=== PATIENT | male | born 1970 | race Caucasian/White ===

== ENCOUNTER 2018-04-08 01:34 | Emergency (ER) | payer MEDICAID, OTHER, SELFPAY ==
[~2018-04-08] VITALS: Ht 175.3 cm; Wt 97.7 kg
[2018-04-08 01:34] VITALS: BP 132/78
[~2018-04-08 01:34] MED LIST: IBUP80TA PO; LIDO1DIS2 TD; LYRI150C PO; META800T82 PO; VERA120T2 PO; VICO5TAB16 PO
[2018-04-08] MEDS ORDERED: ACETAMINOPHEN TAB 650MG DOSE (2X325MG) PO ONE (02:45)
--- NOTE | 2018-04-08 08:25 | REP ---
Clinical: Trauma . Comparison: None Note: Originally reported to the ER by preliminary teleradiology ([facility]) report . Findings: The ventricles, sulci, and cisterns are normal in position and appearance. Herrera-white differentiation is maintained. No acute intracranial hemorrhage, mass/mass effect, pathology or trauma/injury. No evidence for acute infarction. No extra-axial fluid collection. Calvarium is intact. Paranasal sinuses and mastoid air cells are clear. Impression: Normal noncontrast head CT. No evidence for acute intracranial pathology or trauma/injury. Electronically Signed by Byron Trivedi MD 04/08/2018 08:16 A
--- NOTE | 2018-04-08 08:26 | REP ---
Clinical: Trauma. Note: Originally reported to the ER by preliminary teleradiology ([facility]) report . Technique: Axial noncontrast images from the skull base to the thoracic inlet with coronal and sagittal re-formations Findings: Normal alignment and lordosis is maintained. Cervical vertebral bodies including transverse processes and spinous processes are intact and there is no evidence for acute fracture / compression injury or subluxation. Spinal canal is patent. Posterior elements are intact. Paravertebral soft tissues are normal. Impression: Normal noncontrast cervical spine CT. No evidence for acute pathology or trauma/injury. Electronically Signed by Byron Trivedi MD 04/08/2018 08:17 A
--- NOTE | 2018-04-08 08:28 | REP ---
Clinical: Trauma. Fall. Technique: Axial noncontrast images from T12 through mid sacrum with coronal and sagittal re-formations. Note: Originally reported to the ER by preliminary teleradiology ([facility]) report . Findings: Advanced degenerative disc osteophyte complex at the L5-S1 level including anterior and posterior osteophytes, endplate sclerosis, disc space narrowing, and hypertrophic facet changes. Associated right-sided neural foraminal narrowing at L5-S1 is suggested. Moderate multilevel degenerative changes noted throughout the remainder of the examination. Alignment and lordosis maintained. No acute fracture / compression injury or subluxation. Spinal canal is patent. Posterior elements and spinous processes are intact. Paravertebral soft tissues are normal. Impression: Multilevel spondylosis. No acute fracture / compression injury or subluxation. Electronically Signed by Byron Trivedi MD 04/08/2018 08:19 A
--- NOTE | 2018-04-08 08:30 | REP ---
Clinical: Trauma. Technique: Axial images from C6 through L1 with coronal and sagittal re-formations. Findings: Alignment and kyphosis maintained. No acute fracture / compression injury or subluxation. Moderate degenerative disc osteophyte complexes at the T5-T10 levels include osteophytosis with minimal disc space narrowing with mild neural foraminal narrowing at T8-9 and T9-10. Spinal canal is patent. Impression: Moderate degenerative changes. No acute fracture / compression injury or subluxation. Electronically Signed by Byron Trivedi MD 04/08/2018 08:22 A
== END 2018-04-08 05:21 | disposition home or self-care (01) ==
LOC: M ED 01:34
DX: S00.93XA Contusion of unspecified part of head, initial encounter (principal); S39.012A Strain of muscle, fascia and tendon of lower back, initial encounter; Y00.XXXA Assault by blunt object, initial encounter; Y92.511 Restaurant or cafe as the place of occurrence of the external cause; I10 Essential (primary) hypertension

== ENCOUNTER → 2018-07-23 | Outpatient (REF) | payer OTHER, MEDICAID ==
[2018-07-23 14:02] LABS: ALBUMIN 4.2 GM/DL (3.2-5.2); ALT/SGPT 68 U/L (12-78); BILIRUBIN,TOTAL 0.7 MG/DL (0.2-1.0); BLOOD UREA NITROGEN 12 MG/DL (7-18); CALCIUM LEVEL 9.3 MG/DL (8.5-10.1); CARBON DIOXIDE LEVEL 25 MEQ/L (21-32); CHLORIDE LEVEL 106 MEQ/L (98-107); CHOLESTEROL LEVEL 232 MG/DL (<200); CHOLESTEROL RISK RATIO 3.741 (<5); CREATININE FOR GFR 0.89 MG/DL (0.70-1.30); FREE T4 1.09 NG/DL (0.76-1.46); GLOMERULAR FILTRATION RATE > 60.0 (>60); GLUCOSE, FASTING 95 MG/DL (70-100); HDL CHOLESTEROL 62 MG/DL (>40); LDL CHOLESTEROL 124 MG/DL (<100); NON-HDL-C 170 MG/DL; POTASSIUM SERUM 4.1 MEQ/L (3.5-5.1); SODIUM LEVEL 140 MEQ/L (136-145); TOTAL 25(OH) VITAMIN D 9.6 NG/ML (30.0-100.0); TOTAL PROTEIN 8.6 GM/DL (6.4-8.2); TRIGLYCERIDES LEVEL 232 MG/DL (<150)
[2018-07-25 00:07] LABS: Lyme Disease IgG/IgM Antibodie <0.91 ISR (0.00-0.90); Lyme Disease IgM Ab Quantitati <0.80 index (0.00-0.79)
== END ==
LOC: M LAB REF 12:38
PROVIDERS: ATTEND Family Medicine
DX: Z13.228 Encounter for screening for other metabolic disorders (principal); M25.561 Pain in right knee; R53.81 Other malaise

== ENCOUNTER → 2018-09-14 | Outpatient (REF) | payer OTHER ==
[2018-09-14 14:26] LABS: BASO # 0.1 10^3/uL (0.0-0.2); EOS # 0.1 10^3/uL (0.0-0.50); EOS % 1.4 % (0.0-3.0); HEMATOCRIT 43.3 % (42.0-52.0); HEMOGLOBIN 14.8 g/dl (13.5-17.5); LYMPH # 2.4 10^3/uL (1.5-4.5); LYMPH % 34.3 % (24.0-44.0); MEAN CORPUSCULAR HEMOGLOBIN 33.1 pg (27.0-33.0); MEAN CORPUSCULAR HGB CONC 34.2 g/dl (32.0-36.5); MEAN CORPUSCULAR VOLUME 96.9 fl (80.0-96.0); MONO # 0.6 10^3/uL (0.0-0.8); NEUTROPHILS # 3.8 10^3/uL (1.8-7.7); NEUTROPHILS % 53.6 % (36.0-66.0); PLATELET COUNT, AUTOMATED 233 10^3/uL (150-450); RED BLOOD COUNT 4.47 10^6/uL (4.30-6.10); WHITE BLOOD COUNT 7.1 10^3/uL (4.0-10.0)
[2018-09-14 14:51] LABS: HEMOGLOBIN A1c 5.8 %
[2018-09-14 15:05] LABS: ALBUMIN 3.9 GM/DL (3.2-5.2); ALT/SGPT 240 U/L (12-78); BILIRUBIN,TOTAL 0.5 MG/DL (0.2-1.0); BLOOD UREA NITROGEN 16 MG/DL (7-18); CALCIUM LEVEL 8.5 MG/DL (8.5-10.1); CARBON DIOXIDE LEVEL 24 MEQ/L (21-32); CHLORIDE LEVEL 106 MEQ/L (98-107); CHOLESTEROL LEVEL 212 MG/DL (<200); CHOLESTEROL RISK RATIO 3.212 (<5); CREATININE FOR GFR 0.82 MG/DL (0.70-1.30); FREE T4 1.08 NG/DL (0.76-1.46); GLOMERULAR FILTRATION RATE > 60.0 (>60); GLUCOSE, FASTING 95 MG/DL (70-100); HDL CHOLESTEROL 66 MG/DL (>40); LDL CHOLESTEROL 115 MG/DL (<100); NON-HDL-C 146 MG/DL; POTASSIUM SERUM 4.1 MEQ/L (3.5-5.1); SODIUM LEVEL 137 MEQ/L (136-145); TOTAL 25(OH) VITAMIN D 14.1 NG/ML (30.0-100.0); TOTAL PROTEIN 7.9 GM/DL (6.4-8.2); TRIGLYCERIDES LEVEL 153 MG/DL (<150)
[2018-09-16 00:06] LABS: Lyme Disease IgG/IgM Antibodie <0.91 ISR (0.00-0.90); Lyme Disease IgM Ab Quantitati <0.80 index (0.00-0.79)
== END ==
LOC: M LAB REF 13:13
PROVIDERS: ATTEND Family Medicine
DX: Z13.228 Encounter for screening for other metabolic disorders (principal); E78.5 Hyperlipidemia, unspecified; I10 Essential (primary) hypertension

== ENCOUNTER → 2018-10-04 | Outpatient (CLI) | payer OTHER ==
--- NOTE | 2018-10-04 17:22 | REP ---
MR CERVICAL SPINE WITHOUT CONTRAST: HISTORY: Back pain. COMPARISON: CT 04/08/2018 A disc bulge is present at the C4-5 level. There is mild effacement of the thecal sac without spinal cord compression. The C4 neural foramina are patent. A disc bulge is present at the C6-7 level. There is minimal effacement of the thecal sac without spinal cord compression. The C6 neural foramina are patent. There is no other disc bulge or herniation. The remaining neural foramina are patent. The spinal cord is normal in signal intensity. Normal signal intensity is present in the cervical vertebral bodies. IMPRESSION: There is cervical spondylosis at the C4-5 and C6-7 levels without spinal cord compression. Electronically Signed by Uriah Bell MD 10/05/2018 07:43 A
--- NOTE | 2018-10-04 17:28 | REP ---
MR THORACIC SPINE WITHOUT CONTRAST: HISTORY: Back pain. A small central disc protrusion is present at the T7-8 level. There is minimal effacement of the thecal sac without spinal cord compression. The T7 neural foramina are patent. A small right paracentral disc protrusion is present at the T9-10 level. There is minimal effacement of the thecal sac without spinal cord compression. The T9 neural foramina are patent. There is no other disc bulge or herniation. The remaining neural foramina are patent. A small focus of increased signal intensity is present in the spinal cord at the T10 level. This likely represents a focus of myelomalacia. A hemangioma is present in the T11 vertebral body. Normal signal intensity in the remaining thoracic vertebral bodies. IMPRESSION: 1. Small disc protrusions at the T7-8 and T9-10 levels without spinal cord compression. 2. There is a small focus is increased signal intensity in the spinal cord at the T10 level consistent with myelomalacia. Electronically Signed by Uriah Bell MD 10/05/2018 07:43 A
== END ==
LOC: M RAD 15:02
PROVIDERS: ATTEND Family Medicine
DX: M47.892 Other spondylosis, cervical region (principal); M51.24 Other intervertebral disc displacement, thoracic region; M50.221 Other cervical disc displacement at C4-C5 level; M50.222 Other cervical disc displacement at C5-C6 level

== ENCOUNTER 2018-10-22 13:22 | Emergency (ER) | payer OTHER ==
[~2018-10-22] VITALS: Ht 172.7 cm; Wt 100.0 kg
[2018-10-22] MEDS ORDERED: KETOROLAC 30 MG/ML VIAL (J1885) IM ONE (17:00)
[2018-10-22] MEDS ORDERED: CYCLOBENZAPRINE 10 MG TAB PO ONE (17:00)
[2018-10-22] MEDS ORDERED: KETOROLAC 30 MG/ML VIAL (J1885) IV ONE (18:45)
[2018-10-22 18:53] LABS: BASO % 0.4 % (0.0-1.0); EOS # 0.1 10^3/uL (0.0-0.50); EOS % 0.9 % (0.0-3.0); HEMATOCRIT 43.8 % (42.0-52.0); HEMOGLOBIN 15.5 g/dl (13.5-17.5); LYMPH # 3.8 10^3/uL (1.5-4.5); LYMPH % 41.1 % (24.0-44.0); MEAN CORPUSCULAR HEMOGLOBIN 32.4 pg (27.0-33.0); MEAN CORPUSCULAR HGB CONC 35.4 g/dl (32.0-36.5); MEAN CORPUSCULAR VOLUME 91.4 fl (80.0-96.0); MONO # 0.6 10^3/uL (0.0-0.8); NEUTROPHILS # 4.8 10^3/uL (1.8-7.7); NEUTROPHILS % 51.4 % (36.0-66.0); PLATELET COUNT, AUTOMATED 232 10^3/uL (150-450); RED BLOOD COUNT 4.79 10^6/uL (4.30-6.10); WHITE BLOOD COUNT 9.3 10^3/uL (4.0-10.0)
[2018-10-22 19:15] LABS: BLOOD UREA NITROGEN 20 MG/DL (7-18); CALCIUM LEVEL 8.8 MG/DL (8.5-10.1); CARBON DIOXIDE LEVEL 24 MEQ/L (21-32); CHLORIDE LEVEL 106 MEQ/L (98-107); CK-MB VALUE MASS 3.8 NG/ML (<3.6); CPK CREATINE PHOSPHOKINASE 315 U/L (39-308); GLOMERULAR FILTRATION RATE > 60.0 (>60); GLUCOSE, FASTING 95 MG/DL (70-100); MB/CK RELATIVE INDEX 1.21 (< OR =4); POTASSIUM SERUM 3.7 MEQ/L (3.5-5.1); SODIUM LEVEL 139 MEQ/L (136-145); TROPONIN I < 0.02 NG/ML (< 0.10)
--- NOTE | 2018-10-22 19:29 | REP ---
Chest x-ray: Two views: History: Abdomen pain. Findings: The lungs are well inflated and clear. The pleural angles are sharp. Heart size is normal. There are degenerative changes in the thoracic spine. Pulmonary vasculature is not increased. Impression: No active disease. Electronically Signed by Rohit Whittaker MD 10/22/2018 07:45 P
[2018-10-22] MEDS ORDERED: NS 1,000 ML IV ONE (19:30)
[2018-10-22] MEDS ORDERED: ACETAMINOPHEN TAB 650MG DOSE (2X325MG) PO ONE (22:15)
[2018-10-22 22:21] LABS: CPK CREATINE PHOSPHOKINASE 263 U/L (39-308); MB/CK RELATIVE INDEX 1.14 (< OR =4); TROPONIN I < 0.02 NG/ML (< 0.10)
[2018-10-22] MEDS ORDERED: LISINOPRIL 20 MG TAB PO ONE (23:30)
[2018-10-22 23:36] VITALS: BP 162/98
[2018-10-23] MEDS ORDERED: AMLO10TA PO (00:58)
[2018-10-23 01:13] VITALS: BP 137/77
[2018-10-23] MEDS ORDERED: amLODIPine 10 MG TAB PO ONE (01:15)
--- NOTE | 2018-10-23 08:10 | ECGEPIP ---
[facility] - ED Test Date: 2018-10-22 Pat Name: GIULIA THOMPSON Department: Room: - Gender: Male Mri Specialist: : 1970 Requested By: SADIA Velazco PA-C Order Number: [id number] Reading MD: Rob Pearl Measurements Intervals [place] Rate: 102 P: 46 MD: 143 QRS: QRSD: 102 T: 30 QT: 361 QTc: 472 Interpretive Statements SINUS TACHYCARDIA INFERIOR MYOCARDIAL INFARCTION, PROBABLY OLD NO PRIORS FOR COMPARISON Electronically Signed on 10-23-2018 8:09:59 EDT by Rob Pearl
== END 2018-10-23 01:20 | disposition home or self-care (01) ==
LOC: M ED 13:22
DX: M50.20 Other cervical disc displacement, unspecified cervical region (principal); M51.24 Other intervertebral disc displacement, thoracic region; E86.0 Dehydration; E11.9 Type 2 diabetes mellitus without complications; I10 Essential (primary) hypertension; Z79.899 Other long term (current) drug therapy
CPT/HCPCS: 36415; 71046; 80047; 80048; 81001; 82550; 82553; 85025; 93005; 96361; 96374; 99284; J1885

== ENCOUNTER → 2018-12-08 | Outpatient (CLI) | payer OTHER ==
[~2018-12-08] MED LIST changes: +AMLO10TA PO
[2018-12-08 12:32] LABS: HEMATOCRIT 43.6 % (42.0-52.0); HEMOGLOBIN 15.4 g/dl (13.5-17.5); MEAN CORPUSCULAR HEMOGLOBIN 31.8 pg (27.0-33.0); MEAN CORPUSCULAR HGB CONC 35.3 g/dl (32.0-36.5); MEAN CORPUSCULAR VOLUME 89.9 fl (80.0-96.0); PLATELET COUNT, AUTOMATED 380 10^3/uL (150-450); RED BLOOD COUNT 4.85 10^6/uL (4.30-6.10); WHITE BLOOD COUNT 12.1 10^3/uL (4.0-10.0)
[2018-12-08 13:14] LABS: ALBUMIN 3.9 GM/DL (3.2-5.2); ALT/SGPT 191 U/L (12-78); BILIRUBIN,TOTAL 0.5 MG/DL (0.2-1.0); BLOOD UREA NITROGEN 23 MG/DL (7-18); CALCIUM LEVEL 9.9 MG/DL (8.5-10.1); CARBON DIOXIDE LEVEL 27 MEQ/L (21-32); CHLORIDE LEVEL 99 MEQ/L (98-107); CHOLESTEROL LEVEL 230 MG/DL (<200); CHOLESTEROL RISK RATIO 6.388 (<5); GLOMERULAR FILTRATION RATE 38.3 (>60); GLUCOSE, FASTING 127 MG/DL (70-100); HDL CHOLESTEROL 36 MG/DL (>40); NON-HDL-C 194 MG/DL; PROSTATIC SPECIFIC AG MONITOR 1.45 NG/ML (< 4.00); SODIUM LEVEL 135 MEQ/L (136-145); TOTAL PROTEIN 8.4 GM/DL (6.4-8.2); TRIGLYCERIDES LEVEL 507 MG/DL (<150)
[2018-12-08 13:30] LABS: HEMOGLOBIN A1c 6.9 %
[2018-12-10 09:48] LABS: TESTOSTERONE 122 NG/DL (241-827)
== END ==
LOC: M LAB 11:44
PROVIDERS: ATTEND Family Medicine
DX: E03.9 Hypothyroidism, unspecified (principal); I10 Essential (primary) hypertension; E11.9 Type 2 diabetes mellitus without complications

== ENCOUNTER → 2019-06-19 | Outpatient (CLI) | payer OTHER ==
[~2019-06-19] MED LIST changes: +AMLO10TA5 PO; +CYCL10TA PO; +FLUTISP NARES; +LEVO50TA5 PO; -LIDO1DIS2 TD; +LIDO1DIS2 TOP; +LIDO5TD TOP; +LISI40TA PO; +METF500T13 PO; +MOBI4TAB PO; +OMEP-221 PO; +OXYC-517 PO; +PATIENT COMMENTS; +TRUL0.5I SC; +ZETI10TA16 PO
[2019-06-19 11:11] LABS: ALBUMIN 3.6 GM/DL (3.2-5.2); ALT/SGPT 119 U/L (12-78); BILIRUBIN,TOTAL 0.4 MG/DL (0.2-1.0); BLOOD UREA NITROGEN 13 MG/DL (7-18); CALCIUM LEVEL 9.2 MG/DL (8.5-10.1); CARBON DIOXIDE LEVEL 26 MEQ/L (21-32); CHLORIDE LEVEL 101 MEQ/L (98-107); CHOLESTEROL LEVEL 174 MG/DL (<200); CREATININE FOR GFR 0.88 MG/DL (0.70-1.30); GLOMERULAR FILTRATION RATE > 60.0 (>60); GLUCOSE, FASTING 187 MG/DL (70-100); HDL CHOLESTEROL 29 MG/DL (>40); LDL CHOLESTEROL 97 MG/DL (<100); NON-HDL-C 145 MG/DL; POTASSIUM SERUM 4.4 MEQ/L (3.5-5.1); SODIUM LEVEL 134 MEQ/L (136-145); TOTAL PROTEIN 8.4 GM/DL (6.4-8.2); TRIGLYCERIDES LEVEL 238 MG/DL (<150)
== END ==
LOC: M LAB 08:54
PROVIDERS: ATTEND Nurse Practitioner Family
DX: E11.65 Type 2 diabetes mellitus with hyperglycemia (principal)

== ENCOUNTER → 2019-06-20 | Outpatient (REF) | payer OTHER ==
[2019-06-20 11:24] LABS: MALB URINE SIEMENS 26.9 MG/L; MAU/CREAT RATIO 20.3 MCG/MG (0.0-30.0)
== END ==
LOC: M LAB REF 10:12
PROVIDERS: ATTEND Nurse Practitioner Family
DX: E11.65 Type 2 diabetes mellitus with hyperglycemia (principal)

== ENCOUNTER 2019-06-21 20:00 | Inpatient (IN) | payer OTHER ==
[~2019-06-21] VITALS: Ht 172.7 cm; Wt 104.4 kg
[~2019-06-21 20:00] MED LIST changes: -AMLO10TA5 PO; -CYCL10TA PO; -FLUTISP NARES; -LEVO50TA5 PO; -LIDO5TD TOP; -LISI40TA PO; -METF500T13 PO; -MOBI4TAB PO; -OMEP-221 PO; -OXYC-517 PO; -PATIENT COMMENTS; -TRUL0.5I SC; -ZETI10TA16 PO
[2019-06-21] MEDS ORDERED: PROPOFOL 1,000 MG/100 ML VIAL As Ordered ONE (20:05)
[2019-06-21] MEDS ORDERED: MIDAZOLAM INJ 5 MG/ML VIAL (J2250) As Ordered ONE ×2 (20:06→20:55)
[2019-06-21 20:16] LABS: HEMATOCRIT 46.5 % (42.0-52.0); HEMOGLOBIN 14.2 g/dl (13.5-17.5); MEAN CORPUSCULAR HEMOGLOBIN 29.9 pg (27.0-33.0); MEAN CORPUSCULAR HGB CONC 30.5 g/dl (32.0-36.5); MEAN CORPUSCULAR VOLUME 97.9 fl (80.0-96.0); PLATELET COUNT, AUTOMATED 362 10^3/uL (150-450); RED BLOOD COUNT 4.75 10^6/uL (4.30-6.10)
[2019-06-21 20:18] LABS: WHITE BLOOD COUNT 24.4 10^3/uL (4.0-10.0)
[2019-06-21] MEDS ORDERED: ISOVUE-370 76% 100ML VIAL (Q9967) As Ordered ONE (20:19)
[2019-06-21 20:34] LABS: ATYPICAL LYMPH 11 % (0-5); BASOPHILS 1 % (0-1); EOSINOPHILS 3 % (0-3); LYMPHOCYTES 46 % (16-44); MONOCYTES 9 % (0-5); NEUTROPHILS 30 % (28-66)
[2019-06-21 20:35] LABS: PLATELET ESTIMATE NORMAL (NORMAL); POLYCHROMASIA 1+
[2019-06-21 20:36] LABS: ANISOCYTOSIS 1+
[2019-06-21 20:45] LABS: ALBUMIN 3.7 GM/DL (3.2-5.2); ALT/SGPT 206 U/L (12-78); BILIRUBIN,DIRECT 0.1 MG/DL (0.0-0.2); BILIRUBIN,TOTAL 0.3 MG/DL (0.2-1.0); BLOOD UREA NITROGEN 19 MG/DL (7-18); CALCIUM LEVEL 8.5 MG/DL (8.5-10.1); CARBON DIOXIDE LEVEL 29 MEQ/L (21-32); CHLORIDE LEVEL 98 MEQ/L (98-107); CK-MB VALUE MASS 6.5 NG/ML (<3.6); CPK CREATINE PHOSPHOKINASE 467 U/L (39-308); CREATININE FOR GFR 1.38 MG/DL (0.70-1.30); GLOMERULAR FILTRATION RATE 58.5 (>60); GLUCOSE, FASTING 367 MG/DL (70-100); MAGNESIUM LEVEL 2.2 MG/DL (1.8-2.4); MB/CK RELATIVE INDEX 1.39 (< OR =4); PHOSPHORUS LEVEL 8.2 MG/DL (2.5-4.9); POTASSIUM SERUM 4.1 MEQ/L (3.5-5.1); SODIUM LEVEL 136 MEQ/L (136-145); TOTAL PROTEIN 8.6 GM/DL (6.4-8.2); TROPONIN I < 0.02 NG/ML (< 0.10)
[2019-06-21] MEDS ORDERED: ETOMIDATE INJ 20MG/10ML VIAL IV STA (20:56)
[2019-06-21] MEDS ORDERED: SUCCINYLCHOLINE INJ 200 MG/10 ML VIAL (J0330) IV STA (20:56)
--- NOTE | 2019-06-21 20:58 | REPVR ---
PROCEDURE INFORMATION: Exam: CT Cervical Spine Without Contrast Exam date and time: 06/21/2019 8:24 PM Age: 48 years old Clinical indication: Condition or disease; Other: Resp arrest TECHNIQUE: Imaging protocol: Computed tomography images of the cervical spine without contrast. Radiation optimization: All CT scans at this facility use at least one of these dose optimization techniques: automated exposure control; mA and/or kV adjustment per patient size (includes targeted exams where dose is matched to clinical indication); or iterative reconstruction. COMPARISON: CT Spine,cervical w/o contrast 04/08/2018 2:40 AM FINDINGS: Tubes, catheters and devices: ET tube in position. Vertebrae: No acute fracture or subluxation. Discs/Spinal canal/Neural foramina: Mild interspace narrowing from C5-C7 with minimal anterior spurring at C4-C5. Minimal multilevel degenerative changes of the apophyseal joints and minimal hypertrophic change of uncovertebral joints at C5-C6, particularly on the right with mild right neural foraminal stenosis. No significant spinal or foraminal stenosis. Soft tissues: Unremarkable. Lungs: Biapical interstitial prominence and scar and question of minimal infiltrates. IMPRESSION: 1. ET tube in position. 2. Multilevel degenerative changes, greatest at C5-C6 with mild right neural foraminal stenosis at this level. Otherwise, no spinal or foraminal stenosis. 3. No acute fracture or subluxation. 4. Biapical interstitial coarsening and scar with question of minimal ground-glass infiltrates. Electronically signed by: Trevon Felix On 06/21/2019 20:57:55 PM
[2019-06-21] MEDS ORDERED: MIDAZOLAM INJ 2 MG/2 ML VIAL (J2250) IV ONE (21:00)
[2019-06-21] MEDS ORDERED: MIDAZOLAM HCL 50 MG in D5W 40 ML IV SCH (21:00)
[2019-06-21] MEDS ORDERED: propofoL 1,000 MG in IV 1 EA IV SCH (21:00)
--- NOTE | 2019-06-21 21:03 | REPVR ---
PROCEDURE INFORMATION: Exam: CT Angiography Chest With Contrast Exam date and time: 06/21/2019 8:24 PM Age: 48 years old Clinical indication: Other: Resp arrest TECHNIQUE: Imaging protocol: Computed tomographic angiography of the chest with intravenous contrast. 3D rendering: MIP and/or 3D reconstructed images were created by the technologist. Radiation optimization: All CT scans at this facility use at least one of these dose optimization techniques: automated exposure control; mA and/or kV adjustment per patient size (includes targeted exams where dose is matched to clinical indication); or iterative reconstruction. Contrast material: ISOVUE 370; Contrast volume: 100 ml; Contrast route: IV; COMPARISON: CR Chest, 2 view PA, Lat 10/22/2018 5:11 PM FINDINGS: Tubes, catheters and devices: ET tube in position approximately 6 mm above the andrae. Pulmonary arteries: The main pulmonary artery measures 29 mm. No central pulmonary embolism is identified. Aorta: The ascending thoracic aorta measures 28 mm. Lungs: Coarse interstitium with minimal bilateral lower lobe fibro-atelectatic change and question of minimal patchy infiltrates. Pleural space: Unremarkable. No pneumothorax. No pleural effusion. Heart: Unremarkable. No cardiomegaly. No pericardial effusion. Liver: The liver at mid clavicular line measures 16.2 cm. The liver attenuation is 49 Hounsfield units and the spleen is 91 Hounsfield units. Lymph nodes: Unremarkable. No enlarged lymph nodes. Bones/joints: Unremarkable. No acute fracture. Soft tissues: Unremarkable. IMPRESSION: 1. ET tube in position with the tip approximately 6 mm above the andrae. 2. Coarse interstitium with minimal bilateral fibro-atelectatic change, greatest in the lower lobes and question of minimal patchy infiltrates. 3. Borderline hepatomegaly with fatty infiltration. 4. Otherwise negative CTA chest. No central pulmonary embolism is identified. Electronically signed by: Trevon Felix On 06/21/2019 21:03:21 PM
--- NOTE | 2019-06-21 21:08 | REPVR ---
PROCEDURE INFORMATION: Exam: CT Head Without Contrast Exam date and time: 06/21/2019 8:24 PM Age: 48 years old Clinical indication: Other: Resp arrest TECHNIQUE: Imaging protocol: Computed tomography of the head without contrast. Radiation optimization: All CT scans at this facility use at least one of these dose optimization techniques: automated exposure control; mA and/or kV adjustment per patient size (includes targeted exams where dose is matched to clinical indication); or iterative reconstruction. COMPARISON: CT Head without contrast 04/08/2018 2:40 AM FINDINGS: Brain: Normal. No hemorrhage. Unremarkable white matter. No mass effect. Ventricles: Normal. No ventriculomegaly. Bones/joints: Unremarkable. No acute fracture. Sinuses: Minimal ethmoid sinus mucosal thickening. Mastoid air cells: Visualized mastoid air cells are well aerated. Soft tissues: Unremarkable. IMPRESSION: 1. Minimal ethmoid sinus disease. 2. Otherwise negative noncontrast head CT with no change intracranially since 04/08/2018. Electronically signed by: Trevon Felix On 06/21/2019 21:08:34 PM
[2019-06-21] MEDS ORDERED: AMLO10TA5 PO (21:11)
[2019-06-21] MEDS ORDERED: IBUP80TA PO (21:12)
[2019-06-21] MEDS ORDERED: LIDO5TD TOP (21:12)
--- NOTE | 2019-06-21 21:14 | REPVR ---
PROCEDURE INFORMATION: Exam: CT Angiography Abdomen and Pelvis With Contrast Exam date and time: 06/21/2019 8:24 PM Age: 48 years old Clinical indication: Other: Resp arrest TECHNIQUE: Imaging protocol: Computed tomographic angiography of the abdomen and pelvis with intravenous contrast material. 3D rendering: MIP and/or 3D reconstructed images were created by the technologist. Radiation optimization: All CT scans at this facility use at least one of these dose optimization techniques: automated exposure control; mA and/or kV adjustment per patient size (includes targeted exams where dose is matched to clinical indication); or iterative reconstruction. Contrast material: ISOVUE 370; Contrast volume: 100 ml; Contrast route: IV; COMPARISON: No relevant prior studies available. FINDINGS: Lungs: Minimal bilateral lower lobe fibro-atelectatic change and question of minimal basilar infiltrates. Aorta: There is minimal atherosclerotic calcification of the abdominal aorta. Celiac trunk and mesenteric arteries: No occlusion or significant stenosis. Renal arteries: No occlusion or significant stenosis. Right iliac arteries: No occlusion or significant stenosis. Left iliac arteries: No occlusion or significant stenosis. Liver: The liver at mid clavicular line measures 17.0 cm. The liver attenuation is 51 Hounsfield units and the spleen is 90 Hounsfield units. Gallbladder and bile ducts: Unremarkable. No calcified stones. No ductal dilation. Pancreas: Unremarkable. No mass. No ductal dilation. Spleen: Unremarkable. No splenomegaly. Adrenals: Unremarkable. No mass. Kidneys and ureters: Unremarkable. No solid mass. No hydronephrosis. Stomach and bowel: There is colonic diverticulosis without evidence of diverticulitis. Appendix: A normal appendix is seen. Intraperitoneal space: Unremarkable. No free air. No significant fluid collection. Lymph nodes: Unremarkable. No enlarged lymph nodes. Bladder: Unremarkable. No mass. Reproductive: Small peripherally calcified focus of fat necrosis between the proximal vas deferens. Bones/joints: Degenerative change of the lumbar spine, greatest at L5-S1. Soft tissues: Unremarkable. IMPRESSION: 1. Mild hepatomegaly with fatty infiltration. 2. Minimal bilateral lower lobe fibro-atelectatic change and question of minimal infiltrates. 3. Colonic diverticulosis without diverticulitis. 4. Otherwise negative CT abdomen/pelvis. Electronically signed by: Trevon Felix On 06/21/2019 21:13:46 PM
[2019-06-21] MEDS ORDERED: CYCL10TA PO (21:17)
[2019-06-21] MEDS ORDERED: MOBI4TAB PO (21:17)
[2019-06-21] MEDS ORDERED: TRUL0.5I SC (21:17)
[2019-06-21] MEDS ORDERED: FLUTISP NARES (21:17)
[2019-06-21] MEDS ORDERED: LEVO50TA5 PO (21:17)
[2019-06-21] MEDS ORDERED: OXYC-517 PO (21:17)
[2019-06-21] MEDS ORDERED: LISI40TA PO (21:17)
[2019-06-21] MEDS ORDERED: PATIENT COMMENTS (21:20)
[2019-06-21] MEDS ORDERED: NS IV ONE (21:30)
[2019-06-21 21:45] LABS: ACETAMINOPHEN LEVEL < 2.0 UG/ML (10.0-30.0); ETHYL ALCOHOL (ETHANOL) < 0.003 % (0.000-0.010); SALICYLATE LEVEL < 1.7 MG/DL (5.0-30.0)
--- NOTE | 2019-06-21 21:45 | REP ---
Clinical: Endotracheal tube. Comparison: 10/22/2018. Findings: Endotracheal tube extends to the level of the andrae. Mediastinum and cardiac silhouette are within normal limits. Further evaluation is limited due to positioning, underpenetration, and poor inspiratory effort. No obvious focal consolidation, effusion, or pneumothorax. Skeletal structures intact. Impression: Endotracheal tube at the level of the andrae. Electronically Signed by Byron Trivedi MD 06/21/2019 09:36 P
[2019-06-21] MEDS ORDERED: OMEP-221 PO (21:49)
[2019-06-21] MEDS ORDERED: ZETI10TA16 PO (21:49)
[2019-06-21] MEDS ORDERED: METF500T13 PO (21:49)
--- NOTE | 2019-06-21 21:53 | REP ---
Clinical: Line and tube positioning. Findings: Endotracheal tube approximately 1 cm above the andrae. The nasogastric tube courses below left hemidiaphragm. Cardiac silhouette is within normal limits / stable. The respiratory effort limits evaluation, but atelectasis at the left base and right mid lung zone cannot be excluded. No effusion. No pneumothorax. Skeletal structures intact. Impression: 1. Endotracheal tube 1 cm above the andrae. 2. Nasogastric tube in satisfactory position. 3. Cannot exclude atelectasis at the left base and right mid lung zone. Electronically Signed by Byron Trivedi MD 06/21/2019 09:45 P
--- NOTE | 2019-06-21 22:13 | ECGEPIP ---
[facility] - ED Test Date: 2019-06-21 Pat Name: GIULIA THOMPSON Department: Room: - Gender: Male Senior Care Assistant: : 1970 Requested By: AMPARO Jones Order Number: [id number] Reading MD: Rob Pearl Measurements Intervals [place] Rate: 114 P: [place]: 0 QRS: -8 QRSD: 92 T: 30 QT: 339 QTc: 467 Interpretive Statements SINUS TACHYCARDIA INFERIOR MYOCARDIAL INFARCTION, PROBABLY OLD SIMILAR TO 10/22/18 Electronically Signed on 06-21-2019 22:13:48 EST by Rob Pearl
[2019-06-21 22:17] LABS: AMPHETAMINES LEVEL URINE NEGATIVE (NEGATIVE); BARBITURATES URINE NEGATIVE (NEGATIVE); BENZODIAZEPINES URINE NEGATIVE (NEGATIVE); CANNABINOIDS URINE NEGATIVE (NEGATIVE); COCAINE METABOLITE URINE NEGATIVE (NEGATIVE); METHADONE URINE NEGATIVE (NEGATIVE); OPIATES URINE POSITIVE (NEGATIVE); PHENCYCLIDINE URINE NEGATIVE (NEGATIVE)
[2019-06-21] MEDS ORDERED: NOREPINEPHRINE BITARTRATE 8 MG in D5W 492 ML IV SCH (22:21)
[2019-06-21] MEDS: NOREPINEPHRINE BITARTRATE 8 MG in D5W 492 ML IV SCH (22:30)
[2019-06-21] MEDS ORDERED: GLUCAGON FOR INJ 1 MG VIAL (J1610) SC PRN (22:45)
[2019-06-21] MEDS ORDERED: GLUCOSE 4 GM CHEW TABLET PO PRN (22:45)
[2019-06-21] MEDS ORDERED: DEXTROSE 50% 50 ML SYRINGE IV PRN (22:45)
[2019-06-21] MEDS ORDERED: methylPREDNISolone INJ 125 MG/2 ML VIAL (J2930) IV SCH (23:00)
[2019-06-21] MEDS: IPRATROPIUM 0.5MG/ALBUTEROL 2.5MG INH SOL UD 3ML (DUONEB)(J7620) NEB SCH (23:26)
[2019-06-22] VITALS (73 sets, daily range): BP systolic 79–127; BP diastolic 43–85; O2SAT 95–99
[2019-06-22] MEDS: PIPERACILLIN/TAZOBACTAM SOD 3.375 GM in D5W MINI-BAG PLUS 50 ML IV SCH ×5 (00:05→22:19)
[2019-06-22] MEDS: HumaLOG INSULIN (NovoLOG) PER UNIT SC SCH ×4 (00:22→17:44)
[2019-06-22] MEDS ORDERED: KCL 10MEQ IN D5/0.45NS 1000ML 1,000 ML IV SCH (00:45)
[2019-06-22 01:56] LABS: ABG BASE EXCESS -8.3 (-2.0-2.0); ABG HCO3 20.6 MEQ/L (22.0-26.0); ABG O2 SATURATION 97.3 % (95.0-99.0); ABG PARTIAL PRESSURE CO2 57.5 mmHg (35.0-45.0); ABG PARTIAL PRESSURE O2 104.2 mmHg (75.0-100.0); ABG STANDARD HCO3 17.8 MEQ/L (22.0-26.0); ABG TOTAL CO2 22.4 MEQ/L (22.0-29.0)
[2019-06-22 02:00] LABS: ABG pH (ARTERIAL) 7.173 UNITS (7.350-7.450)
[2019-06-22] MEDS ORDERED: REFRIGERATOR IV KEYS XX PRN (02:00)
[2019-06-22] MEDS ORDERED: MIDAZOLAM HCL 100 MG in D5W 80 ML IV SCH (02:00)
[2019-06-22] MEDS ORDERED: IPRATROPIUM 0.5MG/ALBUTEROL 2.5MG INH SOL UD 3ML (DUONEB)(J7620) NEB ONE ×2 (02:15)
[2019-06-22] MEDS ORDERED: SODIUM BICARBONATE 8.4% INJ 50 ML SYRINGE IV STA (02:16)
[2019-06-22] MEDS ORDERED: NS 500 ML IV ONE (02:30)
[2019-06-22] MEDS: MIDAZOLAM INJ 2 MG/2 ML VIAL (J2250) IV PRN ×5 (03:16→13:28)
[2019-06-22] MEDS: IPRATROPIUM 0.5MG/ALBUTEROL 2.5MG INH SOL UD 3ML (DUONEB)(J7620) NEB SCH ×5 (03:37→20:34)
[2019-06-22 04:00] LABS: CALCIUM LEVEL 6.5 MG/DL (8.5-10.1); CREATININE FOR GFR 1.57 MG/DL (0.70-1.30); GLOMERULAR FILTRATION RATE 50.4 (>60); POTASSIUM SERUM 5.7 MEQ/L (3.5-5.1)
[2019-06-22] MEDS ORDERED: ALBUTEROL SULFATE 2.5 MG/0.5 ML INH NEB SOLN NEB PRN (04:00)
[2019-06-22] MEDS: MIDAZOLAM HCL 100 MG in D5W 80 ML IV SCH ×3 (04:30→18:00)
[2019-06-22] MEDS ORDERED: PROPOFOL 1,000 MG/100 ML VIAL As Ordered ONE (04:36)
[2019-06-22] MEDS: propofoL 1,000 MG in IV 1 EA IV SCH ×4 (04:48→20:06)
[2019-06-22] MEDS: methylPREDNISolone INJ 125 MG/2 ML VIAL (J2930) IV SCH ×4 (05:02→20:05)
[2019-06-22 05:25] LABS: ABG HCO3 21.7 MEQ/L (22.0-26.0); ABG O2 SATURATION 98.8 % (95.0-99.0); ABG PARTIAL PRESSURE CO2 51.6 mmHg (35.0-45.0); ABG PARTIAL PRESSURE O2 146.4 mmHg (75.0-100.0); ABG STANDARD HCO3 19.6 MEQ/L (22.0-26.0); ABG TOTAL CO2 23.3 MEQ/L (22.0-29.0)
[2019-06-22 05:27] LABS: ABG pH (ARTERIAL) 7.241 UNITS (7.350-7.450)
[2019-06-22] MEDS ORDERED: ACETAMINOPHEN 325 MG/10.15 ML UDC GT PRN (05:30)
[2019-06-22] MEDS: HEPARIN SOD (PORCINE) 5000 UNITS/ML VIAL (J1644 PER 1000UNITS) SC SCH ×3 (05:40→21:07)
[2019-06-22 05:53] LABS: HEMATOCRIT 38.7 % (42.0-52.0); MEAN CORPUSCULAR HEMOGLOBIN 30.2 pg (27.0-33.0); MEAN CORPUSCULAR VOLUME 97.2 fl (80.0-96.0); RED BLOOD COUNT 3.98 10^6/uL (4.30-6.10); WHITE BLOOD COUNT 15.4 10^3/uL (4.0-10.0)
[2019-06-22 05:54] LABS: PLATELET COUNT, AUTOMATED 220 10^3/uL (150-450)
[2019-06-22 06:11] LABS: CK-MB VALUE MASS 3.7 NG/ML (<3.6); MB/CK RELATIVE INDEX 0.86 (< OR =4); TROPONIN I 0.02 NG/ML (< 0.10)
[2019-06-22 06:14] LABS: ALBUMIN 2.8 GM/DL (3.2-5.2); BILIRUBIN,TOTAL 0.6 MG/DL (0.2-1.0); CREATININE FOR GFR 1.79 MG/DL (0.70-1.30); GLOMERULAR FILTRATION RATE 43.4 (>60); POTASSIUM SERUM 5.7 MEQ/L (3.5-5.1); TOTAL PROTEIN 6.6 GM/DL (6.4-8.2)
[2019-06-22 06:54] LABS: LYMPHOCYTES 8 % (16-44); MONOCYTES 4 % (0-5); NEUTROPHILS 78 % (28-66)
[2019-06-22 06:56] LABS: PLATELET CLUMPS SMALL AMT; PLATELET ESTIMATE NORMAL (NORMAL)
[2019-06-22 06:57] LABS: ANISOCYTOSIS 1+
[2019-06-22] MEDS ORDERED: SODIUM CHLORIDE 0.9% 1000ML IV ONE ×2 (08:15→11:45)
--- NOTE | 2019-06-22 08:18 | HPE ---
DATE OF ADMISSION: 06/21/2019 CRITICAL CARE ADMIT NOTE/HISTORY AND PHYSICAL START TIME: 2210 hours STOP TIME: 2249 hours I attended Ernesto Gallagher here in the emergency room. The patient has been examined, his chart was reviewed. I spoke at length with the family as well as Dr. Soriano. In essence, this is a 48-year-old gentleman, lifetime nonsmoker. History of asthma, according to his . He was recently suspected to have severe sleep apnea, but has not been studied yet. He recently had an issue where he was seen in [place] and during that admission was told that he had significant airway dysfunction. His tells me he had pO2s in the 50s, and they were considering oxygen at that point. He has been yet to be evaluated locally or have a sleep study for that. Apparently he was complaining of some type of chest or back pain over the last several days, felt to be after shoveling. He is followed by Dr. Fulton, not known to have cardiac disease. Today, after his got home from work, she said she was conversing with him, and he appeared normal but then started to act somewhat strange, leaned over the back of a chair, leaned to one side, began shaking and then became unresponsive. She said he had vomit in his mouth. She did [id number] resuscitation and cardiopulmonary resuscitation (CPR), called emergency medical services (EMS). On their arrival, he was agonal respirations. He was brought to the emergency room (ER). Still agonal. Intubated by the ER. He was felt to have aspirated. No evidence of fever. No other recent illness at home. He does have one child sick with the flu the tells me. ALLERGIES: Listed as none. MEDICATIONS: According to his were albuterol inhaler, he takes medications for diabetes mellitus and hypercholesterolemia. PAST MEDICAL HISTORY: Significant for diabetes mellitus, asthma by history, hypercholesterolemia, underlying hypertension. SOCIAL HISTORY: Nonsmoker. Lives at home with a supportive family. No alcohol. FAMILY HISTORY: Noncontributory to his current status. REVIEW OF SYSTEMS: As per the history of the present illness; otherwise constitutional, according to the , is negative for any recent fevers, chills, or sweats. HEENT: Unremarkable for double vision or blurry vision. PULMONARY: As per the history of the present illness. CARDIAC: Unremarkable for any known cardiac disease. GASTROINTESTINAL (GI): Unremarkable for any recent nausea or vomiting. GENITOURINARY (): Unremarkable for dysuria or urgency. NEUROLOGIC: Unremarkable for seizures or strokes prior to today. ENDOCRINE: Significant for his diabetes. HEMATOLOGIC: Unremarkable for bruising or bleeding. DERMATOLOGIC: Unremarkable for rashes or psoriasis. MUSCULOSKELETAL: Unremarkable for any chronic issues, but reportedly positive for recent back pain. PSYCHIATRIC: Unremarkable. PHYSICAL EXAMINATION: Currently reveals an ill-appearing gentleman, intubated in the ER. Blood pressure currently 95 after several fluid boluses. Heart rate approximately 100, respiratory rate 22 via the ventilator. He is sedated. HEENT: Shows an oral endotracheal and orogastric tube. Pupils do react. Trachea is in the midline. CHEST: Shows diminished but symmetric expansion. There is some expiratory wheezing bilaterally. Good air exchange. No convincing rhonchus or rub. CARDIAC EXAM: Distant but regular. Peripheral pulses diminished but palpable. No obvious edema. ABDOMEN: Obese, soft, nontender with active bowel sounds. No obvious organomegaly or masses. EXTREMITIES: No cyanosis or clubbing. NEUROLOGIC: Sedate but does move appropriately to noxious stimuli. PSYCHIATRIC EXAM: Shows him to be sedate. Most recent laboratories show a sodium of 136, potassium (K) of 4.1, chloride 98, CO2 of 29, BUN 19, creatinine 1.38, glucose 367. First lactic acid 6.4. AST 254, ALT 206, alkaline phosphatase 117. First CK 467, troponin less than 0.02. TSH somewhat high at 7. White blood cell count 24.4, hemoglobin 14.2, only 30% segs, 46% lymphs with 9% monocytes and 11% atypical lymphs. Urine toxicology screen positive for opiates. First arterial blood gas done at 2119 hours shows a pH of 7.186, pCO2 of 71.1 and a pO2 of 106.6. Urine is cloudy, 3+ protein, 3+ glucose, 1+ blood, negative for leukocyte esterase. Chest x-ray shows poor inspiratory effort. The first one shows the tube to be at the andrae. CAT scan confirms this. Does appear to be early evidence of aspiration. Right diaphragm is high. No pulmonary embolism (PE). CT of the head unremarkable. Repeat chest x-ray after central line placement by the ER shows the line to be in good position. No pneumothorax. IMPRESSION: 1. Unresponsive episode, likely seizure related. 2. Suspect aspiration. 3. Diabetes mellitus with elevated glucose. 4. Positive sepsis protocol due to hypotension and elevated lactate but no fever. 5. History of asthma. 6. Suspected obstructive sleep apnea, according to the family. RECOMMENDATIONS: At this point, we will assure adequate volume resuscitation. We will check CVP. We will repeat a lactate. He is making urine. There are no ischemic changes on his EKG and a repeat is pending. Troponins are negative, and these will be repeated. I have spoken at length with the family regarding his status. He is on a Versed drip. We will monitor him for seizures. There is no evidence of fever, so at this point despite his elevated white count, I do not believe he warrants lumbar puncture, especially since much of his white cells are lymphocytes many of which are actually atypical, fitting more with a viral etiology. He will be on standard sliding scale insulin coverage. We will repeat his lactate as well as his troponins as outlined above. Ulcer and deep vein thrombosis (DVT) prophylaxis are in place. At this point, he remains critically ill. He has a combined respiratory and metabolic acidosis and blood gas will be repeated. He is requiring high levels of PEEP as well as FiO2 fitting not only with his body habitus but with his suspected aspiration. Empiric antimicrobials as well as bronchodilators have been added as well. Given his presentation and his body habitus and his comorbidities, there is a high likelihood of further compromise. We are facilitating transfer to the intensive care unit. I left the bedside at 2249 hours. A minimum of 39 minutes of critical care time was delivered at the bedside, not including procedures.
--- NOTE | 2019-06-22 08:19 | REP ---
Clinical: Hypoxia. Comparison: 06/21/2019 Findings: Endotracheal tube 2.5 cm above the andrae. Nasogastric tube courses below left hemidiaphragm. Mediastinum and cardiac silhouette are unchanged. Scattered atelectasis and small opacity along the subpleural right mid lung zone essentially unchanged. No obvious effusion. No pneumothorax. Skeletal structures stable. Impression: Lines and tubes in satisfactory position. Scattered atelectasis and right lateral opacity unchanged. Electronically Signed by Byron Trivedi MD 06/22/2019 08:11 A
--- NOTE | 2019-06-22 08:20 | REP ---
Clinical: Status post central line placement. Comparison: 06/21/2019. Findings: Left IJ line with tip in the SVC/right atrium. Nasogastric tube courses below left hemidiaphragm. Endotracheal tube 2.5 cm above the andrae. Mediastinum and cardiac silhouette are stable and within normal limits. Scattered atelectasis cannot be excluded. No new acute consolidation, effusion, or pneumothorax. Impression: 1. Lines and tubes in satisfactory position. 2. Stable pleuroparenchymal changes. No new acute process identified. Electronically Signed by Byron Trivedi MD 06/22/2019 08:12 A
--- NOTE | 2019-06-22 08:27 | REP ---
Clinical: Respiratory failure. Comparison: 06/21/2019. Findings: Endotracheal tube approximately 2 cm above the andrae. Nasogastric tube courses below left hemidiaphragm. Left IJ line with tip in the SVC/right atrium. Cardiac silhouette is stable. Increased opacities involving the left mid lung zone consistent with atelectasis. Trace right basilar atelectasis and small right pleural effusion suspected. Impression: 1. Increased opacity in the left mid lung zone and right base suggesting atelectasis and small right pleural effusion. Electronically Signed by Byron Trivdei MD 06/22/2019 08:19 A
--- NOTE | 2019-06-22 09:12 | CCN ---
DATE: 06/22/2019 Start time: 0320 hours Stop time: 0340 hours I again attended Ernesto Gallagher now here in the intensive care unit. Essentially his paralytics have worn off. He has had some intermittent ventilator asynchrony. Repeat laboratories initially showed his blood gas to have a pH of 7.173, pCO2 now down to 57.5 and a pO2 of 104.2. He was treated with intravenous bicarbonate, additional IV fluids. Ventilator adjustments have been made by myself. Currently on exam, he is more comfortable. The expiratory phase is more pronounced as on exam he has very significant wheezing, essentially panexpiratory and in all jarquin. He was able to be weaned from his Levophed. Current mean arterial pressure between 65 and 67. Heart rate approximately 110. He remains afebrile. The most pressing problems requiring my immediate presence at the bedside: 1. Metabolic and respiratory acidosis combined. 2. Hyperglycemia. 3. Bronchospasm. At this point, my suspicion is that his asthma is much more problematic at home than they realize. His only medication for it has been as needed albuterol. His exam currently suggests very significant bronchospasm. In view of this, we will increase his IV steroids. We have increased the frequency of his nebulized bronchodilators. My hope is that we can avoid re-paralyzing him. We are covering his glucoses in view of the increased steroids. Will continue to volume resuscitate him. His lactic acid is improving; it went from 6.4 now down to 2.9. He is making reasonable urine. At this point, will continue as above. I do believe his underlying bronchospasm is driving much of this. Will proceed as outlined above. He remains critically ill. I left the bedside at 0348 hours. An additional 20 minutes of critical care time was delivered not including procedures.
[2019-06-22 09:49] LABS: ABG BASE EXCESS -10.1 (-2.0-2.0); ABG HCO3 16.3 MEQ/L (22.0-26.0); ABG O2 SATURATION 99.4 % (95.0-99.0); ABG PARTIAL PRESSURE CO2 37.4 mmHg (35.0-45.0); ABG PARTIAL PRESSURE O2 151.2 mmHg (75.0-100.0); ABG STANDARD HCO3 16.5 MEQ/L (22.0-26.0); ABG TOTAL CO2 17.4 MEQ/L (22.0-29.0); ABG pH (ARTERIAL) 7.256 UNITS (7.350-7.450)
--- NOTE | 2019-06-22 09:56 | CCN ---
DATE: 06/22/2019 START TIME: 0845 hours STOP TIME: 0921 hours I again attended Ernesto Gallagher. The patient has been examined, the chart reviewed. I spoke at length with the nurse at the bedside, as well as his who is at the bedside. Maximum temperature (T max) 102.7. He did require increased sedation. He is on both Versed and propofol. He did require the re-addition of Levophed. Blood pressure as low as 79, currently in the 90s, as high as 126 systolic. Heart rate between 100 and 120 with a sinus mechanism. Respiratory rate in the mid 20s. Intake and output since arrival 5265 mL in with about 600 mL out. The most recent laboratories show a white blood cell count of 15.4, hemoglobin 12.0, platelet count 220,000, 70% segmented neutrophils, 10% bands. Sodium 139, potassium (K) of 5.7, chloride 107, CO2 of 25, BUN 24, creatinine up to 1.79, glucose 293, lactic acid up to 4.6. AST 194, ALT 165, both of these diminished from yesterday. Blood gas done at 0519 hours: There is a pH of 7.24, pCO2 of 51.6, pO2 of 146.4 on a PRVC rate of 20, tidal volume 480, PEEP of 8, and FiO2 of 80%. Chest x-ray done this morning shows lines and tubes in good position. Basically expiratory film. There is a mid left lung infiltrate, but the right lung looks improved from yesterday. On exam, he is sedate, does move extremities when stimulated. He is mildly diaphoretic. Pupils are reactive. Sclerae clear. Trachea is in the midline. Chest shows diminished but symmetric expansion. There is diffuse almost panexpiratory wheezing. Air exchange mildly improved compared to yesterday. No convincing egophony or rubs. Cardiac exam: Mildly tachycardic, distant but regular. Peripheral pulses are diminished but palpable. No obvious edema. Abdomen is obese, active bowel sounds, generally soft. Difficult as he still has an active expiratory phase for which he uses abdominal musculature. Extremities without cyanosis or clubbing. Neurologically as outlined above. The most pressing problems requiring my immediate presence at the bedside: 1. Combined respiratory and metabolic acidosis. 2. Worsening renal function. 3. Aspiration pneumonia. 4. Asthma with exacerbation. 5. Suspect obstructive sleep apnea syndrome. 6. History of hypertension. I reviewed this at length with the patient's at the bedside. He remains quite critically ill. Improvement in his gas exchange. We have been able to help him somewhat as far as his ventilatory status and his pCO2, but he remains with a metabolic acidosis. Blood glucose control has been reasonable. In view of his diabetes and his worsening renal function, I will likely involve nephrology in his care today. My suspicion is that his respiratory infection is the source of his fever, and it is quite likely that his presentation was on the basis of uncontrolled asthma but certainly must be open to other sources. Blood cultures are negative to date. Sputum culture is pending. He did have elevation of his transaminases on arrival, and for this reason, I will at least get a right upper quadrant ultrasound. He continues on Zosyn. He does have a significant left shift to his white count, although the absolute count is diminished today. He remains on ulcer and deep vein thrombosis (DVT) prophylaxis. Overall, he remains quite critically ill. His prognosis remains guarded. He is a FULL CODE. We will proceed as outlined above. I left the bedside at 0921 hours. An additional 36 minutes of critical care time delivered at the bedside not including procedures.
[2019-06-22] MEDS: CHLORHEXIDINE GLUCONATE 0.12 % 15ML UDC (PERIDEX ORAL RINSE) MT SCH ×2 (10:15→20:05)
[2019-06-22] MEDS: PANTOPRAZOLE 40MG INJ (PROTONIX) (C9113) IV SCH (10:15)
[2019-06-22] MEDS: D5W/0.45% SODIUM CHLORIDE 1,000 ML IV SCH ×3 (10:15→22:07)
[2019-06-22 10:56] LABS: CK-MB VALUE MASS 3.6 NG/ML (<3.6); MB/CK RELATIVE INDEX 0.77 (< OR =4); TROPONIN I 0.02 NG/ML (< 0.10)
--- NOTE | 2019-06-22 11:50 | ECHO ---
DATE OF PROCEDURE: 06/22/2019 REFERRING PHYSICIAN: Dr. Ahmet Moctezuma INDICATION: Chest pain, unspecified. HEIGHT: 68 inches WEIGHT: 120 kg 2D MEASUREMENTS: Aortic annulus: 2.2 cm Aortic root: 2.8 cm Left atrium: 4.1 cm Ventricular septum: 1.08 cm Posterior wall: 1.09 cm Left ventricle diastole: 4.6 cm DOPPLER MEASUREMENTS: No aortic regurgitation. No mitral regurgitation. No tricuspid regurgitation. No pulmonic regurgitation. Mitral E velocity: 89.1 cm/s Mitral A velocity: 54.0 cm/s Mitral deceleration time: 194 ms Aortic valve velocity: 150 cm/s LVOT velocity: 109 cm/s LVOT VTI: 20.2 cm Pulmonary acceleration time: 109 ms MITRAL ANNULAR TISSUE DOPPLER: E prime septal: 6.64 cm/s E prime lateral: 9.09 cm/s DESCRIPTION: Rhythm was sinus rhythm to sinus tachycardia. Image quality was fair. No pericardial effusion. CONCLUSIONS: 1. Normal left ventricle internal dimensions and wall thickness. Normal regional left ventricle (LV) wall motion and wall thickening. Normal LV systolic function. Left ventricular ejection fraction (LVEF) 65-70% by visual estimate. Normal LV diastolic function. 2. No pericardial effusion. 3. Suggestive of very mild elevation of pulmonary artery systolic pressure. 4. Otherwise, normal appearing echocardiogram Doppler findings.
--- NOTE | 2019-06-22 12:16 | REP ---
Clinical: Abnormal liver function tests. Technique: Real time hoffmann scale ultrasound examination using curved array transducer. Findings: Liver is increased echogenicity suggesting fatty infiltration without focal hepatic lesion identified. Visualized portions of the pancreas are unremarkable but limited due to interposed bowel gas. Gallbladder demonstrates wall thickening to 7.5 mm without gallstones. No obvious biliary ductal dilatation is appreciated and the common bile duct measures 7 mm diameter (upper limits of normal). The right kidney is normal in reniform shape without hydronephrosis and measures 11.9 x 4.8 x 5.7 cm. Impression: 1. Hepatic steatosis. 2. Mild/moderate gallbladder wall thickening without gallstones is nonspecific and requires clinical correlation. Electronically Signed by Byron Trivedi MD 06/22/2019 12:08 P
[2019-06-22 16:29] LABS: CALCIUM LEVEL 7.5 MG/DL (8.5-10.1); GLOMERULAR FILTRATION RATE 38.2 (>60); POTASSIUM SERUM 4.7 MEQ/L (3.5-5.1)
--- NOTE | 2019-06-22 16:46 | ECGEPIP ---
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
[2019-06-22] MEDS ORDERED: ETOMIDATE INJ 20MG/10ML VIAL ONE (17:54)
[2019-06-22] MEDS ORDERED: SUCCINYLCHOLINE 100 MG/5 ML SYRINGE (J0330) ONE (17:54)
[2019-06-22 18:12] LABS: ABG BASE EXCESS -6.9 (-2.0-2.0); ABG HCO3 19.1 MEQ/L (22.0-26.0); ABG O2 SATURATION 96.9 % (95.0-99.0); ABG PARTIAL PRESSURE O2 88.3 mmHg (75.0-100.0); ABG STANDARD HCO3 18.8 MEQ/L (22.0-26.0); ABG TOTAL CO2 20.3 MEQ/L (22.0-29.0); ABG pH (ARTERIAL) 7.296 UNITS (7.350-7.450)
[2019-06-22] MEDS: INSULIN HUMAN REGULAR 100 UNITS in NS 99 ML IV SCH (18:45)
[2019-06-22] MEDS: INSULIN IV RATE CHANGE DOCUMENTATION ML/HR XX SCH ×2 (19:52→22:06)
[2019-06-22] MEDS: MORPHINE 2 MG/ML 1ML VIAL (J2270) IV PRN (21:08)
[2019-06-22] MEDS: NOREPINEPHRINE BITARTRATE 8 MG in D5W 492 ML IV SCH (22:12)
[2019-06-23] VITALS (45 sets, daily range): BP systolic 101–152; BP diastolic 52–92; O2SAT 95–97
[2019-06-23] MEDS: IPRATROPIUM 0.5MG/ALBUTEROL 2.5MG INH SOL UD 3ML (DUONEB)(J7620) NEB SCH ×7 (00:16→23:54)
[2019-06-23] MEDS: INSULIN IV RATE CHANGE DOCUMENTATION ML/HR XX SCH ×11 (00:28→23:00)
[2019-06-23] MEDS: propofoL 1,000 MG in IV 1 EA IV SCH ×11 (00:50→23:57)
[2019-06-23] MEDS: MIDAZOLAM HCL 100 MG in D5W 80 ML IV SCH (00:51)
[2019-06-23] MEDS: D5W/0.45% SODIUM CHLORIDE 1,000 ML IV SCH ×3 (02:20→19:34)
[2019-06-23] MEDS: methylPREDNISolone INJ 125 MG/2 ML VIAL (J2930) IV SCH ×4 (02:20→19:33)
[2019-06-23] MEDS: PIPERACILLIN/TAZOBACTAM SOD 3.375 GM in D5W MINI-BAG PLUS 50 ML IV SCH ×4 (04:14→22:23)
[2019-06-23] MEDS: MIDAZOLAM INJ 2 MG/2 ML VIAL (J2250) IV PRN ×5 (04:26→19:33)
[2019-06-23 04:37] LABS: HEMATOCRIT 36.5 % (42.0-52.0); HEMOGLOBIN 11.3 g/dl (13.5-17.5); MEAN CORPUSCULAR HEMOGLOBIN 29.8 pg (27.0-33.0); MEAN CORPUSCULAR VOLUME 96.3 fl (80.0-96.0); PLATELET COUNT, AUTOMATED 193 10^3/uL (150-450); RED BLOOD COUNT 3.79 10^6/uL (4.30-6.10); WHITE BLOOD COUNT 14.9 10^3/uL (4.0-10.0)
[2019-06-23] MEDS: INSULIN HUMAN REGULAR 100 UNITS in NS 99 ML IV SCH ×5 (04:41→22:55)
[2019-06-23 05:00] LABS: ATYPICAL LYMPH 1 % (0-5); LYMPHOCYTES 14 % (16-44); MONOCYTES 2 % (0-5); NEUTROPHILS 79 % (28-66); PLATELET ESTIMATE NORMAL (NORMAL)
[2019-06-23 05:01] LABS: PLATELET CLUMPS SMALL AMT
[2019-06-23 05:02] LABS: HYPOCHROMASIA 1+
[2019-06-23 05:05] LABS: ALBUMIN 2.8 GM/DL (3.2-5.2); ALT/SGPT 127 U/L (12-78); BILIRUBIN,TOTAL 0.6 MG/DL (0.2-1.0); BLOOD UREA NITROGEN 22 MG/DL (7-18); CALCIUM LEVEL 7.6 MG/DL (8.5-10.1); CARBON DIOXIDE LEVEL 26 MEQ/L (21-32); CHLORIDE LEVEL 108 MEQ/L (98-107); CHOLESTEROL LEVEL 137 MG/DL (< 200); CPK CREATINE PHOSPHOKINASE 309 U/L (39-308); CREATININE FOR GFR 1.21 MG/DL (0.70-1.30); GLOMERULAR FILTRATION RATE > 60.0 (>60); GLUCOSE, FASTING 203 MG/DL (70-100); LDH LACTATE DEHYDROGENASE 210 U/L (87-241); POTASSIUM SERUM 4.2 MEQ/L (3.5-5.1); SODIUM LEVEL 139 MEQ/L (136-145); TOTAL PROTEIN 6.9 GM/DL (6.4-8.2); TRIGLYCERIDES LEVEL 189 MG/DL (<150)
[2019-06-23 05:12] LABS: ABG BASE EXCESS -3.3 (-2.0-2.0); ABG HCO3 22.4 MEQ/L (22.0-26.0); ABG O2 SATURATION 97.7 % (95.0-99.0); ABG PARTIAL PRESSURE CO2 42.3 mmHg (35.0-45.0); ABG PARTIAL PRESSURE O2 94.6 mmHg (75.0-100.0); ABG STANDARD HCO3 21.8 MEQ/L (22.0-26.0); ABG TOTAL CO2 23.7 MEQ/L (22.0-29.0); ABG pH (ARTERIAL) 7.341 UNITS (7.350-7.450)
[2019-06-23] MEDS: HEPARIN SOD (PORCINE) 5000 UNITS/ML VIAL (J1644 PER 1000UNITS) SC SCH ×3 (06:12→19:33)
[2019-06-23] MEDS: PANTOPRAZOLE 40MG INJ (PROTONIX) (C9113) IV SCH (08:08)
[2019-06-23] MEDS: CHLORHEXIDINE GLUCONATE 0.12 % 15ML UDC (PERIDEX ORAL RINSE) MT SCH ×2 (08:09→19:32)
--- NOTE | 2019-06-23 08:21 | REP ---
The clinical: Respiratory failure. Comparison: 06/22/2019. Findings: Endotracheal tube 2 cm above the andrae. Nasogastric tube courses below left hemidiaphragm. Left sided central line with tip in the SVC/right atrium. Mediastinum and cardiac silhouette are stable. Lung jarquin demonstrate improved aeration and the previously noted opacity in the left mid lung zone has near completely resolved. No focal consolidation, obvious effusion or pneumothorax identified. Impression: 1. Lines and tubes in satisfactory position. 2. Improved aeration with near complete resolution to the left mid lung zone opacity on prior examination. Electronically Signed by Byron Trivedi MD 06/23/2019 08:12 A
[2019-06-23 09:31] LABS: FREE THYROXINE INDEX 3.9 % (1.4-3.8); T UPTAKE 34 % (33-40); THYROID STIMULATING HORMONE 0.385 uIU/ML (0.358-3.740); THYROXINE (T4) 11.4 UG/DL (4.5-12.0)
--- NOTE | 2019-06-23 09:41 | CCN ---
DATE: 06/23/2019 START TIME: 0815 hours STOP TIME: 0854 hours I again attended Ernesto Gallagher here in the intensive care unit. The patient has been examined, the chart was reviewed. I have spoken at length with the nurse as well as his at the bedside. Maximum temperature (T max) overnight 98, blood pressure 100 to 150s. He has been off Levophed now since around 0300 hours. Heart rate 100 to 130, respiratory rate anywhere from 18 to 24 without obvious accessory muscle use. Generally he is synchronous with the vent. Intake and output from midnight to midnight: 9236 mL in with 2165 mL out. Most recent laboratories show a white blood cell count of 14.9, hemoglobin 11.3, platelet count of 193,000, 79% segmented neutrophils, 4% bands. Sodium 139, potassium (K) of 4.2, chloride of 108, CO2 of 26, BUN 22, creatinine down to 1.21, glucose 203, and he is on an insulin drip and closely monitored. AST, ALT continue to improve, 83 and 127 today. CK down to 309. Blood gas done this morning on a PRVC rate of 18, tidal volume 480, PEEP of 8, FiO2 of 50% has a pH of 7.341, pCO2 of 42.3, pO2 of 94.6, saturation 97.7%. Chest x-ray shows lines and tubes in good position. Reasonable aeration today. No other new focal findings identified. No new culture results. Gram stain on the sputum, moderate WBCs with many gram-positive cocci in pairs, chains and clusters and final ID is pending. On exam, he is sedate. Pupils do react. Sclerae are clear. Trachea is in the midline. No obvious jugular venous distention (JVD). Chest shows diminished but symmetric expansion. There is still diffuse inspiratory and expiratory noise, but improved air exchange compared to yesterday and less in the way of wheezing. No convincing egophony. Cardiac exam: Mildly tachycardic, distant but regular. Peripheral pulses palpable. No obvious edema. Abdomen: Obese, soft with active bowel sounds. No obvious organomegaly or masses. Extremities show no cyanosis or clubbing. Neurologically, he is sedate but does move extremities when stimulated. The most pressing problems requiring my presence at the bedside: 1. Respiratory failure requiring mechanical ventilatory support. 2. Asthma with significant exacerbation. 3. Suspected aspiration. 4. Metabolic acidosis. 5. Renal failure, improving. 6. Diabetes mellitus, insulin dependent at the moment. 7. Obstructive sleep apnea syndrome by history. At this point, his blood gas is moving in the right direction, but he is nowhere near beginning the weaning process. For now, we will continue high dose steroids and aggressive use of nebulized bronchodilators as well as broad-spectrum antimicrobials. His was involved in this discussion. From a nutritional standpoint, we will begin tube feeds today in the form of Glucerna in view of his diabetes and will continue to monitor his sugars. He was purposeful immediately after intubation, and my hope is that he did not suffer significant anoxic injury, but for now we will continue supportive care until he is stable enough to re-image his brain. Electrolytes are acceptable. He is making reasonable urine, and his creatinine has improved over the last 24 hours. He remains on ulcer and deep vein thrombosis (DVT) prophylaxis. He does have persistent elevation of his white count, likely some element of Solu-Medrol effect, but given the immature forms in the form of still some bands, we will continue with his broad-spectrum antimicrobials. His lactic acid continues to improve, and he is off of vasopressors. His prognosis still remains guarded, and he remains critically ill. There is still potential for further compromise. Will proceed as outlined above. I left the bedside at 0854 hours. 39 minutes of critical care time delivered at the bedside not including procedures.
[2019-06-23] MEDS ORDERED: NS 250 ML IV ONE (11:00)
[2019-06-23] MEDS: MORPHINE 2 MG/ML 1ML VIAL (J2270) IV PRN ×4 (11:56→23:54)
[2019-06-23] MEDS: VANCOMYCIN HCL 1,000 MG, VIAL MATE ADAPTER 1 EACH in D5W 250 ML IV SCH (18:17)
[2019-06-24] VITALS (36 sets, daily range): BP systolic 107–146; BP diastolic 54–79
[2019-06-24] MEDS: D5W/0.45% SODIUM CHLORIDE 1,000 ML IV SCH ×2 (00:03→06:03)
[2019-06-24] MEDS: INSULIN IV RATE CHANGE DOCUMENTATION ML/HR XX SCH ×6 (00:49→11:21)
[2019-06-24] MEDS: VANCOMYCIN HCL 1,000 MG, VIAL MATE ADAPTER 1 EACH in D5W 250 ML IV SCH ×3 (01:42→17:36)
[2019-06-24] MEDS: methylPREDNISolone INJ 125 MG/2 ML VIAL (J2930) IV SCH ×4 (01:42→20:09)
[2019-06-24] MEDS: propofoL 1,000 MG in IV 1 EA IV SCH ×12 (01:42→23:57)
[2019-06-24] MEDS: MORPHINE 2 MG/ML 1ML VIAL (J2270) IV PRN ×6 (03:19→23:58)
[2019-06-24] MEDS: INSULIN HUMAN REGULAR 100 UNITS in NS 99 ML IV SCH ×4 (03:19→13:12)
[2019-06-24] MEDS: IPRATROPIUM 0.5MG/ALBUTEROL 2.5MG INH SOL UD 3ML (DUONEB)(J7620) NEB SCH ×6 (03:51→23:54)
[2019-06-24] MEDS: HEPARIN SOD (PORCINE) 5000 UNITS/ML VIAL (J1644 PER 1000UNITS) SC SCH ×3 (05:08→20:10)
[2019-06-24] MEDS: PIPERACILLIN/TAZOBACTAM SOD 3.375 GM in D5W MINI-BAG PLUS 50 ML IV SCH ×4 (05:09→22:26)
[2019-06-24 05:47] LABS: BASO % 0.1 % (0.0-1.0); HEMATOCRIT 33.8 % (42.0-52.0); HEMOGLOBIN 11.1 g/dl (13.5-17.5); LYMPH # 1.2 10^3/uL (1.5-5.0); LYMPH % 9.4 % (24.0-44.0); MEAN CORPUSCULAR HEMOGLOBIN 31.2 pg (27.0-33.0); MEAN CORPUSCULAR HGB CONC 32.8 g/dl (32.0-36.5); MEAN CORPUSCULAR VOLUME 94.9 fl (80.0-96.0); MONO # 0.5 10^3/uL (0.0-0.8); MONO % 3.6 % (0.0-5.0); NEUTROPHILS # 11.1 10^3/uL (1.5-8.5); NEUTROPHILS % 85.7 % (36.0-66.0); PLATELET COUNT, AUTOMATED 235 10^3/uL (150-450); RED BLOOD COUNT 3.56 10^6/uL (4.30-6.10); WHITE BLOOD COUNT 12.9 10^3/uL (4.0-10.0)
[2019-06-24 05:48] LABS: ABG BASE EXCESS -3.5 (-2.0-2.0); ABG HCO3 22.9 MEQ/L (22.0-26.0); ABG O2 SATURATION 96.7 % (95.0-99.0); ABG PARTIAL PRESSURE CO2 46.8 mmHg (35.0-45.0); ABG PARTIAL PRESSURE O2 90.4 mmHg (75.0-100.0); ABG STANDARD HCO3 21.6 MEQ/L (22.0-26.0); ABG TOTAL CO2 24.4 MEQ/L (22.0-29.0); ABG pH (ARTERIAL) 7.308 UNITS (7.350-7.450)
[2019-06-24 06:05] LABS: ALBUMIN 2.5 GM/DL (3.2-5.2); ALT/SGPT 93 U/L (12-78); BILIRUBIN,TOTAL 0.4 MG/DL (0.2-1.0); BLOOD UREA NITROGEN 18 MG/DL (7-18); CALCIUM LEVEL 7.8 MG/DL (8.5-10.1); CARBON DIOXIDE LEVEL 24 MEQ/L (21-32); CHLORIDE LEVEL 109 MEQ/L (98-107); CHOLESTEROL LEVEL 155 MG/DL (< 200); CPK CREATINE PHOSPHOKINASE 135 U/L (39-308); CREATININE FOR GFR 1.08 MG/DL (0.70-1.30); GLOMERULAR FILTRATION RATE > 60.0 (>60); GLUCOSE, FASTING 234 MG/DL (70-100); LDH LACTATE DEHYDROGENASE 189 U/L (87-241); POTASSIUM SERUM 4.1 MEQ/L (3.5-5.1); SODIUM LEVEL 142 MEQ/L (136-145); TOTAL PROTEIN 7.2 GM/DL (6.4-8.2); TRIGLYCERIDES LEVEL 280 MG/DL (<150)
--- NOTE | 2019-06-24 08:22 | REP ---
Clinical: Respiratory failure. Comparison: 06/23/2019. Findings: Endotracheal tube, nasogastric tube, and left IJ line are in stable position. Evaluation is limited by underpenetration and poor inspiratory effort. Chronic changes are suggested without discrete focal consolidation or effusion. Subtle atelectasis cannot be excluded. Impression: Limited examination without significant change from prior examination. Electronically Signed by Byron Trivedi MD 06/24/2019 08:13 A
[2019-06-24] MEDS: CHLORHEXIDINE GLUCONATE 0.12 % 15ML UDC (PERIDEX ORAL RINSE) MT SCH ×2 (08:57→20:10)
[2019-06-24] MEDS: PANTOPRAZOLE 40MG INJ (PROTONIX) (C9113) IV SCH (08:58)
[2019-06-24] MEDS: MIDAZOLAM INJ 2 MG/2 ML VIAL (J2250) IV PRN ×3 (08:58→22:36)
[2019-06-24] MEDS ORDERED: BISACODYL 10 MG SUPP PR PRN (09:00)
[2019-06-24] MEDS ORDERED: FUROSEMIDE 20 MG/2 ML VIAL (J1940) IV ONE (10:00)
--- NOTE | 2019-06-24 10:37 | CCN ---
DATE: 06/24/2019 START TIME: 0800 hours STOP TIME: 0836 hours The patient was seen and examined this morning at bedside in the intensive care unit (ICU). There were no acute events overnight. I spoke with the patient's at bedside. The patient's insulin requirements continue to go up. He is presently on 33 units of insulin an hour, up from 21 the day prior. VITAL SIGNS: Maximum temperature (t-max) overnight was 98.9 degrees Fahrenheit, heart rate of 126, respiratory rate of 18, blood pressure 126/63, saturating 94% on the ventilator with an FiO2 of 40, settings currently are 40 FiO2, 8 for PEEP, 18 for the respiratory rate, 480 for the tidal volume. Input and output for the last 24 hours: Approximately 4300 for the intake and 5600 for the output, so far net negative this morning with 3000 mL in the last 10 hours. PHYSICAL EXAMINATION: GENERAL: The patient is sedated, intubated. Pupils are equal, round and reactive to light. Conjunctivae are clear. No scleral icterus. Trachea is midline. No jugular venous distention (JVD) present. CARDIOVASCULAR: Tachycardic rate, regular rhythm. Normal S1, S2. No murmurs, gallops or rubs. 1+ pitting edema in extremities. Peripheral pulses are intact in bilateral upper and lower extremities, +2/4 bilaterally. RESPIRATORY: Clear to auscultation with diminished breath sounds bilaterally. Mild wheezing present throughout, although unclear as the patient also has coarse rhonchi throughout lung jarquin, crackles present at bases bilaterally.Abdominal accessary muscle usage with exhalation. ABDOMEN: Obese abdomen. Soft, tympanitic to percussion. Mild to moderately distended. Bowel sounds present. Mild scratches and healing scabs on the abdomen. No organomegaly or masses. LYMPH NODES: No axillary lymphadenopathy. EXTREMITIES: No cyanosis or clubbing. NEUROLOGIC: He is sedated but able to move extremities when stimulated and shows purposeful movements during weaning trials. LABORATORIES: CBC shows a white blood cell count of 12.9, hemoglobin 11.1, hematocrit 33.8, platelets 235. Sodium 142, potassium 4.1, chloride 109, bicarbonate 24, BUN 18, creatinine 1.08, glucose 234. Lactic acid as of 0532 hours of 3.5, calcium of 7.8, phosphorous of 2.1, normal total bilirubin level, AST 46, ALT 93, alkaline phosphatase 34, LDH of 189, CK of 135, albumin 2.5. ABG showed pH of 7.308, pCO2 of 46.8, pO2 of 90.4. Respiratory panel is negative. Blood culture is negative. Sputum culture pending. Gram-stain positive for Gram-positive cocci in pairs, chains and clusters, moderate white blood cells. IMAGING: Chest x-ray, reviewed by us, showed increased interstitial markings without consolidation. Endotracheal tube in good position. ASSESSMENT: 1. Acute hypercapnic and hypoxemic respiratory failure leading to mechanical ventilation. 2. Asthma with significant exacerbation. 3. Suspected aspiration. 4. Mixed metabolic and respiratory acidosis. 5. Anasarca. 6. Renal failure. 7. Diabetes mellitus, insulin dependent. 8. Obstructive sleep apnea by history. PLAN: 1. Acute hypercapnic and hypoxemic respiratory failure leading to mechanical ventilation. Continue the patient on mechanical ventilation at current settings with FiO2 of 40, PEEP 8, rate of 18, tidal volume of 480 based on predicted body weight. His ABG is showing minimal changes from the day prior. We will continue ventilator at settings described above. No new changes. 2. Asthma with significant exacerbation. We will add budesonide and Perforomist to see if that can help improve aeration in his airways given his wheezing. We will also add on some intravenous Lasix to see if it can help with some of the interstitial edema that is possibly present at his lung bases. We also suspect that the degree of his difficulties with breathing are due to his not having had a bowel movement since his arrival here so we will be adding on a Dulcolax suppository to aid with this. 3. Suspected aspiration pneumonia. His white blood cell count is trending down. We will continue the antibiotics. We did place an order for a methicillin resistant Staphylococcus aureus (MRSA) screen to see if we can deescalate the antibiotics. The sputum culture is still pending, so we will await the results to see what he needs to be on. We will continue vancomycin, Zosyn, and Tylenol as needed. 4. Mixed metabolic and respiratory acidosis. As described above in respiratory failure. We will continue on the current settings. We suspect that some of this is likely due to elevated chloride levels, which are causing increases in his acidosis. We are unclear presently why he is having elevated lactic acid levels, but we will continue the IV antibiotics, steroids and continue to keep him intubated. There are no new findings to suggest why his lactic acid would have risen from the day prior. 5. Acute renal failure/anasarca. He has 1+ pitting edema in bilateral lower extremities. Suspect that it is likely from him getting 7 liters and increased ADH. He is doing well in terms of his output, as he has already put out 5000 mL between yesterday and so far today. However, we will add on a dose of intravenous Lasix to help him with his peripheral edema. Renal failure is resolved. 6. Diabetes mellitus. The patient is requiring increased insulin from yesterday, currently his insulin per hour is at 33 units, up from 21 the day prior. We will continue to monitor this to see why he is having increased demands. We suspect that this will come down as we have decided to discontinue his D5 half normal saline, likely it was a result of him being on D5 half normal saline with the Glucerna added. We also placed a dietary consultation for tube feeds requirements, which should help with his insulin requirements as well. 7. Septic shock. Retrospectively, patient met criteria on admission for sepsis given he was febrile, tachycardic, tachypnic, hypotensive with a lactic acidosis. Qsofa score of 6 with map of 65, serum Cr 1.38, GCS of 6. Moreover he required peripheral levophed in order to maintain blood pressure. Resolved. The patient is currently on deep vein thrombosis (DVT) and stress ulcer prophylaxis and is tolerating nutritional feeds well. PROGNOSIS: Presently remains guarded. He is still critically ill and there is still potential for him to get worse. We will continue to monitor him closely. Documented critical care time of 36 minutes delivered at bedside, not including procedures. ADDENDUM: I, Dr. Beth Grady, independently performed a history and physical examination and agree with the documentation. I discussed the assessment and plan with the resident and agree with the above documentation. NARCISO
[2019-06-24] MEDS ORDERED: VANCOMYCIN HCL 500 MG in D5W MINI-BAG PLUS 100 ML IV ONE (11:00)
[2019-06-24] MEDS ORDERED: POTASSIUM PHOSPHATE INJ 18 MMOL in D5W 250 ML IV ONE (12:00)
[2019-06-24] MEDS: FORMOTEROL FUMARATE 20 MCG/2 ML INHALATION SOLUTION (PERFOROMIST) INH SCH ×2 (12:04→19:37)
[2019-06-24] MEDS: BUDESONIDE 0.5 MG/2 ML INHALATION SUSPENSION INH SCH ×2 (12:04→19:37)
[2019-06-24] MEDS: NS IV SCH ×2 (15:56→23:58)
[2019-06-24] MEDS: INSULIN HUMAN REGULAR IV SCH ×2 (15:56→23:58)
[2019-06-25] VITALS (29 sets, daily range): BP systolic 115–184; BP diastolic 63–123; O2SAT 93
[2019-06-25] MEDS: methylPREDNISolone INJ 125 MG/2 ML VIAL (J2930) IV SCH ×3 (01:14→20:53)
[2019-06-25] MEDS: VANCOMYCIN HCL 1,000 MG, VIAL MATE ADAPTER 1 EACH in D5W 250 ML IV SCH (01:14)
[2019-06-25] MEDS: MIDAZOLAM INJ 2 MG/2 ML VIAL (J2250) IV PRN ×2 (01:17→05:11)
[2019-06-25] MEDS: propofoL 1,000 MG in IV 1 EA IV SCH ×4 (01:45→06:55)
[2019-06-25] MEDS: IPRATROPIUM 0.5MG/ALBUTEROL 2.5MG INH SOL UD 3ML (DUONEB)(J7620) NEB SCH ×6 (03:48→23:43)
[2019-06-25] MEDS: PIPERACILLIN/TAZOBACTAM SOD 3.375 GM in D5W MINI-BAG PLUS 50 ML IV SCH (05:11)
[2019-06-25] MEDS: MORPHINE 2 MG/ML 1ML VIAL (J2270) IV PRN (05:12)
[2019-06-25] MEDS: HEPARIN SOD (PORCINE) 5000 UNITS/ML VIAL (J1644 PER 1000UNITS) SC SCH ×3 (05:12→20:53)
[2019-06-25] MEDS: INSULIN IV RATE CHANGE DOCUMENTATION ML/HR XX SCH ×4 (05:14→10:49)
[2019-06-25 05:53] LABS: BASO % 0.3 % (0.0-1.0); HEMATOCRIT 36.1 % (42.0-52.0); HEMOGLOBIN 11.4 g/dl (13.5-17.5); LYMPH # 1.4 10^3/uL (1.5-5.0); MEAN CORPUSCULAR HEMOGLOBIN 30.2 pg (27.0-33.0); MEAN CORPUSCULAR HGB CONC 31.6 g/dl (32.0-36.5); MEAN CORPUSCULAR VOLUME 95.5 fl (80.0-96.0); MONO # 0.6 10^3/uL (0.0-0.8); MONO % 4.6 % (0.0-5.0); NEUTROPHILS # 9.9 10^3/uL (1.5-8.5); NEUTROPHILS % 79.4 % (36.0-66.0); PLATELET COUNT, AUTOMATED 240 10^3/uL (150-450); RED BLOOD COUNT 3.78 10^6/uL (4.30-6.10); WHITE BLOOD COUNT 12.5 10^3/uL (4.0-10.0)
[2019-06-25 06:07] LABS: ABG BASE EXCESS 1.7 (-2.0-2.0); ABG HCO3 26.4 MEQ/L (22.0-26.0); ABG O2 SATURATION 97.1 % (95.0-99.0); ABG PARTIAL PRESSURE CO2 42.1 mmHg (35.0-45.0); ABG PARTIAL PRESSURE O2 89.5 mmHg (75.0-100.0); ABG TOTAL CO2 27.7 MEQ/L (22.0-29.0); ABG pH (ARTERIAL) 7.416 UNITS (7.350-7.450)
[2019-06-25 06:24] LABS: ALBUMIN 2.4 GM/DL (3.2-5.2); ALT/SGPT 77 U/L (12-78); BILIRUBIN,TOTAL 0.3 MG/DL (0.2-1.0); BLOOD UREA NITROGEN 24 MG/DL (7-18); CALCIUM LEVEL 8.3 MG/DL (8.5-10.1); CARBON DIOXIDE LEVEL 31 MEQ/L (21-32); CHLORIDE LEVEL 111 MEQ/L (98-107); CHOLESTEROL LEVEL 166 MG/DL (< 200); CPK CREATINE PHOSPHOKINASE 104 U/L (39-308); CREATININE FOR GFR 0.86 MG/DL (0.70-1.30); GLOMERULAR FILTRATION RATE > 60.0 (>60); GLUCOSE, FASTING 78 MG/DL (70-100); LDH LACTATE DEHYDROGENASE 190 U/L (87-241); PHOSPHORUS LEVEL 3.4 MG/DL (2.5-4.9); SODIUM LEVEL 146 MEQ/L (136-145); TOTAL PROTEIN 6.5 GM/DL (6.4-8.2); TRIGLYCERIDES LEVEL 226 MG/DL (<150)
[2019-06-25] MEDS: BUDESONIDE 0.5 MG/2 ML INHALATION SUSPENSION INH SCH ×2 (07:13→19:47)
[2019-06-25] MEDS: FORMOTEROL FUMARATE 20 MCG/2 ML INHALATION SOLUTION (PERFOROMIST) INH SCH ×2 (07:13→19:47)
--- NOTE | 2019-06-25 08:21 | REP ---
Clinical: Respiratory failure. Comparison: 06/24/2019. Findings: Endotracheal tube 3.5 cm above the andrae. Left IJ line with tip in the SVC. Nasogastric tube courses below left hemidiaphragm. Mediastinum and cardiac silhouette are stable. Stable chronic changes are appreciated along with subtle scattered air space disease including linear atelectasis in the right mid lung zone. No obvious effusion or pneumothorax. Impression: No significant change from prior examination although new linear atelectasis in the right mid lung zone is suggested. Electronically Signed by Byron Trivedi MD 06/25/2019 08:13 A
[2019-06-25 09:16] LABS: ABG BASE EXCESS 0.7 (-2.0-2.0); ABG HCO3 26.6 MEQ/L (22.0-26.0); ABG O2 SATURATION 71.5 % (95.0-99.0); ABG STANDARD HCO3 24.5 MEQ/L (22.0-26.0); ABG TOTAL CO2 28.1 MEQ/L (22.0-29.0); ABG pH (ARTERIAL) 7.362 UNITS (7.350-7.450)
[2019-06-25 09:20] LABS: ABG PARTIAL PRESSURE O2 40.8 mmHg (75.0-100.0)
[2019-06-25] MEDS: PANTOPRAZOLE 40MG INJ (PROTONIX) (C9113) IV SCH (09:22)
[2019-06-25] MEDS: cefTRIAXone SOD 1 GM in D5W MINI-BAG PLUS 50 ML IV SCH (10:17)
[2019-06-25] MEDS: ACETAMINOPHEN 325 MG/10.15 ML UDC PO PRN ×3 (10:18→16:42)
--- NOTE | 2019-06-25 11:20 | CCN ---
DATE: 06/25/2019 The patient was seen and examined this morning at bedside in the intensive care unit. No acute events overnight. No immediate concerns from nursing staff. His insulin requirements significantly went down from up to 35 units an hour now at 8.8 units an hour. Vital Signs: Maximum temperature (T-max) over night was 100.2 degrees Fahrenheit, heart rate is 98, respiratory rate of 22, blood pressure 145/84, saturating 93% on 40% FiO2 with significantly improved work of breathing compared to yesterday. Input and output over the 24 hours: 3245 mL for intake and 6150 for output. PHYSICAL EXAMINATION: General: Patient is sedate, intubated. HEENT: Pupils equal, round, reactive to light. Conjunctiva are clear. No scleral icterus. Trachea midline. No jugular venous distention (JVD). Cardiovascular: Regular rate and rhythm. Normal S1, S2. No murmurs, gallops or rubs. 1+ pitting edema at the level of the ankle bilaterally. Peripheral pulses +2/4 bilateral upper and lower extremities. Respiratory: Clear to auscultation bilaterally with coarse breath sounds throughout. Abdomen: Obese abdomen. Soft, mildly distended. Bowel sounds present. Mild scratches and healing scabs on abdomen. No organomegaly or masses. Lymph nodes: No cervical or axillary or inguinal lymphadenopathy. Extremities: No cyanosis or clubbing. Neurologic: He is sedated. LABORATORY STUDIES: CBC shows a white blood cell count of 12.5, hemoglobin 11.4, hematocrit 36.1, platelet count 240. Sodium 146, potassium 4.0, chloride 111, bicarbonate 31, BUN 24, creatinine 0.86, glucose 78, calcium 8.3, phosphorus 3.4, AST 42, ALT 77, CK 104, albumin 2.4. ABG: Showing pH 7.41, pCO2 42.1, pO2 89.1. Blood cultures negative. Sputum culture showing Streptococcus agalactiae (group B), moderate amounts of Staphylococcus aureus few, yeast-like organisms few. Spinal sputum culture results showing sensitivities and moderate amounts of Streptococcus agalactiae (group B). Patient is Staphylococcus aureus (MRSA) positive. IMAGING: We reviewed his chest x-ray which showed bilateral interstitial infiltrates. No significant internal changes compared to the day prior. Endotracheal tube in good position. ASSESSMENT: 1. Acute hypercapnic and hypoxemic respiratory failure leading to mechanical ventilation. 2. Asthma with significant exacerbation. 3. Suspected aspiration. 4. Anasarca. 5. Diabetes mellitus, currently insulin dependent. 6. Obstructive sleep apnea by history. PLAN: 1. Acute hypercapnic and hypoxemic respiratory failure leading to mechanical ventilation. Plan today is to again pursue weaning trial. Patient's work of breathing has significantly improved from baseline. I am turning off the propofol drip. He seems to be able to follow commands. He is breathing okay and seems to have a healthy cough and is able to clear his own secretions. Plan to transition to non-invasive ventilation once off of vent. Minimal secretions. Given that this is likely obstructive process, if we extubate him today, we will performed an ABG prior. 2. Asthma with significant exacerbation: Will continue with DuoNebs every 4 hours, budesonide, Perforomist. While his lungs are still coarse, he did have a significant amount of output yesterday which will likely improve his breathing as well as two bowel movements which also should help with pressure on his diaphragm. We will decrease his IV Solu-Medrol from 60 mg every 6 hours to every 12 hours. 3. Suspected aspiration: His white blood cell count is about what it was yesterday. He is Staphylococcus aureus (MRSA) positive and sputum culture is showing moderate amounts of Streptococcus agalactiae (group B). We will discontinue Zosyn and will change the vancomycin to Rocephin IV every 24 hours as the results of the sputum culture are not showing that the organisms identified including the minimal amounts of Staphylococcus aureus are susceptible to cephalosporins. 4. Mixed metabolic and respiratory acidosis: ABG appears to have stabilized today. His pH is normalized and he appears to be doing well on his current vent settings. 5. Anasarca: Renal failure has totally resolved. His anasarca is significantly improved. His output was almost 7 liters yesterday. We will see how he does throughout the rest of the day. He likely will not require anymore diuretic therapy. 6. Diabetes mellitus: Patient's insulin requirements have significant decreased now that he is off of the D5 half normal saline. Depending on whether or not he gets extubated we may be able to decrease those even more given that he may not need the Glucerna. We will also decrease the every 1-hour fingersticks to every 6 hours and lower his insulin rate per hour from 8.8 to 4.4. 7. Patient will need sleep study outpatient. Patient is currently on deep venous thrombosis (DVT) prophylaxis with heparin three times a day and stress ulcer prophylaxis with Protonix tolerating his nutritional feeds well. PROGNOSIS: He is stable and seems to be turning the corner from his illness. Will continue to monitor him closely. CRITICAL CARE TIME: 40 minutes today, not including procedure time. ADDENDUM: Patient was doing well off of the propofol drip, he was following commands appropriately, had a strong cough, was able to clear his own secretions, our plan was to extubate the patient. He was on a pressure support of 5/7 with RSI in the low 20s, which is strongly predictive of successful extubation. This occurred at 0910. Once again, he had a strong cough with minimal secretions and we had a plan to go onto bilevel ventilation following extubation. So far, 1 hour out, he is doing well. His blood gas did show pH 7.36, pCO2 48.0, and a pO2 of 40.8. We suspect this is likely due to a mixed sample and given that he has an acceptable pH, we are comfortable with this. Moreover, he is awake, alert, saturating comfortably on his bilevel mask. Plan to put in for a two-view chest x-ray tomorrow morning and discontinue all of his intubation medications. Depending on how he does with his urine output, we may plan to discontinue his Cramer catheter as well. We will consult respiratory therapy for airway clearance. I, Dr. Beth Grady, independently performed a history and physical examination and agree with the documentation. I discussed the assessment and plan with the resident and agree with the above documentation. NARCISO
[2019-06-25] MEDS: HumaLOG INSULIN (NovoLOG) PER UNIT SC SCH ×3 (12:00→23:44)
[2019-06-25] MEDS: lisinopriL 40 MG TAB PO SCH (14:00)
[2019-06-25] MEDS: amLODIPine 10 MG TAB PO SCH (17:01)
[2019-06-25] MEDS ORDERED: guaiFENesin/CODEINE SYRUP 5 ML UDC PO ONE (20:30)
[2019-06-25] MEDS: CYCLOBENZAPRINE 10 MG TAB PO PRN (20:54)
[2019-06-26] VITALS (8 sets, daily range): BP systolic 160–177; BP diastolic 92–109
[2019-06-26] MEDS ORDERED: INSULIN HUMAN REGULAR 100 UNITS in NS 99 ML IV SCH ×2
[2019-06-26] MEDS ORDERED: guaiFENesin/CODEINE SYRUP 5 ML UDC PO ONE (00:45)
[2019-06-26] MEDS: IPRATROPIUM 0.5MG/ALBUTEROL 2.5MG INH SOL UD 3ML (DUONEB)(J7620) NEB SCH ×2 (03:54→07:29)
[2019-06-26] MEDS: CYCLOBENZAPRINE 10 MG TAB PO PRN ×3 (06:02→20:32)
[2019-06-26] MEDS: HEPARIN SOD (PORCINE) 5000 UNITS/ML VIAL (J1644 PER 1000UNITS) SC SCH ×3 (06:02→22:15)
[2019-06-26] MEDS: HumaLOG INSULIN (NovoLOG) PER UNIT SC SCH ×4 (06:02→20:32)
[2019-06-26 06:04] LABS: HEMATOCRIT 37.6 % (42.0-52.0); HEMOGLOBIN 12.3 g/dl (13.5-17.5); MEAN CORPUSCULAR HEMOGLOBIN 30.4 pg (27.0-33.0); MEAN CORPUSCULAR HGB CONC 32.7 g/dl (32.0-36.5); MEAN CORPUSCULAR VOLUME 92.8 fl (80.0-96.0); PLATELET COUNT, AUTOMATED 248 10^3/uL (150-450); RED BLOOD COUNT 4.05 10^6/uL (4.30-6.10); WHITE BLOOD COUNT 13.2 10^3/uL (4.0-10.0)
[2019-06-26 06:36] LABS: ALBUMIN 2.5 GM/DL (3.2-5.2); ALT/SGPT 81 U/L (12-78); BILIRUBIN,TOTAL 0.8 MG/DL (0.2-1.0); BLOOD UREA NITROGEN 35 MG/DL (7-18); CALCIUM LEVEL 8.4 MG/DL (8.5-10.1); CARBON DIOXIDE LEVEL 31 MEQ/L (21-32); CHLORIDE LEVEL 104 MEQ/L (98-107); CHOLESTEROL LEVEL 194 MG/DL (< 200); CPK CREATINE PHOSPHOKINASE 835 U/L (39-308); CREATININE FOR GFR 0.78 MG/DL (0.70-1.30); GLOMERULAR FILTRATION RATE > 60.0 (>60); GLUCOSE, FASTING 163 MG/DL (70-100); LDH LACTATE DEHYDROGENASE 289 U/L (87-241); PHOSPHORUS LEVEL 5.6 MG/DL (2.5-4.9); SODIUM LEVEL 141 MEQ/L (136-145); TOTAL PROTEIN 7.2 GM/DL (6.4-8.2); TRIGLYCERIDES LEVEL 327 MG/DL (<150)
[2019-06-26 06:43] LABS: ATYPICAL LYMPH 2 % (0-5); LYMPHOCYTES 17 % (16-44); METAMYELOCYTES 1 % (0-0); MONOCYTES 5 % (0-5); MYELOCYTES 2 % (0-0); NEUTROPHILS 73 % (28-66); PLATELET ESTIMATE NORMAL (NORMAL)
[2019-06-26] MEDS: BUDESONIDE 0.5 MG/2 ML INHALATION SUSPENSION INH SCH (07:29)
[2019-06-26] MEDS: FORMOTEROL FUMARATE 20 MCG/2 ML INHALATION SOLUTION (PERFOROMIST) INH SCH (07:29)
--- NOTE | 2019-06-26 08:38 | REP ---
Clinical: Follow up abnormal pulmonary findings. Technique: AP and cross-table lateral. Comparison: 06/25/2019 Findings: Left IJ line with tip in the SVC stable. Endotracheal tube and nasogastric tube have been removed. No obvious focal consolidation, effusion, or pneumothorax. Skeletal structures intact. Impression: No obvious acute consolidation or effusion. Electronically Signed by Byron Trievdi MD 06/26/2019 08:29 A
[2019-06-26] MEDS: amLODIPine 10 MG TAB PO SCH (08:58)
[2019-06-26] MEDS: lisinopriL 40 MG TAB PO SCH (08:58)
[2019-06-26] MEDS: methylPREDNISolone INJ 125 MG/2 ML VIAL (J2930) IV SCH (08:58)
[2019-06-26] MEDS: PANTOPRAZOLE 40MG INJ (PROTONIX) (C9113) IV SCH (08:58)
[2019-06-26] MEDS ORDERED: IPRATROPIUM 0.5MG/ALBUTEROL 2.5MG INH SOL UD 3ML (DUONEB)(J7620) NEB PRN (09:30)
[2019-06-26] MEDS: cefTRIAXone SOD 1 GM in D5W MINI-BAG PLUS 50 ML IV SCH (10:44)
[2019-06-26] MEDS: ACETAMINOPHEN TAB 650MG DOSE (2X325MG) PO PRN (10:45)
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
[2019-06-26] MEDS: oxyCODONE 5MG TAB PO PRN ×2 (13:29→22:15)
--- NOTE | 2019-06-26 18:05 | IPNPDOC ---
Subjective Date Seen The patient was seen on 06/26/19. Subjective Chief Complaint/HPI Pt is a 48 year old male who was admitted to the ICU 2/2 acute asthma exacerbation with respiratory failure requiring mechanical vent support and suspected aspiration,new-onset seizure. Pt has been in the [facility] ICU since 06/21/19. He is seen sitting up in bed in the ICU this morning. Yesterday he was extubated and stated that he has eaten since, denying any issues. Pt stated he feels much better with his only issue being 2/2 chronic back pain. His outpt medications are to be resumed today. General: Denies: Chills, Night Sweats, Fatigue, Malaise Constitutional: Denies: Chills, Fever, Night Sweats Eyes: Denies: Pain ENT: Denies: Head Aches Skin: Denies: Rash Pulmonary: Reports: Dyspnea, Cough Cardiovascular: Denies: Chest Pain, Palpitations, Lt Headedness Gastrointestinal: Denies: Nausea, Vomiting, Abdominal Pain, Diarrhea, Constipation Genitourinary: Denies: Dysuria, Retention Hematologic: Denies: Bruising Musculoskeletal: Reports: Back Pain; Denies: Neck Pain, Joint Pain, Muscle Pain, Spasms Neurological: Reports: Weakness; Denies: Numbness, Change in speech, Confusion Psych: Reports: Mood Normal Objective Physical Examination General Exam: Positive: Alert, No Acute Distress, Other (seen on 2L NC ) Eye Exam: Positive: Conjunctiva & lids normal, EOMI; Negative: Sclera icteric ENT Exam: Positive: Atraumatic, Mucous membr. moist/pink, Pharynx Normal Neck Exam: Positive: Supple; Negative: thyromegaly Chest Exam: Positive: Wheezing; Negative: Rales, Rhonchi Heart Exam: Positive: Rate Normal, Regular Rhythm, Normal S1, Normal S2; Negative: Murmurs, Rubs Telemetry: Positive: No significant arrhythmia Abdomen Exam: Positive: Normal bowel sounds, Soft; Negative: Tenderness, Hepatospenomegaly Extremity Exam: Negative: Clubbing, Cyanosis, Edema Skin Exam: Positive: Nl turgor and temperature Neuro Exam: Positive: Normal Speech, Cranial Nerves 3-12 NL Psych Exam: Positive: Mood NL, Oriented x 3 Assessment /Plan Assessment Pt is a 48 year old male who was admitted to the ICU 2/2 acute asthma exace rbation with respiratory failure requiring mechanical vent support and suspected aspiration. Pt has a PMHx which includes: DM, HTN, Gout, Low back pain. 1. Respiratory failure requiring mechanical vent support, now extubated 2. Acute suspected irritant-induced asthma with exacerbation vs reactive airway dysfunction syndrome 3. Suspected aspiration pneumonia - continued management per ICU - Dr. Grady agreed the pt may be stepped down from the ICU 4. DMII - hold oral antiglycemics - continue ISS with achs - daily FBS 5. HTN - continue CCB, KENDRA-I - slight tachy is likely 2/2 steroid therapy for resp failure 6. LAURA - apparently a formal sleep study has not been conducted for diagnosis - currently on CPAP qhs in ICU - f/u with sleep study outpt 7. Chronic low back pain - continue with Flexeril - oxycodone and Tylenol prn 8. GERD - continue PPI 9. Hypothyroidism - resume Synthroid 10. Hyperlipidemia - resume Zetia Plan/VTE VTE Prophylaxis Ordered?: Yes (Heparin SQ) VS, I&O, 24H, Fishbone Vital Signs/I&O Vital Signs Date Time Temp Pulse Resp B/P (MAP) Pulse Ox O2 Delivery O2 Flow Rate FiO2 06/26/19 16:00 1.0 06/26/19 15:55 97.5 104 22 172/106 (128) 93 Nasal Cannula 06/26/19 03:55 30 I&O- Last 24 Hours up to 6 AM 06/26/19 06:00 Intake Total 2104 ml Output Total 3110 ml Balance -1006 ml Laboratory Data 24H LABS Laboratory Tests 2 06/25/19 17:45: Bedside Glucose (Misc Panel) 168H 06/25/19 23:44: Bedside Glucose (Misc Panel) 190H 06/26/19 05:30: Immature Granulocyte % (Auto) , Nucleated Red Blood Cells % (auto) 0.2H, Neutrophils 73H, Lymphocytes (Manual) 17, Monocytes (Manual) 5, Metamyelocytes 1H, Myelocytes 2H, Atypical Lymphocytes 2, Red Blood Cell Morphology NORMAL, Platelet Estimate NORMAL, Anion Gap 6L, Glomerular Filtration Rate > 60.0, Calcium Level 8.4L, Phosphorus Level 5.6#H, Total Bilirubin 0.8#, Aspartate Amino Transf (AST/SGOT) 70H, Alanine Aminotransferase (ALT/SGPT) 81H, Alkaline Phosphatase 39L, Lactate Dehydrogenase 289H, Total Creatine Kinase 835#H, Total Protein 7.2, Albumin 2.5L, Albumin/Globulin Ratio 0.53L, Triglycerides Level 327H, Cholesterol Level 194 06/26/19 06:00: Bedside Glucose (Misc Panel) 161H 06/26/19 11:59: Bedside Glucose (Misc Panel) 163H 06/26/19 16:37: Bedside Glucose (Misc Panel) 165H CBC/BMP Laboratory Tests 06/26/19 05:30 Microbiology Microbiology 06/23/19 Respiratory Virus Panel (PCR) (LONG) - Final, Complete 06/22/19 Gram Stain - Final, Complete 06/22/19 Sputum Culture - Final, Complete Strep Agalactiae Group B Staphylococcus Aureus Yeast Like Organism 06/22/19 Blood Culture - Preliminary, Resulted No Growth after 72 hours. All specime... 06/21/19 Blood Culture - Preliminary, Resulted No Growth after 72 hours. All specime... LORE ADDISON PA-C Jun 26, 2019 18:05
[2019-06-26] MEDS: SYMBICORT 160/4.5MCG INHALER 6GM INH SCH (20:00)
[2019-06-27] VITALS (22 sets, daily range): BP systolic 113–175; BP diastolic 79–100; O2SAT 87–94
[2019-06-27] MEDS: diphenhydrAMINE 50 MG CAP PO PRN ×2 (00:21→20:44)
[2019-06-27] MEDS ORDERED: guaiFENesin/CODEINE SYRUP 5 ML UDC PO ONE (02:00)
[2019-06-27] MEDS: LEVOTHYROXINE 50MCG TABLET (0.05MG) PO SCH (05:07)
[2019-06-27] MEDS: HEPARIN SOD (PORCINE) 5000 UNITS/ML VIAL (J1644 PER 1000UNITS) SC SCH ×3 (05:08→20:45)
[2019-06-27] MEDS: CYCLOBENZAPRINE 10 MG TAB PO PRN ×3 (05:10→18:15)
[2019-06-27 05:33] LABS: HEMATOCRIT 42.6 % (42.0-52.0); HEMOGLOBIN 13.5 g/dl (13.5-17.5); MEAN CORPUSCULAR HEMOGLOBIN 29.4 pg (27.0-33.0); MEAN CORPUSCULAR HGB CONC 31.7 g/dl (32.0-36.5); MEAN CORPUSCULAR VOLUME 92.8 fl (80.0-96.0); PLATELET COUNT, AUTOMATED 241 10^3/uL (150-450); RED BLOOD COUNT 4.59 10^6/uL (4.30-6.10); WHITE BLOOD COUNT 13.9 10^3/uL (4.0-10.0)
[2019-06-27 05:58] LABS: ALBUMIN 2.5 GM/DL (3.2-5.2); ALT/SGPT 107 U/L (12-78); BILIRUBIN,TOTAL 0.7 MG/DL (0.2-1.0); BLOOD UREA NITROGEN 33 MG/DL (7-18); CALCIUM LEVEL 8.6 MG/DL (8.5-10.1); CARBON DIOXIDE LEVEL 28 MEQ/L (21-32); CHLORIDE LEVEL 104 MEQ/L (98-107); CREATININE FOR GFR 0.82 MG/DL (0.70-1.30); GLOMERULAR FILTRATION RATE > 60.0 (>60); GLUCOSE, FASTING 90 MG/DL (70-100); SODIUM LEVEL 139 MEQ/L (136-145)
[2019-06-27] MEDS: HumaLOG INSULIN (NovoLOG) PER UNIT SC SCH ×4 (07:15→20:38)
[2019-06-27] MEDS: SYMBICORT 160/4.5MCG INHALER 6GM INH SCH ×2 (08:02→21:01)
[2019-06-27] MEDS: PANTOPRAZOLE 40MG INJ (PROTONIX) (C9113) IV SCH (08:07)
[2019-06-27] MEDS: amLODIPine 10 MG TAB PO SCH (08:08)
[2019-06-27] MEDS: EZETIMIBE 10 MG TAB (ZETIA) PO SCH (08:08)
[2019-06-27] MEDS: predniSONE 20 MG TAB PO SCH (08:08)
[2019-06-27] MEDS: lisinopriL 40 MG TAB PO SCH (08:09)
[2019-06-27] MEDS: cefTRIAXone SOD 1 GM in D5W MINI-BAG PLUS 50 ML IV SCH (10:04)
[2019-06-27] MEDS: ACETAMINOPHEN TAB 650MG DOSE (2X325MG) PO PRN ×2 (10:05→20:44)
[2019-06-27] MEDS: NYSTATIN 500,000 U/5 ML SUSP UDC SS SCH ×4 (10:58→20:44)
--- NOTE | 2019-06-27 11:39 | IPNPDOC ---
Text Note Date of Service The patient was seen on 06/27/19. NOTE Subjective Chief Complaint/HPI Pt is a 48 year old male who was admitted to the ICU 2/2 acute asthma exacerbation with respiratory failure requiring mechanical vent support and suspected aspiration,new-onset seizure. Pt has been in the [facility] ICU since 06/21/19. Pt has been successfully stepped down to PCU overnight. He reported he continues to do well. Food and drinks taste and smell 'funny' to him, but he understands this i2 likely 2/2 medications and should resolve with time. Pt reported a mild GARY due to persistent, productive cough - requested Tylenol and cough medication. He has some throat pain/discomfort that he and his reported with onset last night; pt denied any difficulty swallowing or dysphagia. Pt stated his back pain is much better controlled. Objective Physical Examination General Exam: Positive: Alert, No Acute Distress, Other (seen on 2L NC ) Eye Exam: Positive: Conjunctiva & lids normal, EOMI; Negative: Sclera icteric ENT Exam: Positive: Atraumatic, Mucous membr. moist/pink; Neck Exam: Positive: Supple; Pharynx erythematous, ulcerated Negative: thyromegaly, lymphadenopathy Chest Exam: Positive: Wheezing (diffuse, b/l lungs); Negative: Rales, Rhonchi Heart Exam: Positive: Rate Normal, Regular Rhythm, Normal S1, Normal S2; Negative: Murmurs, Rubs Telemetry: Positive: No significant arrhythmia Extremity Exam: Negative: Clubbing, Cyanosis, Edema Skin Exam: Positive: Nl turgor and temperature Neuro Exam: Positive: Normal Speech, Cranial Nerves 3-12 NL Psych Exam: Positive: Mood NL, Oriented x 3 Assessment /Plan Assessment Pt is a 48 year old male who was admitted to the ICU 2/2 acute asthma exacerbation with respiratory failure requiring mechanical vent support and suspected aspiration pneumonia. Pt has a PMHx which includes: DM, HTN, Gout, Low back pain. 1. Respiratory failure requiring mechanical vent support, now extubated 2. Acute suspected irritant-induced asthma with exacerbation vs reactive airway dysfunction syndrome 3. Aspiration pneumonia - successfully extubated 06/25/19; continue NC and qhs CPAP - per ICU - switched to prn Duoneb, Symbicort and prednisone PO 2/2 suspected irritant induced asthma. IV Solumedrol, Perforomist and Budesonide d/c'd. - d/c Rocephin; start Augmentin PO BID x7 d as pt clinically improved - prn Robitussin AC for persistent cough precipitating GARY - continue to emphasize the importance of his qhs CPAP and encourage compliance 4. DMII - hold oral antiglycemics - continue ISS with achs - daily FBS 5. HTN - continue CCB, KENDRA-I - slight tachy is likely 2/2 steroid therapy for resp failure/irritant-induced asthma 6. LAURA - apparently a formal sleep study has not been conducted for diagnosis - currently on CPAP qhs - f/u with sleep study outpt 7. Chronic low back pain - continue with Flexeril - oxycodone and Tylenol prn 8. GERD - continue PPI 9. Hypothyroidism - resume Synthroid 10. Hyperlipidemia - resume Zetia 11. Pharyngitis, with pharyngeal ulcer - throat culture - pending - start Nystatin swish and swallow qid 12. Elevated LFTs - Per abdominal USG 06/22 - FLD, gallbladder wall thickening without stones - No abdominal Sx present - AST & ALT trending upwards - hep profile - pending 12. Sepsis on admission - Now resolved 13. Acute Renal Failure on admission - Now resolved Plan/VTE VTE Prophylaxis Ordered?: Yes (Heparin SQ) VS,Fishbone, I+O VS, Fishbone, I+O Laboratory Tests 06/27/19 05:01 Vital Signs Date Time Temp Pulse Resp B/P (MAP) Pulse Ox O2 Delivery O2 Flow Rate FiO2 06/27/19 08:08 103 113/79 06/27/19 08:00 2.0 06/27/19 07:36 96.8 22 96 Nasal Cannula 06/26/19 21:12 30 I&O- Last 24 Hours up to 6 AM 06/27/19 06:00 Intake Total 1220 ml Output Total 2305 ml Balance -1085 ml LORE ADDISON PA-C Jun 27, 2019 11:39
[2019-06-27] MEDS ORDERED: FUROSEMIDE 40 MG/4 ML VIAL (J1940) IV ONE (12:00)
[2019-06-27] MEDS: guaiFENesin/CODEINE SYRUP 5 ML UDC PO PRN ×2 (12:14→20:44)
[2019-06-27] MEDS: oxyCODONE 5MG TAB PO PRN ×2 (13:38→21:28)
[2019-06-27] MEDS: AUGMENTIN 875 MG TAB PO SCH (20:44)
[2019-06-28] VITALS (11 sets, daily range): BP systolic 131–157; BP diastolic 82–96; O2SAT 88–93
[2019-06-28 05:12] LABS: HEMATOCRIT 41.6 % (42.0-52.0); HEMOGLOBIN 13.9 g/dl (13.5-17.5); MEAN CORPUSCULAR HEMOGLOBIN 29.8 pg (27.0-33.0); MEAN CORPUSCULAR HGB CONC 33.4 g/dl (32.0-36.5); MEAN CORPUSCULAR VOLUME 89.3 fl (80.0-96.0); PLATELET COUNT, AUTOMATED 228 10^3/uL (150-450); RED BLOOD COUNT 4.66 10^6/uL (4.30-6.10); WHITE BLOOD COUNT 11.8 10^3/uL (4.0-10.0)
[2019-06-28 05:33] LABS: BLOOD UREA NITROGEN 27 MG/DL (7-18); CALCIUM LEVEL 8.4 MG/DL (8.5-10.1); CARBON DIOXIDE LEVEL 32 MEQ/L (21-32); CHLORIDE LEVEL 102 MEQ/L (98-107); CREATININE FOR GFR 0.83 MG/DL (0.70-1.30); GLOMERULAR FILTRATION RATE > 60.0 (>60); GLUCOSE, FASTING 112 MG/DL (70-100); SODIUM LEVEL 141 MEQ/L (136-145)
[2019-06-28] MEDS: LEVOTHYROXINE 50MCG TABLET (0.05MG) PO SCH (06:32)
[2019-06-28] MEDS: CYCLOBENZAPRINE 10 MG TAB PO PRN ×3 (06:32→22:50)
[2019-06-28] MEDS: oxyCODONE 5MG TAB PO PRN ×3 (06:32→22:27)
[2019-06-28] MEDS: HEPARIN SOD (PORCINE) 5000 UNITS/ML VIAL (J1644 PER 1000UNITS) SC SCH ×3 (06:33→22:26)
[2019-06-28] MEDS: SYMBICORT 160/4.5MCG INHALER 6GM INH SCH ×2 (07:38→20:47)
[2019-06-28 08:01] LABS: ALBUMIN 2.7 GM/DL (3.2-5.2); ALT/SGPT 122 U/L (12-78); BILIRUBIN,DIRECT 0.3 MG/DL (0.0-0.2); BILIRUBIN,TOTAL 0.8 MG/DL (0.2-1.0); TOTAL PROTEIN 6.8 GM/DL (6.4-8.2)
[2019-06-28] MEDS: NYSTATIN 500,000 U/5 ML SUSP UDC SS SCH ×4 (08:39→20:12)
[2019-06-28] MEDS: PANTOPRAZOLE 40MG INJ (PROTONIX) (C9113) IV SCH (08:40)
[2019-06-28] MEDS: lisinopriL 40 MG TAB PO SCH (08:40)
[2019-06-28] MEDS: amLODIPine 10 MG TAB PO SCH (08:40)
[2019-06-28] MEDS: predniSONE 20 MG TAB PO SCH (08:40)
[2019-06-28] MEDS: EZETIMIBE 10 MG TAB (ZETIA) PO SCH (08:40)
[2019-06-28] MEDS: AUGMENTIN 875 MG TAB PO SCH ×2 (08:40→20:12)
[2019-06-28] MEDS: HumaLOG INSULIN (NovoLOG) PER UNIT SC SCH ×4 (08:41→20:13)
[2019-06-28] MEDS: guaiFENesin/CODEINE SYRUP 5 ML UDC PO PRN ×2 (08:46→23:32)
[2019-06-28] MEDS ORDERED: CHLORASEPTIC SPRAY MT PRN (09:30)
[2019-06-28] MEDS ORDERED: FUROSEMIDE 40 MG/4 ML VIAL (J1940) IV ONE (09:45)
[2019-06-28] MEDS: ACETAMINOPHEN TAB 650MG DOSE (2X325MG) PO PRN ×2 (09:56→16:49)
[2019-06-28 10:22] LABS: HEPATITIS A ANTIBODY IGM NEGATIVE (NEGATIVE); HEPATITIS B CORE ANTIBODY IGM NEGATIVE (NEGATIVE); HEPATITIS B SURFACE ANTIGEN NEGATIVE (NEGATIVE)
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
[2019-06-28] MEDS ORDERED: SLF 3 ML SYR IV PRN (13:00)
--- NOTE | 2019-06-28 13:52 | IPN ---
DATE: 06/27/2019 Mr. Gallagher reports that he is feeling much better. He continues to have a cough, but is able to handle his secretions and his cough is lessening. No shortness breath. No chest pain. He has been ambulating some in his room and is anxious to work with physical therapy. Mr. Gallagher tolerated table top bilevel therapy of 14/10 for several hours last night. He notes that he felt better after wearing that device. OBJECTIVE: PHYSICAL EXAMINATION: General: Mr. Gallagher is lying in bed in no acute distress. He can complete full sentences. Rare cough. Vital signs: Temperature 97.8, pulse 100, respiratory 22, blood pressure 150/100 with a MAP of 117, SpO2 96% on 2 liters by nasal cannula. HEENT: Anicteric. Nares: Patent bilaterally. Oropharynx clear, no lesions. Neck: Supple, without apparent JVD, thyromegaly or masses. Trachea is midline. Lymph: Without cervical or supraclavicular lymphadenopathy. Lungs: Symmetric excursion, good air entry, right basilar expiratory wheezes. No rhonchi or crackle. Normal to mildly prolonged expiratory phase. No accessory muscle usage or retractions. Cardiovascular: Regular rate and rhythm with level S1-S2, no murmur, rub or gallop appreciated. Abdomen: Positive bowel sounds. Soft, nondistended, nontender. Extremities: Warm and well-perfused, without clubbing, cyanosis, or significant edema. LABORATORY DATA: CBC from earlier today showed a hemoglobin of 13.5, hematocrit 42.6, platelet count 241,000, and white blood cell count 13,900. Chemistries showed sodium 139, potassium 4.0, chloride 104, bicarbonate 28, anion gap 7, BUN 33, creatinine 0.8, glucose 90, calcium 8.6, total bilirubin 0.7, AST 109, ALT 107, alkaline phosphatase 40, total protein 7.0, albumin 2.5. IMPRESSION: 1. Acute hypoxic respiratory failure, appropriately replaced on 2 liters by nasal cannula. 2. Obstructive lung process, thought irritant induced asthma/reactive airway dysfunction syndrome. 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 3. Diabetes mellitus. 4. Probable obstructive sleep apnea (LAURA). RECOMMENDATIONS: 1. Agree with changing to oral antibiotics basis. He is waiting for Augmentin b.i.d. times seven days. 2. Will continue to wean his corticosteroids. 3. Continue his IC/LABA medications. 4. He will need a followup with complete pulmonary function tests and evaluation, both of his obstructive lung disease and probable obstructive sleep apnea as an outpatient with Dr. Moctezuma.
[2019-06-28] MEDS: SLF 3 ML SYR IV SCH ×2 (14:00→22:27)
--- NOTE | 2019-06-28 14:20 | IPNPDOC ---
Text Note Date of Service The patient was seen on 06/28/19. NOTE Subjective Chief Complaint/HPI Pt is a 48 year old male who was admitted to the ICU 2/2 acute asthma exacerbation with respiratory failure requiring mechanical vent support and suspected aspiration,new-onset seizure. Pt was in the [facility] ICU since 06/21/19- 06/26/19. He reported he continues to improve. He has been walking up and down the hallways and to the bathroom, regaining his strength, eating and taking care of his ADLs inpatient. His cough is slightly improved, but he still gets HAs from coughing, at night he has to remove his CPAP mask to cough/clear secretions. He has denied shortness of breath. He agrees and understands this will all take time to continue to improve. Pt continues to experience discomfort in his throat; current medications are helpful. Objective Physical Examination General Exam: Positive: Alert, No Acute Distress, Other (seen on RA ) Eye Exam: Positive: Conjunctiva & lids normal, EOMI; Negative: Sclera icteric ENT Exam: Positive: Atraumatic, Mucous membr. moist/pink; Neck Exam: Positive: Supple; Pharynx erythematous, ulcerated Negative: thyromegaly, lymphadenopathy Chest Exam: Positive: Wheezing (diffuse, b/l lungs); Negative: Rales, Rhonchi Heart Exam: Positive: Rate Normal, Regular Rhythm, Normal S1, Normal S2; Negative: Murmurs, Rubs Telemetry: Positive: No significant arrhythmia Extremity Exam: Negative: Clubbing, Cyanosis, Edema Skin Exam: Positive: Nl turgor and temperature Neuro Exam: Positive: Normal Speech, Cranial Nerves 3-12 NL Psych Exam: Positive: Mood NL, Oriented x 3 Assessment /Plan Assessment Pt is a 48 year old male who was admitted to the ICU 2/2 acute asthma exacerbation with respiratory failure requiring mechanical vent support and suspected aspiration pneumonia. Pt has a PMHx which includes: DM, HTN, Gout, Low back pain. 1. Respiratory failure requiring mechanical vent support, now extubated 2. Acute suspected irritant-induced asthma with exacerbation vs reactive airway dysfunction syndrome 3. Aspiration pneumonia - successfully extubated 06/25/19; continue NC and qhs CPAP - per ICU - switched to prn Duoneb, Symbicort and prednisone PO 2/2 suspected irritant induced asthma. IV Solumedrol, Perforomist and Budesonide d/c'd. - tapering prednisone 60mg - 40mg qday as breathing & cough slightly improved - d/c Rocephin; start Augmentin PO BID x7 d as pt clinically improved - prn Robitussin AC for persistent cough precipitating GARY - continue to emphasize the importance of his qhs CPAP and encourage compliance 4. DMII - hold oral antiglycemics - continue ISS with achs - daily FBS 5. HTN - continue CCB, KENDRA-I - slight tachy is likely 2/2 steroid therapy for resp failure/irritant-induced asthma; weaning down 6. LAURA - apparently a formal sleep study has not been conducted for diagnosis - currently on CPAP qhs - f/u with sleep study outpt 7. Chronic low back pain - continue with Flexeril - oxycodone and Tylenol prn 8. GERD - continue PPI; now PO 9. Hypothyroidism - continue Synthroid 10. Hyperlipidemia - continue Zetia 11. Pharyngitis, with pharyngeal ulcer - throat culture - negative - continue Nystatin swish and swallow qid; add Chloraseptic for pain relief 12. Elevated LFTs - Per abdominal USG 06/22 - FLD, gallbladder wall thickening without stones - No abdominal Sx present - AST & ALT slightly improved with Furosemide 40mg IV. Repeat dose today - hep profile - negative 12. Sepsis on admission - Now resolved 13. Acute Renal Failure on admission - Now resolved Plan/VTE VTE Prophylaxis Ordered?: Yes (Heparin SQ) Dispo: [facility] assessed as good candidate for their services; however, declined by insurances. D/C home 24-48hrs with services prn. VS,Abel, I+O VS, Zenae, I+O Laboratory Tests 06/28/19 04:59 Vital Signs Date Time Temp Pulse Resp B/P (MAP) Pulse Ox O2 Delivery O2 Flow Rate FiO2 06/28/19 13:24 20 06/28/19 12:00 96.1 100 146/82 (103) 93 Room Air 06/27/19 16:00 2.0 06/26/19 21:12 30 I&O- Last 24 Hours up to 6 AM 06/28/19 05:59 Intake Total 920 ml Output Total 3800 ml Balance -2880 ml LORE ADDISON PA-C Jun 28, 2019 14:20
[2019-06-28] MEDS: diphenhydrAMINE 50 MG CAP PO PRN (23:32)
[2019-06-29] VITALS: BP 145/89; O2SAT 91
[2019-06-29 01:00] VITALS: O2SAT 91
[2019-06-29 02:00] VITALS: O2SAT 91
[2019-06-29 03:00] VITALS: O2SAT 89
[2019-06-29 04:00] VITALS: BP 140/83; O2SAT 91
[2019-06-29] MEDS: CYCLOBENZAPRINE 10 MG TAB PO PRN (05:05)
[2019-06-29] MEDS: ACETAMINOPHEN TAB 650MG DOSE (2X325MG) PO PRN ×2 (05:05→10:06)
[2019-06-29 05:24] LABS: HEMATOCRIT 42.9 % (42.0-52.0); HEMOGLOBIN 14.3 g/dl (13.5-17.5); MEAN CORPUSCULAR HGB CONC 33.3 g/dl (32.0-36.5); MEAN CORPUSCULAR VOLUME 90.1 fl (80.0-96.0); PLATELET COUNT, AUTOMATED 252 10^3/uL (150-450); RED BLOOD COUNT 4.76 10^6/uL (4.30-6.10); WHITE BLOOD COUNT 13.7 10^3/uL (4.0-10.0)
[2019-06-29 05:43] LABS: BLOOD UREA NITROGEN 23 MG/DL (7-18); CALCIUM LEVEL 8.9 MG/DL (8.5-10.1); CARBON DIOXIDE LEVEL 30 MEQ/L (21-32); CHLORIDE LEVEL 101 MEQ/L (98-107); CREATININE FOR GFR 0.86 MG/DL (0.70-1.30); GLOMERULAR FILTRATION RATE > 60.0 (>60); GLUCOSE, FASTING 139 MG/DL (70-100); POTASSIUM SERUM 3.8 MEQ/L (3.5-5.1); SODIUM LEVEL 138 MEQ/L (136-145)
[2019-06-29] MEDS: oxyCODONE 5MG TAB PO PRN (06:04)
[2019-06-29] MEDS: LEVOTHYROXINE 50MCG TABLET (0.05MG) PO SCH (06:04)
[2019-06-29] MEDS: SLF 3 ML SYR IV SCH (06:05)
[2019-06-29] MEDS: HEPARIN SOD (PORCINE) 5000 UNITS/ML VIAL (J1644 PER 1000UNITS) SC SCH (06:05)
[2019-06-29] MEDS ORDERED: PANTOPRAZOLE 40MG TAB (PROTONIX) PO SCH (07:30)
[2019-06-29] MEDS: SYMBICORT 160/4.5MCG INHALER 6GM INH SCH (07:30)
[2019-06-29 07:34] VITALS: BP 122/84
[2019-06-29 07:56] LABS: ALBUMIN 2.8 GM/DL (3.2-5.2); ALT/SGPT 152 U/L (12-78); BILIRUBIN,DIRECT 0.2 MG/DL (0.0-0.2); BILIRUBIN,TOTAL 0.8 MG/DL (0.2-1.0); TOTAL PROTEIN 7.5 GM/DL (6.4-8.2)
[2019-06-29] MEDS: HumaLOG INSULIN (NovoLOG) PER UNIT SC SCH (08:30)
[2019-06-29] MEDS: AUGMENTIN 875 MG TAB PO SCH (08:30)
[2019-06-29] MEDS: NYSTATIN 500,000 U/5 ML SUSP UDC SS SCH (08:30)
[2019-06-29] MEDS: lisinopriL 40 MG TAB PO SCH (08:31)
[2019-06-29] MEDS: EZETIMIBE 10 MG TAB (ZETIA) PO SCH (08:31)
[2019-06-29] MEDS: amLODIPine 10 MG TAB PO SCH (08:31)
[2019-06-29] MEDS ORDERED: predniSONE 20 MG TAB PO SCH (09:00)
[2019-06-29] MEDS ORDERED: NYST50SS SS (09:46)
[2019-06-29] MEDS ORDERED: ALB2.5NEB NEB (09:46)
[2019-06-29] MEDS ORDERED: AMOX875T2 PO (09:46)
[2019-06-29] MEDS ORDERED: PRED10TA2 PO (09:46)
[2019-06-29] MEDS ORDERED: SYMB16INH INH (09:46)
[2019-06-29] MEDS ORDERED: OXYC-517 PO (11:09)
[2019-06-29] MEDS ORDERED: FLUT1INH3 INH (12:22)
--- NOTE | 2019-06-30 18:08 | DS.PDOC ---
Discharge Summary General Date of Admission Jun 21, 2019 at 22:38 Date of Discharge 06/29/19 Discharge Summary PROCEDURES PERFORMED DURING STAY: Intubation DISCHARGE DIAGNOSES: Acute respiratory failure with hypoxia Acute irritant induced asthma exacerbation Vs Reactive airway dysfunction s yndrome Aspiration Pneumonia ELVIS Sepsis Probable LAURA Abnormal LFTs, fatty live Pharyngitis with pharyngeal ulcer. SECONDARY DIAGNOSIS Obesity, DM, HTN, Gout, Low back pain, GERD, Hypothyroid, HLD COMPLICATIONS/CHIEF COMPLAINT: Respiratory Failure, Seizure. HISTORY OF PRESENT ILLNESS: See history and Physical HOSPITAL COURSE: Pt is a 48 year old male who was admitted to the ICU 2/2 acute asthma exacerbation suspected irritant induced asthma with acute respiratory failure requiring mechanical vent support and suspected aspiration pneumonia. Pt has a PMHx which includes: DM, HTN, Gout, Low back pain, obesity 1. Acute Respiratory failure with hypoxia requiring mechanical vent support resolved due to number 2. 2. Acute suspected irritant-induced asthma with exacerbation vs reactive airway dysfunction syndrome -continue prednisone taper, advair and albuterol nebs -follow up pulmonary 3. Aspiration pneumonia - finish course of Augmentin - prn Robitussin AC for persistent cough precipitating GARY 4. DMII -restart trulicity and metformin 5. HTN - continue amlodipine, KENDRA-I 6. Probable LAURA - Needs sleep study as an outpatient. - In hospital was on CPAP qhs 25/02 7. Chronic low back pain - continue with Flexeril, oxycodone, meloxicam, ibuprofen prn 8. GERD - continue PPI 9. Hypothyroidism - continue Synthroid 10. Hyperlipidemia - continue Zetia 11. Pharyngitis, with pharyngeal ulcer - throat culture - negative -possibly trauma from ET tube and Ng tube - continue Nystatin swish and swallow qid; add Chloraseptic for pain relief 12. Elevated LFTs - Per abdominal USG 06/22 - FLD, gallbladder wall thickening without stones - No abdominal Sx present - hepatitis profile - negative - Etiology could be medications and fatty liver, Follow up with PMD 12. Sepsis on admission - Now resolved 13. Acute Renal Failure - Now resolved DISCHARGE MEDICATIONS: Please see below. ALLERGIES: Please see below. PHYSICAL EXAMINATION ON DISCHARGE: VITAL SIGNS: Please see below. General Exam: Positive: Alert, No Acute Distress, Other (seen on RA ) Eye Exam: Positive: Conjunctiva & lids normal, EOMI; Negative: Sclera icteric ENT Exam: Positive: Atraumatic, Mucous membr. moist/pink; Neck Exam: Positive: Supple; Pharynx erythematous, ulcerated Negative: thyromegaly, lymphadenopathy Chest Exam: Positive: Wheezing (diffuse, b/l lungs); and ronchi. Negative: Rales, Heart Exam: Positive: Rate Normal, Regular Rhythm, Normal S1, Normal S2; Negative: Murmurs, Rubs Telemetry: Positive: No significant arrhythmia Extremity Exam: Negative: Clubbing, Cyanosis, Edema Skin Exam: Positive: Nl turgor and temperature Neuro Exam: Positive: Normal Speech, Cranial Nerves 3-12 NL Psych Exam: Positive: Mood NL, Oriented x 3 LABORATORY DATA: Please see below. ACTIVITY: [As tolerated]. DIET: Regular, carb consistent DISPOSITION: 01 Home, Self-Care. DISCHARGE INSTRUCTIONS: PMD in 1 week Pulmonary in 2 to 3 weeks ITEMS TO FOLLOWUP ON ON OUTPATIENT: Needs Sleep study. DISCHARGE CONDITION: [Stable]. TIME SPENT ON DISCHARGE: 35 minutes. Vital Signs/I&Os Vital Signs Date Time Temp Pulse Resp B/P (MAP) Pulse Ox O2 Delivery O2 Flow Rate FiO2 06/29/19 07:34 97.4 97 16 122/84 (97) 92 Room Air 06/26/19 21:12 30 I&O- Last 24 Hours up to 6 AM 06/30/19 06:00 Intake Total 300 ml Balance 300 ml Microbiology Microbiology 06/27/19 Eye/Ear/Nose/Throat Culture - Final, Complete 06/23/19 Respiratory Virus Panel (PCR) (LONG) - Final, Complete 06/22/19 Gram Stain - Final, Complete 06/22/19 Sputum Culture - Final, Complete Strep Agalactiae Group B Staphylococcus Aureus Yeast Like Organism 06/22/19 Blood Culture - Final, Complete NO GROWTH AFTER 5 DAYS 06/21/19 Blood Culture - Final, Complete NO GROWTH AFTER 5 DAYS Discharge Medications Scheduled Amlodipine Besylate (Amlodipine Besylate) 10 Mg Tablet, 10 MG PO DAILY, (Reported) Amoxicillin/Potassium Clav (Amox-Clav 875-125 mg Tablet) 1 Each Tablet, 875 MG PO BID Dulaglutide (Trulicity) 1.5 Mg/0.5 Ml Pen.injctr, 1.5 MG SC Q7D, (Reported) TAKES ON MONDAYS Ezetimibe (Zetia) 10 Mg Tablet, 10 MG PO DAILY, (Reported) Fluticasone Propion/Salmeterol (Fluticasone-Salmeterol 232-14) 1 Each Aer.pow.ba, 2 PUFF INH BID Fluticasone Propionate (Fluticasone Propionate) 16 Gm [place].susp, 2 SPRAY NARES DAILY, (Reported) Levothyroxine Sodium (Levothyroxine Sodium) 50 Mcg Tablet, 50 MCG PO DAILY, (Reported) Lisinopril (Lisinopril) 40 Mg Tablet, 40 MG PO DAILY, (Reported) Meloxicam (Mobic) 7.5 Mg Tablet, 7.5 MG PO BID, (Reported) Metformin HCl (Metformin HCl) 500 Mg Tablet, 500 MG PO BID, (Reported) Nystatin (Nystatin Oral Susp) 100,000 Unit/1 Ml Oral.susp, 5 ML SS QID Omeprazole (Omeprazole) 40 Mg Capsule.dr, 40 MG PO DAILY, (Reported) Prednisone (Prednisone) 10 Mg Tablet, 10 MG PO TAPER Take 4 tabs daily x 3 days, then 3 tabs daily x 3 days, then 2 tabs daily x 3 days, then 1 tab daily x 3 days and stop Scheduled PRN Albuterol Sulfate (Albuterol Sulfate) 2.5 Mg/0.5 Ml Vial.neb, 2.5 MG NEB Q4HP PRN for SOB/WHEEZING Cyclobenzaprine HCl (Cyclobenzaprine HCl) 10 Mg Tablet, 10 MG PO TID PRN for MUSCLE SPASMS, (Reported) Ibuprofen (Ibuprofen) 800 Mg Tablet, 800 MG PO TID PRN for PAIN, (Reported) Lidocaine (Lidocaine) 5% Adh..patch, 1 PATCH TOP DAILY PRN for PAIN, (Reported) Oxycodone HCl (Oxycodone HCl) 5 Mg Tablet, 5 MG PO TID PRN for PAIN Miscellaneous Medications [Patient Comments] , (Reported) PATIENT INTUBATED AT THIS TIME. RELATIVE PROVIDED INFORMATION ON MEDICATIONS BUT UNSURE WHAT WAS TAKEN AND WHAT TIME ANY WERE TAKEN Allergies Coded Allergies: No Known Allergies (Unverified , 06/18/13) FILIPPO STEPHENS MD Jun 30, 2019 18:08
== END 2019-06-29 12:30 | disposition home or self-care (01) | DRG 720 ==
LOC: EDBD 20:00 → M ED 20:00 → EEVIPCON 22:38 → M ED INP 22:38 → ENRESERV 06-22 00:03 → M ICU 06-22 00:52 → M PCU 06-26 23:45
PROVIDERS: ADMIT Internal Medicine Pulmonary Disease; ATTEND Internal Medicine Nephrology
PROC: 5A1945Z Respiratory Ventilation, 24-96 Consecutive Hours (ICD-10-PCS; principal; 2019-06-21)
PROC: 0BH17EZ Insertion of Endotracheal Airway into Trachea, Via Natural or Artificial Opening (ICD-10-PCS; 2019-06-21)
DX: A41.9 Sepsis, unspecified organism (principal); R65.21 Severe sepsis with septic shock; J96.01 Acute respiratory failure with hypoxia; J69.0 Pneumonitis due to inhalation of food and vomit; N17.9 Acute kidney failure, unspecified; R56.9 Unspecified convulsions; E87.4 Mixed disorder of acid-base balance; J45.901 Unspecified asthma with (acute) exacerbation; J96.02 Acute respiratory failure with hypercapnia; E11.65 Type 2 diabetes mellitus with hyperglycemia; K76.0 Fatty (change of) liver, not elsewhere classified; G47.33 Obstructive sleep apnea (adult) (pediatric); E78.5 Hyperlipidemia, unspecified; I10 Essential (primary) hypertension; M54.5 Low back pain; E03.9 Hypothyroidism, unspecified; J02.9 Acute pharyngitis, unspecified; J39.2 Other diseases of pharynx; M10.9 Gout, unspecified; Z79.84 Long term (current) use of oral hypoglycemic drugs; Z79.899 Other long term (current) drug therapy

== ENCOUNTER → 2019-07-22 | Outpatient (CLI) | payer OTHER ==
[~2019-07-22] MED LIST changes: +ALB2.5NEB NEB; +AMLO10TA5 PO; +AMOX875T2 PO; +CYCL10TA PO; +FLUT1INH3 INH; +FLUTISP NARES; +LEVO50TA5 PO; +LIDO5TD TOP; +LISI40TA PO; +METF500T13 PO; +MOBI4TAB PO; +NYST50SS SS; +OMEP-221 PO; +OXYC-517 PO; +PANT40TA3 PO; +PATIENT COMMENTS; +PRED10TA2 PO; +SYMB16INH INH; +TRUL0.5I SC; +ZETI10TA16 PO
--- NOTE | 2019-07-26 12:00 | SLEEPHOME ---
DATE OF STUDY: 07/22/2019 ORDERED BY: Dr. Moctezuma Diagnostic home sleep testing was performed due to concern for the obstructive sleep apnea syndrome in this patient with a history of excessive somnolence and nonrestorative sleep who has comorbidities of diabetes and hypertension. For testing, a nocturnal T3 respiratory monitoring device was used. Continuous record was made of pulse, oxygen saturation, airflow, chest and abdominal strain, and body position. 9 hours and 59 minutes of data were reviewed. There were 7 hours and 36 minutes marked as time in bed. During the interval marked time in bed, there were 959 respiratory events identified of 10 seconds in duration or greater for a respiratory event index of 126. The events were mixed, 525 obstructive apneas, 384 mixed and central apneas. Baseline pulse rate 88 beats per minute. Pulse rate ranged 48 to 111. Baseline saturation was 89%, saturations fell to 52%. Testing was performed in both the supine and nonsupine positions. IMPRESSION: Abnormal home sleep testing with repetitive respiratory events and oxygen desaturations to 52% with a respiratory event index of 126 is consistent with obstructive sleep apnea syndrome, complex disease is suggested based on the frequency of central events. RECOMMENDATION: The patient should be encouraged to undergo formal sleep evaluation and in laboratory titration given the abrupt occurrence of central events on a bilevel device and backup rate may be needed. cc: Audra Fulton MD
== END ==
LOC: M SLEEP HO 11:20
PROVIDERS: ATTEND Internal Medicine Pulmonary Disease
DX: G47.30 Sleep apnea, unspecified (principal)

== ENCOUNTER 2019-07-29 15:03 | Emergency (ER) | payer OTHER ==
[~2019-07-29] VITALS: Ht 172.7 cm; Wt 111.4 kg
[~2019-07-29 15:03] MED LIST changes: -PANT40TA3 PO
[2019-07-29] MEDS ORDERED: IPRATROPIUM 0.5MG/ALBUTEROL 2.5MG INH SOL UD 3ML (DUONEB)(J7620) NEB SCH (15:30)
[2019-07-29 15:39] LABS: BASO % 0.4 % (0.0-1.0); EOS % 0.2 % (0.0-3.0); HEMATOCRIT 40.3 % (42.0-52.0); HEMOGLOBIN 14.1 g/dl (13.5-17.5); LYMPH % 31.2 % (24.0-44.0); MEAN CORPUSCULAR HEMOGLOBIN 31.1 pg (27.0-33.0); MONO # 0.7 10^3/uL (0.0-0.8); MONO % 7.7 % (0.0-5.0); NEUTROPHILS # 5.7 10^3/uL (1.5-8.5); PLATELET COUNT, AUTOMATED 263 10^3/uL (150-450); RED BLOOD COUNT 4.53 10^6/uL (4.30-6.10); WHITE BLOOD COUNT 9.5 10^3/uL (4.0-10.0)
[2019-07-29] MEDS ORDERED: PANT40TA3 PO (15:46)
--- NOTE | 2019-07-29 15:58 | REP ---
CHEST, PORTABLE: AP portable view of the chest is performed and compared to a prior study of 06/26/2019. There is mild elevation of the right hemidiaphragm unchanged. I see no acute infiltrate or pulmonary edema, with no change since the prior exam. Cardiac silhouette is upper limits of normal. Mediastinal silhouette is unchanged. IMPRESSION: No evidence of acute pulmonary disease. Electronically Signed by Mike Herrera MD 07/29/2019 06:24 P
[2019-07-29 16:14] LABS: BLOOD UREA NITROGEN 9 MG/DL (7-18); CALCIUM LEVEL 8.8 MG/DL (8.5-10.1); CARBON DIOXIDE LEVEL 21 MEQ/L (21-32); CHLORIDE LEVEL 108 MEQ/L (98-107); CK-MB VALUE MASS 1.6 NG/ML (<3.6); CPK CREATINE PHOSPHOKINASE 132 U/L (39-308); CREATININE FOR GFR 0.85 MG/DL (0.70-1.30); GLOMERULAR FILTRATION RATE > 60.0 (>60); GLUCOSE, FASTING 174 MG/DL (70-100); MB/CK RELATIVE INDEX 1.21 (< OR =4); POTASSIUM SERUM 3.9 MEQ/L (3.5-5.1); SODIUM LEVEL 140 MEQ/L (136-145); TROPONIN I < 0.02 NG/ML (< 0.10)
[2019-07-29] MEDS ORDERED: ISOVUE-370 76% 100ML VIAL (Q9967) As Ordered ONE (16:20)
[2019-07-29 16:28] LABS: LIPASE 355 U/L (73-393)
[2019-07-29 16:28] LABS: VENOUS BASE EXCESS -3.7 (-2.0-2.0); VENOUS HCO3 17.8 MEQ/L (23.0-27.0); VENOUS O2 SATURATION 99.1 % (60.0-80.0); VENOUS PARTIAL PRESSURE CO2 24.1 mmHg (38.0-50.0); VENOUS PARTIAL PRESSURE O2 143.6 mmHg (30.0-50.0); VENOUS PH 7.486 UNITS (7.330-7.430); VENOUS STANDARD HCO3 21.4 MEQ/L; VENOUS TOTAL CO2 18.5 MEQ/L (24.0-28.0)
[2019-07-29] MEDS ORDERED: ACETAMINOPHEN 325 MG TAB PO ONE (16:45)
[2019-07-29 16:56] VITALS: BP 121/69
--- NOTE | 2019-07-29 17:05 | REP ---
CT pulmonary angiogram: With IV contrast. History: Shortness of breath. Comparison studies: June 21, 2019. Contrast dose: 75 ML of Isovue [address] technique: Helical scanning is acquired and overlapping 1.5 mm and contiguous 3 mm axial images are reformatted. In addition, maximum intensity projection and multiplanar re-formation images are generated in sagittal and coronal imaging projections. CT pulmonary angiographic findings: There is good opacification in the pulmonary arterial tree. There is no vessel cutoff or filling defect to suggest pulmonary embolus. Thoracic aorta is normal in caliber and homogeneous in contrast enhancement. No aneurysm or dissection is appreciated. There is no evidence of pleural or pericardial effusion. Normal adrenal glands are seen bilaterally. The liver appears prominent unchanged. Its vertical span in the midclavicular line is 17 cm. No hilar or mediastinal mass or adenopathy is observed. There is no evidence of pulmonary infiltrate mass or significant pulmonary nodule. There are degenerative changes in the thoracic spine. Impression: No CT evidence of pulmonary embolus. Mild hepatomegaly again noted unchanged. Otherwise no acute abnormality. Electronically Signed by Rohit Whittaker MD 07/29/2019 04:56 P
--- NOTE | 2019-07-29 17:28 | ECGEPIP ---
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
== END 2019-07-29 17:06 | disposition home or self-care (01) ==
LOC: M ED 15:03
DX: R09.1 Pleurisy (principal); I10 Essential (primary) hypertension; E11.9 Type 2 diabetes mellitus without complications; J44.9 Chronic obstructive pulmonary disease, unspecified; E07.9 Disorder of thyroid, unspecified; K21.9 Gastro-esophageal reflux disease without esophagitis; Z79.899 Other long term (current) drug therapy; Z79.84 Long term (current) use of oral hypoglycemic drugs
CPT/HCPCS: 36415; 71045; 71275; 80048; 82550; 82553; 82803; 83690; 85025; 93005; 93041; 94640; 99284; Q9967

== ENCOUNTER 2019-09-06 19:05 | Inpatient (IN) | payer OTHER ==
[~2019-09-06] VITALS: Ht 175.3 cm; Wt 110.0 kg
[~2019-09-06 19:05] MED LIST changes: +CYCL-707 PO; -CYCL10TA PO; +PANT40TA3 PO
[2019-09-06] MEDS ORDERED: ONDANSETRON 4MG/2ML VIAL IV ONE (19:30)
[2019-09-06] MEDS ORDERED: NS 1,000 ML IV ONE (19:30)
[2019-09-06] MEDS: GI COCKTAIL 50ML BTL(HYOSCYAMINE/MAALOX/LIDOCAINE VISCOUS)(1:3:1) PO ONE ×2 (19:49→20:01)
[2019-09-06 20:00] LABS: BASO # 0.1 10^3/uL (0.0-0.2); BASO % 0.4 % (0.0-1.0); EOS % 0.2 % (0.0-3.0); HEMATOCRIT 46.1 % (42.0-52.0); HEMOGLOBIN 15.5 g/dl (13.5-17.5); LYMPH % 26.8 % (24.0-44.0); MEAN CORPUSCULAR HEMOGLOBIN 30.4 pg (27.0-33.0); MEAN CORPUSCULAR HGB CONC 33.6 g/dl (32.0-36.5); MEAN CORPUSCULAR VOLUME 90.4 fl (80.0-96.0); MONO # 1.1 10^3/uL (0.0-0.8); MONO % 7.6 % (0.0-5.0); NEUTROPHILS # 9.6 10^3/uL (1.5-8.5); NEUTROPHILS % 64.2 % (36.0-66.0); PLATELET COUNT, AUTOMATED 368 10^3/uL (150-450)
[2019-09-06 20:19] LABS: ALBUMIN 3.8 GM/DL (3.2-5.2); ALT/SGPT 186 U/L (12-78); BILIRUBIN,DIRECT 0.2 MG/DL (0.0-0.2); BILIRUBIN,TOTAL 0.5 MG/DL (0.2-1.0); CK-MB VALUE MASS 4.6 NG/ML (<3.6); CPK CREATINE PHOSPHOKINASE 274 U/L (39-308); ETHYL ALCOHOL (ETHANOL) 0.151 % (0.000-0.010); LIPASE 487 U/L (73-393); MB/CK RELATIVE INDEX 1.68 (< OR =4); TOTAL PROTEIN 8.1 GM/DL (6.4-8.2); TROPONIN I < 0.02 NG/ML (< 0.10)
--- NOTE | 2019-09-06 20:36 | REPVR ---
PROCEDURE INFORMATION: Exam: CT Head Without Contrast Exam date and time: 09/06/2019 8:12 PM Age: 48 years old Clinical indication: Syncope and collapse; Additional info: Syncope, chest pain TECHNIQUE: Imaging protocol: Computed tomography of the head without contrast. Radiation optimization: All CT scans at this facility use at least one of these dose optimization techniques: automated exposure control; mA and/or kV adjustment per patient size (includes targeted exams where dose is matched to clinical indication); or iterative reconstruction. COMPARISON: CT Head without contrast 06/21/2019 8:19 PM FINDINGS: Brain: Normal. No hemorrhage. Unremarkable white matter. No mass effect. Ventricles: Normal. No ventriculomegaly. Bones/joints: Unremarkable. No acute fracture. Sinuses: Visualized sinuses are unremarkable. No fluid levels. Mastoid air cells: Visualized mastoid air cells are well aerated. Soft tissues: Unremarkable. IMPRESSION: No acute intracranial abnormality. Electronically signed by: Shannan Bobby On 09/06/2019 20:35:40 PM
--- NOTE | 2019-09-06 20:38 | REPVR ---
PROCEDURE INFORMATION: Exam: CT Abdomen And Pelvis Without Contrast Exam date and time: 09/06/2019 8:12 PM Age: 48 years old Clinical indication: Condition or disease; Kidney or ureter condition; Acute renal insufficiency; Additional info: Chest pain, acute renal failure TECHNIQUE: Imaging protocol: Computed tomography of the abdomen and pelvis without contrast. Radiation optimization: All CT scans at this facility use at least one of these dose optimization techniques: automated exposure control; mA and/or kV adjustment per patient size (includes targeted exams where dose is matched to clinical indication); or iterative reconstruction. COMPARISON: CT ANGIO ABD/PEL 2019-06-21 20:24 FINDINGS: Lungs: Dependent subsegmental pulmonary atelectasis. Liver: Enlarged low attenuating liver, evidence of hepatic steatosis. Gallbladder and bile ducts: Gallbladder distension. Pancreas: Normal. No ductal dilation. Spleen: Normal. No splenomegaly. Adrenals: Normal. No mass. Kidneys and ureters: Couple punctate nonobstructing renal calculi measuring up to 2 mm. Stomach and bowel: Unremarkable. No obstruction. No mucosal thickening. Appendix: No evidence of appendicitis. Intraperitoneal space: Unremarkable. No free air. No significant fluid collection. Vasculature: Unremarkable. No abdominal aortic aneurysm. Lymph nodes: Unremarkable. No enlarged lymph nodes. Bladder: Unremarkable as visualized. Reproductive: Unremarkable as visualized. Bones/joints: Mild moderate lumbar spondylosis. Soft tissues: Unremarkable. IMPRESSION: 1. Dependent subsegmental pulmonary atelectasis. 2. Gallbladder distension. 3. Couple punctate nonobstructing renal calculi measuring up to 2 mm. Electronically signed by: Blas Cottrell On 09/06/2019 20:37:49 PM
--- NOTE | 2019-09-06 20:40 | REPVR ---
PROCEDURE INFORMATION: Exam: CT Chest Without Contrast Exam date and time: 09/06/2019 8:12 PM Age: 48 years old Clinical indication: Chest pain; Additional info: Chest pain, acute renal failure TECHNIQUE: Imaging protocol: Computed tomography of the chest without contrast. Radiation optimization: All CT scans at this facility use at least one of these dose optimization techniques: automated exposure control; mA and/or kV adjustment per patient size (includes targeted exams where dose is matched to clinical indication); or iterative reconstruction. COMPARISON: CT ANGIO CHEST 2019-07-29 16:22 FINDINGS: Lungs: Dependent subsegmental pulmonary atelectasis. Pleural space: Unremarkable. No pneumothorax. No pleural effusion. Heart: Unremarkable. No cardiomegaly. No pericardial effusion. Aorta: Unremarkable. No aortic aneurysm. Lymph nodes: Unremarkable. No enlarged lymph nodes. Bones/joints: Unremarkable. No acute fracture. Soft tissues: Unremarkable. IMPRESSION: No acute findings. Electronically signed by: Blas Cottrell On 09/06/2019 20:40:44 PM
[2019-09-06] MEDS ORDERED: NS IV ONE (20:45)
--- NOTE | 2019-09-06 20:45 | REPVR ---
PROCEDURE INFORMATION: Exam: CT Maxillofacial Without Contrast Exam date and time: 09/06/2019 8:12 PM Age: 48 years old Clinical indication: Injury or trauma; Fall; Initial encounter; Blunt trauma (contusions or hematomas); Cheek bone; Left; Additional info: Facial trauma TECHNIQUE: Imaging protocol: Computed tomography images of the face without contrast. Radiation optimization: All CT scans at this facility use at least one of these dose optimization techniques: automated exposure control; mA and/or kV adjustment per patient size (includes targeted exams where dose is matched to clinical indication); or iterative reconstruction. COMPARISON: No relevant prior studies available. FINDINGS: Orbits: Orbits are normal. Globes are unremarkable. Bones/joints: Mild leftward deviation of nasal septum. No fracture. Sinuses: Minimal mucosal thickening in the floor of the right maxillary sinus. Oropharynx: Calcification in the left palatine tonsil of no clinical significance to the patient. Soft tissues: Unremarkable. IMPRESSION: 1. No acute fracture Electronically signed by: Shannan Bobby On 09/06/2019 20:45:12 PM
[2019-09-06] MEDS: HumaLOG INSULIN (NovoLOG) PER UNIT SC SCH (21:00)
[2019-09-06] MEDS ORDERED: ALB2.5NEB NEB (21:31)
[2019-09-06] MEDS ORDERED: FLUT1INH3 INH (21:31)
[2019-09-06] MEDS ORDERED: OXYC-517 PO (21:31)
[2019-09-06] MEDS ORDERED: VITA50005 PO (21:32)
[2019-09-06] MEDS ORDERED: ADME100I SC (21:32)
[2019-09-06] MEDS ORDERED: ALBUTEROL SULFATE 2.5 MG/0.5 ML INH NEB SOLN INH PRN (21:45)
[2019-09-06] MEDS ORDERED: GLUCOSE 4GM CHEW TABLET PO PRN (21:45)
[2019-09-06] MEDS ORDERED: DEXTROSE 50% 50 ML SYRINGE IV PRN (21:45)
[2019-09-06] MEDS ORDERED: GLUCAGON INJ 1MG VIAL SC PRN (21:45)
[2019-09-06 22:41] LABS: AMPHETAMINES LEVEL URINE NEGATIVE (NEGATIVE); BARBITURATES URINE NEGATIVE (NEGATIVE); BENZODIAZEPINES URINE POSITIVE (NEGATIVE); CANNABINOIDS URINE NEGATIVE (NEGATIVE); COCAINE METABOLITE URINE NEGATIVE (NEGATIVE); METHADONE URINE NEGATIVE (NEGATIVE); OPIATES URINE POSITIVE (NEGATIVE); PHENCYCLIDINE URINE NEGATIVE (NEGATIVE)
--- NOTE | 2019-09-06 22:42 | REPVR ---
PROCEDURE INFORMATION: Exam: US Abdomen Limited, Right Upper Quadrant Exam date and time: 09/06/2019 10:28 PM Age: 48 years old Clinical indication: Abdominal pain; Acute; Additional info: Dilated gb TECHNIQUE: Imaging protocol: Real-time ultrasound of the abdomen with image documentation. Examination was focused on the right upper quadrant. COMPARISON: Abdomen, limited US 2019-06-22 10:47 FINDINGS: Liver: Hepatic steatosis and liver enlargement. Gallbladder: Distended gallbladder with normal wall thickness. No shadowing gallstones. Common bile duct: Normal. No stones. No dilation. Pancreas: Visualized pancreas is unremarkable. Right kidney: Normal. No mass. No hydronephrosis. IMPRESSION: 1. Distended gallbladder with normal wall thickness. No shadowing gallstones. Could be distended from fasting. 2. Hepatic steatosis and liver enlargement. Electronically signed by: Blas Cottrell On 09/06/2019 22:42:42 PM
--- NOTE | 2019-09-06 23:23 | HPEPDOC ---
General Date of Admission Sep 06, 2019 at 21:40 Date of Service: Sep 06, 2019 Chief Complaint The patient is a 48-year-old male who presented to the ER after reporting 4-5 days of feeling sick and passed out today History of Present Illness Patient is a 48-year-old male with a PMHx Asthma, HTN, DLP, IDDM2, Gout, Hypothyroidism, Obesity, Chronic back / neck pain, GERD who presented to the ER via ambulance after he had collapsed at home. Patient has reported that over the last 4-5 days hes been feeling tired and nauseated. Patient reports that he has the inability to eat or drink or sleep. Patient reports that today his friends came over and he was drinking. Patients had reported to him that he appeared to be more yellow than usual. Patient was sitting on couch this afternoon and got up to use the bathroom. Upon evaluation to the bathroom. Patient had felt dizzy, lightheaded and then had collapsed. Patient does not recall any of the events in question. He does attest to waking up with his friends helping him back to the couch. His had contacted EMS for further assistance. Patient reports that currently he denies any abdominal pain., But has been experiencing nausea and vomiting. Patient reports that 2 days ago. Hes been experiencing at least 2 episodes of vomiting without any evidence of blood. Has expense, chills, without any fevers. Denies any constipation, diarrhea, or urinary discomfort. Patient reports he does not have any chest pain, shortness of breath or palpitations. He does not experiencing lower extremity swelling. Patient reports that his appetite. Prior to all this was relatively normal and has only deteriorated over the last 4 days. Patient with that. He has expense and for a mild decrease in his weight, but does report that he has had a recent change to a healthy diet. Home Medications Scheduled Albuterol Sulfate (Albuterol Sulfate) 2.5 Mg/0.5 Ml Vial.neb, 1 VIAL NEB Q4H, (Reported) Amlodipine Besylate (Amlodipine Besylate) 10 Mg Tablet, 10 MG PO DAILY, (Reported) Dulaglutide (Trulicity) 1.5 Mg/0.5 Ml Pen.injctr, 1.5 MG SC Q7D, (Reported) TAKES ON MONDAYS Ergocalciferol (Vitamin D2) (Vitamin D2) 50,000 Units Cap, 1 CAP PO QWEEK, (Reported) Ezetimibe (Zetia) 10 Mg Tablet, 10 MG PO DAILY, (Reported) Fluticasone Propion/Salmeterol (Fluticasone-Salmeterol 232-14) 1 Each Aer.pow.ba, 2 PUFF INH BID, (Reported) Fluticasone Propionate (Fluticasone Propionate) 16 Gm Show Low.susp, 2 SPRAY NARES DAILY, (Reported) Insulin Lispro (Admelog) 100 Unit/1 Ml Vial, 4 UNIT SC TID, (Reported) with each meal Levothyroxine Sodium (Levothyroxine Sodium) 50 Mcg Tablet, 50 MCG PO DAILY, (Reported) Lisinopril (Lisinopril) 40 Mg Tablet, 40 MG PO DAILY, (Reported) Meloxicam (Mobic) 7.5 Mg Tablet, 7.5 MG PO BID, (Reported) Metformin HCl (Metformin HCl) 500 Mg Tablet, 500 MG PO BID, (Reported) Pantoprazole Sodium (Pantoprazole Sodium) 40 Mg Tablet.dr, 40 MG PO DAILY, (Reported) Scheduled PRN Cyclobenzaprine HCl (Cyclobenzaprine HCl) 10 Mg Tablet, 10 MG PO TID PRN for MUSCLE SPASMS, (Reported) Oxycodone HCl (Oxycodone HCl) 5 Mg Tablet, 5 MG PO BID PRN for PAIN, (Reported) Allergies Coded Allergies: No Known Allergies (Unverified , 06/18/13) Past Medical History Medical History Asthma, HTN, DLP, IDDM2, Gout, Hypothyroidism, Obesity, Chronic back / neck pain, GERD Surgical History Hernia surgery Left knee surgery No appendectomy or cholecystectomy done in the past Family History - Mother and father with history of heart problems Social History - Denies the use of tobacco or illicit drugs; patient reports that he has been consuming alcohol at least 2 times a week. Patient reports that he drinks 2-3 glasses of [place] - Denies recent travel or sick contacts - Lives with and 3 kids - Occupation; patient reports that he has worked in [employer] until he was involved in an accident Review of Systems Other systems 10 point review of systems complete, all negative otherwise stated in HPI Vital Signs - Vitals: BP 105/52, HR 104, RR 19, Sat 93%RA, Temp 96.1F - General: Lying in bed, appears to be relatively comfortable, AAOx3 - HEENT: NC, AT, PERRLA, EOMI - CVS: Tachycardia, +S1S2 - Lungs: Fair air entry bilaterally, No appreciable wheezing / rales / rhonchi - Abdomen: Soft, Non-distended, right upper quadrant tenderness noted on palpation, no guarding, rigidity or rebound - Extremities: No lower extremity edema, No calf tenderness - Neuro: No focal motor or sensory deficit - Skin: No visible rashes Laboratory Data Labs 24H Laboratory Tests 2 09/06/19 19:47: Immature Granulocyte % (Auto) 0.8, Neutrophils (%) (Auto) 64.2, Lymphocytes (%) (Auto) 26.8, Monocytes (%) (Auto) 7.6H, Eosinophils (%) (Auto) 0.2, Basophils (%) (Auto) 0.4, Neutrophils # (Auto) 9.6H, Lymphocytes # (Auto) 4.0, Monocytes # (Auto) 1.1H, Eosinophils # (Auto) 0.0, Basophils # (Auto) 0.1, Nucleated Red Blood Cells % (auto) 0.0, Total Bilirubin 0.5, Direct Bilirubin 0.2, Aspartate Amino Transf (AST/SGOT) 122H, Alanine Aminotransferase (ALT/SGPT) 186H, Alkaline Phosphatase 59, Total Creatine Kinase 274, Creatine Kinase MB 4.6H, Creatine Kinase MB Relative Index 1.68, Troponin I < 0.02, Total Protein 8.1, Albumin 3.8, Albumin/Globulin Ratio 0.88L, Lipase 487H, Ethyl Alcohol Level 0.151H 09/06/19 19:48: Lactic Acid Level 4.8*H 09/06/19 19:54: POC Glucose (Misc Panel) 173H, POC Sodium (Misc Panel) 133L, POC Potassium (Misc Panel) 3.7, POC Chloride (Misc Panel) 101, POC Total CO2 (Misc Panel) 17.0L, POC Blood Urea Nitrogen (Misc Panel 35H, POC Ionized Calcium (Misc Panel) 3.9L, POC Creatinine (Misc Panel) 3.4H, POC Hematocrit (Misc Panel) 47.0 09/06/19 19:59: Urine Color ALEX, Urine Appearance HAZY, Urine pH 5.0, Urine Specific [place] 1.026, Urine Protein 2+H, Urine Glucose (UA) NEGATIVE, Urine Ketones NEGATIVE, Urine Blood NEGATIVE, Urine Nitrite NEGATIVE, Urine Bilirubin NEGATIVE, Urine Urobilinogen 2.0H, Urine Leukocyte Esterase NEGATIVE, Urine WBC (Auto) 4H, Urine RBC (Auto) 1, Urine Hyaline Casts (Auto) 22, Urine Bacteria (Auto) 1+H, Urine Squamous Epithelial Cells 1, Urine Mucus (Auto) SMALL, Urine Sperm (Auto) , Urine Opiates Screen POSITIVEH, Urine Methadone Screen NEGATIVE, Urine Barbiturates Screen NEGATIVE, Urine Phencyclidine Screen NEGATIVE, Urine Amphetamines Screen NEGATIVE, Urine Benzodiazepines Screen POSITIVEH, Urine Cocaine Metabolite Screen NEGATIVE, Urine Cannabinoids Screen NEGATIVE 09/06/19 22:35: CBC/BMP Laboratory Tests 09/06/19 19:47 Microbiology Microbiology 09/06/19 Blood Culture, Received Pending 09/06/19 Blood Culture, Received Pending Plan / VTE VTE Prophylaxis Ordered?: Yes Plan Plan Syncope - likely 2/2 hypotension - possibly 2/2 hypovolemia, sepsis - Patient had had a syncopal episode this afternoon - In the emergency room, patient was found to be hypotensive and tachycardic - See below Head trauma - Patient has sustained left facial trauma after he had synopsized while at home - CT head 09/05: No acute intracranial abnormality. - Maxillofacial CT 09/05: 1. No acute fracture - Will continue with Tylenol when necessary Sepsis - possibly 2/2 intra-abdominal source - Patient has reported nausea and vomiting over the last 4-5 days; noted some blood - Physical reveals right upper quadrant tenderness - Patient is hypotensive and tachycardic; remains afebrile - Leukocytosis without any changes in differential; lactic acidosis - CT abdomen / pelvis 09/05: 1. Dependent subsegmental pulmonary atelectasis. 2. Gallbladder distension. 3. Couple punctate nonobstructing renal calculi m easuring up to 2 mm. - CT chest 09/05: No acute findings. - US abdomen 09/05: 1. Distended gallbladder with normal wall thickness. No shadowing gallstones. Could be distended from fasting. 2. Hepatic steatosis and liver enlargement. - Will check blood cultures, urinalysis, urine cultures and procalcitonin - Will continue with IV fluid hydration and broad-spectrum coverage with meropenem Lactic acidosis - Will check repeat lactic acid within 4 hours - Will continue with IV fluid hydration Acute kidney injury - likely 2/2 pre-renal etiology - Patients baseline creatinine runs about 0.8 - Will avoid nephrotoxic medications - Will continue with IV fluid hydration Elevated AST/ALT - possibly 2/2 alcoholic hepatitis - Patients creatinine ratio is approximately 2:3 - Patient has had a hepatitis panel completed on 06/2019 that was found to be negative - Will continue to monitor trends Intoxication - Patient has not had any withdrawal episodes in the past - Alcohol level upon arrival was 0.151 - UDS with positive findings for opiates and benzodiazepines - Does he have any withdrawal symptoms at the moment - Will start thiamine, folate, multivitamins Asthma - No evidence of exacerbation at this time - Will continue with inhaled therapy as needed HTN - Patient is currently hypotensive - Will hold patients amlodipine and lisinopril DLP - Continue with Ezetimibe IDDM2 -Will start the patient on insulin sliding scale Gout - Has not been on any therapy as an outpatient Hypothyroidism - Will continue with levothyroxine Obesity - BMI 36.1 - Complicating medical care Chronic back / neck pain - Patient chronically on opiate therapy as an outpatient. Well continue with the same GERD - Will start Protonix IV DVT prophylaxis - Will start Heparin LORRAINE GRECO MD Sep 06, 2019 23:23
[2019-09-06 23:40] VITALS: BP 83/55
[2019-09-06] MEDS: NS 1,000 ML IV SCH (23:46)
[2019-09-06] MEDS: MEROPENEM INJ 1 GM in IV 1 EA IV SCH (23:58)
[2019-09-06] MEDS: FOLIC ACID 1 MG TAB PO SCH (23:59)
[2019-09-06] MEDS: MULTIVITAMINS/MINERALS THERAP 1 TAB PO SCH (23:59)
[2019-09-06] MEDS: THIAMINE 100 MG TAB PO SCH (23:59)
[2019-09-07] VITALS (7 sets, daily range): BP systolic 113–130; BP diastolic 65–77
[2019-09-07] MEDS: PANTOPRAZOLE 40MG VIAL (C9113 PER 1) IV SCH ×2 (00:06→08:45)
[2019-09-07] MEDS: HEPARIN SOD (PORCINE) 5000UNITS/ML VIAL (J1644 PER 1000UNITS) SC SCH ×4 (00:10→21:32)
[2019-09-07] MEDS: ACETAMINOPHEN TAB 650MG DOSE (2X325MG) PO PRN ×2 (00:21→07:23)
[2019-09-07] MEDS ORDERED: NS 1,000 ML IV ONE (01:30)
[2019-09-07] MEDS: oxyCODONE 5MG TAB PO PRN ×3 (03:10→17:10)
[2019-09-07 04:00] LABS: BASO % 0.2 % (0.0-1.0); EOS % 0.1 % (0.0-3.0); HEMATOCRIT 39.4 % (42.0-52.0); LYMPH # 3.8 10^3/uL (1.5-5.0); LYMPH % 28.4 % (24.0-44.0); MEAN CORPUSCULAR HEMOGLOBIN 30.7 pg (27.0-33.0); MEAN CORPUSCULAR VOLUME 90.4 fl (80.0-96.0); MONO # 1.3 10^3/uL (0.0-0.8); MONO % 9.4 % (0.0-5.0); NEUTROPHILS # 8.3 10^3/uL (1.5-8.5); NEUTROPHILS % 61.5 % (36.0-66.0); RED BLOOD COUNT 4.36 10^6/uL (4.30-6.10); WHITE BLOOD COUNT 13.5 10^3/uL (4.0-10.0)
[2019-09-07 04:17] LABS: HEMOGLOBIN 13.4 g/dl (13.5-17.5); PLATELET COUNT, AUTOMATED 263 10^3/uL (150-450)
[2019-09-07 04:32] LABS: ALBUMIN 3.1 GM/DL (3.2-5.2); BILIRUBIN,TOTAL 0.7 MG/DL (0.2-1.0); CALCIUM LEVEL 8.1 MG/DL (8.5-10.1); CREATININE FOR GFR 2.23 MG/DL (0.70-1.30); GLOMERULAR FILTRATION RATE 33.6 (>60); POTASSIUM SERUM 4.4 MEQ/L (3.5-5.1)
[2019-09-07] MEDS: MEROPENEM INJ 1 GM in IV 1 EA IV SCH (06:25)
[2019-09-07] MEDS: ADVAIR HFA 230/21MCG INHALER INH SCH ×2 (07:41→19:59)
[2019-09-07] MEDS: HumaLOG INSULIN (NovoLOG) PER UNIT SC SCH ×4 (07:47→20:56)
[2019-09-07] MEDS: CYCLOBENZAPRINE 10MG TABLET PO PRN ×2 (07:56→17:11)
[2019-09-07] MEDS: EZETIMIBE 10 MG TAB (ZETIA) PO SCH (08:45)
[2019-09-07] MEDS: LEVOTHYROXINE 50MCG TABLET (0.05MG) PO SCH (08:45)
--- NOTE | 2019-09-07 08:54 | ECGEPIP ---
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
[2019-09-07] MEDS ORDERED: KETOROLAC 30 MG/ML 1ML VIAL IV PRN (10:30)
[2019-09-07] MEDS: NS 1,000 ML IV SCH ×3 (10:37→15:18)
[2019-09-07] MEDS ORDERED: MORPHINE 2 MG/ML 1ML VIAL (J2270) IV PRN (10:45)
[2019-09-07] MEDS ORDERED: ONDANSETRON 4 MG ORAL DISINTEGRATING TAB PO PRN (10:45)
[2019-09-07] MEDS ORDERED: LORazepam 2 MG TAB PO PRN (15:15)
[2019-09-07] MEDS ORDERED: amLODIPine 10 MG TAB PO STA (15:15)
--- NOTE | 2019-09-07 15:23 | IPNPDOC ---
Date Seen The patient was seen on 09/07/19. Progress Note SUBJECTIVE: Awake, alert and oriented x 3 on evaluation this AM. States he had felt "sick" for days leading up to this event with decreased appetite, decreased PO intake, nausea, vomiting, increased weakness. Then last evening he said he drank alcohol and fell, hit his head on the way down. Possibly his symptoms prior to him drinking could have been from a developing infection vs. worsening renal failure alone from dehydration. Started diet as he has an appetite now. Complains of left chest pain on palpation, no rib fx on CT chest. Denies nausea, vomiting, diarrhea, increased abdominal pain, fevers or chills. OBJECTIVE: VITAL SIGNS: Please see below PHYSICAL EXAMINATION: General: Lying in bed, in no acute distress, AAOx3 HEENT: NC, tenderness on palpation of left face, PERRLA, EOMI CVS: Tachycardia, +S1S2 CHEST: Tenderness to palpation of left chest wall, no hematoma seen or bruising Lungs: Unable to take large breaths due to pain, CTAB, No appreciable wheezing / rales / rhonchi Abdomen: obese abdomen, soft, Non-distended, right upper quadrant tenderness noted on palpation, no guarding, rigidity or rebound Extremities: No lower extremity edema, No calf tenderness Neuro: No focal motor or sensory deficit Skin: No visible rashes CURRENT MEDICATIONS: Please see below LABORATORY DATA: Please see below IMAGING: No new imaging ASSESSMENT: 48 y/o M admitted s/p syncope likely due to hypotension, dehydration, acute kidney injury, UTI and RUQ pain. PLAN: 1. Syncope likely 2/2 hypotension from hypovolemia, sepsis - No events since admission - Improved BP with IVFs. - Monitoring on telemetry, fluid status, tx below 2. Acute kidney injury likely 2/2 pre-renal etiology. This with dehydration could be cause of "sepsis" like picture. - Baseline Cr 0.8 - Improved Cr to 2.23 from 3.4 on admission - F/u AM CMP, avoid nephrotoxic medications - C/w IVF at 100 cc/hr 3. Sepsis ? possibly UTI vs. 2/2 intra-abdominal source - RUQ tenderness- CT only shows gallbladder distention- no suspicion for cholecystitis. Lower suspicion of this being source of infection as patient developed this pain AFTER fall - Afebrile, WBC improving, LA wnl. Persistent tachycardia, sinus. - UTI-very mild, UCx pending - F/u blood cultures, UCx - C/w IVFs, tele, switched abx to ceftriaxone 4. Left chest wall pain likely 2/2 to fall, trauma. - CT chest showed no fracture of ribs, no hematoma - S/p 1 mg IV morphine this AM - C/w home oxycodone, will schedule tylenol ATC to help with inflammation. Morphine PRN, as we need pain to be adequately controlled to have him perform incentive spirometry, take big breaths. Avoid toradol IV with renal failure 5. Atelectasis - Currently on RA; however, not taking big breaths due to chest wall pain - C/w pain regimen above - Incentive spirometer Q2 hrs while awake 6. Facial pain s/p fall. - Imaging neg for fracture - Pain regimen above 7. Elevated AST/ALT possibly 2/2 alcoholic hepatitis and dehydration combined - Decreasing AST/ALT - Monitor daily CMP - Avoid hepatotoxic medications 8. Intoxication 2/2 to drugs and alcohol - Currently AAOx3 - CIWA initiated due to persistent tachycardia, - Monitor for signs of withdrawl - C/w thiamine, folate, multivitamins, ativan PRN 9. Sinus tachycardia, r/o developing withdrawl vs. sepsis associated - with resolved hypotension, will restart home amlodipine - monitor closely with tele - Tx above if developing withdrawl and sepsis 10. Lactic acidosis 2/2 to dehydration- resolved 11. Asthma - No evidence of exacerbation at this time - Will continue with inhaled therapy as needed 12. HTN - Stable - Start amlodipine. If tolerates well, restart lisinopril - Low salt diet 13. HLD - Continue with Ezetimibe 14. IDDM2 -Holding home meds. ISS, consistent carb diet, AC/HS blood sugar checks. 15. Gout - Has not been on any therapy as an outpatient 16. Hypothyroidism - Will continue with levothyroxine 17. Obesity - BMI 36.1 - Complicating medical care 18. Chronic back / neck pain - Patient chronically on opiate therapy as an outpatient. - C/w home med 19. GERD - PPI 20. DVT prophylaxis - Heparin SC DISPOSITION: Admitted as inpatient status. Transferring to med/surg floor with tele. Plan is discharge home when medically improved. VS, I&O, 24H, Fishbone Vital Signs/I&O Vital Signs Date Time Temp Pulse Resp B/P (MAP) Pulse Ox O2 Delivery O2 Flow Rate FiO2 09/07/19 11:35 18 Room Air 09/07/19 11:30 99.3 117 125/77 (93) 93 09/07/19 08:05 2.0 I&O- Last 24 Hours up to 6 AM 09/07/19 06:00 Intake Total 6555 ml Output Total 1250 ml Balance 5305 ml Laboratory Data 24H LABS Laboratory Tests 2 09/06/19 19:47: Immature Granulocyte % (Auto) 0.8, Neutrophils (%) (Auto) 64.2, Lymphocytes (%) (Auto) 26.8, Monocytes (%) (Auto) 7.6H, Eosinophils (%) (Auto) 0.2, Basophils (%) (Auto) 0.4, Neutrophils # (Auto) 9.6H, Lymphocytes # (Auto) 4.0, Monocytes # (Auto) 1.1H, Eosinophils # (Auto) 0.0, Basophils # (Auto) 0.1, Nucleated Red Blood Cells % (auto) 0.0, Total Bilirubin 0.5, Direct Bilirubin 0.2, Aspartate Amino Transf (AST/SGOT) 122H, Alanine Aminotransferase (ALT/SGPT) 186H, Alkaline Phosphatase 59, Total Creatine Kinase 274, Creatine Kinase MB 4.6H, Creatine Kinase MB Relative Index 1.68, Troponin I < 0.02, Total Protein 8.1, Albumin 3.8, Albumin/Globulin Ratio 0.88L, Lipase 487H, Ethyl Alcohol Level 0.151H 09/06/19 19:48: Lactic Acid Level 4.8*H 09/06/19 19:54: POC Glucose (Misc Panel) 173H, POC Sodium (Misc Panel) 133L, POC Potassium (Misc Panel) 3.7, POC Chloride (Misc Panel) 101, POC Total CO2 (Misc Panel) 17.0L, POC Blood Urea Nitrogen (Misc Panel 35H, POC Ionized Calcium (Misc Panel) 3.9L, POC Creatinine (Misc Panel) 3.4H, POC Hematocrit (Misc Panel) 47.0 09/06/19 19:59: Urine Color ALEX, Urine Appearance HAZY, Urine pH 5.0, Urine Specific [place] 1.026, Urine Protein 2+H, Urine Glucose (UA) NEGATIVE, Urine Ketones NEGATIVE, Urine Blood NEGATIVE, Urine Nitrite NEGATIVE, Urine Bilirubin NEGATIVE, Urine Urobilinogen 2.0H, Urine Leukocyte Esterase NEGATIVE, Urine WBC (Auto) 4H, Urine RBC (Auto) 1, Urine Hyaline Casts (Auto) 22, Urine Bacteria (Auto) 1+H, Urine Squamous Epithelial Cells 1, Urine Mucus (Auto) SMALL, Urine Sperm (Auto) , Urine Opiates Screen POSITIVEH, Urine Methadone Screen NEGATIVE, Urine Barbiturates Screen NEGATIVE, Urine Phencyclidine Screen NEGATIVE, Urine Amphetamines Screen NEGATIVE, Urine Benzodiazepines Screen POSITIVEH, Urine Cocaine Metabolite Screen NEGATIVE, Urine Cannabinoids Screen NEGATIVE 09/06/19 22:35: 09/06/19 23:47: Bedside Glucose (Misc Panel) 161H 09/07/19 00:39: Lactic Acid Followup at 4 Hours 5.8*H 09/07/19 03:44: Immature Granulocyte % (Auto) 0.4, Neutrophils (%) (Auto) 61.5, Lymphocytes (%) (Auto) 28.4, Monocytes (%) (Auto) 9.4H, Eosinophils (%) (Auto) 0.1, Basophils (%) (Auto) 0.2, Neutrophils # (Auto) 8.3, Lymphocytes # (Auto) 3.8, Monocytes # (Auto) 1.3H, Eosinophils # (Auto) 0.0, Basophils # (Auto) 0.0, Nucleated Red Blood Cells % (auto) 0.0, Anion Gap 11, Glomerular Filtration Rate 33.6L, Lactic Acid Level 1.5, Calcium Level 8.1L, Magnesium Level 2.0, Total Bilirubin 0.7, Aspartate Amino Transf (AST/SGOT) 80H, Alanine Aminotransferase (ALT/SGPT) 147H, Alkaline Phosphatase 50, Total Protein 7.0, Albumin 3.1L, Albumin/Globulin Ratio 0.79L 09/07/19 07:31: Bedside Glucose (Misc Panel) 118H 09/07/19 12:25: Bedside Glucose (Misc Panel) 157H CBC/BMP Laboratory Tests 09/06/19 19:47 09/07/19 03:44 Microbiology Microbiology 09/07/19 Urine Culture, Received Pending 09/06/19 Blood Culture, Received Pending 09/06/19 Blood Culture, Received Pending Current Medications Current Medications Medications (Trade) Dose Ordered Sig/Pinky Route PRN Reason Start Time Stop Time Status Last Admin Dose Admin Acetaminophen (Tylenol Tab) 650 mg Q4H PRN PO PAIN OR FEVER 09/06/19 21:45 09/07/19 07:23 Albuterol Sulfate (Proventil Neb) 2.5 mg Q2HP PRN INH SOB/WHEEZING 09/06/19 21:45 Cyclobenzaprine HCl (Flexeril) 10 mg TID PRN PO MUSCLE SPASMS 09/06/19 21:45 09/07/19 07:56 Dextrose (Dextrose 50%) 25 ml ASDIRECTED PRN IV SEE LABEL COMMENTS 09/06/19 21:45 EZETIMIBE (Zetia) 10 mg DAILY PO 09/07/19 09:00 09/07/19 08:45 Folic Acid (Folic Acid) 1 mg DAILY@2100 PO 09/06/19 21:00 09/06/19 23:59 Glucagon (Glucagon) 1 mg ASDIRECTED PRN SC SEE LABEL COMMENTS 09/06/19 21:45 Glucose (Glucose) 16 GM ASDIRECTED PRN PO SEE LABEL COMMENTS 09/06/19 21:45 Heparin Sodium (Porcine) (Heparin) 5,000 units Q8H SC 09/06/19 22:00 09/07/19 06:28 Home Med (Med Rec Complete!) ASDIRECTED XX 09/06/19 21:45 09/06/19 21:38 DC Insulin Human Lispro (HumaLOG INSULIN) SEE PROTOCOL TABLE AC SC 09/07/19 07:30 09/07/19 12:51 Insulin Human Lispro (HumaLOG INSULIN) SEE PROTOCOL TABLE QHS SC 09/06/19 21:00 Ketorolac Tromethamine (ToRADol) 15 mg Q8HP PRN IV SEVERE PAIN (PS 8-10) 09/07/19 10:30 09/07/19 10:41 DC Levothyroxine Sodium (Synthroid) 50 mcg DAILY PO 09/07/19 09:00 09/07/19 08:45 Meropenem 1 gm/IV Miscellaneous Supplies 50 ml @ 100 mls/hr Q8H IV 09/06/19 22:00 09/07/19 06:25 Morphine Sulfate (Morphine Sulfate Inj) 1 mg Q6H PRN IV MODERATE PAIN (PS 5-7) 09/07/19 10:45 09/07/19 11:10 Multivitamins (Theragram-M) 1 tab DAILY@2100 PO 09/06/19 21:00 09/06/19 23:59 Ondansetron HCl (Zofran Odt) 4 mg Q6HP PRN PO NAUSEA OR VOMITING 09/07/19 10:45 Oxycodone HCl (Roxicodone, Oxyir) 5 mg BID PRN PO PAIN 09/06/19 21:45 09/07/19 03:40 Pantoprazole Sodium (Protonix) 40 mg Q12H IV 09/06/19 21:00 09/07/19 08:45 Salmeterol Xinafoate/ Fluticasone (Advair Hfa 230/ ) 2 puff RBID INH 09/07/19 08:00 09/07/19 07:41 Sodium Chloride 1,000 ml @ 100 mls/hr Q10H IV 09/06/19 21:45 09/07/19 10:40 Thiamine HCl (Thiamine HCl) 100 mg DAILY@2100 PO 09/06/19 21:00 09/06/19 23:59 Allergies Coded Allergies: No Known Allergies (Unverified , 06/18/13) Tiara Hernandez MD Sep 07, 2019 15:23
[2019-09-07] MEDS ORDERED: cefTRIAXone SOD 1GM VIAL (J0696 PER 250MG) IM SCH (16:00)
[2019-09-07] MEDS ORDERED: cefTRIAXone SOD 1 GM in D5W MINI-BAG PLUS 50 ML IV SCH (16:00)
[2019-09-07] MEDS: ACETAMINOPHEN TAB 650MG DOSE (2X325MG) PO SCH ×2 (17:10→21:31)
[2019-09-07] MEDS: THIAMINE 100 MG TAB PO SCH (21:32)
[2019-09-07] MEDS: FOLIC ACID 1 MG TAB PO SCH (21:32)
[2019-09-07] MEDS: MULTIVITAMINS/MINERALS THERAP 1 TAB PO SCH (21:32)
[2019-09-08 00:53] VITALS: BP 122/75
[2019-09-08] MEDS: NS 1,000 ML IV SCH ×2 (01:24→11:12)
[2019-09-08] MEDS: oxyCODONE 5MG TAB PO PRN (05:37)
[2019-09-08] MEDS: HEPARIN SOD (PORCINE) 5000UNITS/ML VIAL (J1644 PER 1000UNITS) SC SCH (05:37)
[2019-09-08 06:00] VITALS: BP 140/81
[2019-09-08 06:04] LABS: BASO % 0.4 % (0.0-1.0); EOS # 0.1 10^3/uL (0.0-0.5); EOS % 0.7 % (0.0-3.0); HEMATOCRIT 41.1 % (42.0-52.0); HEMOGLOBIN 13.8 g/dl (13.5-17.5); LYMPH # 2.8 10^3/uL (1.5-5.0); MEAN CORPUSCULAR HEMOGLOBIN 30.7 pg (27.0-33.0); MEAN CORPUSCULAR HGB CONC 33.6 g/dl (32.0-36.5); MEAN CORPUSCULAR VOLUME 91.3 fl (80.0-96.0); MONO # 0.7 10^3/uL (0.0-0.8); MONO % 9.2 % (0.0-5.0); NEUTROPHILS # 3.6 10^3/uL (1.5-8.5); NEUTROPHILS % 50.4 % (36.0-66.0); PLATELET COUNT, AUTOMATED 228 10^3/uL (150-450); WHITE BLOOD COUNT 7.2 10^3/uL (4.0-10.0)
[2019-09-08 06:32] LABS: ALBUMIN 3.2 GM/DL (3.2-5.2); ALT/SGPT 101 U/L (12-78); BILIRUBIN,TOTAL 0.7 MG/DL (0.2-1.0); BLOOD UREA NITROGEN 12 MG/DL (7-18); CALCIUM LEVEL 9.1 MG/DL (8.5-10.1); CARBON DIOXIDE LEVEL 26 MEQ/L (21-32); CHLORIDE LEVEL 105 MEQ/L (98-107); CREATININE FOR GFR 0.93 MG/DL (0.70-1.30); GLOMERULAR FILTRATION RATE > 60.0 (>60); GLUCOSE, FASTING 121 MG/DL (70-100); MAGNESIUM LEVEL 1.9 MG/DL (1.8-2.4); POTASSIUM SERUM 4.2 MEQ/L (3.5-5.1); SODIUM LEVEL 137 MEQ/L (136-145); TOTAL PROTEIN 7.4 GM/DL (6.4-8.2)
[2019-09-08] MEDS: ADVAIR HFA 230/21MCG INHALER INH SCH (07:11)
--- NOTE | 2019-09-08 07:40 | ECHO ---
DATE OF STUDY: 09/07/2019 DATE OF : 1970 AGE: 48 PATIENT LOCATION: Room 2237 REFERRING PROVIDER: Dr. Colt Vu REASON FOR THE STUDY: Syncope. 2-D MEASUREMENTS: IVS: 1.1 cm LV: 4.6 cm LVPW: 1.1 cm LA: 3.9 cm Aorta: 3.1 cm IVC: 2.1 cm DOPPLER MEASUREMENTS: Peak velocity across the aortic valve: 1.4 m/s Peak velocity across the LVOT: 1.2 m/s Mitral E: 0.73 Mitral A: 0.6 Ratio: 1.2 Maximum tricuspid valve velocity: 2.0 m/s 2-D COMMENTS: 1. Normal left ventricular size, wall thickness, and normal global left ventricular systolic function. The estimated left ventricular systolic ejection fraction is 60-65%. 2. Normal left atrium. Normal right atrium and right ventricle. 3. The atrial septum appeared to be normal without evidence of defect or shunt. 4. Normal aortic root. 5. Trace pericardial effusion noted, no evidence of cardiac tamponade. 6. Minimally calcified aortic valve with normal leaflet excursion. Normal mitral valve and tricuspid valve. The pulmonic valve also appeared to be normal in limited views. The proximal pulmonary artery branches were not well visualized. 7. The inferior vena cava is mildly enlarged, central venous pressure might be (dictation cut off). DOPPLER: Detects trace mitral regurgitation and trace tricuspid regurgitation. Abnormal relaxation pattern was noted across the mitral valve annulus consistent with features of grade 2 left ventricular diastolic dysfunction. IMPRESSION: 1. Normal global left ventricular systolic function. 2. There are some features of left ventricular diastolic dysfunction, grade 2. 3. Aortic valve sclerosis without stenosis or aortic regurgitation. 4. Trace mitral regurgitation. 5. Trace tricuspid regurgitation with a normal calculated pulmonary artery systolic pressure. 6. Trace pericardial effusion. 7. The patient had an echocardiogram done on 06/22/2019 and at that time left ventricular systolic function also was normal.
[2019-09-08] MEDS: HumaLOG INSULIN (NovoLOG) PER UNIT SC SCH (07:56)
[2019-09-08 07:59] VITALS: BP 149/100
[2019-09-08 08:00] VITALS: BP 149/100
[2019-09-08] MEDS: LEVOTHYROXINE 50MCG TABLET (0.05MG) PO SCH (08:00)
[2019-09-08] MEDS: EZETIMIBE 10 MG TAB (ZETIA) PO SCH (08:00)
[2019-09-08] MEDS: ACETAMINOPHEN TAB 650MG DOSE (2X325MG) PO SCH (08:01)
[2019-09-08] MEDS ORDERED: PANTOPRAZOLE 40MG TAB (PROTONIX) PO SCH (09:00)
[2019-09-08] MEDS ORDERED: FLUTICASONE PROP 0.05% NASAL SPRAY 16 GM (FLONASE) NARES SCH (09:00)
[2019-09-08] MEDS ORDERED: amLODIPine 10 MG TAB PO SCH (09:00)
[2019-09-08] MEDS ORDERED: CEFU50TA PO (10:20)
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
[2019-09-08] MEDS ORDERED: NON-325T5 PO (10:43)
== END 2019-09-08 11:42 | disposition home or self-care (01) | DRG 422 ==
LOC: M ED 19:05 → M ED INP 21:40 → ENRESERV 22:33 → M RR INP 23:45 → M MSPAV 09-07 11:22
PROVIDERS: ADMIT Internal Medicine; ATTEND Internal Medicine
DX: E86.1 Hypovolemia (principal); N17.9 Acute kidney failure, unspecified; E87.2 Acidosis; K70.10 Alcoholic hepatitis without ascites; R55 Syncope and collapse; F10.129 Alcohol abuse with intoxication, unspecified; J45.909 Unspecified asthma, uncomplicated; I10 Essential (primary) hypertension; E86.0 Dehydration; E78.5 Hyperlipidemia, unspecified; R07.89 Other chest pain; N39.0 Urinary tract infection, site not specified; J98.11 Atelectasis; E11.9 Type 2 diabetes mellitus without complications; M10.9 Gout, unspecified; E66.9 Obesity, unspecified; M54.2 Cervicalgia; K21.9 Gastro-esophageal reflux disease without esophagitis; Z79.4 Long term (current) use of insulin; Z79.899 Other long term (current) drug therapy; Z68.36 Body mass index [BMI] 36.0-36.9, adult

== ENCOUNTER 2019-09-15 19:07 | Emergency (ER) | payer OTHER ==
[~2019-09-15] VITALS: Ht 172.7 cm; Wt 114.4 kg
[~2019-09-15 19:07] MED LIST changes: +ADME100I SC; +CEFU50TA PO; +NON-325T5 PO; +VITA50005 PO
[2019-09-15 19:08] VITALS: BP 97/59
[2019-09-15] MEDS ORDERED: IBUPROFEN 600 MG TAB PO ONE (20:00)
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
[2019-09-15 20:56] LABS: APPEARANCE, URINE HAZY (CLEAR); BACTERIA, URINE AUTO NEGATIVE (NEGATIVE); BILIRUBIN, URINE AUTO NEGATIVE (NEGATIVE); BLOOD, URINE BLOOD NEGATIVE (NEGATIVE); COLOR, URINE YELLOW (YELLOW); GLUCOSE, URINE (UA) AUTO 1+ mg/dL (NEGATIVE); KETONE, URINE AUTO NEGATIVE (NEGATIVE); LEUKOCYTE ESTERASE, URINE AUTO NEGATIVE (NEGATIVE); MUCUS, URINE SMALL (NEGATIVE); NITRITE, URINE AUTO NEGATIVE (NEGATIVE); PROTEIN, URINE AUTO 2+ mg/dL (NEGATIVE); RBC, URINE AUTO 2 /HPF (0-3); SPECIFIC GRAVITY URINE AUTO 1.016 (1.002-1.035); SQUAMOUS EPITHELIAL CELL UR AU 0 /HPF (0-6); TRANSITIONAL EPITHELIAL AUTO <1 /HPF; UROBILINOGEN, URINE AUTO 0.2 mg/dL (0.0-2.0); WBC, URINE AUTO 5 /HPF (0-3)
[2019-09-15] MEDS ORDERED: IBUP-1022 PO (21:33)
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
== END 2019-09-15 21:47 | disposition home or self-care (01) ==
LOC: M ED 19:07
DX: T14.8XXA Other injury of unspecified body region, initial encounter (principal); S00.93XA Contusion of unspecified part of head, initial encounter; Y04.8XXA Assault by other bodily force, initial encounter; Y92.096 Garden or yard of other non-institutional residence as the place of occurrence of the external cause; I10 Essential (primary) hypertension; E11.9 Type 2 diabetes mellitus without complications; M54.9 Dorsalgia, unspecified; Z79.899 Other long term (current) drug therapy; Z79.2 Long term (current) use of antibiotics; Z79.4 Long term (current) use of insulin

== ENCOUNTER → 2019-10-22 | Outpatient (CLI) | payer OTHER ==
[~2019-10-22] MED LIST changes: +IBUP-1022 PO
--- NOTE | 2019-10-29 14:09 | SLEEPCENT ---
DATE OF STUDY: 10/22/2019 ORDERED BY: Dr. Moctezuma Nocturnal polysomnography was performed for the titration of pressure therapy in this patient with a clinical diagnosis of obstructive sleep apnea syndrome confirmed by home testing revealing a respiratory event index of 126. For testing, a ResMed Air Fit F20 full face mask of large size was used and 4 cm of water pressure were applied to the circuit and the lights were extinguished. 7 hours and 10 minutes of data were reviewed. There were 355.5 minutes of sleep identified. Sleep latency was normal at 10 minutes. REM latency was mildly delayed at 124 minutes. Sleep architecture was fairly good. Some fragmentation was noted. There were 3 REM cycles noted. Overall sleep efficiency was 83.7%. The patient's electrocardiogram showed a sinus rhythm with an average heart rate of 92 beats per minute. Electroencephalogram (EEG) showed reasonably normal waveforms for awake and sleep. Respiratory events were found best palliated with C-PAP at a pressure of +9 and remaining measures of sleep physiology were normal. IMPRESSION: Obstructive sleep apnea syndrome (G47.33). RECOMMENDATION: Nightly use of pressure therapy at 9 cm of water.
== END ==
LOC: M SLEEP 20:00
PROVIDERS: ATTEND Internal Medicine Pulmonary Disease
DX: G47.33 Obstructive sleep apnea (adult) (pediatric) (principal)

== ENCOUNTER 2020-05-11 20:14 | Emergency (ER) | payer OTHER ==
[~2020-05-11] VITALS: Ht 172.7 cm; Wt 113.2 kg
[~2020-05-11 20:14] MED LIST changes: +ACET-838 PO; -AMLO10TA5 PO; +AMLO1TAB25 PO; -NON-325T5 PO; +PANT40TA29 PO; -PANT40TA3 PO
[2020-05-11] MEDS ORDERED: LEVO100T5 (20:28)
[2020-05-11 22:03] LABS: BASO % 0.4 % (0.0-1.0); EOS % 0.6 % (0.0-3.0); HEMATOCRIT 27.4 % (42.0-52.0); HEMOGLOBIN 8.4 g/dl (13.5-17.5); LYMPH # 2.8 10^3/uL (1.5-5.0); LYMPH % 38.6 % (24.0-44.0); MEAN CORPUSCULAR HEMOGLOBIN 26.4 pg (27.0-33.0); MEAN CORPUSCULAR HGB CONC 30.7 g/dl (32.0-36.5); MEAN CORPUSCULAR VOLUME 86.2 fl (80.0-96.0); MONO # 0.7 10^3/uL (0.0-0.8); MONO % 10.3 % (0.0-5.0); NEUTROPHILS # 3.6 10^3/uL (1.5-8.5); NEUTROPHILS % 49.5 % (36.0-66.0); PLATELET COUNT, AUTOMATED 348 10^3/uL (150-450); RED BLOOD COUNT 3.18 10^6/uL (4.30-6.10); WHITE BLOOD COUNT 7.2 10^3/uL (4.0-10.0)
[2020-05-11 22:41] LABS: ALBUMIN 3.3 GM/DL (3.2-5.2); ALT/SGPT 76 U/L (12-78); BILIRUBIN,DIRECT 0.1 MG/DL (0.0-0.2); BILIRUBIN,TOTAL 0.4 MG/DL (0.2-1.0); BLOOD UREA NITROGEN 12 MG/DL (7-18); CALCIUM LEVEL 8.3 MG/DL (8.5-10.1); CARBON DIOXIDE LEVEL 24 MEQ/L (21-32); CHLORIDE LEVEL 105 MEQ/L (98-107); CK-MB VALUE MASS 3.1 NG/ML (<3.6); CPK CREATINE PHOSPHOKINASE 417 U/L (39-308); CREATININE FOR GFR 0.98 MG/DL (0.70-1.30); GLOMERULAR FILTRATION RATE > 60.0 (>60); GLUCOSE, FASTING 131 MG/DL (70-100); MB/CK RELATIVE INDEX 0.74 (< OR =4); NT-PRO BNP 222 PG/ML (<125); POTASSIUM SERUM 3.8 MEQ/L (3.5-5.1); RSV AMPLIFICATION NEGATIVE (NEGATIVE); SODIUM LEVEL 138 MEQ/L (136-145); THYROID STIMULATING HORMONE 0.309 uIU/ML (0.358-3.740); TOTAL PROTEIN 7.7 GM/DL (6.4-8.2); TROPONIN I < 0.02 NG/ML (< 0.10)
[2020-05-11 22:45] VITALS: BP 195/86
[2020-05-11] MEDS ORDERED: ISOVUE-370 76% 100ML VIAL As Ordered ONE (23:13)
[2020-05-11] MEDS ORDERED: methylPREDNISolone 125MG 2ML VIAL IV ONE (23:15)
[2020-05-11 23:23] LABS: ABG BASE EXCESS -2.2 (-2.0-2.0); ABG HCO3 19.9 MEQ/L (22.0-26.0); ABG PARTIAL PRESSURE CO2 25.4 mmHg (35.0-45.0); ABG PARTIAL PRESSURE O2 140.6 mmHg (75.0-100.0); ABG STANDARD HCO3 22.7 MEQ/L (22.0-26.0); ABG TOTAL CO2 20.7 MEQ/L (22.0-29.0); ABG pH (ARTERIAL) 7.512 UNITS (7.350-7.450)
--- NOTE | 2020-05-11 23:26 | REPVR ---
PROCEDURE INFORMATION: Exam: XR Chest, 1 View Exam date and time: 05/11/2020 11:00 PM Age: 49 years old Clinical indication: Cough and dyspnea TECHNIQUE: Imaging protocol: XR of the chest Views: 1 view. COMPARISON: CT Chest without contrast 09/06/2019 8:11 PM FINDINGS: Lungs: Unremarkable. No consolidation. No pulmonary edema. Pleural space: Unremarkable. No pleural effusion or pneumothorax is identified. Heart/Mediastinum: Unremarkable. No cardiomegaly. Bones/joints: There are endplate spurs in the thoracic spine. IMPRESSION: No acute findings. Electronically signed by: George Richey On 05/11/2020 23:26:45 PM
--- NOTE | 2020-05-12 07:08 | ECGEPIP ---
[facility] - ED Test Date: 2020-05-11 Pat Name: GIULIA THOMPSON Department: Room: - Gender: Male Digitizer: SHELDON : 1970 Requested By: THEA HOBBS Order Number: [id number] Reading MD: Rob Pearl Measurements Intervals [place] Rate: 112 P: 66 OH: 153 QRS: 22 QRSD: 105 T: 36 QT: 347 QTc: 476 Interpretive Statements SINUS TACHYCARDIA POSSIBLE PRIOR INFERIOR INFARCT SIMILAR TO 09/06/19 Electronically Signed on 05-12-2020 7:07:49 EST by Rob Pearl
== END 2020-05-12 00:07 | disposition left against medical advice (07) ==
LOC: M ED 20:14
DX: R06.02 Shortness of breath (principal); R05 Cough; E11.9 Type 2 diabetes mellitus without complications; I10 Essential (primary) hypertension; J45.909 Unspecified asthma, uncomplicated; E03.9 Hypothyroidism, unspecified; E78.5 Hyperlipidemia, unspecified; G47.30 Sleep apnea, unspecified; K21.9 Gastro-esophageal reflux disease without esophagitis; Z79.899 Other long term (current) drug therapy; Z79.890 Hormone replacement therapy; Z79.4 Long term (current) use of insulin
CPT/HCPCS: 36600; 71045; 80048; 80076; 82550; 82553; 82803; 83880; 84443; 85025; 87631; 93005; 93041; 96374; 99284; J2930; Q9967

== ENCOUNTER → 2020-08-06 | Outpatient (CLI) | payer OTHER ==
[~2020-08-06] MED LIST changes: +LEVO100T5; -LISI40TA PO; +LISI40TA4 PO
[2020-08-06 09:26] LABS: BASO # 0.1 10^3/uL (0.0-0.2); BASO % 0.5 % (0.0-1.0); EOS # 0.1 10^3/uL (0.0-0.5); EOS % 1.1 % (0.0-3.0); HEMATOCRIT 27.9 % (42.0-52.0); HEMOGLOBIN 7.6 g/dl (13.5-17.5); LYMPH # 2.9 10^3/uL (1.5-5.0); LYMPH % 24.9 % (24.0-44.0); MEAN CORPUSCULAR HEMOGLOBIN 23.5 pg (27.0-33.0); MEAN CORPUSCULAR HGB CONC 27.2 g/dl (32.0-36.5); MEAN CORPUSCULAR VOLUME 86.4 fl (80.0-96.0); MONO # 1.1 10^3/uL (0.0-0.8); MONO % 9.3 % (2.0-8.0); NEUTROPHILS # 7.4 10^3/uL (1.5-8.5); NEUTROPHILS % 62.9 % (36.0-66.0); PLATELET COUNT, AUTOMATED 614 10^3/uL (150-450); RED BLOOD COUNT 3.23 10^6/uL (4.30-6.10); WHITE BLOOD COUNT 11.7 10^3/uL (4.0-10.0)
[2020-08-06 09:55] LABS: ALBUMIN 3.5 GM/DL (3.2-5.2); ALT/SGPT 82 U/L (12-78); BILIRUBIN,TOTAL 0.5 MG/DL (0.2-1.0); BLOOD UREA NITROGEN 9 MG/DL (7-18); CALCIUM LEVEL 9.8 MG/DL (8.5-10.1); CARBON DIOXIDE LEVEL 24 MEQ/L (21-32); CHLORIDE LEVEL 103 MEQ/L (98-107); CHOLESTEROL LEVEL 168 MG/DL (<200); CHOLESTEROL RISK RATIO 6.222 (<5); CREATININE FOR GFR 0.84 MG/DL (0.70-1.30); GLOMERULAR FILTRATION RATE > 60.0 (>60); GLUCOSE, FASTING 138 MG/DL (70-100); HDL CHOLESTEROL 27 MG/DL (>40); LDL CHOLESTEROL 91 MG/DL (<100); NON-HDL-C 141 MG/DL; POTASSIUM SERUM 4.6 MEQ/L (3.5-5.1); SODIUM LEVEL 135 MEQ/L (136-145); TOTAL PROTEIN 8.5 GM/DL (6.4-8.2); TRIGLYCERIDES LEVEL 250 MG/DL (<150)
[2020-08-06 10:04] LABS: MALB URINE SIEMENS 65.2 MG/L; MAU/CREAT RATIO 54.3 MCG/MG (0.0-30.0)
== END ==
LOC: M LAB 08:20
PROVIDERS: ATTEND Nurse Practitioner Family
DX: D64.9 Anemia, unspecified (principal); E78.2 Mixed hyperlipidemia; E11.65 Type 2 diabetes mellitus with hyperglycemia

== ENCOUNTER → 2020-08-12 | Outpatient (CLI) | payer OTHER ==
[2020-08-12 10:41] LABS: HEMATOCRIT 28.7 % (42.0-52.0); HEMOGLOBIN 7.6 g/dl (13.5-17.5); MEAN CORPUSCULAR HEMOGLOBIN 22.8 pg (27.0-33.0); MEAN CORPUSCULAR HGB CONC 26.5 g/dl (32.0-36.5); MEAN CORPUSCULAR VOLUME 85.9 fl (80.0-96.0); PLATELET COUNT, AUTOMATED 593 10^3/uL (150-450); RED BLOOD COUNT 3.34 10^6/uL (4.30-6.10); WHITE BLOOD COUNT 8.3 10^3/uL (4.0-10.0)
[2020-08-12 11:13] LABS: ALBUMIN 3.4 GM/DL (3.2-5.2); ALT/SGPT 94 U/L (12-78); BILIRUBIN,TOTAL 0.4 MG/DL (0.2-1.0); BLOOD UREA NITROGEN 11 MG/DL (7-18); CALCIUM LEVEL 9.1 MG/DL (8.5-10.1); CARBON DIOXIDE LEVEL 27 MEQ/L (21-32); CHLORIDE LEVEL 108 MEQ/L (98-107); CHOLESTEROL LEVEL 142 MG/DL (<200); CHOLESTEROL RISK RATIO 4.733 (<5); CREATININE FOR GFR 0.84 MG/DL (0.70-1.30); GLOMERULAR FILTRATION RATE > 60.0 (>60); GLUCOSE, FASTING 194 MG/DL (70-100); HDL CHOLESTEROL 30 MG/DL (>40); LDL CHOLESTEROL 82 MG/DL (<100); NON-HDL-C 112 MG/DL; POTASSIUM SERUM 4.2 MEQ/L (3.5-5.1); PROSTATIC SPECIFIC AG MONITOR 1.08 NG/ML (< 4.00); SODIUM LEVEL 140 MEQ/L (136-145); THYROID STIMULATING HORMONE 0.251 uIU/ML (0.358-3.740); TOTAL PROTEIN 8.1 GM/DL (6.4-8.2); TRIGLYCERIDES LEVEL 149 MG/DL (<150)
[2020-08-12 11:14] LABS: TESTOSTERONE 413 NG/DL (241-827)
== END ==
LOC: M LAB 09:39
PROVIDERS: ATTEND Family Medicine
DX: R53.83 Other fatigue (principal); I10 Essential (primary) hypertension; E11.9 Type 2 diabetes mellitus without complications

== ENCOUNTER → 2020-08-24 | Outpatient (CLI) | payer OTHER ==
[~2020-08-24] MED LIST changes: -ACET-838 PO; +ACET32TAB PO; +E-Z-GAS II EFFERVESCENT PACKET (SODIUM BICARB./CITRIC ACID/SIMETHICONE) As Ordered ONE; +E-Z-HD 98% w/w 340GM SUSP BTL As Ordered ONE; +E-Z-PAQUE 96% w/w SUSP 176GM BTL As Ordered ONE
--- NOTE | 2020-08-24 17:22 | REP ---
INDICATION: ABD PAIN ANEMIA. COMPARISON: None. TECHNIQUE: The procedure was performed under the direct supervision of Dr. Herrera. The images were reviewed with Dr. Herrera. The battery service technician film shows normal organomegaly or pathological mass is. The intestinal gas pattern is nonspecific.. 1.3 minutes of fluoro time was utilized for this procedure. FINDINGS: The battery service technician film shows no organomegaly or pathological masses. The intestinal gas pattern is non-specific. The oral and pharyngeal stages of deglutition are unremarkable. Esophageal transport is prompt and efficient and there is no esophagitis, stricture, mucosal ring or hiatal hernia. Gastroesophageal reflux is not demonstrated on this examination. The stomach shirley are normally outlined. The rugal folds are smooth and regular. There is no gastritis neoplasm or ulcer disease. Within the duodenum there are thickened folds which likely represents duodenitis. There is no brigitte ulcer identified. The visualized portion of the proximal small bowel appears normal in course and caliber. IMPRESSION: There are thickened folds in the duodenum which likely represents duodenitis. There is no brigitte ulcer identified. Otherwise unremarkable double-contrast upper GI examination. <Electronically signed by Pee Claudio > 08/24/20 [id number] <Electronically signed by Mike Herrera > 08/24/20 [id number]
== END ==
LOC: M RAD 08:45
PROVIDERS: ATTEND Family Medicine
DX: R10.9 Unspecified abdominal pain (principal); D64.9 Anemia, unspecified

== ENCOUNTER → 2020-09-17 | Outpatient (CLI) | payer OTHER ==
[~2020-09-17] MED LIST changes: +ALBU8.5H; +BASA100I SQ; -E-Z-GAS II EFFERVESCENT PACKET (SODIUM BICARB./CITRIC ACID/SIMETHICONE) As Ordered ONE; -E-Z-HD 98% w/w 340GM SUSP BTL As Ordered ONE; -E-Z-PAQUE 96% w/w SUSP 176GM BTL As Ordered ONE; +FERR325T20; +OMEP-218; +SUCR1TAB56
== END ==
LOC: M LABSMTC 10:52
PROVIDERS: ATTEND Anesthesiology
DX: Z01.818 Encounter for other preprocedural examination (principal); Z20.822 Contact with and (suspected) exposure to COVID-19

== ENCOUNTER 2020-09-22 07:26 | Day surgery (SDC) | payer OTHER ==
[~2020-09-22] VITALS: Ht 175.3 cm; Wt 78.5 kg
[~2020-09-22 07:26] MED LIST changes: +FERR325T19; -FERR325T20; +NS 1,000 ML IV ONE
[2020-09-22] MEDS ORDERED: fentaNYL 100 MCG/2 ML INJECTION (J3010) As Ordered ONE (09:08)
[2020-09-22] MEDS ORDERED: propofoL 200 MG/20 ML VIAL As Ordered ONE ×3 (09:08→09:30)
[2020-09-22] MEDS ORDERED: LIDOCAINE 2% MDV 20ML VIAL As Ordered ONE (09:08)
--- NOTE | 2020-09-22 09:25 | ROOR ---
Patient Name: Ernesto Gallagher Procedure Date: 09/22/2020 9:02 AM Date of : 1970 Age: 49 Room: [facility] Gender: Male Note Status: Finalized Procedure: Upper Endoscopy + Biopsies Indications: Unexplained iron deficiency anemia Providers: Delgado Nicholas MD Referring MD: JAMES GARCIA MD Requesting Provider: Medicines: Monitored Anesthesia Care Complications: No immediate complications. Procedure: Pre-Anesthesia Assessment: - The heart rate, respiratory rate, oxygen saturations, blood pressure, adequacy of pulmonary ventilation, and response to care were monitored throughout the procedure. The Endoscope was introduced through the mouth, and advanced to the second part of duodenum. The upper GI endoscopy was accomplished without difficulty. The patient tolerated the procedure well. Findings: The Z-line was irregular and was found 40 cm from the incisors. Multiple biopsies were obtained with cold forceps for evaluation to rule out Espinal's Esophagus randomly at the gastroesophageal junction. A small hiatal hernia was present. No other significant abnormalities were identified in a careful examination of the stomach. Biopsies were taken with a cold forceps in the gastric antrum for Helicobacter pylori testing. The exam of the duodenum was otherwise normal. Biopsies for histology were taken with a cold forceps in the first portion of the duodenum for evaluation of celiac disease. Impression: - Z-line irregular, 40 cm from the incisors. - Small hiatal hernia. - Multiple biopsies were obtained at the gastroesophageal junction. - Biopsies were taken with a cold forceps for Helicobacter pylori testing. - Biopsies were taken with a cold forceps for evaluation of celiac disease. - The examination was otherwise normal. Recommendation: - Patient has a contact number available for emergencies. The signs and symptoms of potential delayed complications were discussed with the patient. Return to normal activities tomorrow. Written discharge instructions were provided to the patient. - High fiber diet. - Discharge patient to home. - Follow an antireflux regimen. - Continue present medications. - Await pathology results. - Telephone GI clinic for pathology results in 1 week. - Return to referring physician. - The findings and recommendations were discussed with the patient's family. Procedure Code(s): --- Professional --- 20598, Esophagogastroduodenoscopy, flexible, transoral; with biopsy, single or multiple Diagnosis Code(s): --- Professional --- K22.8, Other specified diseases of esophagus K44.9, Diaphragmatic hernia without obstruction or gangrene D50.9, Iron deficiency anemia, unspecified CPT copyright 2019 [employer]. All rights reserved. The codes documented in this report are preliminary and upon hydro pneumatic tester review may be revised to meet current compliance requirements. Delgado Nicholas MD Delgado Nicholas MD 09/22/2020 9:25:29 AM Electronically signed by Delgado Nicholas MD Number of Addenda: 0 Note Initiated On: 09/22/2020 9:02 AM Estimated Blood Loss: Estimated blood loss: none.
--- NOTE | 2020-09-22 09:43 | ROOR ---
Patient Name: Ernesto Gallagher Procedure Date: 09/22/2020 9:06 AM Date of : 1970 Age: 49 Room: [facility] Gender: Male Note Status: Finalized Procedure: Total Colonoscopy to Cecum + Cold Snare Polypectomy + Hemoclips + ileoscopy Indications: Unexplained iron deficiency anemia Providers: Delgado Nicholas MD Referring MD: JAMES GARCIA MD Requesting Provider: Medicines: Monitored Anesthesia Care Complications: No immediate complications. Procedure: Pre-Anesthesia Assessment: - The heart rate, respiratory rate, oxygen saturations, blood pressure, adequacy of pulmonary ventilation, and response to care were monitored throughout the procedure. The Colonoscope was introduced through the anus and advanced to the cecum, identified by appendiceal orifice and ileocecal valve. The colonoscopy was performed without difficulty. The patient tolerated the procedure well. The quality of the bowel preparation was excellent. Findings: The perianal and digital rectal examinations were normal. Internal hemorrhoids were found during retroflexion. The hemorrhoids were small and Grade I (internal hemorrhoids that do not prolapse). The terminal ileum appeared normal. A small polyp was found in the mid transverse colon. The polyp was sessile. The polyp was removed with a cold snare. Resection and retrieval were complete. To prevent bleeding after the polypectomy, one hemostatic clip was successfully placed (MR conditional). There was no bleeding at the end of the procedure. Two sessile polyps were found at 20 cm proximal to the anus. The polyps were small in size. These polyps were removed with a cold snare. Resection and retrieval were complete. The exam was otherwise without abnormality on direct and retroflexion views. Impression: - Internal hemorrhoids. - The examined portion of the ileum was normal. - One small polyp in the mid transverse colon, removed with a cold snare. Resected and retrieved. Clip (MR conditional) was placed. - Two small polyps at 20 cm proximal to the anus, removed with a cold snare. Resected and retrieved. - The examination was otherwise normal on direct and retroflexion views. - The exam was otherwise normal to the cecum. Recommendation: - Patient has a contact number available for emergencies. The signs and symptoms of potential delayed complications were discussed with the patient. Return to normal activities tomorrow. Written discharge instructions were provided to the patient. - High fiber diet. - Discharge patient to home. - Continue present medications. - Await pathology results. - Telephone GI clinic for pathology results in 1 week. - Repeat colonoscopy in 5 years for surveillance based on pathology results. - Return to referring physician. - The findings and recommendations were discussed with the patient's family. Procedure Code(s): --- Professional --- 49335, Colonoscopy, flexible; with removal of tumor(s), polyp(s), or other lesion(s) by snare technique Diagnosis Code(s): --- Professional --- K64.0, First degree hemorrhoids K63.5, Polyp of colon D50.9, Iron deficiency anemia, unspecified CPT copyright 2019 [employer]. All rights reserved. The codes documented in this report are preliminary and upon domestic violence counselor review may be revised to meet current compliance requirements. Delgado Nicholas MD Delgado Nicholas MD 09/22/2020 9:43:06 AM Electronically signed by Delgado Nicholas MD Number of Addenda: 0 Note Initiated On: 09/22/2020 9:06 AM Estimated Blood Loss: Estimated blood loss: none.
[2020-09-22 10:00] VITALS: BP 99/66
== END 2020-09-22 10:10 | disposition home or self-care (01) ==
LOC: M OPP 07:26
PROVIDERS: ATTEND Internal Medicine Gastroenterology
DX: K63.5 Polyp of colon (principal); K64.0 First degree hemorrhoids; D50.9 Iron deficiency anemia, unspecified; K22.8 Other specified diseases of esophagus; K44.9 Diaphragmatic hernia without obstruction or gangrene; K21.9 Gastro-esophageal reflux disease without esophagitis; G47.30 Sleep apnea, unspecified; I10 Essential (primary) hypertension; E11.9 Type 2 diabetes mellitus without complications; Z79.4 Long term (current) use of insulin; Z79.891 Long term (current) use of opiate analgesic; Z79.899 Other long term (current) drug therapy
CPT/HCPCS: 43239; 45385; 88305; J3010

== ENCOUNTER → 2021-04-02 | Outpatient (CLI) | payer OTHER ==
[~2021-04-02] MED LIST changes: +ERGO500029 PO; -NS 1,000 ML IV ONE; -VITA50005 PO
[2021-04-02 15:45] LABS: BLOOD UREA NITROGEN 11 MG/DL (7-18); CARBON DIOXIDE LEVEL 27 MEQ/L (21-32); CHLORIDE LEVEL 99 MEQ/L (98-107); GLOMERULAR FILTRATION RATE > 60.0 (>56); GLUCOSE, FASTING 121 MG/DL (70-100); POTASSIUM SERUM 3.8 MEQ/L (3.5-5.1); SODIUM LEVEL 135 MEQ/L (136-145)
== END ==
LOC: M LAB 14:42
PROVIDERS: ATTEND Nurse Practitioner Family
DX: E11.65 Type 2 diabetes mellitus with hyperglycemia (principal)

== ENCOUNTER → 2021-08-11 | Outpatient (CLI) | payer OTHER ==
[~2021-08-11] MED LIST changes: +OMEP-173; -OMEP-218; -OMEP-221 PO; +OMEP40CA5 PO
== END ==
LOC: M RAD 11:50
PROVIDERS: ATTEND Internal Medicine Pulmonary Disease
DX: J45.40 Moderate persistent asthma, uncomplicated (principal)

== ENCOUNTER → 2021-08-28 | Outpatient (CLI) | payer OTHER ==
[2021-08-28 11:11] LABS: HEMATOCRIT 50.3 % (42.0-52.0); HEMOGLOBIN 17.1 g/dl (13.5-17.5); MEAN CORPUSCULAR HEMOGLOBIN 32.4 pg (27.0-33.0); MEAN CORPUSCULAR VOLUME 95.4 fl (80.0-96.0); PLATELET COUNT, AUTOMATED 275 10^3/uL (150-450); RED BLOOD COUNT 5.27 10^6/uL (4.30-6.10); WHITE BLOOD COUNT 8.8 10^3/uL (4.0-10.0)
[2021-08-28 11:30] LABS: INR 1.05; PROTHROMBIN TIME 14.1 SECONDS (12.7-14.5)
[2021-08-28 11:47] LABS: ALBUMIN 3.3 GM/DL (3.2-5.2); ALT/SGPT 124 U/L (12-78); BILIRUBIN,TOTAL 0.7 MG/DL (0.2-1.0); BLOOD UREA NITROGEN 11 MG/DL (7-18); CALCIUM LEVEL 9.6 MG/DL (8.5-10.1); CARBON DIOXIDE LEVEL 27 MEQ/L (21-32); CHLORIDE LEVEL 105 MEQ/L (98-107); CHOLESTEROL LEVEL 144 MG/DL (<200); CREATININE FOR GFR 0.96 MG/DL (0.70-1.30); GLOMERULAR FILTRATION RATE > 60.0 (>56); GLUCOSE, FASTING 263 MG/DL (70-100); HDL CHOLESTEROL 30 MG/DL (>40); LDL CHOLESTEROL 82 MG/DL (<100); NON-HDL-C 114 MG/DL; POTASSIUM SERUM 4.3 MEQ/L (3.5-5.1); SODIUM LEVEL 138 MEQ/L (136-145); THYROID STIMULATING HORMONE 0.999 uIU/ML (0.358-3.740); TOTAL PROTEIN 8.5 GM/DL (6.4-8.2); TRIGLYCERIDES LEVEL 162 MG/DL (<150)
[2021-08-28 12:38] LABS: HEMOGLOBIN A1c 7.6 %
== END ==
LOC: M RAD 09:37
PROVIDERS: ATTEND Family Medicine
DX: I10 Essential (primary) hypertension (principal)

== ENCOUNTER → 2021-09-02 | Outpatient (CLI) | payer OTHER | LOC: M LABSMTC 10:58 | PROVIDERS: ATTEND Neurological Surgery | DX: Z20.822 Contact with and (suspected) exposure to COVID-19 (principal) ==

== ENCOUNTER → 2022-07-07 | Outpatient (CLI) | payer OTHER ==
[~2022-07-07] MED LIST changes: +NYST-38 SS; -NYST50SS SS
== END ==
LOC: M PLAIMG 15:10
PROVIDERS: ATTEND Neurological Surgery
DX: M54.2 Cervicalgia (principal)

== ENCOUNTER → 2022-07-17 | Outpatient (CLI) | payer OTHER | LOC: M RAD 15:25 | PROVIDERS: ATTEND Physician Assistant | DX: M50.30 Other cervical disc degeneration, unspecified cervical region (principal); M54.12 Radiculopathy, cervical region ==

== ENCOUNTER 2022-07-28 11:11 | Inpatient (IN) | payer OTHER ==
[~2022-07-28] VITALS: Ht 172.7 cm; Wt 138.7 kg
[~2022-07-28 11:11] MED LIST changes: -ALBU8.5H; +ALBU8.5H INH; +BASA100I SC; -BASA100I SQ; -FERR325T19; +FERR325T19 PO; -LEVO100T5; +LEVO100T5 PO; -OMEP-173; +OMEP-173 PO; -SUCR1TAB56; +SUCR1TAB56 PO
[2022-07-28] MEDS ORDERED: HYDR-3713 PO (11:32)
[2022-07-28] MEDS ORDERED: FARX1TAB5 PO (11:32)
[2022-07-28] MEDS ORDERED: LORA-674 PO (11:32)
[2022-07-28] MEDS ORDERED: METO1TAB32 PO (11:32)
[2022-07-28] MEDS ORDERED: LORazepam 2 MG/ML 1ML VIAL IV STA (12:03)
[2022-07-28] MEDS ORDERED: NS 1,000 ML IV ONE ×2 (12:05→13:15)
[2022-07-28 12:19] LABS: BASO % 0.2 % (0.0-1.0); EOS % 0.1 % (0.0-3.0); HEMATOCRIT 37.8 % (42.0-52.0); HEMOGLOBIN 13.1 g/dl (13.5-17.5); LYMPH # 1.5 10^3/uL (1.5-5.0); LYMPH % 9.5 % (24.0-44.0); MEAN CORPUSCULAR HEMOGLOBIN 32.2 pg (27.0-33.0); MEAN CORPUSCULAR HGB CONC 34.7 g/dl (32.0-36.5); MEAN CORPUSCULAR VOLUME 92.9 fl (80.0-96.0); MONO % 11.3 % (2.0-8.0); NEUTROPHILS # 12.6 10^3/uL (1.5-8.5); NEUTROPHILS % 77.7 % (36.0-66.0); PLATELET COUNT, AUTOMATED 110 10^3/uL (150-450); RED BLOOD COUNT 4.07 10^6/uL (4.30-6.10); WHITE BLOOD COUNT 16.2 10^3/uL (4.0-10.0)
[2022-07-28 12:36] LABS: MONO # 1.8 10^3/uL (0.0-0.8)
[2022-07-28 12:37] LABS: INR 1.76; PROTHROMBIN TIME 20.8 SECONDS (12.5-14.5)
[2022-07-28 12:42] LABS: BARBITURATES URINE NEGATIVE (NEGATIVE); BENZODIAZEPINES URINE NEGATIVE (NEGATIVE); CANNABINOIDS URINE NEGATIVE (NEGATIVE); COCAINE METABOLITE URINE NEGATIVE (NEGATIVE); METHADONE URINE NEGATIVE (NEGATIVE); OPIATES URINE NEGATIVE (NEGATIVE); PHENCYCLIDINE URINE NEGATIVE (NEGATIVE)
[2022-07-28 12:46] LABS: AMPHETAMINES LEVEL URINE POSITIVE (NEGATIVE)
[2022-07-28 12:50] LABS: SALICYLATE LEVEL < 3.0 MG/DL (<30)
[2022-07-28 12:51] LABS: CPK CREATINE PHOSPHOKINASE 437 U/L (46-171)
[2022-07-28 13:08] LABS: OSMOLALITY SERUM 280 MOSM/KG (275-295)
[2022-07-28 13:15] LABS: ACETAMINOPHEN LEVEL < 2.0 UG/ML (10.0-20.0); ALBUMIN 2.1 G/DL (3.2-5.2); ALKALINE PHOSPHATASE 123 U/L (46-116); ALT/SGPT 41 U/L (7.0-40); AST/SGOT 162 U/L (<34); BILIRUBIN,DIRECT 3.2 MG/DL (<0.4); CK-MB VALUE MASS 2.3 NG/ML (<3.6); MAGNESIUM LEVEL 0.9 MG/DL (1.8-2.4); MB/CK RELATIVE INDEX 0.52 (< OR =4); THYROID STIMULATING HORMONE 0.564 uIU/ML (0.55-4.78); TOTAL PROTEIN 8.5 G/DL (5.7-8.2)
[2022-07-28] MEDS ORDERED: HumuLIN R (REGULAR) INSULIN (NovoLIN R) **100U/ML** PER UNIT IV ONE (13:20)
[2022-07-28 13:24] LABS: HEPATITIS B SURFACE ANTIGEN NEGATIVE (NEGATIVE)
[2022-07-28 13:33] LABS: RSV AMPLIFICATION NEGATIVE (NEGATIVE)
[2022-07-28 13:46] LABS: HEPATITIS B CORE ANTIBODY IGM NEGATIVE (NEGATIVE); HEPATITIS C VIRUS ABY INDEX 0.1 INDEX (<0.8)
[2022-07-28] MEDS ORDERED: MAGNESIUM SULFATE IN WATER 2 GM in IV 1 EA IV STA ×4 (13:54→15:19)
[2022-07-28] MEDS ORDERED: ISOVUE-370 76% 100ML VIAL As Ordered ONE (14:08)
[2022-07-28] MEDS ORDERED: HOME MED LIST COMPLETE! XX SCH (14:10)
[2022-07-28] MEDS: MAG SULF 1GM/100ML (MAG RUN) X 2 DOSES (2GM TOTAL) IV SCH ×4 (14:44→15:46)
[2022-07-28] MEDS ORDERED: ALBUTEROL SULFATE 2.5MG/0.5ML INH NEB SOLN NEB PRN (15:20)
[2022-07-28] MEDS ORDERED: ALBUTEROL 90 MCG/ACT 8GM HFA INHALER INH PRN (15:20)
[2022-07-28] MEDS ORDERED: LORazepam 2 MG TAB PO PRN (15:25)
[2022-07-28] MEDS: METOPROLOL SUCC *XL* 25MG TAB (TopROL *XL*) PO SCH (16:09)
[2022-07-28] MEDS ORDERED: MIRALAX *UNIT DOSE* 17GM PACKET PO PRN (16:10)
[2022-07-28] MEDS: FOLIC ACID 1MG TAB PO SCH (16:10)
[2022-07-28] MEDS: LORATADINE 10 MG TAB PO SCH (16:10)
[2022-07-28 17:12] LABS: CHOLESTEROL RISK RATIO 19.73 (<5); HDL CHOLESTEROL 7.6 MG/DL (>40); LDL CHOLESTEROL 112.4 MG/DL (<100); NON-HDL-C 142.4 MG/DL
[2022-07-28] MEDS ORDERED: GLUCAGON INJ 1MG VIAL SC PRN (17:40)
[2022-07-28] MEDS ORDERED: DEXTROSE 50% 50ML SYRINGE IV PRN (17:40)
[2022-07-28] MEDS ORDERED: GLUCOSE 4GM CHEW TABLET PO PRN (17:40)
[2022-07-28 17:41] VITALS: BP 147/84
[2022-07-28 17:48] VITALS: BP 147/84
[2022-07-28 17:58] LABS: ALBUMIN 1.9 G/DL (3.2-5.2); ALKALINE PHOSPHATASE 111 U/L (46-116); ALT/SGPT 37 U/L (7.0-40); AST/SGOT 138 U/L (<34); BILIRUBIN,TOTAL 5.2 MG/DL (0.3-1.2); BLOOD UREA NITROGEN 16 MG/DL (9-23); CALCIUM LEVEL 7.7 MG/DL (8.5-10.1); CARBON DIOXIDE LEVEL 25 MMOL/L (20-31); CHLORIDE LEVEL 90 MMOL/L (98-107); CREATININE FOR GFR 0.65 MG/DL (0.70-1.30); GLOMERULAR FILTRATION RATE > 60.0 (>56); GLUCOSE, FASTING 296 MG/DL (60-100); MAGNESIUM LEVEL 1.9 MG/DL (1.8-2.4); POTASSIUM SERUM 3.3 MMOL/L (3.5-5.1); SODIUM LEVEL 123 MMOL/L (136-145); TOTAL PROTEIN 7.9 G/DL (5.7-8.2)
[2022-07-28] MEDS: PIPERACILLIN/TAZOBACTAM SOD 3.375 GM in D5W MINI-BAG PLUS 50 ML IV SCH ×2 (18:02→23:03)
[2022-07-28] MEDS: NAPROXEN 250 MG TAB PO PRN (18:02)
[2022-07-28] MEDS: INSULIN LISPRO (NovoLOG) PER UNIT SC SCH ×2 (18:16→23:10)
[2022-07-28 18:25] LABS: HEMOGLOBIN A1c 9.7 % (4.0-6.0)
[2022-07-28 20:00] VITALS: BP 122/69
[2022-07-28] MEDS ORDERED: MAG SULF 1GM/100ML (MAG RUN) 1 GM in IV 1 EA IV ONE (21:05)
[2022-07-28] MEDS: OMEPRAZOLE 20MG CAP PO SCH (21:09)
[2022-07-28] MEDS: FERROUS SULFATE 325MG TAB PO SCH (21:09)
[2022-07-28] MEDS: EZETIMIBE 10MG TABLET (ZETIA) PO SCH (21:09)
[2022-07-28] MEDS: LEVEMIR (INSULIN DETEMIR) 1 UNITS/0.01ML SC SCH (21:09)
[2022-07-28] MEDS: THIAMINE 100 MG TAB PO SCH (21:10)
[2022-07-28] MEDS: FLUTICASONE PROP 0.05% NASAL SPRAY 16 GM (FLONASE) NARES SCH (21:10)
[2022-07-28] MEDS: LEVOTHYROXINE 100MCG TABLET (0.1MG) PO SCH (21:10)
[2022-07-28] MEDS: lisinopriL 40MG TAB PO SCH (21:13)
[2022-07-28] MEDS: HEPARIN SOD (PORCINE) 5000UNITS/ML 1ML VIAL/SYRINGE SC SCH (21:18)
[2022-07-29] VITALS: BP 107/63
[2022-07-29] MEDS: NAPROXEN 250 MG TAB PO PRN ×3 (00:19→15:50)
[2022-07-29 04:00] VITALS: BP 129/59
[2022-07-29] MEDS: PIPERACILLIN/TAZOBACTAM SOD 3.375 GM in D5W MINI-BAG PLUS 50 ML IV SCH (04:17)
[2022-07-29] MEDS: HEPARIN SOD (PORCINE) 5000UNITS/ML 1ML VIAL/SYRINGE SC SCH ×3 (05:33→21:32)
[2022-07-29] MEDS: INSULIN LISPRO (NovoLOG) PER UNIT SC SCH ×4 (05:33→23:45)
[2022-07-29 06:25] LABS: BASO % 0.3 % (0.0-1.0); EOS % 0.1 % (0.0-3.0); HEMATOCRIT 36.8 % (42.0-52.0); HEMOGLOBIN 12.6 g/dl (13.5-17.5); LYMPH # 1.4 10^3/uL (1.5-5.0); LYMPH % 9.9 % (24.0-44.0); MEAN CORPUSCULAR HEMOGLOBIN 32.1 pg (27.0-33.0); MEAN CORPUSCULAR HGB CONC 34.2 g/dl (32.0-36.5); MEAN CORPUSCULAR VOLUME 93.6 fl (80.0-96.0); MONO % 12.7 % (2.0-8.0); NEUTROPHILS # 10.3 10^3/uL (1.5-8.5); NEUTROPHILS % 75.6 % (36.0-66.0); PLATELET COUNT, AUTOMATED 101 10^3/uL (150-450); RED BLOOD COUNT 3.93 10^6/uL (4.30-6.10); WHITE BLOOD COUNT 13.6 10^3/uL (4.0-10.0)
[2022-07-29 07:01] LABS: ALBUMIN 1.7 G/DL (3.2-5.2); ALKALINE PHOSPHATASE 92 U/L (46-116); ALT/SGPT 33 U/L (7.0-40); AST/SGOT 127 U/L (<34); BILIRUBIN,TOTAL 6.4 MG/DL (0.3-1.2); BLOOD UREA NITROGEN 26 MG/DL (9-23); CALCIUM LEVEL 7.6 MG/DL (8.5-10.1); CARBON DIOXIDE LEVEL 26 MMOL/L (20-31); CHLORIDE LEVEL 92 MMOL/L (98-107); CREATININE FOR GFR 1.07 MG/DL (0.70-1.30); GLOMERULAR FILTRATION RATE > 60.0 (>56); GLUCOSE, FASTING 263 MG/DL (60-100); MAGNESIUM LEVEL 1.8 MG/DL (1.8-2.4); POTASSIUM SERUM 3.3 MMOL/L (3.5-5.1); SODIUM LEVEL 126 MMOL/L (136-145); TOTAL PROTEIN 6.4 G/DL (5.7-8.2)
[2022-07-29 07:05] LABS: MONO # 1.7 10^3/uL (0.0-0.8)
[2022-07-29] MEDS ORDERED: POTASSIUM CHLORIDE 10MEQ SR TABLET PO ONE (07:45)
[2022-07-29] MEDS ORDERED: VANCOMYCIN HCL 1,000 MG, VIAL MATE ADAPTER 1 EACH in NS 250 ML IV ONE ×2 (08:00→09:00)
[2022-07-29 08:04] VITALS: BP 111/72
[2022-07-29] MEDS: LORATADINE 10 MG TAB PO SCH (08:45)
[2022-07-29] MEDS: FERROUS SULFATE 325MG TAB PO SCH ×2 (08:45→21:36)
[2022-07-29] MEDS: METOPROLOL SUCC *XL* 25MG TAB (TopROL *XL*) PO SCH (08:46)
[2022-07-29] MEDS: OMEPRAZOLE 20MG CAP PO SCH ×2 (08:46→21:35)
[2022-07-29] MEDS: FOLIC ACID 1MG TAB PO SCH (08:46)
[2022-07-29] MEDS: MULTIVITAMINS/MINERALS THERAP 1 TAB PO SCH (08:46)
[2022-07-29] MEDS: THIAMINE 100 MG TAB PO SCH ×2 (08:46→21:00)
[2022-07-29] MEDS: MAGNESIUM OXIDE 400MG TAB (MAG-OX) PO SCH ×3 (09:59→21:35)
[2022-07-29 12:12] VITALS: BP 100/63
[2022-07-29 15:58] VITALS: BP 106/58
[2022-07-29] MEDS ORDERED: PROHANCE 279.3MG/ML 15ML VIAL As Ordered ONE (17:19)
[2022-07-29] MEDS ORDERED: PROHANCE 279.3MG/ML 5ML VIAL As Ordered ONE (17:19)
[2022-07-29] MEDS ORDERED: LORazepam 2 MG/ML 1ML VIAL IV STA (18:48)
[2022-07-29 20:48] VITALS: BP 102/58
[2022-07-29] MEDS: lisinopriL 40MG TAB PO SCH (21:00)
[2022-07-29] MEDS: LEVEMIR (INSULIN DETEMIR) 1 UNITS/0.01ML SC SCH (21:00)
[2022-07-29] MEDS: VANCOMYCIN HCL 1,000 MG, VIAL MATE ADAPTER 1 EACH in NS 250 ML IV SCH (21:31)
[2022-07-29] MEDS: FLUTICASONE PROP 0.05% NASAL SPRAY 16 GM (FLONASE) NARES SCH (21:35)
[2022-07-29] MEDS: EZETIMIBE 10MG TABLET (ZETIA) PO SCH (21:35)
[2022-07-29] MEDS: LEVOTHYROXINE 100MCG TABLET (0.1MG) PO SCH (21:36)
[2022-07-29] MEDS: NORCO, ANEXSIA 5/325MG TABLET (HYDROcodone/ACETAMINOPHEN) PO PRN (23:42)
[2022-07-30] VITALS (7 sets, daily range): BP systolic 98–133; BP diastolic 57–71
[2022-07-30] MEDS: HEPARIN SOD (PORCINE) 5000UNITS/ML 1ML VIAL/SYRINGE SC SCH ×3 (05:28→21:26)
[2022-07-30] MEDS: INSULIN LISPRO (NovoLOG) PER UNIT SC SCH ×3 (06:00→17:08)
[2022-07-30 06:06] LABS: BASO # 0.1 10^3/uL (0.0-0.2); BASO % 0.5 % (0.0-1.0); EOS # 0.1 10^3/uL (0.0-0.5); EOS % 0.5 % (0.0-3.0); HEMATOCRIT 35.8 % (42.0-52.0); HEMOGLOBIN 12.4 g/dl (13.5-17.5); LYMPH # 2.2 10^3/uL (1.5-5.0); LYMPH % 16.7 % (24.0-44.0); MEAN CORPUSCULAR HEMOGLOBIN 32.6 pg (27.0-33.0); MEAN CORPUSCULAR HGB CONC 34.6 g/dl (32.0-36.5); MEAN CORPUSCULAR VOLUME 94.2 fl (80.0-96.0); MONO # 1.3 10^3/uL (0.0-0.8); MONO % 10.4 % (2.0-8.0); NEUTROPHILS # 9.1 10^3/uL (1.5-8.5); NEUTROPHILS % 70.7 % (36.0-66.0); PLATELET COUNT, AUTOMATED 123 10^3/uL (150-450); WHITE BLOOD COUNT 12.9 10^3/uL (4.0-10.0)
[2022-07-30 06:25] LABS: VANCOMYCIN LEVEL TROUGH 14.6 UG/ML (10.0-20.0)
[2022-07-30 06:42] LABS: ALBUMIN 1.6 G/DL (3.2-5.2); ALKALINE PHOSPHATASE 94 U/L (46-116); ALT/SGPT 30 U/L (7.0-40); AST/SGOT 92 U/L (<34); BILIRUBIN,TOTAL 5.7 MG/DL (0.3-1.2); BLOOD UREA NITROGEN 32 MG/DL (9-23); CALCIUM LEVEL 7.8 MG/DL (8.5-10.1); CARBON DIOXIDE LEVEL 27 MMOL/L (20-31); CHLORIDE LEVEL 97 MMOL/L (98-107); CREATININE FOR GFR 0.89 MG/DL (0.70-1.30); GLOMERULAR FILTRATION RATE > 60.0 (>56); GLUCOSE, FASTING 166 MG/DL (60-100); MAGNESIUM LEVEL 1.6 MG/DL (1.8-2.4); POTASSIUM SERUM 3.2 MMOL/L (3.5-5.1); SODIUM LEVEL 131 MMOL/L (136-145); TOTAL PROTEIN 6.9 G/DL (5.7-8.2)
[2022-07-30] MEDS ORDERED: POTASSIUM CHLORIDE 10MEQ SR TABLET PO ONE (08:00)
[2022-07-30] MEDS: MAG SULF 1GM/100ML (MAG RUN) 1 GM in IV 1 EA IV SCH ×2 (09:30→13:06)
[2022-07-30] MEDS: FERROUS SULFATE 325MG TAB PO SCH (09:31)
[2022-07-30] MEDS: THIAMINE 100 MG TAB PO SCH ×2 (09:31→20:10)
[2022-07-30] MEDS: OMEPRAZOLE 20MG CAP PO SCH ×2 (09:31→20:10)
[2022-07-30] MEDS: METOPROLOL SUCC *XL* 25MG TAB (TopROL *XL*) PO SCH (09:31)
[2022-07-30] MEDS: MAGNESIUM OXIDE 400MG TAB (MAG-OX) PO SCH ×3 (09:31→20:11)
[2022-07-30] MEDS: LORATADINE 10 MG TAB PO SCH (09:32)
[2022-07-30] MEDS: FOLIC ACID 1MG TAB PO SCH (09:32)
[2022-07-30] MEDS: MULTIVITAMINS/MINERALS THERAP 1 TAB PO SCH (09:32)
[2022-07-30] MEDS: VANCOMYCIN HCL 1,000 MG, VIAL MATE ADAPTER 1 EACH in NS 250 ML IV SCH ×2 (12:41→20:08)
[2022-07-30] MEDS: SUCRALFATE 1 GM TAB PO SCH ×2 (14:14→17:07)
[2022-07-30] MEDS: EZETIMIBE 10MG TABLET (ZETIA) PO SCH (20:09)
[2022-07-30] MEDS: LEVOTHYROXINE 100MCG TABLET (0.1MG) PO SCH (20:09)
[2022-07-30] MEDS: LEVEMIR (INSULIN DETEMIR) 1 UNITS/0.01ML SC SCH (20:11)
[2022-07-30] MEDS: FLUTICASONE PROP 0.05% NASAL SPRAY 16 GM (FLONASE) NARES SCH (20:12)
[2022-07-31 00:33] VITALS: BP 128/64
[2022-07-31 04:32] VITALS: BP 128/68
[2022-07-31] MEDS: HEPARIN SOD (PORCINE) 5000UNITS/ML 1ML VIAL/SYRINGE SC SCH ×3 (05:29→21:05)
[2022-07-31] MEDS: INSULIN LISPRO (NovoLOG) PER UNIT SC SCH ×4 (06:00→17:52)
[2022-07-31 07:48] LABS: BASO # 0.1 10^3/uL (0.0-0.2); BASO % 0.5 % (0.0-1.0); EOS # 0.1 10^3/uL (0.0-0.5); EOS % 0.5 % (0.0-3.0); HEMATOCRIT 35.5 % (42.0-52.0); HEMOGLOBIN 12.2 g/dl (13.5-17.5); LYMPH # 2.4 10^3/uL (1.5-5.0); LYMPH % 17.7 % (24.0-44.0); MEAN CORPUSCULAR HEMOGLOBIN 32.2 pg (27.0-33.0); MEAN CORPUSCULAR HGB CONC 34.4 g/dl (32.0-36.5); MEAN CORPUSCULAR VOLUME 93.7 fl (80.0-96.0); MONO # 1.3 10^3/uL (0.0-0.8); MONO % 9.3 % (2.0-8.0); NEUTROPHILS # 9.6 10^3/uL (1.5-8.5); NEUTROPHILS % 69.8 % (36.0-66.0); PLATELET COUNT, AUTOMATED 161 10^3/uL (150-450); RED BLOOD COUNT 3.79 10^6/uL (4.30-6.10); WHITE BLOOD COUNT 13.8 10^3/uL (4.0-10.0)
[2022-07-31 08:00] LABS: ERYTHROCYTE SEDIMENTATION RATE > 130 mm/hr (0-20)
[2022-07-31 08:02] LABS: INR 1.56
[2022-07-31 08:18] LABS: ALBUMIN 1.7 G/DL (3.2-5.2); ALKALINE PHOSPHATASE 111 U/L (46-116); ALT/SGPT 31 U/L (7.0-40); AST/SGOT 114 U/L (<34); BILIRUBIN,TOTAL 6.9 MG/DL (0.3-1.2); BLOOD UREA NITROGEN 20 MG/DL (9-23); CALCIUM LEVEL 7.8 MG/DL (8.5-10.1); CARBON DIOXIDE LEVEL 25 MMOL/L (20-31); CHLORIDE LEVEL 97 MMOL/L (98-107); CREATININE FOR GFR 0.79 MG/DL (0.70-1.30); GLOMERULAR FILTRATION RATE > 60.0 (>56); GLUCOSE, FASTING 149 MG/DL (60-100); MAGNESIUM LEVEL 1.3 MG/DL (1.8-2.4); POTASSIUM SERUM 3.3 MMOL/L (3.5-5.1); SODIUM LEVEL 129 MMOL/L (136-145)
[2022-07-31] MEDS: OMEPRAZOLE 20MG CAP PO SCH ×2 (08:27→20:30)
[2022-07-31] MEDS: MULTIVITAMINS/MINERALS THERAP 1 TAB PO SCH (08:27)
[2022-07-31] MEDS: FOLIC ACID 1MG TAB PO SCH (08:27)
[2022-07-31] MEDS: MAGNESIUM OXIDE 400MG TAB (MAG-OX) PO SCH ×3 (08:27→20:31)
[2022-07-31] MEDS: METOPROLOL SUCC *XL* 25MG TAB (TopROL *XL*) PO SCH (08:27)
[2022-07-31] MEDS: VANCOMYCIN HCL 1,000 MG, VIAL MATE ADAPTER 1 EACH in NS 250 ML IV SCH (08:27)
[2022-07-31] MEDS: LORATADINE 10 MG TAB PO SCH (08:27)
[2022-07-31] MEDS: THIAMINE 100 MG TAB PO SCH (08:27)
[2022-07-31] MEDS: NAPROXEN 250 MG TAB PO PRN (08:28)
[2022-07-31] MEDS: SUCRALFATE 1 GM TAB PO SCH ×3 (08:29→17:52)
[2022-07-31] MEDS ORDERED: MAGNESIUM SULFATE IN WATER 2 GM in IV 1 EA IV STA ×2 (08:37)
[2022-07-31 08:40] VITALS: BP 108/60
[2022-07-31] MEDS ORDERED: POTASSIUM CHLORIDE 10MEQ SR TABLET PO ONE (09:00)
[2022-07-31] MEDS: MAG SULF 1GM/100ML (MAG RUN) X 2 DOSES (2GM TOTAL) IV SCH ×4 (10:19→12:41)
[2022-07-31 12:01] VITALS: BP 101/62
[2022-07-31] MEDS: NORCO, ANEXSIA 5/325MG TABLET (HYDROcodone/ACETAMINOPHEN) PO PRN ×2 (12:42→20:31)
[2022-07-31] MEDS: ceFAZolin SOD 2 GM in IV 1 EA IV SCH ×2 (13:51→21:04)
[2022-07-31] MEDS ORDERED: VANCOMYCIN HCL 1,000 MG, VIAL MATE ADAPTER 1 EACH in NS 250 ML IV SCH (16:00)
[2022-07-31 16:23] VITALS: BP 124/74
[2022-07-31 19:51] VITALS: BP 122/76
[2022-07-31] MEDS: EZETIMIBE 10MG TABLET (ZETIA) PO SCH (20:30)
[2022-07-31] MEDS: LEVEMIR (INSULIN DETEMIR) 1 UNITS/0.01ML SC SCH (20:30)
[2022-07-31] MEDS: LEVOTHYROXINE 100MCG TABLET (0.1MG) PO SCH (20:31)
[2022-07-31] MEDS: FLUTICASONE PROP 0.05% NASAL SPRAY 16 GM (FLONASE) NARES SCH (20:32)
[2022-08-01] VITALS (7 sets, daily range): BP systolic 113–131; BP diastolic 59–79
[2022-08-01] MEDS: HEPARIN SOD (PORCINE) 5000UNITS/ML 1ML VIAL/SYRINGE SC SCH ×3 (05:15→21:39)
[2022-08-01] MEDS: ceFAZolin SOD 2 GM in IV 1 EA IV SCH ×3 (05:20→21:41)
[2022-08-01 05:56] LABS: HEMATOCRIT 39.6 % (42.0-52.0); HEMOGLOBIN 13.4 g/dl (13.5-17.5); MEAN CORPUSCULAR HEMOGLOBIN 32.8 pg (27.0-33.0); MEAN CORPUSCULAR HGB CONC 33.8 g/dl (32.0-36.5); MEAN CORPUSCULAR VOLUME 97.1 fl (80.0-96.0); PLATELET COUNT, AUTOMATED 167 10^3/uL (150-450); RED BLOOD COUNT 4.08 10^6/uL (4.30-6.10); WHITE BLOOD COUNT 12.1 10^3/uL (4.0-10.0)
[2022-08-01] MEDS: INSULIN LISPRO (NovoLOG) PER UNIT SC SCH ×4 (06:00→17:40)
[2022-08-01 06:21] LABS: ALBUMIN 1.7 G/DL (3.2-5.2); ALKALINE PHOSPHATASE 135 U/L (46-116); ALT/SGPT 33 U/L (7.0-40); ANISOCYTOSIS 2+; AST/SGOT 112 U/L (<34); ATYPICAL LYMPH 1 % (0-5); BILIRUBIN,TOTAL 5.2 MG/DL (0.3-1.2); BLOOD UREA NITROGEN 17 MG/DL (9-23); CALCIUM LEVEL 7.3 MG/DL (8.5-10.1); CARBON DIOXIDE LEVEL 25 MMOL/L (20-31); CHLORIDE LEVEL 99 MMOL/L (98-107); CREATININE FOR GFR 0.73 MG/DL (0.70-1.30); EOSINOPHILS 1 % (0-3); GLOMERULAR FILTRATION RATE > 60.0 (>56); GLUCOSE, FASTING 157 MG/DL (60-100); LYMPHOCYTES 22 % (16-44); MAGNESIUM LEVEL 1.3 MG/DL (1.8-2.4); MONOCYTES 11 % (0-5); NEUTROPHILS 63 % (28-66); PLATELET ESTIMATE NORMAL (NORMAL); POTASSIUM SERUM 3.9 MMOL/L (3.5-5.1); SODIUM LEVEL 131 MMOL/L (136-145)
[2022-08-01] MEDS: LORATADINE 10 MG TAB PO SCH (08:33)
[2022-08-01] MEDS: MULTIVITAMINS/MINERALS THERAP 1 TAB PO SCH (08:33)
[2022-08-01] MEDS: MAG SULF 1GM/100ML (MAG RUN) 1 GM in IV 1 EA IV SCH ×3 (08:33→10:33)
[2022-08-01] MEDS: MAGNESIUM OXIDE 400MG TAB (MAG-OX) PO SCH ×3 (08:34→20:28)
[2022-08-01] MEDS: METOPROLOL SUCC *XL* 25MG TAB (TopROL *XL*) PO SCH (08:34)
[2022-08-01] MEDS: SUCRALFATE 1 GM TAB PO SCH ×3 (08:34→17:40)
[2022-08-01] MEDS: OMEPRAZOLE 20MG CAP PO SCH ×2 (08:34→20:28)
[2022-08-01] MEDS: FOLIC ACID 1MG TAB PO SCH (08:35)
[2022-08-01] MEDS: NORCO, ANEXSIA 5/325MG TABLET (HYDROcodone/ACETAMINOPHEN) PO PRN ×2 (08:35→15:01)
[2022-08-01] MEDS: SENNA 8.6 MG TAB (SENOKOT) PO PRN (15:01)
[2022-08-01] MEDS ORDERED: LORazepam 2 MG/ML 1ML VIAL IV ONE (16:55)
[2022-08-01] MEDS: EZETIMIBE 10MG TABLET (ZETIA) PO SCH (20:27)
[2022-08-01] MEDS: LEVOTHYROXINE 100MCG TABLET (0.1MG) PO SCH (20:28)
[2022-08-01] MEDS: LEVEMIR (INSULIN DETEMIR) 1 UNITS/0.01ML SC SCH (20:28)
[2022-08-01] MEDS: FLUTICASONE PROP 0.05% NASAL SPRAY 16 GM (FLONASE) NARES SCH (20:29)
[2022-08-01] MEDS: PERCOCET 5MG/325MG TAB PO PRN (20:37)
[2022-08-02] MEDS: INSULIN LISPRO (NovoLOG) PER UNIT SC SCH ×4 (00:56→18:25)
[2022-08-02 03:36] VITALS: BP 119/74
[2022-08-02] MEDS: HEPARIN SOD (PORCINE) 5000UNITS/ML 1ML VIAL/SYRINGE SC SCH ×3 (05:28→21:33)
[2022-08-02] MEDS: ceFAZolin SOD 2 GM in IV 1 EA IV SCH ×3 (05:28→21:33)
[2022-08-02] MEDS: PERCOCET 5MG/325MG TAB PO PRN ×3 (05:47→20:32)
[2022-08-02 06:21] LABS: HEMATOCRIT 34.1 % (42.0-52.0); HEMOGLOBIN 11.7 g/dl (13.5-17.5); MEAN CORPUSCULAR HEMOGLOBIN 32.6 pg (27.0-33.0); MEAN CORPUSCULAR HGB CONC 34.3 g/dl (32.0-36.5); PLATELET COUNT, AUTOMATED 235 10^3/uL (150-450); RED BLOOD COUNT 3.59 10^6/uL (4.30-6.10); WHITE BLOOD COUNT 12.6 10^3/uL (4.0-10.0)
[2022-08-02 06:50] LABS: ALBUMIN 1.6 G/DL (3.2-5.2); ALKALINE PHOSPHATASE 135 U/L (46-116); ALT/SGPT 33 U/L (7.0-40); AST/SGOT 115 U/L (<34); BILIRUBIN,TOTAL 5.4 MG/DL (0.3-1.2); BLOOD UREA NITROGEN 14 MG/DL (9-23); CALCIUM LEVEL 8.1 MG/DL (8.5-10.1); CARBON DIOXIDE LEVEL 26 MMOL/L (20-31); CHLORIDE LEVEL 99 MMOL/L (98-107); CREATININE FOR GFR 0.74 MG/DL (0.70-1.30); GLOMERULAR FILTRATION RATE > 60.0 (>56); GLUCOSE, FASTING 124 MG/DL (60-100); MAGNESIUM LEVEL 1.3 MG/DL (1.8-2.4); POTASSIUM SERUM 3.9 MMOL/L (3.5-5.1); SODIUM LEVEL 129 MMOL/L (136-145); TOTAL PROTEIN 7.1 G/DL (5.7-8.2)
[2022-08-02 07:23] LABS: ANISOCYTOSIS 1+; EOSINOPHILS 1 % (0-3); LYMPHOCYTES 19 % (16-44); MONOCYTES 11 % (0-5); MYELOCYTES 3 % (0-0); NEUTROPHILS 65 % (28-66); PLATELET ESTIMATE NORMAL (NORMAL)
[2022-08-02 07:46] VITALS: BP 133/79
[2022-08-02] MEDS: FOLIC ACID 1MG TAB PO SCH (08:45)
[2022-08-02] MEDS: OMEPRAZOLE 20MG CAP PO SCH ×2 (08:45→20:31)
[2022-08-02] MEDS: LORATADINE 10 MG TAB PO SCH (08:45)
[2022-08-02] MEDS: MAG SULF 1GM/100ML (MAG RUN) 1 GM in IV 1 EA IV SCH ×4 (08:45→13:15)
[2022-08-02] MEDS: MULTIVITAMINS/MINERALS THERAP 1 TAB PO SCH (08:46)
[2022-08-02] MEDS: SUCRALFATE 1 GM TAB PO SCH ×3 (08:46→18:25)
[2022-08-02] MEDS: SENNA 8.6 MG TAB (SENOKOT) PO PRN (08:46)
[2022-08-02] MEDS: MAGNESIUM OXIDE 400MG TAB (MAG-OX) PO SCH ×3 (08:46→20:31)
[2022-08-02] MEDS: METOPROLOL SUCC *XL* 25MG TAB (TopROL *XL*) PO SCH (08:47)
[2022-08-02 12:03] VITALS: BP 115/68
[2022-08-02] MEDS: MIRALAX *UNIT DOSE* 17GM PACKET PO SCH (13:17)
[2022-08-02 16:01] VITALS: BP 117/67
[2022-08-02] MEDS: ADVAIR HFA 115/21MCG INHALER INH SCH ×2 (19:52→20:33)
[2022-08-02 20:00] VITALS: BP 123/73
[2022-08-02] MEDS: LEVEMIR (INSULIN DETEMIR) 1 UNITS/0.01ML SC SCH (20:31)
[2022-08-02] MEDS: EZETIMIBE 10MG TABLET (ZETIA) PO SCH (20:31)
[2022-08-02] MEDS: LEVOTHYROXINE 100MCG TABLET (0.1MG) PO SCH (20:31)
[2022-08-02] MEDS: FLUTICASONE PROP 0.05% NASAL SPRAY 16 GM (FLONASE) NARES SCH (20:34)
[2022-08-02 22:11] LABS: CREATININE,RANDOM URINE 98.1 MG/DL
[2022-08-03] VITALS (12 sets, daily range): BP systolic 110–135; BP diastolic 58–74; O2SAT 93
[2022-08-03] MEDS: INSULIN LISPRO (NovoLOG) PER UNIT SC SCH ×5 (05:03→23:30)
[2022-08-03] MEDS: HEPARIN SOD (PORCINE) 5000UNITS/ML 1ML VIAL/SYRINGE SC SCH ×3 (05:24→20:55)
[2022-08-03] MEDS: ceFAZolin SOD 2 GM in IV 1 EA IV SCH ×3 (05:24→20:56)
[2022-08-03 05:55] LABS: HEMATOCRIT 33.8 % (42.0-52.0); HEMOGLOBIN 11.5 g/dl (13.5-17.5); MEAN CORPUSCULAR HEMOGLOBIN 32.7 pg (27.0-33.0); PLATELET COUNT, AUTOMATED 259 10^3/uL (150-450); RED BLOOD COUNT 3.52 10^6/uL (4.30-6.10); WHITE BLOOD COUNT 13.2 10^3/uL (4.0-10.0)
[2022-08-03 06:24] LABS: ATYPICAL LYMPH 2 % (0-5); EOSINOPHILS 1 % (0-3); LYMPHOCYTES 24 % (16-44); MONOCYTES 16 % (0-5); MYELOCYTES 1 % (0-0); NEUTROPHILS 52 % (28-66); PROMYELOCYTES 1 % (0-0)
[2022-08-03 06:25] LABS: ANISOCYTOSIS 1+; PLATELET ESTIMATE NORMAL (NORMAL)
[2022-08-03 06:26] LABS: ALBUMIN 1.6 G/DL (3.2-5.2); ALKALINE PHOSPHATASE 142 U/L (46-116); ALT/SGPT 31 U/L (7.0-40); AST/SGOT 106 U/L (<34); BILIRUBIN,TOTAL 4.2 MG/DL (0.3-1.2); BLOOD UREA NITROGEN 13 MG/DL (9-23); CALCIUM LEVEL 7.6 MG/DL (8.5-10.1); CARBON DIOXIDE LEVEL 26 MMOL/L (20-31); CHLORIDE LEVEL 96 MMOL/L (98-107); CREATININE FOR GFR 0.67 MG/DL (0.70-1.30); GLOMERULAR FILTRATION RATE > 60.0 (>56); GLUCOSE, FASTING 140 MG/DL (60-100); MAGNESIUM LEVEL 1.4 MG/DL (1.8-2.4); POTASSIUM SERUM 4.5 MMOL/L (3.5-5.1); SODIUM LEVEL 128 MMOL/L (136-145)
[2022-08-03] MEDS: SUCRALFATE 1 GM TAB PO SCH ×3 (07:30→20:52)
[2022-08-03] MEDS: ADVAIR HFA 115/21MCG INHALER INH SCH ×2 (08:00→19:34)
[2022-08-03] MEDS ORDERED: MORPHINE 2 MG/ML 1ML VIAL IV ONE (08:10)
[2022-08-03] MEDS: BISACODYL 10MG SUPP PR SCH (09:00)
[2022-08-03] MEDS: OMEPRAZOLE 20MG CAP PO SCH ×2 (09:00→20:53)
[2022-08-03] MEDS: MAGNESIUM OXIDE 400MG TAB (MAG-OX) PO SCH ×3 (09:00→20:52)
[2022-08-03] MEDS ORDERED: LIDOCAINE 2% 100MG/5ML SDV (FOR ANES.) As Ordered ONE ×2 (09:08→17:12)
[2022-08-03] MEDS ORDERED: SUGAMMADEX SODIUM 500 MG/5 ML VIAL (BRIDION) As Ordered ONE (09:08)
[2022-08-03] MEDS ORDERED: propofoL 200 MG/20 ML VIAL As Ordered ONE ×2 (09:08→17:12)
[2022-08-03] MEDS ORDERED: ONDANSETRON 4MG 2ML VIAL As Ordered ONE (09:08)
[2022-08-03] MEDS ORDERED: ROCURONIUM BROMIDE 50MG/5ML VIAL As Ordered ONE ×2 (09:08→11:56)
[2022-08-03] MEDS: MAG SULF 1GM/100ML (MAG RUN) 1 GM in IV 1 EA IV SCH ×3 (09:50→12:00)
[2022-08-03] MEDS ORDERED: KETOROLAC 60MG 2ML VIAL As Ordered ONE (10:05)
[2022-08-03] MEDS ORDERED: EPINEPHrine 1MG/ML INJ 30ML MD-VIAL As Ordered ONE (10:25)
[2022-08-03] MEDS ORDERED: EPINEPHrine 1MG/ML INJ 30ML MD-VIAL ONE (10:25)
[2022-08-03 10:35] LABS: ERYTHROCYTE SEDIMENTATION RATE > 130 mm/hr (0-20)
[2022-08-03] MEDS ORDERED: fentaNYL 100 MCG/2 ML INJECTION As Ordered ONE ×2 (10:48→11:58)
[2022-08-03] MEDS ORDERED: MIDAZOLAM INJ 2MG/2ML VIAL As Ordered ONE ×2 (10:48→17:15)
[2022-08-03] MEDS ORDERED: ceFAZolin 2 GM/D5W 50 ML IV BAG As Ordered ONE (11:27)
[2022-08-03] MEDS ORDERED: ONDANSETRON 4MG 2ML VIAL IV PRN (13:05)
[2022-08-03] MEDS ORDERED: MORPHINE 2 MG/ML 1ML VIAL IV PRN (13:05)
[2022-08-03] MEDS ORDERED: fentaNYL 100 MCG/2 ML INJECTION IV PRN (13:05)
[2022-08-03] MEDS ORDERED: oxyCODONE 5MG TAB PO PRN (13:05)
[2022-08-03] MEDS ORDERED: KETOROLAC 30 MG/ML 1ML VIAL IV ONE (13:45)
[2022-08-03] MEDS ORDERED: KETOROLAC 30 MG/ML 1ML VIAL As Ordered ONE (13:46)
[2022-08-03] MEDS ORDERED: MAG SULF 1GM/100ML (MAG RUN) 1 GM in IV 1 EA IV SCH (16:00)
[2022-08-03] MEDS ORDERED: CETACAINE SPRAY 5GM As Ordered ONE (17:02)
[2022-08-03] MEDS ORDERED: LIDOCAINE VISCOUS 2% SOLN 15ML UDC As Ordered ONE (17:02)
[2022-08-03] MEDS ORDERED: KETAMINE HCL 200MG/20ML VIAL As Ordered ONE (17:28)
[2022-08-03] MEDS: MULTIVITAMINS/MINERALS THERAP 1 TAB PO SCH (20:49)
[2022-08-03] MEDS: LORATADINE 10 MG TAB PO SCH (20:53)
[2022-08-03] MEDS: MIRALAX *UNIT DOSE* 17GM PACKET PO SCH (20:53)
[2022-08-03] MEDS: SENNA 8.6 MG TAB (SENOKOT) PO PRN (20:53)
[2022-08-03] MEDS: FOLIC ACID 1MG TAB PO SCH (20:53)
[2022-08-03] MEDS: METOPROLOL SUCC *XL* 25MG TAB (TopROL *XL*) PO SCH (20:53)
[2022-08-03] MEDS: LEVOTHYROXINE 100MCG TABLET (0.1MG) PO SCH (20:54)
[2022-08-03] MEDS: EZETIMIBE 10MG TABLET (ZETIA) PO SCH (20:54)
[2022-08-03] MEDS: FLUTICASONE PROP 0.05% NASAL SPRAY 16 GM (FLONASE) NARES SCH (20:54)
[2022-08-03] MEDS: LEVEMIR (INSULIN DETEMIR) 1 UNITS/0.01ML SC SCH (20:55)
[2022-08-04 00:25] VITALS: BP 106/58
[2022-08-04 04:09] VITALS: BP 107/56
[2022-08-04 05:59] LABS: HEMATOCRIT 31.6 % (42.0-52.0); HEMOGLOBIN 10.6 g/dl (13.5-17.5); MEAN CORPUSCULAR HEMOGLOBIN 32.2 pg (27.0-33.0); MEAN CORPUSCULAR HGB CONC 33.5 g/dl (32.0-36.5); PLATELET COUNT, AUTOMATED 263 10^3/uL (150-450); RED BLOOD COUNT 3.29 10^6/uL (4.30-6.10); WHITE BLOOD COUNT 11.4 10^3/uL (4.0-10.0)
[2022-08-04 06:24] LABS: ALBUMIN 1.4 G/DL (3.2-5.2); ALKALINE PHOSPHATASE 139 U/L (46-116); ALT/SGPT 23 U/L (7.0-40); AST/SGOT 87 U/L (<34); BILIRUBIN,TOTAL 3.9 MG/DL (0.3-1.2); BLOOD UREA NITROGEN 20 MG/DL (9-23); CALCIUM LEVEL 7.3 MG/DL (8.5-10.1); CARBON DIOXIDE LEVEL 24 MMOL/L (20-31); CHLORIDE LEVEL 96 MMOL/L (98-107); CREATININE FOR GFR 0.77 MG/DL (0.70-1.30); GLOMERULAR FILTRATION RATE > 60.0 (>56); GLUCOSE, FASTING 299 MG/DL (60-100); MAGNESIUM LEVEL 1.7 MG/DL (1.8-2.4); POTASSIUM SERUM 5.2 MMOL/L (3.5-5.1); SODIUM LEVEL 127 MMOL/L (136-145); TOTAL PROTEIN 6.8 G/DL (5.7-8.2)
[2022-08-04] MEDS: ceFAZolin SOD 2 GM in IV 1 EA IV SCH ×3 (06:40→21:22)
[2022-08-04] MEDS: SUCRALFATE 1 GM TAB PO SCH ×3 (06:41→17:44)
[2022-08-04] MEDS: INSULIN LISPRO (NovoLOG) PER UNIT SC SCH ×4 (06:41→21:23)
[2022-08-04] MEDS: HEPARIN SOD (PORCINE) 5000UNITS/ML 1ML VIAL/SYRINGE SC SCH (06:41)
[2022-08-04 06:47] LABS: LYMPHOCYTES 12 % (16-44); METAMYELOCYTES 4 % (0-0); MONOCYTES 6 % (0-5); MYELOCYTES 7 % (0-0); NEUTROPHILS 70 % (28-66)
[2022-08-04 06:48] LABS: ANISOCYTOSIS 2+; PLATELET ESTIMATE NORMAL (NORMAL)
[2022-08-04 08:00] VITALS: BP 109/59
[2022-08-04] MEDS: ADVAIR HFA 115/21MCG INHALER INH SCH ×2 (08:16→19:50)
[2022-08-04] MEDS: MIRALAX *UNIT DOSE* 17GM PACKET PO SCH (08:58)
[2022-08-04] MEDS: MAGNESIUM OXIDE 400MG TAB (MAG-OX) PO SCH ×3 (08:58→20:38)
[2022-08-04] MEDS: MULTIVITAMINS/MINERALS THERAP 1 TAB PO SCH (08:59)
[2022-08-04] MEDS: OMEPRAZOLE 20MG CAP PO SCH ×2 (08:59→20:38)
[2022-08-04] MEDS: FOLIC ACID 1MG TAB PO SCH (08:59)
[2022-08-04] MEDS: LORATADINE 10 MG TAB PO SCH (08:59)
[2022-08-04] MEDS: METOPROLOL SUCC *XL* 25MG TAB (TopROL *XL*) PO SCH (09:00)
[2022-08-04] MEDS: BISACODYL 10MG SUPP PR SCH (09:00)
[2022-08-04] MEDS: APIXABAN 5 MG TAB (ELIQUIS) PO SCH ×2 (09:00→12:14)
[2022-08-04] MEDS: PERCOCET 5MG/325MG TAB PO PRN ×3 (09:10→21:32)
[2022-08-04 12:00] VITALS: BP 114/60
[2022-08-04] MEDS ORDERED: LIDOCAINE 1% MDV 20ML VIAL As Ordered ONE (13:40)
[2022-08-04] MEDS ORDERED: HEPARIN SOD (PORCINE) 5000UNITS/ML 1ML VIAL/SYRINGE SQ SCH (14:00)
[2022-08-04] MEDS: HEPARIN SOD (PORCINE) 5000UNITS/ML 1ML VIAL/SYRINGE SQ SCH ×2 (15:46→21:22)
[2022-08-04 15:59] VITALS: BP 123/66
[2022-08-04] MEDS: LEVOTHYROXINE 100MCG TABLET (0.1MG) PO SCH (20:21)
[2022-08-04] MEDS ORDERED: DEXTROSE 50% 50ML SYRINGE IV PRN (20:25)
[2022-08-04] MEDS ORDERED: GLUCAGON INJ 1MG VIAL SC PRN (20:25)
[2022-08-04] MEDS ORDERED: GLUCOSE 4GM CHEW TABLET PO PRN (20:25)
[2022-08-04] MEDS: EZETIMIBE 10MG TABLET (ZETIA) PO SCH (20:38)
[2022-08-04] MEDS: LEVEMIR (INSULIN DETEMIR) 1 UNITS/0.01ML SC SCH (20:39)
[2022-08-04] MEDS: FLUTICASONE PROP 0.05% NASAL SPRAY 16 GM (FLONASE) NARES SCH (20:39)
[2022-08-04 21:11] VITALS: BP 125/59
[2022-08-05 00:37] VITALS: BP 129/63
[2022-08-05 04:00] VITALS: BP 130/75
[2022-08-05 05:54] LABS: HEMATOCRIT 29.1 % (42.0-52.0); HEMOGLOBIN 9.9 g/dl (13.5-17.5); MEAN CORPUSCULAR HEMOGLOBIN 32.8 pg (27.0-33.0); MEAN CORPUSCULAR VOLUME 96.4 fl (80.0-96.0); PLATELET COUNT, AUTOMATED 310 10^3/uL (150-450); RED BLOOD COUNT 3.02 10^6/uL (4.30-6.10); WHITE BLOOD COUNT 16.8 10^3/uL (4.0-10.0)
[2022-08-05] MEDS: ceFAZolin SOD 2 GM in IV 1 EA IV SCH ×3 (05:59→21:15)
[2022-08-05] MEDS: HEPARIN SOD (PORCINE) 5000UNITS/ML 1ML VIAL/SYRINGE SQ SCH ×2 (06:00→13:13)
[2022-08-05 06:25] LABS: ALBUMIN 1.6 G/DL (3.2-5.2); ALKALINE PHOSPHATASE 182 U/L (46-116); ALT/SGPT 27 U/L (7.0-40); AST/SGOT 107 U/L (<34); BILIRUBIN,TOTAL 3.4 MG/DL (0.3-1.2); BLOOD UREA NITROGEN 19 MG/DL (9-23); CARBON DIOXIDE LEVEL 25 MMOL/L (20-31); CHLORIDE LEVEL 97 MMOL/L (98-107); CREATININE FOR GFR 0.69 MG/DL (0.70-1.30); GLOMERULAR FILTRATION RATE > 60.0 (>56); GLUCOSE, FASTING 189 MG/DL (60-100); MAGNESIUM LEVEL 1.5 MG/DL (1.8-2.4); POTASSIUM SERUM 4.9 MMOL/L (3.5-5.1); SODIUM LEVEL 129 MMOL/L (136-145); TOTAL PROTEIN 7.2 G/DL (5.7-8.2)
[2022-08-05 06:35] LABS: ANISOCYTOSIS 2+; LYMPHOCYTES 13 % (16-44); METAMYELOCYTES 3 % (0-0); MONOCYTES 5 % (0-5); MYELOCYTES 2 % (0-0); NEUTROPHILS 75 % (28-66); PLATELET ESTIMATE NORMAL (NORMAL)
[2022-08-05 07:45] VITALS: BP 142/85
[2022-08-05] MEDS: ADVAIR HFA 115/21MCG INHALER INH SCH ×2 (07:55→20:26)
[2022-08-05] MEDS: SUCRALFATE 1 GM TAB PO SCH ×3 (08:29→18:12)
[2022-08-05] MEDS: FOLIC ACID 1MG TAB PO SCH (08:29)
[2022-08-05] MEDS: MIRALAX *UNIT DOSE* 17GM PACKET PO SCH ×3 (08:29→08:39)
[2022-08-05] MEDS: LORATADINE 10 MG TAB PO SCH (08:29)
[2022-08-05] MEDS: MULTIVITAMINS/MINERALS THERAP 1 TAB PO SCH (08:30)
[2022-08-05] MEDS: SENNA 8.6 MG TAB (SENOKOT) PO PRN (08:30)
[2022-08-05] MEDS: METOPROLOL SUCC *XL* 25MG TAB (TopROL *XL*) PO SCH (08:30)
[2022-08-05] MEDS: MAGNESIUM OXIDE 400MG TAB (MAG-OX) PO SCH ×3 (08:30→21:16)
[2022-08-05] MEDS: PERCOCET 5MG/325MG TAB PO PRN ×3 (08:31→21:59)
[2022-08-05] MEDS: OMEPRAZOLE 20MG CAP PO SCH ×2 (08:32→21:15)
[2022-08-05] MEDS: INSULIN LISPRO (NovoLOG) PER UNIT SC SCH ×4 (08:32→20:06)
[2022-08-05] MEDS ORDERED: APIXABAN 5 MG TAB (ELIQUIS) PO SCH ×2 (09:00→21:00)
[2022-08-05 11:38] VITALS: BP 123/66
[2022-08-05] MEDS: FERROUS SULFATE 325MG TAB PO SCH ×2 (15:47→21:15)
[2022-08-05 15:51] VITALS: BP 143/62
[2022-08-05 19:54] VITALS: BP 140/71
[2022-08-05] MEDS: ENOXAPARIN 120MG/0.8ML SYRINGE SC SCH (21:16)
[2022-08-05] MEDS: EZETIMIBE 10MG TABLET (ZETIA) PO SCH (21:16)
[2022-08-05] MEDS: LEVOTHYROXINE 100MCG TABLET (0.1MG) PO SCH (21:16)
[2022-08-05] MEDS: LEVEMIR (INSULIN DETEMIR) 1 UNITS/0.01ML SC SCH (21:16)
[2022-08-05] MEDS: FLUTICASONE PROP 0.05% NASAL SPRAY 16 GM (FLONASE) NARES SCH (21:17)
[2022-08-06] VITALS (7 sets, daily range): BP systolic 102–142; BP diastolic 55–65
[2022-08-06] MEDS: PERCOCET 5MG/325MG TAB PO PRN ×3 (04:09→17:21)
[2022-08-06 04:42] LABS: BASO # 0.1 10^3/uL (0.0-0.2); BASO % 0.4 % (0.0-1.0); EOS # 0.1 10^3/uL (0.0-0.5); EOS % 0.4 % (0.0-3.0); HEMATOCRIT 28.3 % (42.0-52.0); HEMOGLOBIN 9.5 g/dl (13.5-17.5); LYMPH # 2.9 10^3/uL (1.5-5.0); LYMPH % 14.7 % (24.0-44.0); MEAN CORPUSCULAR HEMOGLOBIN 32.9 pg (27.0-33.0); MEAN CORPUSCULAR HGB CONC 33.6 g/dl (32.0-36.5); MEAN CORPUSCULAR VOLUME 97.9 fl (80.0-96.0); MONO # 1.4 10^3/uL (0.0-0.8); MONO % 7.3 % (2.0-8.0); NEUTROPHILS # 14.3 10^3/uL (1.5-8.5); NEUTROPHILS % 72.5 % (36.0-66.0); PLATELET COUNT, AUTOMATED 291 10^3/uL (150-450); RED BLOOD COUNT 2.89 10^6/uL (4.30-6.10); WHITE BLOOD COUNT 19.7 10^3/uL (4.0-10.0)
[2022-08-06 05:03] LABS: ALBUMIN 1.6 G/DL (3.2-5.2); ALKALINE PHOSPHATASE 152 U/L (46-116); ALT/SGPT 40 U/L (7.0-40); AST/SGOT 157 U/L (<34); BLOOD UREA NITROGEN 16 MG/DL (9-23); CALCIUM LEVEL 7.7 MG/DL (8.5-10.1); CARBON DIOXIDE LEVEL 27 MMOL/L (20-31); CHLORIDE LEVEL 97 MMOL/L (98-107); CREATININE FOR GFR 0.67 MG/DL (0.70-1.30); GLOMERULAR FILTRATION RATE > 60.0 (>56); GLUCOSE, FASTING 155 MG/DL (60-100); MAGNESIUM LEVEL 1.3 MG/DL (1.8-2.4); POTASSIUM SERUM 4.8 MMOL/L (3.5-5.1); SODIUM LEVEL 130 MMOL/L (136-145); TOTAL PROTEIN 7.1 G/DL (5.7-8.2)
[2022-08-06] MEDS: ceFAZolin SOD 2 GM in IV 1 EA IV SCH ×3 (06:22→21:11)
[2022-08-06] MEDS: ADVAIR HFA 115/21MCG INHALER INH SCH ×2 (07:24→20:12)
[2022-08-06] MEDS: MAG SULF 1GM/100ML (MAG RUN) 1 GM in IV 1 EA IV SCH ×4 (08:28→12:02)
[2022-08-06] MEDS: ENOXAPARIN 120MG/0.8ML SYRINGE SC SCH ×2 (08:28→21:11)
[2022-08-06] MEDS: INSULIN LISPRO (NovoLOG) PER UNIT SC SCH ×4 (08:29→21:00)
[2022-08-06] MEDS: SUCRALFATE 1 GM TAB PO SCH ×3 (08:29→17:20)
[2022-08-06] MEDS: FOLIC ACID 1MG TAB PO SCH (08:29)
[2022-08-06] MEDS: OMEPRAZOLE 20MG CAP PO SCH ×2 (08:29→21:10)
[2022-08-06] MEDS: LORATADINE 10 MG TAB PO SCH (08:30)
[2022-08-06] MEDS: METOPROLOL SUCC *XL* 25MG TAB (TopROL *XL*) PO SCH (08:30)
[2022-08-06] MEDS: MAGNESIUM OXIDE 400MG TAB (MAG-OX) PO SCH ×3 (08:30→21:10)
[2022-08-06] MEDS: MULTIVITAMINS/MINERALS THERAP 1 TAB PO SCH (08:30)
[2022-08-06] MEDS: FERROUS SULFATE 325MG TAB PO SCH ×2 (08:30→21:10)
[2022-08-06] MEDS: SENNA 8.6 MG TAB (SENOKOT) PO PRN (13:33)
[2022-08-06] MEDS ORDERED: LORazepam 0.5 MG TAB PO PRN ×2 (15:30→18:01)
[2022-08-06] MEDS: EZETIMIBE 10MG TABLET (ZETIA) PO SCH (21:10)
[2022-08-06] MEDS: LEVEMIR (INSULIN DETEMIR) 1 UNITS/0.01ML SC SCH (21:11)
[2022-08-06] MEDS: FLUTICASONE PROP 0.05% NASAL SPRAY 16 GM (FLONASE) NARES SCH (21:11)
[2022-08-07] MEDS: LEVOTHYROXINE 100MCG TABLET (0.1MG) PO SCH ×2 (00:23→21:31)
[2022-08-07] MEDS: PERCOCET 5MG/325MG TAB PO PRN ×3 (00:24→14:29)
[2022-08-07 03:44] VITALS: BP 121/63
[2022-08-07] MEDS: ceFAZolin SOD 2 GM in IV 1 EA IV SCH ×3 (05:19→21:21)
[2022-08-07 05:44] LABS: BASO # 0.1 10^3/uL (0.0-0.2); BASO % 0.2 % (0.0-1.0); EOS # 0.1 10^3/uL (0.0-0.5); EOS % 0.3 % (0.0-3.0); HEMATOCRIT 26.9 % (42.0-52.0); HEMOGLOBIN 9.2 g/dl (13.5-17.5); LYMPH # 3.2 10^3/uL (1.5-5.0); MEAN CORPUSCULAR HEMOGLOBIN 33.3 pg (27.0-33.0); MEAN CORPUSCULAR HGB CONC 34.2 g/dl (32.0-36.5); MEAN CORPUSCULAR VOLUME 97.5 fl (80.0-96.0); MONO # 1.3 10^3/uL (0.0-0.8); MONO % 6.3 % (2.0-8.0); NEUTROPHILS # 15.9 10^3/uL (1.5-8.5); NEUTROPHILS % 75.1 % (36.0-66.0); PLATELET COUNT, AUTOMATED 269 10^3/uL (150-450); RED BLOOD COUNT 2.76 10^6/uL (4.30-6.10); WHITE BLOOD COUNT 21.2 10^3/uL (4.0-10.0)
[2022-08-07 06:16] LABS: ALBUMIN 1.5 G/DL (3.2-5.2); ALKALINE PHOSPHATASE 140 U/L (46-116); ALT/SGPT 41 U/L (7.0-40); AST/SGOT 136 U/L (<34); BILIRUBIN,TOTAL 3.9 MG/DL (0.3-1.2); BLOOD UREA NITROGEN 15 MG/DL (9-23); CALCIUM LEVEL 7.4 MG/DL (8.5-10.1); CARBON DIOXIDE LEVEL 26 MMOL/L (20-31); CHLORIDE LEVEL 98 MMOL/L (98-107); GLOMERULAR FILTRATION RATE > 60.0 (>56); GLUCOSE, FASTING 165 MG/DL (60-100); MAGNESIUM LEVEL 1.3 MG/DL (1.8-2.4); POTASSIUM SERUM 4.6 MMOL/L (3.5-5.1); SODIUM LEVEL 129 MMOL/L (136-145)
[2022-08-07 07:39] VITALS: BP 136/65
[2022-08-07] MEDS: ENOXAPARIN 120MG/0.8ML SYRINGE SC SCH ×2 (08:01→21:21)
[2022-08-07] MEDS: INSULIN LISPRO (NovoLOG) PER UNIT SC SCH ×4 (08:01→21:00)
[2022-08-07] MEDS: SUCRALFATE 1 GM TAB PO SCH ×3 (08:02→19:38)
[2022-08-07] MEDS: SENNA 8.6 MG TAB (SENOKOT) PO PRN (08:02)
[2022-08-07] MEDS: FOLIC ACID 1MG TAB PO SCH (08:03)
[2022-08-07] MEDS: METOPROLOL SUCC *XL* 25MG TAB (TopROL *XL*) PO SCH (08:03)
[2022-08-07] MEDS: MULTIVITAMINS/MINERALS THERAP 1 TAB PO SCH (08:03)
[2022-08-07] MEDS: FERROUS SULFATE 325MG TAB PO SCH ×2 (08:03→21:22)
[2022-08-07] MEDS: LORATADINE 10 MG TAB PO SCH (08:03)
[2022-08-07] MEDS: MAGNESIUM OXIDE 400MG TAB (MAG-OX) PO SCH ×3 (08:04→21:22)
[2022-08-07] MEDS: OMEPRAZOLE 20MG CAP PO SCH ×2 (08:04→21:22)
[2022-08-07] MEDS ORDERED: LORazepam 1 MG TAB PO PRN (08:35)
[2022-08-07] MEDS: ADVAIR HFA 115/21MCG INHALER INH SCH ×2 (11:18→20:28)
[2022-08-07 11:55] VITALS: BP 126/72
[2022-08-07 12:06] LABS: APPEARANCE, URINE MANUAL TURBID (CLEAR); COLOR, URINE MANUAL RED (YELLOW)
[2022-08-07 12:08] LABS: BILIRUBIN, URINE MANUAL OBSCURED (NEGATIVE); GLUCOSE, URINE (UA) MANUAL 2+(250 MG/DL) mg/dL (NEGATIVE); KETONE, URINE MANUAL OBSCURED mg/dL (NEGATIVE); NITRITE, URINE MANUAL OBSCURED (NEGATIVE); PROTEIN, URINE MANUAL 3+ mg/dL (NEGATIVE); UROBILINOGEN, URINE MANUAL OBSCURED mg/dl (NORMAL)
[2022-08-07 12:09] LABS: BLOOD URINE MANUAL POSITIVE (NEGATIVE); LEUKOCYTE ESTERASE, URINE MAN OBSCURED (NEGATIVE)
[2022-08-07 12:41] LABS: BACTERIA, URINE SMALL AMOUNT; HYALINE CAST, URINE NONE SEEN /lpf (0-1); RBC, URINE TNTC /hpf (0-3); SQUAMOUS EPITHELIAL CELL URINE SMALL AMOUNT /hpf (SMALL AMT)
[2022-08-07] MEDS: ANALGESIC BALM CRM 3OZ TOP SCH ×2 (13:25→21:23)
[2022-08-07] MEDS ORDERED: LORazepam 2 MG/ML 1ML VIAL IV PRN (15:45)
[2022-08-07] MEDS ORDERED: LORazepam 2 MG/ML 1ML VIAL IV ONE (17:15)
[2022-08-07] MEDS ORDERED: PROHANCE 279.3MG/ML 5ML VIAL As Ordered ONE (18:01)
[2022-08-07] MEDS ORDERED: PROHANCE 279.3MG/ML 15ML VIAL As Ordered ONE (18:01)
[2022-08-07] MEDS: LORazepam 2 MG/ML 1ML VIAL IV PRN ×2 (18:56→18:57)
[2022-08-07 20:00] VITALS: BP 148/73
[2022-08-07] MEDS: LEVEMIR (INSULIN DETEMIR) 1 UNITS/0.01ML SC SCH (21:00)
[2022-08-07] MEDS: FLUTICASONE PROP 0.05% NASAL SPRAY 16 GM (FLONASE) NARES SCH (21:22)
[2022-08-07] MEDS: EZETIMIBE 10MG TABLET (ZETIA) PO SCH (21:22)
[2022-08-07 23:13] VITALS: BP 120/62
[2022-08-08] MEDS: PERCOCET 5MG/325MG TAB PO PRN ×4 (01:00→23:50)
[2022-08-08 05:30] VITALS: BP 135/66
[2022-08-08 05:31] LABS: BASO # 0.1 10^3/uL (0.0-0.2); BASO % 0.3 % (0.0-1.0); EOS # 0.1 10^3/uL (0.0-0.5); EOS % 0.3 % (0.0-3.0); HEMATOCRIT 23.3 % (42.0-52.0); HEMOGLOBIN 7.9 g/dl (13.5-17.5); LYMPH # 2.8 10^3/uL (1.5-5.0); LYMPH % 12.9 % (24.0-44.0); MEAN CORPUSCULAR HEMOGLOBIN 32.9 pg (27.0-33.0); MEAN CORPUSCULAR HGB CONC 33.9 g/dl (32.0-36.5); MEAN CORPUSCULAR VOLUME 97.1 fl (80.0-96.0); MONO # 1.3 10^3/uL (0.0-0.8); NEUTROPHILS # 16.8 10^3/uL (1.5-8.5); NEUTROPHILS % 78.5 % (36.0-66.0); PLATELET COUNT, AUTOMATED 280 10^3/uL (150-450); WHITE BLOOD COUNT 21.4 10^3/uL (4.0-10.0)
[2022-08-08] MEDS: ceFAZolin SOD 2 GM in IV 1 EA IV SCH ×3 (05:33→21:15)
[2022-08-08 06:09] LABS: ALBUMIN 1.5 G/DL (3.2-5.2); ALKALINE PHOSPHATASE 114 U/L (46-116); ALT/SGPT 34 U/L (7.0-40); AST/SGOT 137 U/L (<34); BILIRUBIN,TOTAL 5.3 MG/DL (0.3-1.2); BLOOD UREA NITROGEN 11 MG/DL (9-23); CARBON DIOXIDE LEVEL 26 MMOL/L (20-31); CHLORIDE LEVEL 97 MMOL/L (98-107); CREATININE FOR GFR 0.65 MG/DL (0.70-1.30); GLOMERULAR FILTRATION RATE > 60.0 (>56); GLUCOSE, FASTING 163 MG/DL (60-100); MAGNESIUM LEVEL 1.2 MG/DL (1.8-2.4); POTASSIUM SERUM 4.5 MMOL/L (3.5-5.1); SODIUM LEVEL 128 MMOL/L (136-145); TOTAL PROTEIN 6.9 G/DL (5.7-8.2)
[2022-08-08] MEDS: ADVAIR HFA 115/21MCG INHALER INH SCH ×2 (08:40→19:13)
[2022-08-08] MEDS: ENOXAPARIN 120MG/0.8ML SYRINGE SC SCH ×2 (09:05→21:17)
[2022-08-08] MEDS: INSULIN LISPRO (NovoLOG) PER UNIT SC SCH ×4 (09:05→21:16)
[2022-08-08] MEDS: MULTIVITAMINS/MINERALS THERAP 1 TAB PO SCH (09:06)
[2022-08-08] MEDS: SUCRALFATE 1 GM TAB PO SCH ×3 (09:06→16:53)
[2022-08-08] MEDS: LORATADINE 10 MG TAB PO SCH (09:06)
[2022-08-08] MEDS: OMEPRAZOLE 20MG CAP PO SCH ×2 (09:07→21:18)
[2022-08-08] MEDS: MAGNESIUM OXIDE 400MG TAB (MAG-OX) PO SCH ×3 (09:07→21:18)
[2022-08-08] MEDS: FERROUS SULFATE 325MG TAB PO SCH ×2 (09:07→21:19)
[2022-08-08] MEDS: METOPROLOL SUCC *XL* 25MG TAB (TopROL *XL*) PO SCH (09:07)
[2022-08-08] MEDS: ANALGESIC BALM CRM 3OZ TOP SCH ×2 (09:10→21:17)
[2022-08-08] MEDS: MAG SULF 1GM/100ML (MAG RUN) 1 GM in IV 1 EA IV SCH ×4 (09:10→12:53)
[2022-08-08] MEDS: FOLIC ACID 1MG TAB PO SCH (09:11)
[2022-08-08 12:11] LABS: HEMATOCRIT 23.8 % (42.0-52.0); HEMOGLOBIN 7.9 g/dl (13.5-17.5)
[2022-08-08 12:25] VITALS: BP 129/70
[2022-08-08 12:25] LABS: INR 1.68; PROTHROMBIN TIME 20.1 SECONDS (12.5-14.5)
[2022-08-08] MEDS: SENNA 8.6 MG TAB (SENOKOT) PO PRN (12:54)
[2022-08-08 15:30] VITALS: BP 126/69
[2022-08-08 18:36] LABS: HEMATOCRIT 23.6 % (42.0-52.0)
[2022-08-08 20:17] VITALS: BP 128/62
[2022-08-08] MEDS: LEVEMIR (INSULIN DETEMIR) 1 UNITS/0.01ML SC SCH (21:16)
[2022-08-08] MEDS: FLUTICASONE PROP 0.05% NASAL SPRAY 16 GM (FLONASE) NARES SCH (21:18)
[2022-08-08] MEDS: EZETIMIBE 10MG TABLET (ZETIA) PO SCH (21:19)
[2022-08-08] MEDS: LEVOTHYROXINE 100MCG TABLET (0.1MG) PO SCH (21:19)
[2022-08-09 01:18] VITALS: BP 143/78
[2022-08-09 05:51] VITALS: BP 126/64
[2022-08-09 06:11] LABS: BASO # 0.1 10^3/uL (0.0-0.2); BASO % 0.3 % (0.0-1.0); EOS # 0.1 10^3/uL (0.0-0.5); EOS % 0.4 % (0.0-3.0); HEMATOCRIT 22.1 % (42.0-52.0); HEMOGLOBIN 7.6 g/dl (13.5-17.5); LYMPH # 2.6 10^3/uL (1.5-5.0); LYMPH % 14.2 % (24.0-44.0); MEAN CORPUSCULAR HEMOGLOBIN 33.9 pg (27.0-33.0); MEAN CORPUSCULAR HGB CONC 34.4 g/dl (32.0-36.5); MEAN CORPUSCULAR VOLUME 98.7 fl (80.0-96.0); MONO # 1.3 10^3/uL (0.0-0.8); MONO % 6.9 % (2.0-8.0); NEUTROPHILS # 14.1 10^3/uL (1.5-8.5); PLATELET COUNT, AUTOMATED 269 10^3/uL (150-450); RED BLOOD COUNT 2.24 10^6/uL (4.30-6.10); WHITE BLOOD COUNT 18.5 10^3/uL (4.0-10.0)
[2022-08-09 06:26] LABS: INR 1.63; PROTHROMBIN TIME 19.6 SECONDS (12.5-14.5)
[2022-08-09 06:40] LABS: ALBUMIN 1.5 G/DL (3.2-5.2); ALKALINE PHOSPHATASE 125 U/L (46-116); ALT/SGPT 25 U/L (7.0-40); AST/SGOT 101 U/L (<34); BILIRUBIN,TOTAL 4.1 MG/DL (0.3-1.2); BLOOD UREA NITROGEN 12 MG/DL (9-23); CALCIUM LEVEL 7.2 MG/DL (8.5-10.1); CARBON DIOXIDE LEVEL 26 MMOL/L (20-31); CHLORIDE LEVEL 97 MMOL/L (98-107); CREATININE FOR GFR 0.62 MG/DL (0.70-1.30); GLOMERULAR FILTRATION RATE > 60.0 (>56); GLUCOSE, FASTING 172 MG/DL (60-100); MAGNESIUM LEVEL 1.3 MG/DL (1.8-2.4); POTASSIUM SERUM 4.3 MMOL/L (3.5-5.1); SODIUM LEVEL 128 MMOL/L (136-145); TOTAL PROTEIN 6.9 G/DL (5.7-8.2)
[2022-08-09] MEDS: ceFAZolin SOD 2 GM in IV 1 EA IV SCH ×3 (07:01→22:59)
[2022-08-09] MEDS: ADVAIR HFA 115/21MCG INHALER INH SCH ×2 (07:45→19:43)
[2022-08-09] MEDS: LIDOCAINE 5% (LIDODERM) PATCH TD SCH (08:08)
[2022-08-09] MEDS: INSULIN LISPRO (NovoLOG) PER UNIT SC SCH ×4 (08:09→21:00)
[2022-08-09] MEDS: SUCRALFATE 1 GM TAB PO SCH ×3 (08:09→17:14)
[2022-08-09] MEDS: ENOXAPARIN 120MG/0.8ML SYRINGE SC SCH (08:09)
[2022-08-09] MEDS: ANALGESIC BALM CRM 3OZ TOP SCH ×2 (08:09→20:58)
[2022-08-09] MEDS: FOLIC ACID 1MG TAB PO SCH (08:10)
[2022-08-09] MEDS: LORATADINE 10 MG TAB PO SCH (08:10)
[2022-08-09] MEDS: METOPROLOL SUCC *XL* 25MG TAB (TopROL *XL*) PO SCH (08:10)
[2022-08-09] MEDS: FERROUS SULFATE 325MG TAB PO SCH ×2 (08:10→20:56)
[2022-08-09] MEDS: PERCOCET 5MG/325MG TAB PO PRN ×3 (08:11→20:57)
[2022-08-09] MEDS: MULTIVITAMINS/MINERALS THERAP 1 TAB PO SCH (08:11)
[2022-08-09] MEDS: MAG SULF 1GM/100ML (MAG RUN) 1 GM in IV 1 EA IV SCH ×4 (08:11→13:20)
[2022-08-09] MEDS: OMEPRAZOLE 20MG CAP PO SCH ×2 (08:11→21:05)
[2022-08-09] MEDS: MAGNESIUM OXIDE 400MG TAB (MAG-OX) PO SCH ×3 (08:11→20:56)
[2022-08-09 08:45] VITALS: BP 129/61
[2022-08-09 11:30] LABS: HEMATOCRIT 21.1 % (42.0-52.0); HEMOGLOBIN 7.2 g/dl (13.5-17.5)
[2022-08-09] MEDS ORDERED: LIDOCAINE 5% (LIDODERM) PATCH TD ONE (14:00)
[2022-08-09 16:00] VITALS: BP 132/63
[2022-08-09] MEDS: oxyCODONE 10 MG CR TAB PO SCH (17:21)
[2022-08-09 20:34] VITALS: BP 125/58
[2022-08-09] MEDS: LEVEMIR (INSULIN DETEMIR) 1 UNITS/0.01ML SC SCH (20:56)
[2022-08-09] MEDS: EZETIMIBE 10MG TABLET (ZETIA) PO SCH (20:56)
[2022-08-09] MEDS: LEVOTHYROXINE 100MCG TABLET (0.1MG) PO SCH (20:57)
[2022-08-09] MEDS: FLUTICASONE PROP 0.05% NASAL SPRAY 16 GM (FLONASE) NARES SCH (20:58)
[2022-08-10] VITALS (17 sets, daily range): BP systolic 92–152; BP diastolic 56–79
[2022-08-10 00:17] LABS: HEMOGLOBIN 7.1 g/dl (13.5-17.5)
[2022-08-10 00:21] LABS: HEMATOCRIT 20.8 % (42.0-52.0)
[2022-08-10] MEDS: PERCOCET 5MG/325MG TAB PO PRN ×3 (02:58→19:50)
[2022-08-10] MEDS: ceFAZolin SOD 2 GM in IV 1 EA IV SCH ×3 (05:47→21:16)
[2022-08-10 06:40] LABS: BASO # 0.1 10^3/uL (0.0-0.2); BASO % 0.3 % (0.0-1.0); EOS # 0.1 10^3/uL (0.0-0.5); EOS % 0.5 % (0.0-3.0); LYMPH # 2.5 10^3/uL (1.5-5.0); LYMPH % 15.1 % (24.0-44.0); MEAN CORPUSCULAR HEMOGLOBIN 33.9 pg (27.0-33.0); MEAN CORPUSCULAR HGB CONC 33.7 g/dl (32.0-36.5); MEAN CORPUSCULAR VOLUME 100.6 fl (80.0-96.0); MONO # 1.4 10^3/uL (0.0-0.8); MONO % 8.6 % (2.0-8.0); NEUTROPHILS # 12.2 10^3/uL (1.5-8.5); NEUTROPHILS % 73.7 % (36.0-66.0); PLATELET COUNT, AUTOMATED 289 10^3/uL (150-450); WHITE BLOOD COUNT 16.6 10^3/uL (4.0-10.0)
[2022-08-10 06:48] LABS: HEMATOCRIT 18.1 % (42.0-52.0)
[2022-08-10 06:49] LABS: HEMOGLOBIN 6.1 g/dl (13.5-17.5)
[2022-08-10 07:09] LABS: ALBUMIN 1.4 G/DL (3.2-5.2); ALKALINE PHOSPHATASE 127 U/L (46-116); ALT/SGPT 28 U/L (7.0-40); AST/SGOT 113 U/L (<34); BILIRUBIN,TOTAL 4.6 MG/DL (0.3-1.2); BLOOD UREA NITROGEN 12 MG/DL (9-23); CALCIUM LEVEL 7.1 MG/DL (8.5-10.1); CARBON DIOXIDE LEVEL 25 MMOL/L (20-31); CHLORIDE LEVEL 95 MMOL/L (98-107); GLOMERULAR FILTRATION RATE > 60.0 (>56); GLUCOSE, FASTING 204 MG/DL (60-100); POTASSIUM SERUM 4.2 MMOL/L (3.5-5.1); SODIUM LEVEL 126 MMOL/L (136-145)
[2022-08-10] MEDS ORDERED: BACLOFEN 10 MG TAB PO PRN ×2 (07:25→09:50)
[2022-08-10] MEDS: ADVAIR HFA 115/21MCG INHALER INH SCH ×2 (07:54→19:44)
[2022-08-10 08:11] LABS: MAGNESIUM LEVEL 1.3 MG/DL (1.8-2.4)
[2022-08-10] MEDS: oxyCODONE 10 MG CR TAB PO SCH (08:13)
[2022-08-10] MEDS: MULTIVITAMINS/MINERALS THERAP 1 TAB PO SCH (08:14)
[2022-08-10] MEDS: MAGNESIUM OXIDE 400MG TAB (MAG-OX) PO SCH ×3 (08:14→21:15)
[2022-08-10] MEDS: OMEPRAZOLE 20MG CAP PO SCH ×2 (08:14→21:15)
[2022-08-10] MEDS: FOLIC ACID 1MG TAB PO SCH (08:14)
[2022-08-10] MEDS: SUCRALFATE 1 GM TAB PO SCH ×3 (08:14→18:11)
[2022-08-10] MEDS: FERROUS SULFATE 325MG TAB PO SCH ×2 (08:14→21:15)
[2022-08-10] MEDS: LORATADINE 10 MG TAB PO SCH (08:15)
[2022-08-10] MEDS: INSULIN LISPRO (NovoLOG) PER UNIT SC SCH ×4 (08:15→21:00)
[2022-08-10] MEDS: LIDOCAINE 5% (LIDODERM) PATCH TD SCH (08:15)
[2022-08-10] MEDS: METOPROLOL SUCC *XL* 25MG TAB (TopROL *XL*) PO SCH (08:15)
[2022-08-10] MEDS: ANALGESIC BALM CRM 3OZ TOP SCH ×2 (08:19→20:59)
[2022-08-10] MEDS: MAGNESIUM SULFATE 8 MEQ in NS 100 ML IV SCH ×4 (14:51→16:45)
[2022-08-10 17:48] LABS: HEMATOCRIT 20.8 % (42.0-52.0)
[2022-08-10 17:59] LABS: INR 1.64; PROTHROMBIN TIME 19.7 SECONDS (12.5-14.5)
[2022-08-10 18:00] LABS: PARTIAL THROMBOPLASTIN TIME 47.3 SECONDS (24.8-34.2)
[2022-08-10] MEDS ORDERED: FUROSEMIDE 20MG/2ML VIAL IV ONE (19:00)
[2022-08-10 19:44] LABS: HEMATOCRIT 20.5 % (42.0-52.0); HEMOGLOBIN 6.7 g/dl (13.5-17.5)
[2022-08-10] MEDS: LEVOTHYROXINE 100MCG TABLET (0.1MG) PO SCH (19:50)
[2022-08-10] MEDS: FLUTICASONE PROP 0.05% NASAL SPRAY 16 GM (FLONASE) NARES SCH (20:57)
[2022-08-10] MEDS: oxyCODONE 15MG CR TAB PO SCH (21:15)
[2022-08-10] MEDS: EZETIMIBE 10MG TABLET (ZETIA) PO SCH (21:15)
[2022-08-10] MEDS: LEVEMIR (INSULIN DETEMIR) 1 UNITS/0.01ML SC SCH (21:30)
[2022-08-11] VITALS (7 sets, daily range): BP systolic 101–138; BP diastolic 59–84
[2022-08-11 01:02] LABS: HEMOGLOBIN 7.4 g/dl (13.5-17.5)
[2022-08-11] MEDS: ceFAZolin SOD 2 GM in IV 1 EA IV SCH ×3 (05:22→21:07)
[2022-08-11 05:37] LABS: BASO % 0.2 % (0.0-1.0); EOS # 0.1 10^3/uL (0.0-0.5); EOS % 0.7 % (0.0-3.0); HEMATOCRIT 22.5 % (42.0-52.0); HEMOGLOBIN 7.6 g/dl (13.5-17.5); LYMPH # 2.4 10^3/uL (1.5-5.0); LYMPH % 16.4 % (24.0-44.0); MEAN CORPUSCULAR HEMOGLOBIN 32.3 pg (27.0-33.0); MEAN CORPUSCULAR HGB CONC 33.8 g/dl (32.0-36.5); MEAN CORPUSCULAR VOLUME 95.7 fl (80.0-96.0); MONO # 1.2 10^3/uL (0.0-0.8); MONO % 7.9 % (2.0-8.0); NEUTROPHILS # 10.7 10^3/uL (1.5-8.5); NEUTROPHILS % 72.9 % (36.0-66.0); PLATELET COUNT, AUTOMATED 288 10^3/uL (150-450); RED BLOOD COUNT 2.35 10^6/uL (4.30-6.10); WHITE BLOOD COUNT 14.7 10^3/uL (4.0-10.0)
[2022-08-11 06:04] LABS: ALBUMIN 1.5 G/DL (3.2-5.2); ALKALINE PHOSPHATASE 120 U/L (46-116); ALT/SGPT 30 U/L (7.0-40); AST/SGOT 135 U/L (<34); BILIRUBIN,TOTAL 4.9 MG/DL (0.3-1.2); BLOOD UREA NITROGEN 12 MG/DL (9-23); CALCIUM LEVEL 7.5 MG/DL (8.5-10.1); CARBON DIOXIDE LEVEL 26 MMOL/L (20-31); CHLORIDE LEVEL 98 MMOL/L (98-107); CREATININE FOR GFR 0.56 MG/DL (0.70-1.30); GLOMERULAR FILTRATION RATE > 60.0 (>56); GLUCOSE, FASTING 131 MG/DL (60-100); SODIUM LEVEL 129 MMOL/L (136-145); TOTAL PROTEIN 7.1 G/DL (5.7-8.2)
[2022-08-11] MEDS: ADVAIR HFA 115/21MCG INHALER INH SCH ×2 (07:20→20:48)
[2022-08-11] MEDS: INSULIN LISPRO (NovoLOG) PER UNIT SC SCH ×4 (07:30→20:36)
[2022-08-11] MEDS ORDERED: LR 1,000 ML IV SCH (07:50)
[2022-08-11] MEDS: SUCRALFATE 1 GM TAB PO SCH ×3 (08:12→17:07)
[2022-08-11] MEDS: FOLIC ACID 1MG TAB PO SCH (08:13)
[2022-08-11] MEDS: MAGNESIUM OXIDE 400MG TAB (MAG-OX) PO SCH ×3 (08:13→20:13)
[2022-08-11] MEDS: OMEPRAZOLE 20MG CAP PO SCH ×2 (08:13→20:12)
[2022-08-11] MEDS: oxyCODONE 15MG CR TAB PO SCH ×2 (08:13→20:13)
[2022-08-11] MEDS: LORATADINE 10 MG TAB PO SCH (08:13)
[2022-08-11] MEDS: ANALGESIC BALM CRM 3OZ TOP SCH ×2 (08:14→20:14)
[2022-08-11] MEDS: MULTIVITAMINS/MINERALS THERAP 1 TAB PO SCH (08:14)
[2022-08-11] MEDS: FERROUS SULFATE 325MG TAB PO SCH ×2 (08:14→20:11)
[2022-08-11] MEDS: METOPROLOL SUCC *XL* 25MG TAB (TopROL *XL*) PO SCH (08:14)
[2022-08-11] MEDS: LIDOCAINE 5% (LIDODERM) PATCH TD SCH (08:16)
[2022-08-11] MEDS ORDERED: ALPRAZolam 0.25 MG TAB PO ONE (10:00)
[2022-08-11 11:07] LABS: HEMATOCRIT 23.5 % (42.0-52.0); HEMOGLOBIN 7.7 g/dl (13.5-17.5)
[2022-08-11] MEDS ORDERED: ceFAZolin 1GM VIAL As Ordered ONE (12:53)
[2022-08-11] MEDS ORDERED: propofoL 200 MG/20 ML VIAL As Ordered ONE (12:59)
[2022-08-11] MEDS ORDERED: LIDOCAINE 2% 100MG/5ML SDV (FOR ANES.) As Ordered ONE (12:59)
[2022-08-11] MEDS ORDERED: ONDANSETRON 4MG 2ML VIAL As Ordered ONE (12:59)
[2022-08-11] MEDS ORDERED: fentaNYL 100 MCG/2 ML INJECTION As Ordered ONE (13:08)
[2022-08-11] MEDS ORDERED: ROCURONIUM BROMIDE 50MG/5ML VIAL As Ordered ONE (13:24)
[2022-08-11] MEDS ORDERED: SUGAMMADEX SODIUM 500 MG/5 ML VIAL (BRIDION) As Ordered ONE (13:24)
[2022-08-11] MEDS ORDERED: MIDAZOLAM INJ 2MG/2ML VIAL As Ordered ONE (13:26)
[2022-08-11] MEDS ORDERED: ceFAZolin 2 GM/D5W 50 ML IV BAG As Ordered ONE (14:21)
[2022-08-11] MEDS ORDERED: FUROSEMIDE 20MG/2ML VIAL IV ONE (17:00)
[2022-08-11 19:25] LABS: HEMATOCRIT 24.8 % (42.0-52.0); HEMOGLOBIN 8.2 g/dl (13.5-17.5)
[2022-08-11] MEDS: LEVOTHYROXINE 100MCG TABLET (0.1MG) PO SCH (20:12)
[2022-08-11] MEDS: EZETIMIBE 10MG TABLET (ZETIA) PO SCH (20:12)
[2022-08-11] MEDS: FLUTICASONE PROP 0.05% NASAL SPRAY 16 GM (FLONASE) NARES SCH (20:14)
[2022-08-11] MEDS: LEVEMIR (INSULIN DETEMIR) 1 UNITS/0.01ML SC SCH (20:37)
[2022-08-12] VITALS (11 sets, daily range): BP systolic 105–136; BP diastolic 58–86
[2022-08-12] MEDS: PERCOCET 5MG/325MG TAB PO PRN ×3 (02:23→21:57)
[2022-08-12 04:09] LABS: BASO % 0.2 % (0.0-1.0); HEMATOCRIT 22.1 % (42.0-52.0); LYMPH # 1.1 10^3/uL (1.5-5.0); MEAN CORPUSCULAR HEMOGLOBIN 31.8 pg (27.0-33.0); MEAN CORPUSCULAR HGB CONC 31.7 g/dl (32.0-36.5); MEAN CORPUSCULAR VOLUME 100.5 fl (80.0-96.0); MONO # 0.7 10^3/uL (0.0-0.8); MONO % 5.8 % (2.0-8.0); NEUTROPHILS # 10.4 10^3/uL (1.5-8.5); NEUTROPHILS % 83.8 % (36.0-66.0); PLATELET COUNT, AUTOMATED 263 10^3/uL (150-450); WHITE BLOOD COUNT 12.4 10^3/uL (4.0-10.0)
[2022-08-12 04:26] LABS: ALBUMIN 1.4 G/DL (3.2-5.2); ALKALINE PHOSPHATASE 155 U/L (46-116); ALT/SGPT 28 U/L (7.0-40); AST/SGOT 161 U/L (<34); BILIRUBIN,TOTAL 4.4 MG/DL (0.3-1.2); BLOOD UREA NITROGEN 17 MG/DL (9-23); CALCIUM LEVEL 7.4 MG/DL (8.5-10.1); CARBON DIOXIDE LEVEL 22 MMOL/L (20-31); CHLORIDE LEVEL 98 MMOL/L (98-107); CREATININE FOR GFR 0.64 MG/DL (0.70-1.30); GLOMERULAR FILTRATION RATE > 60.0 (>56); GLUCOSE, FASTING 348 MG/DL (60-100); POTASSIUM SERUM 4.8 MMOL/L (3.5-5.1); SODIUM LEVEL 130 MMOL/L (136-145); TOTAL PROTEIN 7.1 G/DL (5.7-8.2)
[2022-08-12] MEDS: ceFAZolin SOD 2 GM in IV 1 EA IV SCH ×3 (05:07→21:56)
[2022-08-12] MEDS: ADVAIR HFA 115/21MCG INHALER INH SCH ×2 (07:37→20:52)
[2022-08-12] MEDS: LIDOCAINE 5% (LIDODERM) PATCH TD SCH (08:33)
[2022-08-12] MEDS: oxyCODONE 15MG CR TAB PO SCH ×2 (08:34→20:38)
[2022-08-12] MEDS: INSULIN LISPRO (NovoLOG) PER UNIT SC SCH ×4 (08:34→20:39)
[2022-08-12] MEDS: FERROUS SULFATE 325MG TAB PO SCH ×2 (08:34→20:38)
[2022-08-12] MEDS: FOLIC ACID 1MG TAB PO SCH (08:35)
[2022-08-12] MEDS: OMEPRAZOLE 20MG CAP PO SCH ×2 (08:35→20:37)
[2022-08-12] MEDS: LORATADINE 10 MG TAB PO SCH (08:35)
[2022-08-12] MEDS: METOPROLOL SUCC *XL* 25MG TAB (TopROL *XL*) PO SCH (08:35)
[2022-08-12] MEDS: MULTIVITAMINS/MINERALS THERAP 1 TAB PO SCH (08:35)
[2022-08-12] MEDS: ANALGESIC BALM CRM 3OZ TOP SCH ×2 (08:36→20:40)
[2022-08-12] MEDS: MAGNESIUM OXIDE 400MG TAB (MAG-OX) PO SCH ×3 (08:36→20:37)
[2022-08-12] MEDS: SUCRALFATE 1 GM TAB PO SCH ×3 (08:36→18:05)
[2022-08-12] MEDS ORDERED: APIXABAN 5 MG TAB (ELIQUIS) PO SCH (09:00)
[2022-08-12 11:02] LABS: HEMATOCRIT 23.6 % (42.0-52.0); HEMOGLOBIN 7.8 g/dl (13.5-17.5)
[2022-08-12 20:14] LABS: HEMATOCRIT 24.1 % (42.0-52.0); HEMOGLOBIN 7.8 g/dl (13.5-17.5)
[2022-08-12] MEDS: EZETIMIBE 10MG TABLET (ZETIA) PO SCH (20:37)
[2022-08-12] MEDS: LEVOTHYROXINE 100MCG TABLET (0.1MG) PO SCH (20:37)
[2022-08-12] MEDS: LEVEMIR (INSULIN DETEMIR) 1 UNITS/0.01ML SC SCH (20:39)
[2022-08-12] MEDS: FLUTICASONE PROP 0.05% NASAL SPRAY 16 GM (FLONASE) NARES SCH (20:40)
[2022-08-13 04:00] VITALS: BP 112/69
[2022-08-13 04:06] LABS: BASO % 0.1 % (0.0-1.0); EOS # 0.1 10^3/uL (0.0-0.5); EOS % 0.4 % (0.0-3.0); HEMATOCRIT 25.9 % (42.0-52.0); HEMOGLOBIN 8.5 g/dl (13.5-17.5); LYMPH % 13.9 % (24.0-44.0); MEAN CORPUSCULAR HEMOGLOBIN 32.4 pg (27.0-33.0); MEAN CORPUSCULAR HGB CONC 32.8 g/dl (32.0-36.5); MEAN CORPUSCULAR VOLUME 98.9 fl (80.0-96.0); MONO # 1.1 10^3/uL (0.0-0.8); MONO % 7.4 % (2.0-8.0); NEUTROPHILS # 11.1 10^3/uL (1.5-8.5); NEUTROPHILS % 76.4 % (36.0-66.0); PLATELET COUNT, AUTOMATED 264 10^3/uL (150-450); RED BLOOD COUNT 2.62 10^6/uL (4.30-6.10); WHITE BLOOD COUNT 14.5 10^3/uL (4.0-10.0)
[2022-08-13] MEDS: PERCOCET 5MG/325MG TAB PO PRN ×3 (04:14→17:38)
[2022-08-13 04:36] LABS: ALBUMIN 1.7 G/DL (3.2-5.2); ALKALINE PHOSPHATASE 191 U/L (46-116); ALT/SGPT 33 U/L (7.0-40); AST/SGOT 115 U/L (<34); BILIRUBIN,TOTAL 4.2 MG/DL (0.3-1.2); BLOOD UREA NITROGEN 19 MG/DL (9-23); CALCIUM LEVEL 7.9 MG/DL (8.5-10.1); CARBON DIOXIDE LEVEL 26 MMOL/L (20-31); CHLORIDE LEVEL 101 MMOL/L (98-107); CREATININE FOR GFR 0.55 MG/DL (0.70-1.30); GLOMERULAR FILTRATION RATE > 60.0 (>56); GLUCOSE, FASTING 240 MG/DL (60-100); POTASSIUM SERUM 4.7 MMOL/L (3.5-5.1); SODIUM LEVEL 132 MMOL/L (136-145); TOTAL PROTEIN 7.7 G/DL (5.7-8.2)
[2022-08-13] MEDS: ceFAZolin SOD 2 GM in IV 1 EA IV SCH ×3 (06:23→22:40)
[2022-08-13] MEDS: ADVAIR HFA 115/21MCG INHALER INH SCH ×2 (07:25→20:45)
[2022-08-13 08:01] VITALS: BP 110/69
[2022-08-13] MEDS: oxyCODONE 15MG CR TAB PO SCH ×2 (08:45→20:48)
[2022-08-13] MEDS: MULTIVITAMINS/MINERALS THERAP 1 TAB PO SCH (08:45)
[2022-08-13] MEDS: SUCRALFATE 1 GM TAB PO SCH ×3 (08:45→17:38)
[2022-08-13] MEDS: OMEPRAZOLE 20MG CAP PO SCH ×2 (08:46→20:49)
[2022-08-13] MEDS: MAGNESIUM OXIDE 400MG TAB (MAG-OX) PO SCH ×3 (08:46→20:49)
[2022-08-13] MEDS: SENNA 8.6 MG TAB (SENOKOT) PO PRN (08:46)
[2022-08-13] MEDS: LORATADINE 10 MG TAB PO SCH (08:46)
[2022-08-13] MEDS: FOLIC ACID 1MG TAB PO SCH (08:46)
[2022-08-13] MEDS: FERROUS SULFATE 325MG TAB PO SCH ×2 (08:46→20:50)
[2022-08-13] MEDS: INSULIN LISPRO (NovoLOG) PER UNIT SC SCH ×4 (08:47→20:50)
[2022-08-13] MEDS: ANALGESIC BALM CRM 3OZ TOP SCH ×2 (08:48→20:48)
[2022-08-13] MEDS: METOPROLOL SUCC *XL* 25MG TAB (TopROL *XL*) PO SCH (08:48)
[2022-08-13] MEDS: LIDOCAINE 5% (LIDODERM) PATCH TD SCH (09:00)
[2022-08-13 10:53] LABS: HEMATOCRIT 25.5 % (42.0-52.0); HEMOGLOBIN 8.2 g/dl (13.5-17.5)
[2022-08-13] MEDS ORDERED: FUROSEMIDE 20 MG TAB PO ONE ×2 (11:30)
[2022-08-13 12:07] VITALS: BP 128/79
[2022-08-13 16:19] VITALS: BP 106/69
[2022-08-13 20:09] VITALS: BP 125/82
[2022-08-13] MEDS: FLUTICASONE PROP 0.05% NASAL SPRAY 16 GM (FLONASE) NARES SCH (20:47)
[2022-08-13] MEDS: LEVOTHYROXINE 100MCG TABLET (0.1MG) PO SCH (20:49)
[2022-08-13] MEDS: EZETIMIBE 10MG TABLET (ZETIA) PO SCH (20:49)
[2022-08-13] MEDS: LEVEMIR (INSULIN DETEMIR) 1 UNITS/0.01ML SC SCH (20:49)
[2022-08-14] VITALS (7 sets, daily range): BP systolic 114–133; BP diastolic 59–82
[2022-08-14] MEDS: PERCOCET 5MG/325MG TAB PO PRN ×3 (00:02→18:20)
[2022-08-14 05:47] LABS: BASO % 0.3 % (0.0-1.0); EOS # 0.2 10^3/uL (0.0-0.5); EOS % 1.2 % (0.0-3.0); HEMATOCRIT 25.8 % (42.0-52.0); HEMOGLOBIN 8.3 g/dl (13.5-17.5); LYMPH # 2.3 10^3/uL (1.5-5.0); LYMPH % 16.8 % (24.0-44.0); MEAN CORPUSCULAR HEMOGLOBIN 32.3 pg (27.0-33.0); MEAN CORPUSCULAR HGB CONC 32.2 g/dl (32.0-36.5); MEAN CORPUSCULAR VOLUME 100.4 fl (80.0-96.0); MONO # 1.1 10^3/uL (0.0-0.8); MONO % 8.5 % (2.0-8.0); NEUTROPHILS # 9.6 10^3/uL (1.5-8.5); NEUTROPHILS % 71.2 % (36.0-66.0); PLATELET COUNT, AUTOMATED 234 10^3/uL (150-450); RED BLOOD COUNT 2.57 10^6/uL (4.30-6.10); WHITE BLOOD COUNT 13.5 10^3/uL (4.0-10.0)
[2022-08-14 06:12] LABS: ALBUMIN 1.5 G/DL (3.2-5.2); ALKALINE PHOSPHATASE 170 U/L (46-116); ALT/SGPT 36 U/L (7.0-40); AST/SGOT 165 U/L (<34); BILIRUBIN,TOTAL 4.6 MG/DL (0.3-1.2); BLOOD UREA NITROGEN 16 MG/DL (9-23); CARBON DIOXIDE LEVEL 28 MMOL/L (20-31); CHLORIDE LEVEL 101 MMOL/L (98-107); CREATININE FOR GFR 0.55 MG/DL (0.70-1.30); GLOMERULAR FILTRATION RATE > 60.0 (>56); GLUCOSE, FASTING 202 MG/DL (60-100); POTASSIUM SERUM 4.3 MMOL/L (3.5-5.1); SODIUM LEVEL 131 MMOL/L (136-145)
[2022-08-14] MEDS: ceFAZolin SOD 2 GM in IV 1 EA IV SCH ×3 (06:27→21:49)
[2022-08-14] MEDS: ADVAIR HFA 115/21MCG INHALER INH SCH ×2 (07:31→19:51)
[2022-08-14] MEDS: MULTIVITAMINS/MINERALS THERAP 1 TAB PO SCH (08:14)
[2022-08-14] MEDS: INSULIN LISPRO (NovoLOG) PER UNIT SC SCH ×4 (08:14→21:00)
[2022-08-14] MEDS: MAGNESIUM OXIDE 400MG TAB (MAG-OX) PO SCH ×3 (08:14→21:34)
[2022-08-14] MEDS: SUCRALFATE 1 GM TAB PO SCH ×3 (08:14→17:05)
[2022-08-14] MEDS: FOLIC ACID 1MG TAB PO SCH (08:14)
[2022-08-14] MEDS: OMEPRAZOLE 20MG CAP PO SCH ×2 (08:15→21:34)
[2022-08-14] MEDS: FERROUS SULFATE 325MG TAB PO SCH ×2 (08:15→21:34)
[2022-08-14] MEDS: LIDOCAINE 5% (LIDODERM) PATCH TD SCH (08:16)
[2022-08-14] MEDS: LORATADINE 10 MG TAB PO SCH (08:16)
[2022-08-14] MEDS: METOPROLOL SUCC *XL* 25MG TAB (TopROL *XL*) PO SCH (08:16)
[2022-08-14] MEDS: ANALGESIC BALM CRM 3OZ TOP SCH ×2 (08:17→21:00)
[2022-08-14] MEDS: oxyCODONE 10 MG CR TAB PO SCH ×2 (08:29→21:46)
[2022-08-14] MEDS: EZETIMIBE 10MG TABLET (ZETIA) PO SCH (21:34)
[2022-08-14] MEDS: LEVEMIR (INSULIN DETEMIR) 1 UNITS/0.01ML SC SCH (21:35)
[2022-08-14] MEDS: FLUTICASONE PROP 0.05% NASAL SPRAY 16 GM (FLONASE) NARES SCH (21:36)
[2022-08-14] MEDS: LEVOTHYROXINE 100MCG TABLET (0.1MG) PO SCH (21:42)
[2022-08-15] MEDS: PERCOCET 5MG/325MG TAB PO PRN ×3 (02:41→18:07)
[2022-08-15 04:58] VITALS: BP 132/82
[2022-08-15] MEDS: ceFAZolin SOD 2 GM in IV 1 EA IV SCH ×2 (05:50→14:31)
[2022-08-15 07:01] LABS: BASO # 0.1 10^3/uL (0.0-0.2); BASO % 0.4 % (0.0-1.0); EOS # 0.1 10^3/uL (0.0-0.5); EOS % 0.9 % (0.0-3.0); HEMATOCRIT 28.3 % (42.0-52.0); HEMOGLOBIN 8.9 g/dl (13.5-17.5); LYMPH # 2.8 10^3/uL (1.5-5.0); LYMPH % 18.4 % (24.0-44.0); MEAN CORPUSCULAR HEMOGLOBIN 32.4 pg (27.0-33.0); MEAN CORPUSCULAR HGB CONC 31.4 g/dl (32.0-36.5); MEAN CORPUSCULAR VOLUME 102.9 fl (80.0-96.0); MONO # 1.2 10^3/uL (0.0-0.8); MONO % 7.7 % (2.0-8.0); NEUTROPHILS # 10.7 10^3/uL (1.5-8.5); NEUTROPHILS % 70.4 % (36.0-66.0); PLATELET COUNT, AUTOMATED 229 10^3/uL (150-450); RED BLOOD COUNT 2.75 10^6/uL (4.30-6.10); WHITE BLOOD COUNT 15.2 10^3/uL (4.0-10.0)
[2022-08-15 07:29] LABS: ALBUMIN 1.6 G/DL (3.2-5.2); ALKALINE PHOSPHATASE 166 U/L (46-116); ALT/SGPT 48 U/L (7.0-40); AST/SGOT 220 U/L (<34); BILIRUBIN,TOTAL 4.5 MG/DL (0.3-1.2); BLOOD UREA NITROGEN 15 MG/DL (9-23); CARBON DIOXIDE LEVEL 27 MMOL/L (20-31); CHLORIDE LEVEL 102 MMOL/L (98-107); CREATININE FOR GFR 0.56 MG/DL (0.70-1.30); GLOMERULAR FILTRATION RATE > 60.0 (>56); GLUCOSE, FASTING 169 MG/DL (60-100); POTASSIUM SERUM 4.2 MMOL/L (3.5-5.1); SODIUM LEVEL 133 MMOL/L (136-145); TOTAL PROTEIN 7.5 G/DL (5.7-8.2)
[2022-08-15 07:36] VITALS: BP 125/71
[2022-08-15] MEDS: INSULIN LISPRO (NovoLOG) PER UNIT SC SCH ×3 (08:28→18:07)
[2022-08-15] MEDS: SUCRALFATE 1 GM TAB PO SCH ×3 (08:29→18:07)
[2022-08-15 08:30] VITALS: BP 125/71
[2022-08-15] MEDS: MAGNESIUM OXIDE 400MG TAB (MAG-OX) PO SCH ×2 (08:30→16:12)
[2022-08-15] MEDS: OMEPRAZOLE 20MG CAP PO SCH (08:30)
[2022-08-15] MEDS: METOPROLOL SUCC *XL* 25MG TAB (TopROL *XL*) PO SCH (08:30)
[2022-08-15] MEDS: MULTIVITAMINS/MINERALS THERAP 1 TAB PO SCH (08:30)
[2022-08-15] MEDS: FERROUS SULFATE 325MG TAB PO SCH (08:30)
[2022-08-15] MEDS: FOLIC ACID 1MG TAB PO SCH (08:30)
[2022-08-15] MEDS: LORATADINE 10 MG TAB PO SCH (08:30)
[2022-08-15] MEDS: oxyCODONE 10 MG CR TAB PO SCH (08:31)
[2022-08-15] MEDS: LIDOCAINE 5% (LIDODERM) PATCH TD SCH (08:31)
[2022-08-15] MEDS: ANALGESIC BALM CRM 3OZ TOP SCH (08:31)
[2022-08-15] MEDS: ADVAIR HFA 115/21MCG INHALER INH SCH (09:21)
[2022-08-15] MEDS ORDERED: OXYC-141 PO (09:59)
[2022-08-15] MEDS ORDERED: FUROSEMIDE 20MG/2ML VIAL IV ONE (11:05)
[2022-08-15 11:28] LABS: MAGNESIUM LEVEL 1.1 MG/DL (1.8-2.4)
[2022-08-15 12:05] VITALS: BP 116/63
[2022-08-15] MEDS ORDERED: METO1TAB32 PO (14:42)
[2022-08-15] MEDS ORDERED: MAGN400T2 PO (14:42)
[2022-08-15] MEDS ORDERED: LEVO100T5 PO (14:42)
[2022-08-15] MEDS ORDERED: FERR325T19 PO (14:42)
[2022-08-15] MEDS ORDERED: ALBU8.5H INH (14:42)
[2022-08-15] MEDS ORDERED: ZETI10TA16 PO (14:42)
[2022-08-15] MEDS ORDERED: BASA100I SC (14:42)
[2022-08-15] MEDS ORDERED: ALB2.5NEB NEB (14:42)
[2022-08-15] MEDS ORDERED: OMEP-173 PO (14:42)
[2022-08-15] MEDS ORDERED: VITMTA PO (14:42)
[2022-08-15] MEDS ORDERED: FLUTISP NARES (14:42)
[2022-08-15] MEDS ORDERED: FARX1TAB5 PO (14:42)
[2022-08-15] MEDS ORDERED: SUCR1TAB56 PO (14:42)
[2022-08-15] MEDS ORDERED: METF500T13 PO (14:42)
[2022-08-15] MEDS ORDERED: FOLI1TAB11 PO (14:42)
[2022-08-15] MEDS ORDERED: ERGO500029 PO (14:42)
[2022-08-15] MEDS ORDERED: BACL10TA2 PO (14:42)
[2022-08-15] MEDS ORDERED: LORA-674 PO (14:42)
[2022-08-15] MEDS ORDERED: FLUT1INH3 INH (14:42)
[2022-08-15] MEDS ORDERED: AMLO1TAB25 PO (14:42)
[2022-08-15] MEDS ORDERED: SENN18TA PO (14:42)
[2022-08-15] MEDS ORDERED: FURO20TA2 PO (14:45)
[2022-08-15] MEDS ORDERED: SPIR-10 PO (14:46)
[2022-08-15] MEDS ORDERED: PERC10TA26 PO (15:17)
[2022-08-15 16:00] VITALS: BP 119/76
[2022-08-15] MEDS ORDERED: NAPROXEN 250 MG TAB PO ONE (16:00)
== END 2022-08-15 19:00 | disposition home health service (06) | DRG 710 ==
LOC: M ED 11:11 → M ED INP 15:12 → ENRESERV 15:55 → M PCU 17:30
PROVIDERS: ADMIT Internal Medicine; ATTEND Internal Medicine
PROC: 30233J1 Transfusion of Nonautologous Serum Albumin into Peripheral Vein, Percutaneous Approach (ICD-10-PCS; 2022-07-30)
PROC: B246ZZZ Ultrasonography of Right and Left Heart (ICD-10-PCS; 2022-07-31)
PROC: 0RJJ3ZZ Inspection of Right Shoulder Joint, Percutaneous Approach (ICD-10-PCS; 2022-08-03)
PROC: 3E1U38Z Irrigation of Joints using Irrigating Substance, Percutaneous Approach (ICD-10-PCS; 2022-08-03)
PROC: B246ZZ4 Ultrasonography of Right and Left Heart, Transesophageal (ICD-10-PCS; 2022-08-03)
PROC: 02HV33Z Insertion of Infusion Device into Superior Vena Cava, Percutaneous Approach (ICD-10-PCS; 2022-08-04)
PROC: 30233N1 Transfusion of Nonautologous Red Blood Cells into Peripheral Vein, Percutaneous Approach (ICD-10-PCS; 2022-08-10)
PROC: 0JCD0ZZ Extirpation of Matter from Right Upper Arm Subcutaneous Tissue and Fascia, Open Approach (ICD-10-PCS; principal; 2022-08-11 14:30)
DX: A41.01 Sepsis due to Methicillin susceptible Staphylococcus aureus (principal); I81 Portal vein thrombosis; G93.41 Metabolic encephalopathy; E87.20 Acidosis, unspecified; K65.2 Spontaneous bacterial peritonitis; D62 Acute posthemorrhagic anemia; E11.65 Type 2 diabetes mellitus with hyperglycemia; E83.42 Hypomagnesemia; E87.1 Hypo-osmolality and hyponatremia; K70.30 Alcoholic cirrhosis of liver without ascites; G47.33 Obstructive sleep apnea (adult) (pediatric); I10 Essential (primary) hypertension; E78.5 Hyperlipidemia, unspecified; F10.239 Alcohol dependence with withdrawal, unspecified; E03.9 Hypothyroidism, unspecified; M54.2 Cervicalgia; M10.9 Gout, unspecified; R53.1 Weakness; G89.29 Other chronic pain; J45.909 Unspecified asthma, uncomplicated; R31.0 Gross hematuria; D50.9 Iron deficiency anemia, unspecified; N39.0 Urinary tract infection, site not specified; R94.31 Abnormal electrocardiogram [ECG] [EKG]; I78.1 Nevus, non-neoplastic; M79.81 Nontraumatic hematoma of soft tissue; M25.461 Effusion, right knee; S46.911A Strain of unspecified muscle, fascia and tendon at shoulder and upper arm level, right arm, initial encounter; X58.XXXA Exposure to other specified factors, initial encounter; Y92.9 Unspecified place or not applicable; Y93.9 Activity, unspecified; Y99.9 Unspecified external cause status; M47.812 Spondylosis without myelopathy or radiculopathy, cervical region; I70.0 Atherosclerosis of aorta; R09.02 Hypoxemia; K59.00 Constipation, unspecified; E66.9 Obesity, unspecified; M75.31 Calcific tendinitis of right shoulder; M75.51 Bursitis of right shoulder; M16.0 Bilateral primary osteoarthritis of hip; M25.451 Effusion, right hip; M25.452 Effusion, left hip; Z79.4 Long term (current) use of insulin; Z79.899 Other long term (current) drug therapy; Z79.890 Hormone replacement therapy

== ENCOUNTER → 2022-08-22 | Outpatient (REF) | payer OTHER ==
[~2022-08-22] MED LIST changes: +BACL10TA2 PO; +FARX1TAB5 PO; +FLUT50SP17 NARES; -FLUTISP NARES; +FOLI1TAB11 PO; +FURO20TA2 PO; +HYDR-3713 PO; +LORA-674 PO; +MAGN400T2 PO; +METO1TAB32 PO; +OXYC-141 PO; +PERC10TA26 PO; +SENN18TA PO; +SPIR-10 PO; +VITMTA PO
[2022-08-22 14:46] LABS: HEMATOCRIT 31.2 % (42.0-52.0); MEAN CORPUSCULAR HEMOGLOBIN 33.2 pg (27.0-33.0); MEAN CORPUSCULAR HGB CONC 32.1 g/dl (32.0-36.5); MEAN CORPUSCULAR VOLUME 103.7 fl (80.0-96.0); PLATELET COUNT, AUTOMATED 187 10^3/uL (150-450); RED BLOOD COUNT 3.01 10^6/uL (4.30-6.10); WHITE BLOOD COUNT 7.6 10^3/uL (4.0-10.0)
[2022-08-22 15:05] LABS: ALBUMIN 1.8 G/DL (3.2-5.2); ALKALINE PHOSPHATASE 128 U/L (46-116); ALT/SGPT 17 U/L (7.0-40); AST/SGOT 110 U/L (<34); BLOOD UREA NITROGEN 10 MG/DL (9-23); CALCIUM LEVEL 8.3 MG/DL (8.5-10.1); CARBON DIOXIDE LEVEL 24 MMOL/L (20-31); CHLORIDE LEVEL 101 MMOL/L (98-107); CREATININE FOR GFR 0.52 MG/DL (0.70-1.30); GLOMERULAR FILTRATION RATE > 60.0 (>56); GLUCOSE, FASTING 239 MG/DL (60-100); POTASSIUM SERUM 4.3 MMOL/L (3.5-5.1); SODIUM LEVEL 134 MMOL/L (136-145); TOTAL PROTEIN 7.9 G/DL (5.7-8.2)
[2022-08-22 15:11] LABS: ERYTHROCYTE SEDIMENTATION RATE 104 mm/hr (0-20)
== END ==
LOC: M SHH 14:20
PROVIDERS: ATTEND Internal Medicine Infectious Disease
DX: A41.01 Sepsis due to Methicillin susceptible Staphylococcus aureus (principal)

== ENCOUNTER → 2022-08-29 | Outpatient (REF) | payer OTHER ==
[2022-08-29 16:43] LABS: HEMATOCRIT 31.8 % (42.0-52.0); HEMOGLOBIN 10.2 g/dl (13.5-17.5); MEAN CORPUSCULAR HEMOGLOBIN 32.9 pg (27.0-33.0); MEAN CORPUSCULAR HGB CONC 32.1 g/dl (32.0-36.5); MEAN CORPUSCULAR VOLUME 102.6 fl (80.0-96.0); PLATELET COUNT, AUTOMATED 163 10^3/uL (150-450); WHITE BLOOD COUNT 6.4 10^3/uL (4.0-10.0)
[2022-08-29 17:22] LABS: ALBUMIN 2.1 G/DL (3.2-5.2); ALKALINE PHOSPHATASE 135 U/L (46-116); ALT/SGPT 18 U/L (7.0-40); AST/SGOT 81 U/L (<34); BILIRUBIN,TOTAL 3.6 MG/DL (0.3-1.2); BLOOD UREA NITROGEN 12 MG/DL (9-23); CALCIUM LEVEL 8.3 MG/DL (8.5-10.1); CARBON DIOXIDE LEVEL 26 MMOL/L (20-31); CHLORIDE LEVEL 102 MMOL/L (98-107); CREATININE FOR GFR 0.54 MG/DL (0.70-1.30); GLOMERULAR FILTRATION RATE > 60.0 (>56); GLUCOSE, FASTING 169 MG/DL (60-100); POTASSIUM SERUM 3.3 MMOL/L (3.5-5.1); SODIUM LEVEL 136 MMOL/L (136-145); TOTAL PROTEIN 8.5 G/DL (5.7-8.2)
[2022-08-29 17:45] LABS: ERYTHROCYTE SEDIMENTATION RATE 112 mm/hr (0-20)
== END ==
LOC: M SHH 15:41
PROVIDERS: ATTEND Internal Medicine Infectious Disease
DX: A41.01 Sepsis due to Methicillin susceptible Staphylococcus aureus (principal)

== ENCOUNTER → 2022-09-02 | Outpatient (CLI) | payer OTHER ==
[2022-09-02 15:43] LABS: ALBUMIN 2.4 G/DL (3.2-5.2); ALKALINE PHOSPHATASE 126 U/L (46-116); ALT/SGPT 13 U/L (7.0-40); AST/SGOT 72 U/L (<34); BILIRUBIN,TOTAL 4.2 MG/DL (0.3-1.2); BLOOD UREA NITROGEN 10 MG/DL (9-23); CALCIUM LEVEL 8.3 MG/DL (8.5-10.1); CARBON DIOXIDE LEVEL 24 MMOL/L (20-31); CHLORIDE LEVEL 103 MMOL/L (98-107); CREATININE FOR GFR 0.49 MG/DL (0.70-1.30); GLOMERULAR FILTRATION RATE > 60.0 (>56); GLUCOSE, FASTING 131 MG/DL (60-100); MAGNESIUM LEVEL 1.1 MG/DL (1.8-2.4); POTASSIUM SERUM 3.3 MMOL/L (3.5-5.1); SODIUM LEVEL 135 MMOL/L (136-145); TOTAL PROTEIN 9.1 G/DL (5.7-8.2)
[2022-09-02 15:44] LABS: BASO % 0.3 % (0.0-1.0); EOS # 0.1 10^3/uL (0.0-0.5); EOS % 1.2 % (0.0-3.0); HEMATOCRIT 36.9 % (42.0-52.0); HEMOGLOBIN 12.1 g/dl (13.5-17.5); LYMPH % 33.4 % (24.0-44.0); MEAN CORPUSCULAR HEMOGLOBIN 33.2 pg (27.0-33.0); MEAN CORPUSCULAR HGB CONC 32.8 g/dl (32.0-36.5); MEAN CORPUSCULAR VOLUME 101.4 fl (80.0-96.0); MONO # 0.7 10^3/uL (0.0-0.8); MONO % 11.6 % (2.0-8.0); NEUTROPHILS # 3.2 10^3/uL (1.5-8.5); NEUTROPHILS % 53.3 % (36.0-66.0); PLATELET COUNT, AUTOMATED 192 10^3/uL (150-450); RED BLOOD COUNT 3.64 10^6/uL (4.30-6.10)
== END ==
LOC: M PLALAB 12:40
PROVIDERS: ATTEND Student in an Organized Health Care Education/Training Program
DX: D50.8 Other iron deficiency anemias (principal); E83.42 Hypomagnesemia; G93.41 Metabolic encephalopathy

== ENCOUNTER → 2022-10-03 | Outpatient (CLI) | payer OTHER | LOC: M WHC 09-28 08:18 | PROVIDERS: ATTEND Internal Medicine Gastroenterology | DX: K70.30 Alcoholic cirrhosis of liver without ascites (principal) ==

== ENCOUNTER → 2022-10-04 | Outpatient (CLI) | payer OTHER ==
[2022-10-04 11:46] LABS: BLOOD UREA NITROGEN 12 MG/DL (9-23); CALCIUM LEVEL 9.4 MG/DL (8.5-10.1); CARBON DIOXIDE LEVEL 25 MMOL/L (20-31); CHLORIDE LEVEL 100 MMOL/L (98-107); CREATININE FOR GFR 0.65 MG/DL (0.70-1.30); GLOMERULAR FILTRATION RATE > 60.0 (>56); GLUCOSE, FASTING 131 MG/DL (60-100); MAGNESIUM LEVEL 1.4 MG/DL (1.8-2.4); POTASSIUM SERUM 4.1 MMOL/L (3.5-5.1); SODIUM LEVEL 134 MMOL/L (136-145)
== END ==
LOC: M LAB 10:17
PROVIDERS: ATTEND Student in an Organized Health Care Education/Training Program
DX: E83.42 Hypomagnesemia (principal); E87.6 Hypokalemia

== ENCOUNTER → 2022-10-04 | Outpatient (CLI) | payer OTHER ==
[2022-10-04 11:10] LABS: BASO % 0.5 % (0.0-1.0); EOS # 0.2 10^3/uL (0.0-0.5); EOS % 2.9 % (0.0-3.0); HEMATOCRIT 38.5 % (42.0-52.0); HEMOGLOBIN 13.2 g/dl (13.5-17.5); LYMPH % 44.8 % (24.0-44.0); MEAN CORPUSCULAR HEMOGLOBIN 32.7 pg (27.0-33.0); MEAN CORPUSCULAR HGB CONC 34.3 g/dl (32.0-36.5); MEAN CORPUSCULAR VOLUME 95.3 fl (80.0-96.0); MONO # 0.8 10^3/uL (0.0-0.8); MONO % 11.3 % (2.0-8.0); NEUTROPHILS # 2.7 10^3/uL (1.5-8.5); NEUTROPHILS % 40.3 % (36.0-66.0); PLATELET COUNT, AUTOMATED 137 10^3/uL (150-450); RED BLOOD COUNT 4.04 10^6/uL (4.30-6.10); WHITE BLOOD COUNT 6.6 10^3/uL (4.0-10.0)
[2022-10-04 11:33] LABS: ALBUMIN 2.7 G/DL (3.2-5.2); ALKALINE PHOSPHATASE 128 U/L (46-116); ALT/SGPT 30 U/L (7.0-40); AST/SGOT 62 U/L (<34); BILIRUBIN,TOTAL 3.8 MG/DL (0.3-1.2); BLOOD UREA NITROGEN 12 MG/DL (9-23); CALCIUM LEVEL 9.7 MG/DL (8.5-10.1); CARBON DIOXIDE LEVEL 25 MMOL/L (20-31); CHLORIDE LEVEL 101 MMOL/L (98-107); CREATININE FOR GFR 0.67 MG/DL (0.70-1.30); GLOMERULAR FILTRATION RATE > 60.0 (>56); GLUCOSE, FASTING 136 MG/DL (60-100); SODIUM LEVEL 135 MMOL/L (136-145); TOTAL PROTEIN 8.7 G/DL (5.7-8.2)
[2022-10-04 11:34] LABS: ERYTHROCYTE SEDIMENTATION RATE 75 mm/hr (0-20)
== END ==
LOC: M LAB 10:15
PROVIDERS: ATTEND Internal Medicine Infectious Disease
DX: A49.01 Methicillin susceptible Staphylococcus aureus infection, unspecified site (principal)

== ENCOUNTER → 2022-10-28 | Outpatient (REF) | payer OTHER ==
[~2022-10-28] MED LIST changes: +ALDA50TA2 PO; +CARV6.25 PO; +SENN-111 PO; -SENN18TA PO
[2022-10-28 11:18] LABS: HEMATOCRIT 38.8 % (42.0-52.0); HEMOGLOBIN 13.5 g/dl (13.5-17.5); MEAN CORPUSCULAR HEMOGLOBIN 32.1 pg (27.0-33.0); MEAN CORPUSCULAR HGB CONC 34.8 g/dl (32.0-36.5); MEAN CORPUSCULAR VOLUME 92.2 fl (80.0-96.0); PLATELET COUNT, AUTOMATED 123 10^3/uL (150-450); RED BLOOD COUNT 4.21 10^6/uL (4.30-6.10); WHITE BLOOD COUNT 6.9 10^3/uL (4.0-10.0)
[2022-10-28 11:25] LABS: ERYTHROCYTE SEDIMENTATION RATE 60 mm/hr (0-20)
== END ==
LOC: M LAB REF 10:41
PROVIDERS: ATTEND Internal Medicine Infectious Disease
DX: A49.01 Methicillin susceptible Staphylococcus aureus infection, unspecified site (principal)

== ENCOUNTER 2022-11-10 12:13 | Day surgery (SDC) | payer OTHER ==
[~2022-11-10] VITALS: Ht 175.3 cm; Wt 96.5 kg
[~2022-11-10 12:13] MED LIST changes: +NS 1,000 ML IV ONE
[2022-11-10] MEDS ORDERED: fentaNYL 100 MCG/2 ML INJECTION As Ordered ONE (12:43)
[2022-11-10] MEDS ORDERED: LIDOCAINE 2% 100MG/5ML SDV (FOR ANES.) As Ordered ONE (12:43)
[2022-11-10] MEDS ORDERED: propofoL 200 MG/20 ML VIAL As Ordered ONE ×2 (12:43→13:52)
[2022-11-10 14:48] VITALS: BP 133/78; TEMP 97; O2SAT 96
== END 2022-11-10 14:40 | disposition home or self-care (01) ==
LOC: M OPP 12:13
PROVIDERS: ATTEND Internal Medicine Gastroenterology
DX: K74.60 Unspecified cirrhosis of liver (principal); K76.6 Portal hypertension; K31.89 Other diseases of stomach and duodenum; I85.10 Secondary esophageal varices without bleeding; G47.33 Obstructive sleep apnea (adult) (pediatric); Z79.01 Long term (current) use of anticoagulants; Z79.51 Long term (current) use of inhaled steroids; Z79.890 Hormone replacement therapy; Z79.891 Long term (current) use of opiate analgesic; Z79.899 Other long term (current) drug therapy
CPT/HCPCS: 43244; J3010

== ENCOUNTER → 2022-12-13 | Outpatient (CLI) | payer OTHER ==
[~2022-12-13] MED LIST changes: -NS 1,000 ML IV ONE; +PROTPAK PO
== END ==
LOC: M LAB 15:17
PROVIDERS: ATTEND Internal Medicine Gastroenterology
DX: K70.30 Alcoholic cirrhosis of liver without ascites (principal); Z53.9 Procedure and treatment not carried out, unspecified reason

== ENCOUNTER → 2022-12-13 | Outpatient (CLI) | payer OTHER | LOC: M LAB 15:14 | PROVIDERS: ATTEND Internal Medicine Infectious Disease | DX: A49.01 Methicillin susceptible Staphylococcus aureus infection, unspecified site (principal); Z53.9 Procedure and treatment not carried out, unspecified reason ==

== ENCOUNTER → 2022-12-13 | Outpatient (CLI) | payer OTHER | LOC: M LAB 15:11 | PROVIDERS: ATTEND Student in an Organized Health Care Education/Training Program | DX: E87.6 Hypokalemia (principal); Z53.9 Procedure and treatment not carried out, unspecified reason ==

== ENCOUNTER → 2022-12-22 | Outpatient (REF) | payer OTHER ==
[~2022-12-22] MED LIST changes: +ELIQ5TAB PO
[2022-12-22 08:48] LABS: BASO % 0.4 % (0.0-1.0); EOS # 0.2 10^3/uL (0.0-0.5); EOS % 2.1 % (0.0-3.0); HEMATOCRIT 38.9 % (42.0-52.0); HEMOGLOBIN 13.9 g/dl (13.5-17.5); LYMPH # 2.7 10^3/uL (1.5-5.0); LYMPH % 36.8 % (24.0-44.0); MEAN CORPUSCULAR HEMOGLOBIN 34.2 pg (27.0-33.0); MEAN CORPUSCULAR HGB CONC 35.7 g/dl (32.0-36.5); MEAN CORPUSCULAR VOLUME 95.8 fl (80.0-96.0); MONO # 0.5 10^3/uL (0.0-0.8); MONO % 7.4 % (2.0-8.0); NEUTROPHILS # 3.9 10^3/uL (1.5-8.5); PLATELET COUNT, AUTOMATED 129 10^3/uL (150-450); RED BLOOD COUNT 4.06 10^6/uL (4.30-6.10); WHITE BLOOD COUNT 7.3 10^3/uL (4.0-10.0)
[2022-12-22 09:08] LABS: ERYTHROCYTE SEDIMENTATION RATE 63 mm/hr (0-20)
[2022-12-22 09:10] LABS: ALBUMIN 3.4 G/DL (3.2-5.2); ALKALINE PHOSPHATASE 223 U/L (46-116); ALT/SGPT 39 U/L (7.0-40); AST/SGOT 64 U/L (<34); BILIRUBIN,TOTAL 6.4 MG/DL (0.3-1.2); BLOOD UREA NITROGEN 8 MG/DL (9-23); C REACTIVE PROTEIN QUANTITATIV < 0.40 MG/DL (<1.0); CALCIUM LEVEL 9.8 MG/DL (8.5-10.1); CARBON DIOXIDE LEVEL 22 MMOL/L (20-31); CHLORIDE LEVEL 102 MMOL/L (98-107); CREATININE FOR GFR 0.56 MG/DL (0.70-1.30); GLOMERULAR FILTRATION RATE > 60.0 (>56); GLUCOSE, FASTING 126 MG/DL (60-100); POTASSIUM SERUM 3.6 MMOL/L (3.5-5.1); SODIUM LEVEL 135 MMOL/L (136-145); TOTAL PROTEIN 8.9 G/DL (5.7-8.2)
== END ==
LOC: M LAB REF 08:09
PROVIDERS: ATTEND Internal Medicine Infectious Disease
DX: A49.01 Methicillin susceptible Staphylococcus aureus infection, unspecified site (principal)

== ENCOUNTER → 2022-12-22 | Outpatient (REF) | payer OTHER ==
[2022-12-22 09:10] LABS: ALBUMIN 3.3 G/DL (3.2-5.2); ALKALINE PHOSPHATASE 226 U/L (46-116); ALT/SGPT 41 U/L (7.0-40); AST/SGOT 64 U/L (<34); BILIRUBIN,DIRECT 2.4 MG/DL (<0.4); BILIRUBIN,TOTAL 6.4 MG/DL (0.3-1.2); BLOOD UREA NITROGEN 9 MG/DL (9-23); CALCIUM LEVEL 9.7 MG/DL (8.5-10.1); CARBON DIOXIDE LEVEL 23 MMOL/L (20-31); CHLORIDE LEVEL 101 MMOL/L (98-107); CREATININE FOR GFR 0.57 MG/DL (0.70-1.30); GLOMERULAR FILTRATION RATE > 60.0 (>56); GLUCOSE, FASTING 123 MG/DL (60-100); POTASSIUM SERUM 3.8 MMOL/L (3.5-5.1); SODIUM LEVEL 136 MMOL/L (136-145)
[2022-12-22 09:31] LABS: INR 1.67; PROTHROMBIN TIME 19.3 SECONDS (12.5-14.5)
[2022-12-22 09:32] LABS: PARTIAL THROMBOPLASTIN TIME 45.9 SECONDS (24.8-34.2)
[2022-12-23 23:07] LABS: ANA (HEP2) Negative (.); ANTI-MITOCHONDRIAL ANTIBODY <20.0 Units (0.0-20.0); HEPATITIS A IgG TOTAL Positive (Negative); LIVER-KIDNEY MICROSOMAL ABY <20.1 Units (0.0-20.0)
== END ==
LOC: M LAB REF 08:13
PROVIDERS: ATTEND Internal Medicine Gastroenterology
DX: K70.30 Alcoholic cirrhosis of liver without ascites (principal); A49.01 Methicillin susceptible Staphylococcus aureus infection, unspecified site

== ENCOUNTER → 2022-12-22 | Outpatient (REF) | payer OTHER ==
[2022-12-22 09:08] LABS: MAGNESIUM LEVEL 1.3 MG/DL (1.8-2.4); POTASSIUM SERUM 3.7 MMOL/L (3.5-5.1)
[2022-12-22 09:09] LABS: HEMOGLOBIN A1c 5.8 % (4.0-6.0)
== END ==
LOC: M LAB REF 08:06
PROVIDERS: ATTEND Student in an Organized Health Care Education/Training Program
DX: E87.6 Hypokalemia (principal); E10.9 Type 1 diabetes mellitus without complications; E83.42 Hypomagnesemia

== ENCOUNTER → 2023-04-18 | Outpatient (CLI) | payer OTHER ==
[~2023-04-18] MED LIST changes: +EZET10TA58 PO; -FLUT50SP17 NARES; +FLUTISP NARES; +LORA-1041 PO; -LORA-674 PO; -ZETI10TA16 PO
== END ==
LOC: M RAD 09:37
PROVIDERS: ATTEND Student in an Organized Health Care Education/Training Program
DX: K70.31 Alcoholic cirrhosis of liver with ascites (principal); I81 Portal vein thrombosis; K82.8 Other specified diseases of gallbladder

== ENCOUNTER 2023-07-14 12:22 | Inpatient (IN) | payer OTHER ==
[~2023-07-14] VITALS: Ht 172.7 cm; Wt 100.5 kg
[2023-07-14 14:59] LABS: BASO % 0.2 % (0.0-1.0); HEMATOCRIT 40.2 % (42.0-52.0); HEMOGLOBIN 14.3 g/dl (13.5-17.5); LYMPH # 1.2 10^3/uL (1.5-5.0); LYMPH % 7.4 % (24.0-44.0); MEAN CORPUSCULAR HEMOGLOBIN 33.3 pg (27.0-33.0); MEAN CORPUSCULAR HGB CONC 35.6 g/dl (32.0-36.5); MEAN CORPUSCULAR VOLUME 93.7 fl (80.0-96.0); MONO # 2.1 10^3/uL (0.0-0.8); MONO % 13.2 % (2.0-8.0); NEUTROPHILS # 12.4 10^3/uL (1.5-8.5); NEUTROPHILS % 78.5 % (36.0-66.0); PLATELET COUNT, AUTOMATED 217 10^3/uL (150-450); RED BLOOD COUNT 4.29 10^6/uL (4.30-6.10); WHITE BLOOD COUNT 15.8 10^3/uL (4.0-10.0)
[2023-07-14 15:10] LABS: INR 2.53; PARTIAL THROMBOPLASTIN TIME 42.1 SECONDS (24.8-34.2); PROTHROMBIN TIME 26.4 SECONDS (12.5-14.5)
[2023-07-14] MEDS: CYCLOBENZAPRINE 5MG TABLET PO ONE (15:22)
[2023-07-14] MEDS: NS 1,000 ML IV ONE ×3 (15:22→17:35)
[2023-07-14] MEDS: MORPHINE 4 MG/ML 1ML VIAL IV ONE (15:23)
[2023-07-14 16:17] LABS: LIPASE 671 U/L (12-53)
[2023-07-14 16:19] LABS: AMYLASE 502 U/L (30-118); CK-MB VALUE MASS 1.7 NG/ML (<3.6)
[2023-07-14 16:23] LABS: ALBUMIN 2.2 G/DL (3.2-5.2); ALKALINE PHOSPHATASE 113 U/L (46-116); ALT/SGPT 35 U/L (7.0-40); AST/SGOT 65 U/L (<34); BILIRUBIN,TOTAL 6.9 MG/DL (0.3-1.2); BLOOD UREA NITROGEN 15 MG/DL (9-23); CALCIUM LEVEL 8.7 MG/DL (8.5-10.1); CARBON DIOXIDE LEVEL 24 MMOL/L (20-31); CHLORIDE LEVEL 95 MMOL/L (98-107); CPK CREATINE PHOSPHOKINASE 66 U/L (46-171); CREATININE FOR GFR 0.52 MG/DL (0.70-1.30); GLOMERULAR FILTRATION RATE > 60.0 (>56); GLUCOSE, FASTING 163 MG/DL (60-100); MB/CK RELATIVE INDEX 2.57 (< OR =4); POTASSIUM SERUM 3.6 MMOL/L (3.5-5.1); SODIUM LEVEL 127 MMOL/L (136-145); TOTAL PROTEIN 7.7 G/DL (5.7-8.2)
[2023-07-14] MEDS: cefTRIAXone SOD 1 GM in D5W MINI-BAG PLUS 50 ML IV ONE (17:02)
[2023-07-14] MEDS ORDERED: ISOVUE-370 76% 100ML VIAL As Ordered ONE (18:16)
[2023-07-14] MEDS ORDERED: GLUCOSE 4GM CHEW TABLET PO PRN (19:15)
[2023-07-14] MEDS ORDERED: GLUCAGON INJ 1MG VIAL SC PRN (19:15)
[2023-07-14] MEDS ORDERED: DEXTROSE 50% 50ML SYRINGE IV PRN (19:15)
[2023-07-14] MEDS: VANCOMYCIN HCL 1,000 MG, VIAL MATE ADAPTER 1 EACH in D5W 250 ML IV ONE (19:22)
[2023-07-14] MEDS: IBUPROFEN 600MG TAB PO ONE (19:24)
[2023-07-14 19:52] LABS: RSV AMPLIFICATION NEGATIVE (NEGATIVE)
[2023-07-14] MEDS: metroNIDAZOLE 500 MG in IV 1 EA IV ONE (21:29)
[2023-07-14] MEDS ORDERED: NS 1,000 ML IV SCH (22:30)
[2023-07-14] MEDS ORDERED: CEFEPIME HCL 2 GM in D5W 50 ML IV SCH (22:30)
[2023-07-14 23:00] LABS: ETHYL ALCOHOL (ETHANOL) < 0.003 % (0.000-0.010)
[2023-07-14 23:18] LABS: MAGNESIUM LEVEL 1.5 MG/DL (1.8-2.4)
[2023-07-14] MEDS: NS 1,000 ML IV SCH (23:19)
[2023-07-14 23:23] LABS: ABG BASE EXCESS 1.2 (-2.0-2.0); ABG HCO3 24.3 MMOL/L (22.0-26.0); ABG PARTIAL PRESSURE CO2 33.5 mmHg (35.0-45.0); ABG PARTIAL PRESSURE O2 74.8 mmHg (75.0-100.0); ABG STANDARD HCO3 25.5 MMOL/L. (22.0-26.0); ABG TOTAL CO2 25.3 MMOL/L (22.0-29.0); ABG pH (ARTERIAL) 7.478 UNITS (7.350-7.450)
[2023-07-14 23:31] LABS: PROCALCITONIN 0.57 ng/ml
[2023-07-14] MEDS ORDERED: AMLO10TA PO (23:46)
[2023-07-14] MEDS ORDERED: VENTAER INH (23:46)
[2023-07-15] VITALS (12 sets, daily range): BP systolic 98–131; BP diastolic 56–86; TEMP 97.4–98.6; O2SAT 92–98
[2023-07-15] MEDS ORDERED: SPIR50TA4 PO (00:13)
[2023-07-15] MEDS ORDERED: PANT40TA29 PO (00:13)
[2023-07-15] MEDS ORDERED: SENN-186 PO (00:13)
[2023-07-15] MEDS ORDERED: FOLI1TAB11 PO (00:13)
[2023-07-15] MEDS ORDERED: OXYC10TA3 PO (00:13)
[2023-07-15] MEDS ORDERED: SYNT100T PO (00:13)
[2023-07-15] MEDS ORDERED: BASA100I SC (00:13)
[2023-07-15] MEDS ORDERED: MULTTAB61 PO (00:13)
[2023-07-15] MEDS ORDERED: SUCR1TAB56 PO (00:13)
[2023-07-15] MEDS ORDERED: ELIQ5TAB PO (00:13)
[2023-07-15] MEDS ORDERED: FARX1TAB3 PO (00:13)
[2023-07-15] MEDS ORDERED: FURO20TA2 PO (00:13)
[2023-07-15] MEDS ORDERED: FERR1TAB8 PO (00:13)
[2023-07-15] MEDS ORDERED: BACL10TA2 PO (00:13)
[2023-07-15] MEDS ORDERED: FLUT15.820 (00:16)
[2023-07-15] MEDS: CEFEPIME HCL 2 GM in D5W 50 ML IV SCH (00:25)
[2023-07-15] MEDS ORDERED: HOME MED LIST COMPLETE! XX SCH (00:30)
[2023-07-15] MEDS: KETOROLAC 30 MG/ML 1ML VIAL IV PRN ×2 (01:21→08:14)
[2023-07-15] MEDS: metroNIDAZOLE 500 MG in IV 1 EA IV SCH (04:42)
[2023-07-15 05:29] LABS: HEMATOCRIT 35.2 % (42.0-52.0); HEMOGLOBIN 12.4 g/dl (13.5-17.5); MEAN CORPUSCULAR HEMOGLOBIN 33.3 pg (27.0-33.0); MEAN CORPUSCULAR HGB CONC 35.2 g/dl (32.0-36.5); MEAN CORPUSCULAR VOLUME 94.6 fl (80.0-96.0); PLATELET COUNT, AUTOMATED 154 10^3/uL (150-450); RED BLOOD COUNT 3.72 10^6/uL (4.30-6.10); WHITE BLOOD COUNT 10.9 10^3/uL (4.0-10.0)
[2023-07-15 05:53] LABS: AMYLASE 751 U/L (30-118)
[2023-07-15] MEDS: MAG SULF 1GM/100ML (MAG RUN) 1 GM in IV 1 EA IV SCH (05:53)
[2023-07-15 06:00] LABS: PROCALCITONIN 0.84 ng/ml
[2023-07-15 06:18] LABS: ALBUMIN 1.7 G/DL (3.2-5.2); ALKALINE PHOSPHATASE 93 U/L (46-116); ALT/SGPT 30 U/L (7.0-40); AST/SGOT 58 U/L (<34); BILIRUBIN,TOTAL 5.1 MG/DL (0.3-1.2); BLOOD UREA NITROGEN 14 MG/DL (9-23); CALCIUM LEVEL 8.2 MG/DL (8.5-10.1); CARBON DIOXIDE LEVEL 25 MMOL/L (20-31); CHLORIDE LEVEL 106 MMOL/L (98-107); GLOMERULAR FILTRATION RATE > 60.0 (>56); GLUCOSE, FASTING 81 MG/DL (60-100); MAGNESIUM LEVEL 1.6 MG/DL (1.8-2.4); POTASSIUM SERUM 3.3 MMOL/L (3.5-5.1); SODIUM LEVEL 134 MMOL/L (136-145); TOTAL PROTEIN 6.4 G/DL (5.7-8.2); TRIGLYCERIDES LEVEL 77 MG/DL (<150)
[2023-07-15 07:00] LABS: LIPASE 1266 U/L (12-53)
[2023-07-15] MEDS: LACTULOSE 20GM/30ML SYRUP UDC PO SCH ×2 (08:26→12:40)
[2023-07-15] MEDS: APIXABAN 5 MG TAB (ELIQUIS) PO SCH (08:26)
[2023-07-15] MEDS ORDERED: FUROSEMIDE 20 MG TAB PO SCH (09:00)
[2023-07-15] MEDS ORDERED: LACTULOSE 20GM/30ML SYRUP UDC PO SCH (09:00)
[2023-07-15] MEDS: DICLOFENAC EPOLAMINE 1.3% PATCH TOP SCH (09:31)
[2023-07-15] MEDS: KCL 10MEQ/100ML SWI (KRUN) 10 MEQ in IV 1 EA IV SCH (09:32)
[2023-07-15] MEDS ORDERED: DAPA5TAB4 PO (09:53)
[2023-07-15] MEDS: MAG SULF 1GM/100ML (MAG RUN) 1 GM in IV 1 EA IV ONE (10:42)
[2023-07-15] MEDS: VANCOMYCIN HCL 1,000 MG, VIAL MATE ADAPTER 1 EACH in D5W 250 ML IV SCH (12:39)
[2023-07-15] MEDS ORDERED: ALBUTEROL SULFATE 2.5MG/0.5ML INH NEB SOLN NEB PRN (14:05)
[2023-07-15] MEDS: CARVedilol 6.25 MG TAB PO SCH (14:42)
[2023-07-15] MEDS: LORATADINE 10 MG TAB PO SCH (14:42)
[2023-07-15] MEDS: SPIRONOLACTONE 50 MG TAB PO SCH (14:42)
[2023-07-15] MEDS: LEVOTHYROXINE 100MCG TABLET (0.1MG) PO SCH (14:42)
[2023-07-15] MEDS: FERROUS SULFATE 325MG TAB PO SCH (14:43)
[2023-07-15] MEDS: FOLIC ACID 1MG TAB PO SCH (14:43)
[2023-07-15] MEDS: PANTOPRAZOLE 40MG TAB (PROTONIX) PO SCH (14:43)
[2023-07-15] MEDS: SENOKOT S TAB PO SCH (14:43)
[2023-07-15] MEDS: BACLOFEN 10 MG TAB PO PRN (14:44)
[2023-07-15] MEDS: VITAMIN D 50,000 UNITS CAPSULE (ERGOCALCIFEROL 1.25MG) PO SCH (14:54)
[2023-07-15] MEDS: PERCOCET 5MG/325MG TAB PO PRN (15:45)
[2023-07-15] MEDS: SUCRALFATE 1 GM TAB PO SCH (16:09)
[2023-07-15] MEDS: INSULIN LISPRO (NovoLOG) PER UNIT SC SCH ×3 (17:23→20:05)
[2023-07-15] MEDS: FLUTICASONE PROP 0.05% NASAL SPRAY 16 GM (FLONASE) NARES SCH (22:39)
[2023-07-16] VITALS (10 sets, daily range): BP systolic 102–120; BP diastolic 50–61; TEMP 97.4–100.9; O2SAT 94–98
[2023-07-16] MEDS: PERCOCET 5MG/325MG TAB PO ONE (05:40)
[2023-07-16 08:39] LABS: BASO % 0.4 % (0.0-1.0); EOS # 0.3 10^3/uL (0.0-0.5); EOS % 2.6 % (0.0-3.0); HEMATOCRIT 32.4 % (42.0-52.0); HEMOGLOBIN 11.1 g/dl (13.5-17.5); LYMPH # 1.4 10^3/uL (1.5-5.0); LYMPH % 14.6 % (24.0-44.0); MEAN CORPUSCULAR HEMOGLOBIN 32.8 pg (27.0-33.0); MEAN CORPUSCULAR HGB CONC 34.3 g/dl (32.0-36.5); MEAN CORPUSCULAR VOLUME 95.9 fl (80.0-96.0); MONO # 1.3 10^3/uL (0.0-0.8); MONO % 12.8 % (2.0-8.0); NEUTROPHILS # 6.7 10^3/uL (1.5-8.5); NEUTROPHILS % 68.7 % (36.0-66.0); PLATELET COUNT, AUTOMATED 182 10^3/uL (150-450); RED BLOOD COUNT 3.38 10^6/uL (4.30-6.10); WHITE BLOOD COUNT 9.8 10^3/uL (4.0-10.0)
[2023-07-16 08:44] LABS: BLOOD UREA NITROGEN 12 MG/DL (9-23); CALCIUM LEVEL 7.9 MG/DL (8.5-10.1); CARBON DIOXIDE LEVEL 23 MMOL/L (20-31); CHLORIDE LEVEL 105 MMOL/L (98-107); CREATININE FOR GFR 0.53 MG/DL (0.70-1.30); GLOMERULAR FILTRATION RATE > 60.0 (>56); GLUCOSE, FASTING 138 MG/DL (60-100); MAGNESIUM LEVEL 1.4 MG/DL (1.8-2.4); POTASSIUM SERUM 3.7 MMOL/L (3.5-5.1); SODIUM LEVEL 131 MMOL/L (136-145)
[2023-07-16] MEDS: FUROSEMIDE 20 MG TAB PO SCH (08:58)
[2023-07-16] MEDS: LIDOCAINE 5% (LIDODERM) PATCH TD SCH (09:12)
[2023-07-16] MEDS: MORPHINE 2 MG/ML 1ML VIAL IV PRN (09:13)
[2023-07-16] MEDS ORDERED: PROHANCE 279.3MG/ML 15ML VIAL As Ordered ONE (10:21)
[2023-07-16] MEDS ORDERED: PROHANCE 279.3MG/ML 5ML VIAL As Ordered ONE (10:21)
[2023-07-16] MEDS: LORazepam 2 MG/ML 1ML VIAL IV ONE (10:26)
[2023-07-16] MEDS: MAG SULF 1GM/100ML (MAG RUN) 1 GM in IV 1 EA IV SCH (12:45)
[2023-07-16] MEDS: BISACODYL 10MG SUPP PR PRN (13:02)
[2023-07-16] MEDS: VANCOMYCIN HCL 750 MG, VIAL MATE ADAPTER 1 EACH in D5W 250 ML IV ONE (21:43)
[2023-07-17] VITALS (24 sets, daily range): BP systolic 96–124; BP diastolic 48–62; TEMP 97–100.1; O2SAT 89–96
[2023-07-17 05:18] LABS: BASO % 0.2 % (0.0-1.0); EOS # 0.2 10^3/uL (0.0-0.5); EOS % 2.3 % (0.0-3.0); HEMATOCRIT 29.3 % (42.0-52.0); HEMOGLOBIN 10.2 g/dl (13.5-17.5); LYMPH # 1.3 10^3/uL (1.5-5.0); LYMPH % 13.8 % (24.0-44.0); MEAN CORPUSCULAR HEMOGLOBIN 33.2 pg (27.0-33.0); MEAN CORPUSCULAR HGB CONC 34.8 g/dl (32.0-36.5); MEAN CORPUSCULAR VOLUME 95.4 fl (80.0-96.0); MONO # 0.9 10^3/uL (0.0-0.8); MONO % 10.1 % (2.0-8.0); NEUTROPHILS # 6.6 10^3/uL (1.5-8.5); NEUTROPHILS % 72.6 % (36.0-66.0); PLATELET COUNT, AUTOMATED 147 10^3/uL (150-450); RED BLOOD COUNT 3.07 10^6/uL (4.30-6.10); WHITE BLOOD COUNT 9.1 10^3/uL (4.0-10.0)
[2023-07-17 05:52] LABS: BLOOD UREA NITROGEN 9 MG/DL (9-23); CALCIUM LEVEL 7.4 MG/DL (8.5-10.1); CARBON DIOXIDE LEVEL 24 MMOL/L (20-31); CHLORIDE LEVEL 103 MMOL/L (98-107); CREATININE FOR GFR 0.49 MG/DL (0.70-1.30); GLOMERULAR FILTRATION RATE > 60.0 (>56); GLUCOSE, FASTING 194 MG/DL (60-100); MAGNESIUM LEVEL 1.2 MG/DL (1.8-2.4); POTASSIUM SERUM 3.7 MMOL/L (3.5-5.1); SODIUM LEVEL 130 MMOL/L (136-145)
[2023-07-17] MEDS: MAG SULF 1GM/100ML (MAG RUN) 1 GM in IV 1 EA IV SCH ×2 (06:47→09:32)
[2023-07-17] MEDS: LACTULOSE 20GM/30ML SYRUP UDC PO SCH (08:11)
[2023-07-17] MEDS ORDERED: HEPARIN SOD (PORCINE) 5000UNITS/ML 1ML VIAL/SYRINGE IV PRN (09:05)
[2023-07-17] MEDS: CEFTAROLINE FOSAMIL 600 MG in D5W MINI-BAG PLUS 50 ML IV SCH (11:10)
[2023-07-17] MEDS: HEPARIN DRIP 25,000 UNITS in IV 1 EA IV SCH (11:36)
[2023-07-17 12:46] LABS: CRYSTALS, BODY FLUID NONE SEEN (NONE SEEN); SOURCE, BODY FLUID CRYSTALS LEFT HIP
[2023-07-17] MEDS: NS IV SCH (13:06)
[2023-07-17] MEDS: DAPTOMYCIN IV SCH (13:06)
[2023-07-17 13:16] LABS: SOURCE, BODY FLUID LT HIP; SYNOVIAL FLUID COLOR RED (COLORLESS)
[2023-07-17] MEDS ORDERED: LIDOCAINE 1% MDV 20ML VIAL As Ordered ONE (15:44)
[2023-07-17 17:00] LABS: SOURCE, BODY FLUID RT HIP; SYNOVIAL FLUID COLOR RED (COLORLESS)
[2023-07-17 19:54] LABS: CRYSTALS, BODY FLUID NONE SEEN (NONE SEEN); SOURCE, BODY FLUID CRYSTALS RIGHT HIP
[2023-07-17 22:26] LABS: INR 2.37; PROTHROMBIN TIME 25.1 SECONDS (12.5-14.5)
[2023-07-17 22:27] LABS: PARTIAL THROMBOPLASTIN TIME 146.9 SECONDS (24.8-34.2)
[2023-07-18] VITALS (19 sets, daily range): BP systolic 116–136; BP diastolic 60–71; TEMP 97.1–98.8; O2SAT 91–97
[2023-07-18 05:42] LABS: BASO % 0.4 % (0.0-1.0); EOS # 0.2 10^3/uL (0.0-0.5); EOS % 1.8 % (0.0-3.0); HEMATOCRIT 32.3 % (42.0-52.0); LYMPH # 1.7 10^3/uL (1.5-5.0); LYMPH % 17.1 % (24.0-44.0); MEAN CORPUSCULAR HEMOGLOBIN 32.7 pg (27.0-33.0); MEAN CORPUSCULAR HGB CONC 34.1 g/dl (32.0-36.5); MEAN CORPUSCULAR VOLUME 96.1 fl (80.0-96.0); MONO % 10.2 % (2.0-8.0); NEUTROPHILS # 6.7 10^3/uL (1.5-8.5); NEUTROPHILS % 68.7 % (36.0-66.0); PLATELET COUNT, AUTOMATED 189 10^3/uL (150-450); RED BLOOD COUNT 3.36 10^6/uL (4.30-6.10); WHITE BLOOD COUNT 9.8 10^3/uL (4.0-10.0)
[2023-07-18 06:02] LABS: BLOOD UREA NITROGEN 8 MG/DL (9-23); CALCIUM LEVEL 7.9 MG/DL (8.5-10.1); CARBON DIOXIDE LEVEL 26 MMOL/L (20-31); CHLORIDE LEVEL 104 MMOL/L (98-107); CREATININE FOR GFR 0.43 MG/DL (0.70-1.30); GLOMERULAR FILTRATION RATE > 60.0 (>56); GLUCOSE, FASTING 122 MG/DL (60-100); MAGNESIUM LEVEL 1.3 MG/DL (1.8-2.4); POTASSIUM SERUM 3.6 MMOL/L (3.5-5.1); SODIUM LEVEL 133 MMOL/L (136-145)
[2023-07-18] MEDS: MAG SULF 1GM/100ML (MAG RUN) 1 GM in IV 1 EA IV SCH (06:43)
[2023-07-18] MEDS ORDERED: fentaNYL 100 MCG/2 ML INJECTION As Ordered ONE (12:55)
[2023-07-18] MEDS ORDERED: LIDOCAINE 2% 100MG/5ML SDV (FOR ANES.) As Ordered ONE (12:55)
[2023-07-18] MEDS ORDERED: propofoL 200 MG/20 ML VIAL As Ordered ONE (12:55)
[2023-07-18] MEDS ORDERED: MIDAZOLAM INJ 2MG/2ML VIAL As Ordered ONE (12:55)
[2023-07-18] MEDS ORDERED: KETOROLAC 60MG 2ML VIAL As Ordered ONE (12:59)
[2023-07-18] MEDS ORDERED: ONDANSETRON 4MG 2ML VIAL As Ordered ONE (12:59)
[2023-07-18] MEDS: LIDOCAINE 1% SDV 30ML VIAL As Ordered ONE (13:28)
[2023-07-18] MEDS: VANCOMYCIN 1000MG/20ML VIAL As Ordered ONE (14:31)
[2023-07-18] MEDS ORDERED: ONDANSETRON 4MG 2ML VIAL IV PRN (14:40)
[2023-07-18] MEDS: LR 1,000 ML IV SCH (14:40)
[2023-07-18] MEDS ORDERED: oxyCODONE 5MG TAB PO PRN (14:40)
[2023-07-18] MEDS ORDERED: HYDROMORPHONE HCL 0.5 MG/ 0.5 ML SYRINGE IV PRN (14:40)
[2023-07-18] MEDS ORDERED: fentaNYL 100 MCG/2 ML INJECTION IV PRN (14:40)
[2023-07-18 17:23] LABS: ALBUMIN 1.7 G/DL (3.2-5.2); BILIRUBIN,TOTAL 3.2 MG/DL (0.3-1.2); TOTAL PROTEIN 6.4 G/DL (5.7-8.2)
[2023-07-18] MEDS: LIDOCAINE 5% (LIDODERM) PATCH TD SCH (20:39)
[2023-07-18] MEDS: KETOROLAC 30 MG/ML 1ML VIAL IV ONE (21:40)
[2023-07-19] VITALS (7 sets, daily range): BP systolic 116–128; BP diastolic 57–70; TEMP 97.5–99; O2SAT 93–95
[2023-07-19 03:28] LABS: BASO % 0.1 % (0.0-1.0); HEMATOCRIT 28.8 % (42.0-52.0); HEMOGLOBIN 9.9 g/dl (13.5-17.5); LYMPH # 1.1 10^3/uL (1.5-5.0); LYMPH % 13.3 % (24.0-44.0); MEAN CORPUSCULAR HGB CONC 34.4 g/dl (32.0-36.5); MONO # 0.5 10^3/uL (0.0-0.8); MONO % 6.8 % (2.0-8.0); NEUTROPHILS # 6.1 10^3/uL (1.5-8.5); NEUTROPHILS % 77.7 % (36.0-66.0); PLATELET COUNT, AUTOMATED 205 10^3/uL (150-450); WHITE BLOOD COUNT 7.9 10^3/uL (4.0-10.0)
[2023-07-19 03:52] LABS: BLOOD UREA NITROGEN 16 MG/DL (9-23); CALCIUM LEVEL 7.5 MG/DL (8.5-10.1); CARBON DIOXIDE LEVEL 25 MMOL/L (20-31); CHLORIDE LEVEL 101 MMOL/L (98-107); CREATININE FOR GFR 0.53 MG/DL (0.70-1.30); GLOMERULAR FILTRATION RATE > 60.0 (>56); GLUCOSE, FASTING 312 MG/DL (60-100); MAGNESIUM LEVEL 1.4 MG/DL (1.8-2.4); POTASSIUM SERUM 4.7 MMOL/L (3.5-5.1); SODIUM LEVEL 129 MMOL/L (136-145)
[2023-07-19] MEDS ORDERED: MAG SULF 1GM/100ML (MAG RUN) 1 GM in IV 1 EA IV ONE (07:20)
[2023-07-19] MEDS ORDERED: ENOXAPARIN 100MG/1ML SYRINGE (J1650 PER 10MG) SC SCH (08:05)
[2023-07-19] MEDS: MAGNESIUM OXIDE 400MG TAB (MAG-OX) PO SCH (08:44)
[2023-07-19] MEDS: LACTULOSE 20GM/30ML SYRUP UDC PO SCH (16:50)
[2023-07-19] MEDS: LEVEMIR (INSULIN DETEMIR) 1 UNITS/0.01ML SC SCH (21:16)
[2023-07-20 02:00] VITALS: BP 125/68; TEMP 97.9; O2SAT 94
[2023-07-20 05:47] VITALS: BP_SYST 100; BP_SYST 116; BP_DIAS 45; BP_DIAS 63; TEMP 98.4; TEMP 98.6; O2SAT 94; O2SAT 95
[2023-07-20 06:24] LABS: BASO % 0.1 % (0.0-1.0); EOS # 0.1 10^3/uL (0.0-0.5); EOS % 0.5 % (0.0-3.0); HEMATOCRIT 27.8 % (42.0-52.0); HEMOGLOBIN 9.6 g/dl (13.5-17.5); LYMPH # 1.6 10^3/uL (1.5-5.0); LYMPH % 17.4 % (24.0-44.0); MEAN CORPUSCULAR HEMOGLOBIN 33.2 pg (27.0-33.0); MEAN CORPUSCULAR HGB CONC 34.5 g/dl (32.0-36.5); MEAN CORPUSCULAR VOLUME 96.2 fl (80.0-96.0); MONO # 0.9 10^3/uL (0.0-0.8); MONO % 9.8 % (2.0-8.0); NEUTROPHILS # 6.2 10^3/uL (1.5-8.5); NEUTROPHILS % 67.4 % (36.0-66.0); PLATELET COUNT, AUTOMATED 222 10^3/uL (150-450); RED BLOOD COUNT 2.89 10^6/uL (4.30-6.10); WHITE BLOOD COUNT 9.2 10^3/uL (4.0-10.0)
[2023-07-20 06:45] LABS: BLOOD UREA NITROGEN 14 MG/DL (9-23); CALCIUM LEVEL 7.6 MG/DL (8.5-10.1); CARBON DIOXIDE LEVEL 28 MMOL/L (20-31); CHLORIDE LEVEL 103 MMOL/L (98-107); CREATININE FOR GFR 0.45 MG/DL (0.70-1.30); GLOMERULAR FILTRATION RATE > 60.0 (>56); GLUCOSE, FASTING 214 MG/DL (60-100); MAGNESIUM LEVEL 1.4 MG/DL (1.8-2.4); POTASSIUM SERUM 4.9 MMOL/L (3.5-5.1); SODIUM LEVEL 132 MMOL/L (136-145)
[2023-07-20 10:00] VITALS: BP 120/56; TEMP 97.9; O2SAT 94
[2023-07-20 14:00] VITALS: BP 119/68; TEMP 98.2; O2SAT 94
[2023-07-20] MEDS: INSULIN LISPRO (NovoLOG) PER UNIT SC SCH (18:02)
[2023-07-20] MEDS ORDERED: LEVEMIR (INSULIN DETEMIR) 1 UNITS/0.01ML SC SCH (21:00)
[2023-07-20] MEDS: LEVEMIR (INSULIN DETEMIR) 1 UNITS/0.01ML SC SCH (21:33)
[2023-07-20 22:00] VITALS: BP 130/72; TEMP 98.1; O2SAT 97
[2023-07-21 06:00] VITALS: BP 119/68; TEMP 98.1; O2SAT 96
[2023-07-21] MEDS: SODIUM CHLORIDE 0.9% INJ 10 ML SYR IV SCH (06:00)
[2023-07-21 14:00] VITALS: BP 121/65; TEMP 97.7; O2SAT 94
[2023-07-21 21:14] VITALS: BP 124/67; TEMP 97.3; O2SAT 94
[2023-07-21] MEDS: SODIUM CHLORIDE 0.9% INJ 10 ML SYR IV PRN (21:38)
[2023-07-22 06:00] VITALS: BP 124/63; TEMP 98.2; O2SAT 93
[2023-07-22 06:02] LABS: HEMOGLOBIN 9.7 g/dl (13.5-17.5); MEAN CORPUSCULAR HEMOGLOBIN 32.3 pg (27.0-33.0); MEAN CORPUSCULAR HGB CONC 33.4 g/dl (32.0-36.5); MEAN CORPUSCULAR VOLUME 96.7 fl (80.0-96.0); PLATELET COUNT, AUTOMATED 270 10^3/uL (150-450); WHITE BLOOD COUNT 14.5 10^3/uL (4.0-10.0)
[2023-07-22 06:24] LABS: BLOOD UREA NITROGEN 13 MG/DL (9-23); CALCIUM LEVEL 7.7 MG/DL (8.5-10.1); CARBON DIOXIDE LEVEL 30 MMOL/L (20-31); CHLORIDE LEVEL 99 MMOL/L (98-107); CREATININE FOR GFR 0.51 MG/DL (0.70-1.30); GLOMERULAR FILTRATION RATE > 60.0 (>56); GLUCOSE, FASTING 149 MG/DL (60-100); MAGNESIUM LEVEL 1.4 MG/DL (1.8-2.4); POTASSIUM SERUM 4.5 MMOL/L (3.5-5.1); SODIUM LEVEL 130 MMOL/L (136-145)
[2023-07-22 06:33] LABS: BASOPHILS 1 % (0-1); LYMPHOCYTES 18 % (16-44); METAMYELOCYTES 6 % (0-0); MONOCYTES 6 % (0-5); MYELOCYTES 4 % (0-0); NEUTROPHILS 60 % (28-66); PLATELET CLUMPS SMALL AMT; PLATELET ESTIMATE NORMAL (NORMAL); SMUDGE CELLS 1+
[2023-07-22 06:34] LABS: ANISOCYTOSIS 1+; POLYCHROMASIA 1+
[2023-07-22] MEDS: MAG SULF 1GM/100ML (MAG RUN) 1 GM in IV 1 EA IV SCH (10:48)
[2023-07-22 13:57] LABS: BASO # 0.1 10^3/uL (0.0-0.2); BASO % 0.4 % (0.0-1.0); EOS # 0.2 10^3/uL (0.0-0.5); EOS % 1.6 % (0.0-3.0); HEMATOCRIT 27.5 % (42.0-52.0); HEMOGLOBIN 9.3 g/dl (13.5-17.5); LYMPH # 2.6 10^3/uL (1.5-5.0); MEAN CORPUSCULAR HEMOGLOBIN 33.3 pg (27.0-33.0); MEAN CORPUSCULAR HGB CONC 33.8 g/dl (32.0-36.5); MEAN CORPUSCULAR VOLUME 98.6 fl (80.0-96.0); MONO # 1.3 10^3/uL (0.0-0.8); MONO % 9.3 % (2.0-8.0); NEUTROPHILS # 7.9 10^3/uL (1.5-8.5); NEUTROPHILS % 58.3 % (36.0-66.0); PLATELET COUNT, AUTOMATED 250 10^3/uL (150-450); RED BLOOD COUNT 2.79 10^6/uL (4.30-6.10); WHITE BLOOD COUNT 13.5 10^3/uL (4.0-10.0)
[2023-07-22 14:00] VITALS: BP 113/56; TEMP 97.3; O2SAT 85
[2023-07-22] MEDS: HYDROMORPHONE HCL 0.5 MG/ 0.5 ML SYRINGE IV ONE (17:22)
[2023-07-22 17:59] VITALS: BP 124/69; TEMP 97.5; O2SAT 92
[2023-07-22 20:25] VITALS: BP 123/68; TEMP 99
[2023-07-23 00:11] LABS: HEMOGLOBIN 9.3 g/dl (13.5-17.5); MEAN CORPUSCULAR HEMOGLOBIN 32.3 pg (27.0-33.0); MEAN CORPUSCULAR HGB CONC 33.2 g/dl (32.0-36.5); MEAN CORPUSCULAR VOLUME 97.2 fl (80.0-96.0); PLATELET COUNT, AUTOMATED 263 10^3/uL (150-450); RED BLOOD COUNT 2.88 10^6/uL (4.30-6.10); WHITE BLOOD COUNT 15.6 10^3/uL (4.0-10.0)
[2023-07-23 05:39] LABS: BASO # 0.1 10^3/uL (0.0-0.2); BASO % 0.4 % (0.0-1.0); EOS # 0.2 10^3/uL (0.0-0.5); EOS % 1.3 % (0.0-3.0); HEMATOCRIT 27.6 % (42.0-52.0); HEMOGLOBIN 9.2 g/dl (13.5-17.5); LYMPH # 3.4 10^3/uL (1.5-5.0); LYMPH % 21.3 % (24.0-44.0); MEAN CORPUSCULAR HEMOGLOBIN 32.7 pg (27.0-33.0); MEAN CORPUSCULAR HGB CONC 33.3 g/dl (32.0-36.5); MEAN CORPUSCULAR VOLUME 98.2 fl (80.0-96.0); MONO # 1.3 10^3/uL (0.0-0.8); NEUTROPHILS # 9.3 10^3/uL (1.5-8.5); NEUTROPHILS % 58.4 % (36.0-66.0); PLATELET COUNT, AUTOMATED 264 10^3/uL (150-450); RED BLOOD COUNT 2.81 10^6/uL (4.30-6.10); WHITE BLOOD COUNT 15.9 10^3/uL (4.0-10.0)
[2023-07-23 05:51] LABS: BLOOD UREA NITROGEN 12 MG/DL (9-23); CALCIUM LEVEL 7.9 MG/DL (8.5-10.1); CARBON DIOXIDE LEVEL 29 MMOL/L (20-31); CHLORIDE LEVEL 98 MMOL/L (98-107); CREATININE FOR GFR 0.48 MG/DL (0.70-1.30); GLOMERULAR FILTRATION RATE > 60.0 (>56); GLUCOSE, FASTING 145 MG/DL (60-100); MAGNESIUM LEVEL 1.6 MG/DL (1.8-2.4); POTASSIUM SERUM 4.4 MMOL/L (3.5-5.1); SODIUM LEVEL 132 MMOL/L (136-145)
[2023-07-23 06:00] VITALS: BP 116/63; TEMP 98.4; O2SAT 92
[2023-07-23] MEDS: MAGNESIUM OXIDE 400MG TAB (MAG-OX) PO SCH (08:41)
[2023-07-23] MEDS: FUROSEMIDE 40 MG TAB PO SCH (08:42)
[2023-07-23 12:23] VITALS: BP 119/63; TEMP 97.5; O2SAT 92
[2023-07-23 14:00] VITALS: BP 119/62; TEMP 97.7; O2SAT 92
[2023-07-23 16:55] LABS: HEMATOCRIT 28.6 % (42.0-52.0); HEMOGLOBIN 9.6 g/dl (13.5-17.5)
[2023-07-23 18:31] VITALS: BP 120/63; TEMP 98.8; O2SAT 91
[2023-07-23 19:37] VITALS: BP 119/64; TEMP 98.1; O2SAT 91
[2023-07-24] VITALS: BP 119/67; TEMP 98.4; O2SAT 90
[2023-07-24 05:40] VITALS: BP 127/67; TEMP 98.6; O2SAT 91
[2023-07-24] MEDS: ONDANSETRON 4MG 2ML VIAL IV PRN (10:25)
[2023-07-24 12:02] VITALS: BP 123/64; TEMP 97.5; O2SAT 93
[2023-07-24 14:00] VITALS: BP 124/63; TEMP 97.2; O2SAT 91
[2023-07-24] MEDS: FUROSEMIDE 40MG/4ML VIAL IV SCH (15:04)
[2023-07-24 21:13] VITALS: BP 122/62; TEMP 99; O2SAT 91
[2023-07-25 05:25] VITALS: BP 119/63; TEMP 97.5; O2SAT 91
[2023-07-25 06:15] LABS: HEMATOCRIT 26.9 % (42.0-52.0); HEMOGLOBIN 8.9 g/dl (13.5-17.5); MEAN CORPUSCULAR HEMOGLOBIN 32.6 pg (27.0-33.0); MEAN CORPUSCULAR HGB CONC 33.1 g/dl (32.0-36.5); MEAN CORPUSCULAR VOLUME 98.5 fl (80.0-96.0); PLATELET COUNT, AUTOMATED 224 10^3/uL (150-450); RED BLOOD COUNT 2.73 10^6/uL (4.30-6.10); WHITE BLOOD COUNT 10.7 10^3/uL (4.0-10.0)
[2023-07-25 06:38] LABS: BLOOD UREA NITROGEN 13 MG/DL (9-23); CALCIUM LEVEL 8.1 MG/DL (8.5-10.1); CARBON DIOXIDE LEVEL 28 MMOL/L (20-31); CHLORIDE LEVEL 102 MMOL/L (98-107); CREATININE FOR GFR 0.58 MG/DL (0.70-1.30); GLOMERULAR FILTRATION RATE > 60.0 (>56); GLUCOSE, FASTING 231 MG/DL (60-100); MAGNESIUM LEVEL 1.6 MG/DL (1.8-2.4); POTASSIUM SERUM 4.1 MMOL/L (3.5-5.1); SODIUM LEVEL 135 MMOL/L (136-145)
[2023-07-25] MEDS: SPIRONOLACTONE 50 MG TAB PO SCH (08:26)
[2023-07-25] MEDS ORDERED: oxyCODONE 5MG TAB PO PRN (12:25)
[2023-07-25 13:13] VITALS: BP 117/62; TEMP 98.1; O2SAT 95
[2023-07-25] MEDS: BACLOFEN 10 MG TAB PO PRN (16:23)
[2023-07-25] MEDS: oxyCODONE 5MG TAB PO PRN (16:24)
[2023-07-25 16:35] LABS: ALBUMIN 2.4 G/DL (3.2-5.2); ALKALINE PHOSPHATASE 173 U/L (46-116); ALT/SGPT 28 U/L (7.0-40); AST/SGOT 35 U/L (<34); BILIRUBIN,DIRECT 1.3 MG/DL (<0.4); BILIRUBIN,TOTAL 2.4 MG/DL (0.3-1.2); TOTAL PROTEIN 6.9 G/DL (5.7-8.2)
[2023-07-25] MEDS: MORPHINE 2 MG/ML 1ML VIAL IV PRN (20:33)
[2023-07-25 20:38] VITALS: BP 122/55; TEMP 99.1; O2SAT 92
[2023-07-25] MEDS: amLODIPine 5 MG TAB PO SCH (20:49)
[2023-07-26 06:00] VITALS: BP 106/57; TEMP 97.7; O2SAT 96
[2023-07-26 08:56] LABS: BASO # 0.1 10^3/uL (0.0-0.2); BASO % 0.5 % (0.0-1.0); EOS # 0.2 10^3/uL (0.0-0.5); EOS % 1.3 % (0.0-3.0); HEMATOCRIT 29.8 % (42.0-52.0); HEMOGLOBIN 9.9 g/dl (13.5-17.5); LYMPH # 2.7 10^3/uL (1.5-5.0); LYMPH % 23.4 % (24.0-44.0); MEAN CORPUSCULAR HEMOGLOBIN 32.6 pg (27.0-33.0); MEAN CORPUSCULAR HGB CONC 33.2 g/dl (32.0-36.5); MONO # 1.2 10^3/uL (0.0-0.8); MONO % 10.8 % (2.0-8.0); NEUTROPHILS # 7.2 10^3/uL (1.5-8.5); NEUTROPHILS % 62.3 % (36.0-66.0); PLATELET COUNT, AUTOMATED 241 10^3/uL (150-450); RED BLOOD COUNT 3.04 10^6/uL (4.30-6.10); WHITE BLOOD COUNT 11.5 10^3/uL (4.0-10.0)
[2023-07-26 09:22] LABS: ALBUMIN 2.3 G/DL (3.2-5.2); ALKALINE PHOSPHATASE 140 U/L (46-116); ALT/SGPT 26 U/L (7.0-40); AST/SGOT 45 U/L (<34); BILIRUBIN,TOTAL 3.2 MG/DL (0.3-1.2); BLOOD UREA NITROGEN 12 MG/DL (9-23); CARBON DIOXIDE LEVEL 28 MMOL/L (20-31); CHLORIDE LEVEL 99 MMOL/L (98-107); CREATININE FOR GFR 0.57 MG/DL (0.70-1.30); GLOMERULAR FILTRATION RATE > 60.0 (>56); GLUCOSE, FASTING 177 MG/DL (60-100); SODIUM LEVEL 134 MMOL/L (136-145); TOTAL PROTEIN 7.4 G/DL (5.7-8.2)
[2023-07-26 14:00] VITALS: BP 115/67; TEMP 97; O2SAT 94
[2023-07-26 19:58] VITALS: BP 115/66; TEMP 98.8; O2SAT 92
[2023-07-26 21:30] VITALS: BP 115/65
[2023-07-27 05:43] VITALS: BP 117/69; TEMP 98.2; O2SAT 93
[2023-07-27 06:05] LABS: BASO # 0.1 10^3/uL (0.0-0.2); BASO % 0.5 % (0.0-1.0); EOS # 0.1 10^3/uL (0.0-0.5); EOS % 0.9 % (0.0-3.0); HEMATOCRIT 29.2 % (42.0-52.0); HEMOGLOBIN 9.8 g/dl (13.5-17.5); LYMPH # 2.6 10^3/uL (1.5-5.0); LYMPH % 24.8 % (24.0-44.0); MEAN CORPUSCULAR HEMOGLOBIN 32.7 pg (27.0-33.0); MEAN CORPUSCULAR HGB CONC 33.6 g/dl (32.0-36.5); MEAN CORPUSCULAR VOLUME 97.3 fl (80.0-96.0); MONO # 1.2 10^3/uL (0.0-0.8); MONO % 11.5 % (2.0-8.0); NEUTROPHILS # 6.3 10^3/uL (1.5-8.5); NEUTROPHILS % 60.8 % (36.0-66.0); PLATELET COUNT, AUTOMATED 230 10^3/uL (150-450); WHITE BLOOD COUNT 10.3 10^3/uL (4.0-10.0)
[2023-07-27 06:29] LABS: BLOOD UREA NITROGEN 12 MG/DL (9-23); CALCIUM LEVEL 8.5 MG/DL (8.5-10.1); CARBON DIOXIDE LEVEL 29 MMOL/L (20-31); CHLORIDE LEVEL 99 MMOL/L (98-107); CREATININE FOR GFR 0.53 MG/DL (0.70-1.30); GLOMERULAR FILTRATION RATE > 60.0 (>56); GLUCOSE, FASTING 103 MG/DL (60-100); POTASSIUM SERUM 3.5 MMOL/L (3.5-5.1); SODIUM LEVEL 134 MMOL/L (136-145)
[2023-07-27] MEDS: LACTULOSE 20GM/30ML SYRUP UDC PO SCH (08:34)
[2023-07-27] MEDS: FLEET ENEMA PR ONE (10:14)
[2023-07-27] MEDS: BISACODYL 10MG SUPP PR SCH (11:00)
[2023-07-27] MEDS: TORSEMIDE 20 MG TAB PO SCH (16:27)
[2023-07-27] MEDS: VANCOMYCIN HCL 1,000 MG, VIAL MATE ADAPTER 1 EACH in D5W 250 ML IV ONE (16:28)
[2023-07-27] MEDS: VANCOMYCIN HCL 750 MG, VIAL MATE ADAPTER 1 EACH in D5W 250 ML IV SCH ×2 (19:59→21:14)
[2023-07-27 20:00] VITALS: BP 118/70; TEMP 98.1; O2SAT 94
[2023-07-27] MEDS: MULTIVITAMINS/MINERALS THERAP 1 TAB PO ONE (22:21)
[2023-07-28 05:29] VITALS: BP 106/59; TEMP 98.4; O2SAT 94
[2023-07-28 07:24] LABS: BASO # 0.1 10^3/uL (0.0-0.2); BASO % 0.6 % (0.0-1.0); EOS # 0.2 10^3/uL (0.0-0.5); EOS % 1.4 % (0.0-3.0); HEMATOCRIT 28.9 % (42.0-52.0); HEMOGLOBIN 9.8 g/dl (13.5-17.5); LYMPH # 2.5 10^3/uL (1.5-5.0); LYMPH % 22.9 % (24.0-44.0); MEAN CORPUSCULAR HEMOGLOBIN 33.2 pg (27.0-33.0); MEAN CORPUSCULAR HGB CONC 33.9 g/dl (32.0-36.5); MONO # 1.1 10^3/uL (0.0-0.8); MONO % 10.4 % (2.0-8.0); NEUTROPHILS # 6.9 10^3/uL (1.5-8.5); PLATELET COUNT, AUTOMATED 242 10^3/uL (150-450); RED BLOOD COUNT 2.95 10^6/uL (4.30-6.10); WHITE BLOOD COUNT 10.9 10^3/uL (4.0-10.0)
[2023-07-28 07:50] LABS: BLOOD UREA NITROGEN 14 MG/DL (9-23); CALCIUM LEVEL 8.5 MG/DL (8.5-10.1); CARBON DIOXIDE LEVEL 30 MMOL/L (20-31); CHLORIDE LEVEL 97 MMOL/L (98-107); CREATININE FOR GFR 0.73 MG/DL (0.70-1.30); GLOMERULAR FILTRATION RATE > 60.0 (>56); GLUCOSE, FASTING 165 MG/DL (60-100); POTASSIUM SERUM 3.7 MMOL/L (3.5-5.1); SODIUM LEVEL 133 MMOL/L (136-145)
[2023-07-28] MEDS: FLEET ENEMA PR PRN (12:01)
[2023-07-28] MEDS: GABAPENTIN 300 MG CAP PO SCH (13:30)
[2023-07-28 14:00] VITALS: BP 137/79; TEMP 97.7; O2SAT 94
[2023-07-28] MEDS: oxyCODONE 5MG TAB PO PRN (17:11)
[2023-07-28] MEDS: SENOKOT S TAB PO SCH (20:19)
[2023-07-28 20:20] VITALS: BP 127/68; TEMP 98.8; O2SAT 95
[2023-07-29 04:45] VITALS: BP 108/59; TEMP 98.4; O2SAT 89
[2023-07-29 07:07] LABS: BASO # 0.1 10^3/uL (0.0-0.2); BASO % 0.6 % (0.0-1.0); EOS # 0.2 10^3/uL (0.0-0.5); EOS % 1.5 % (0.0-3.0); HEMATOCRIT 28.3 % (42.0-52.0); HEMOGLOBIN 9.7 g/dl (13.5-17.5); LYMPH # 2.6 10^3/uL (1.5-5.0); LYMPH % 24.9 % (24.0-44.0); MEAN CORPUSCULAR HEMOGLOBIN 33.2 pg (27.0-33.0); MEAN CORPUSCULAR HGB CONC 34.3 g/dl (32.0-36.5); MEAN CORPUSCULAR VOLUME 96.9 fl (80.0-96.0); MONO # 1.2 10^3/uL (0.0-0.8); NEUTROPHILS # 6.2 10^3/uL (1.5-8.5); NEUTROPHILS % 60.2 % (36.0-66.0); PLATELET COUNT, AUTOMATED 229 10^3/uL (150-450); RED BLOOD COUNT 2.92 10^6/uL (4.30-6.10); WHITE BLOOD COUNT 10.3 10^3/uL (4.0-10.0)
[2023-07-29 07:34] LABS: BLOOD UREA NITROGEN 13 MG/DL (9-23); CALCIUM LEVEL 8.2 MG/DL (8.5-10.1); CARBON DIOXIDE LEVEL 33 MMOL/L (20-31); CHLORIDE LEVEL 94 MMOL/L (98-107); CREATININE FOR GFR 0.57 MG/DL (0.70-1.30); GLOMERULAR FILTRATION RATE > 60.0 (>56); GLUCOSE, FASTING 161 MG/DL (60-100); POTASSIUM SERUM 3.4 MMOL/L (3.5-5.1); SODIUM LEVEL 131 MMOL/L (136-145)
[2023-07-29] MEDS: POTASSIUM CHLORIDE 10MEQ SR TABLET PO ONE (09:48)
[2023-07-29] MEDS: LACTULOSE 20GM/30ML SYRUP UDC PO SCH (12:05)
[2023-07-29 14:00] VITALS: BP 97/58; TEMP 98.4; O2SAT 90
[2023-07-29] MEDS: KETOROLAC 30 MG/ML 1ML VIAL IV ONE (15:01)
[2023-07-29 20:00] VITALS: BP 109/59; TEMP 98.1; O2SAT 94
[2023-07-29] MEDS: APIXABAN 5 MG TAB (ELIQUIS) PO SCH (20:27)
[2023-07-30 04:18] VITALS: BP 107/60; TEMP 98.8; O2SAT 94
[2023-07-30 06:42] LABS: BASO # 0.1 10^3/uL (0.0-0.2); BASO % 0.8 % (0.0-1.0); EOS # 0.2 10^3/uL (0.0-0.5); HEMATOCRIT 28.4 % (42.0-52.0); HEMOGLOBIN 9.7 g/dl (13.5-17.5); LYMPH # 2.1 10^3/uL (1.5-5.0); LYMPH % 22.5 % (24.0-44.0); MEAN CORPUSCULAR HEMOGLOBIN 33.6 pg (27.0-33.0); MEAN CORPUSCULAR HGB CONC 34.2 g/dl (32.0-36.5); MEAN CORPUSCULAR VOLUME 98.3 fl (80.0-96.0); MONO % 10.2 % (2.0-8.0); NEUTROPHILS # 5.9 10^3/uL (1.5-8.5); NEUTROPHILS % 63.6 % (36.0-66.0); PLATELET COUNT, AUTOMATED 242 10^3/uL (150-450); RED BLOOD COUNT 2.89 10^6/uL (4.30-6.10); WHITE BLOOD COUNT 9.3 10^3/uL (4.0-10.0)
[2023-07-30 07:07] LABS: BLOOD UREA NITROGEN 17 MG/DL (9-23); CARBON DIOXIDE LEVEL 33 MMOL/L (20-31); CHLORIDE LEVEL 96 MMOL/L (98-107); CREATININE FOR GFR 0.62 MG/DL (0.70-1.30); GLOMERULAR FILTRATION RATE > 60.0 (>56); GLUCOSE, FASTING 135 MG/DL (60-100); POTASSIUM SERUM 3.7 MMOL/L (3.5-5.1); SODIUM LEVEL 132 MMOL/L (136-145)
[2023-07-30] MEDS: INSULIN LISPRO (NovoLOG) PER UNIT SC SCH ×2 (07:30→08:28)
[2023-07-30] MEDS: TORSEMIDE 20 MG TAB PO SCH (08:27)
[2023-07-30 09:26] LABS: MAGNESIUM LEVEL 1.7 MG/DL (1.8-2.4)
[2023-07-30 14:00] VITALS: BP 108/58; TEMP 98.2; O2SAT 91
[2023-07-30 19:30] VITALS: BP 119/64; TEMP 97; O2SAT 94
[2023-07-30] MEDS: rOPINIRole 2MG TAB PO SCH (21:03)
[2023-07-30] MEDS: LEVEMIR (INSULIN DETEMIR) 1 UNITS/0.01ML SC SCH (21:04)
[2023-07-31 06:22] VITALS: BP 119/65; TEMP 98.4; O2SAT 92
[2023-07-31 07:21] LABS: BASO % 0.5 % (0.0-1.0); EOS # 0.2 10^3/uL (0.0-0.5); HEMOGLOBIN 9.7 g/dl (13.5-17.5); LYMPH % 25.1 % (24.0-44.0); MEAN CORPUSCULAR HGB CONC 33.4 g/dl (32.0-36.5); MEAN CORPUSCULAR VOLUME 98.6 fl (80.0-96.0); MONO # 0.9 10^3/uL (0.0-0.8); NEUTROPHILS # 4.8 10^3/uL (1.5-8.5); NEUTROPHILS % 60.9 % (36.0-66.0); PLATELET COUNT, AUTOMATED 209 10^3/uL (150-450); RED BLOOD COUNT 2.94 10^6/uL (4.30-6.10); WHITE BLOOD COUNT 7.9 10^3/uL (4.0-10.0)
[2023-07-31 07:46] LABS: BLOOD UREA NITROGEN 11 MG/DL (9-23); CALCIUM LEVEL 8.8 MG/DL (8.5-10.1); CARBON DIOXIDE LEVEL 31 MMOL/L (20-31); CHLORIDE LEVEL 97 MMOL/L (98-107); CREATININE FOR GFR 0.52 MG/DL (0.70-1.30); GLOMERULAR FILTRATION RATE > 60.0 (>56); GLUCOSE, FASTING 141 MG/DL (60-100); POTASSIUM SERUM 3.7 MMOL/L (3.5-5.1); SODIUM LEVEL 131 MMOL/L (136-145)
[2023-07-31] MEDS: VANCOMYCIN HCL 1,000 MG, VIAL MATE ADAPTER 1 EACH in D5W 250 ML IV SCH (08:12)
[2023-07-31] MEDS: VANCOMYCIN HCL 750 MG, VIAL MATE ADAPTER 1 EACH in D5W 250 ML IV SCH (09:27)
[2023-07-31 14:00] VITALS: BP 131/74; TEMP 97.2; O2SAT 91
[2023-07-31 16:52] LABS: ALBUMIN 2.1 G/DL (3.2-5.2); ALKALINE PHOSPHATASE 113 U/L (46-116); ALT/SGPT 27 U/L (7.0-40); AST/SGOT 43 U/L (<34); BILIRUBIN,DIRECT 1.7 MG/DL (<0.4); BILIRUBIN,TOTAL 3.4 MG/DL (0.3-1.2); TOTAL PROTEIN 7.6 G/DL (5.7-8.2)
[2023-07-31] MEDS: DAPTOMYCIN IV SCH (18:16)
[2023-07-31] MEDS: NS IV SCH (18:16)
[2023-07-31] MEDS: FLEET ENEMA PR ONE (18:17)
[2023-07-31] MEDS: LEVEMIR (INSULIN DETEMIR) 1 UNITS/0.01ML SC SCH (21:02)
[2023-07-31] MEDS: rifAXIMin 550 MG TAB (XIFAXAN) PO SCH (21:04)
[2023-07-31] MEDS: LACTULOSE 20GM/30ML SYRUP UDC PO SCH (21:06)
[2023-07-31] MEDS: oxyCODONE 5MG TAB PO PRN (21:36)
[2023-07-31 22:00] VITALS: BP 128/75; TEMP 98.2; O2SAT 94
[2023-07-31] MEDS: oxyCODONE 5MG TAB PO ONE (23:25)
[2023-07-31] MEDS: METHYLNALTREXONE BROMIDE 12MG/0.6ML VIAL (RELISTOR) SC SCH (23:54)
[2023-08-01] MEDS: oxyCODONE 5MG TAB PO PRN (04:35)
[2023-08-01 06:02] VITALS: BP 129/94; TEMP 98.4; O2SAT 93
[2023-08-01 07:14] LABS: BASO # 0.1 10^3/uL (0.0-0.2); BASO % 0.8 % (0.0-1.0); EOS # 0.2 10^3/uL (0.0-0.5); HEMATOCRIT 30.2 % (42.0-52.0); HEMOGLOBIN 10.1 g/dl (13.5-17.5); LYMPH # 1.9 10^3/uL (1.5-5.0); MEAN CORPUSCULAR HGB CONC 33.4 g/dl (32.0-36.5); MEAN CORPUSCULAR VOLUME 98.7 fl (80.0-96.0); MONO # 0.9 10^3/uL (0.0-0.8); MONO % 11.8 % (2.0-8.0); NEUTROPHILS # 4.8 10^3/uL (1.5-8.5); PLATELET COUNT, AUTOMATED 223 10^3/uL (150-450); RED BLOOD COUNT 3.06 10^6/uL (4.30-6.10); WHITE BLOOD COUNT 7.8 10^3/uL (4.0-10.0)
[2023-08-01 07:41] LABS: BLOOD UREA NITROGEN 15 MG/DL (9-23); CALCIUM LEVEL 8.7 MG/DL (8.5-10.1); CARBON DIOXIDE LEVEL 30 MMOL/L (20-31); CHLORIDE LEVEL 97 MMOL/L (98-107); CREATININE FOR GFR 0.58 MG/DL (0.70-1.30); GLOMERULAR FILTRATION RATE > 60.0 (>56); GLUCOSE, FASTING 141 MG/DL (60-100); POTASSIUM SERUM 3.7 MMOL/L (3.5-5.1); SODIUM LEVEL 131 MMOL/L (136-145); VANCOMYCIN LEVEL TROUGH 6.9 UG/ML (10.0-20.0)
[2023-08-01] MEDS: MORPHINE 2 MG/ML 1ML VIAL IV ONE (11:48)
[2023-08-01 14:00] VITALS: BP 130/72; TEMP 98.2; O2SAT 91
[2023-08-01] MEDS: ACETAMINOPHEN TAB 650MG DOSE (2X325MG) PO PRN (20:53)
[2023-08-01 22:00] VITALS: BP 132/75; TEMP 98.2; O2SAT 92
[2023-08-02 06:00] VITALS: BP 126/75; TEMP 98.1; O2SAT 93
[2023-08-02 06:20] LABS: BASO % 0.4 % (0.0-1.0); EOS # 0.1 10^3/uL (0.0-0.5); EOS % 1.7 % (0.0-3.0); HEMOGLOBIN 11.6 g/dl (13.5-17.5); LYMPH # 1.9 10^3/uL (1.5-5.0); LYMPH % 23.8 % (24.0-44.0); MEAN CORPUSCULAR HEMOGLOBIN 34.3 pg (27.0-33.0); MEAN CORPUSCULAR HGB CONC 33.1 g/dl (32.0-36.5); MEAN CORPUSCULAR VOLUME 103.6 fl (80.0-96.0); MONO # 0.9 10^3/uL (0.0-0.8); MONO % 11.3 % (2.0-8.0); NEUTROPHILS # 4.9 10^3/uL (1.5-8.5); NEUTROPHILS % 62.4 % (36.0-66.0); PLATELET COUNT, AUTOMATED 188 10^3/uL (150-450); RED BLOOD COUNT 3.38 10^6/uL (4.30-6.10); WHITE BLOOD COUNT 7.8 10^3/uL (4.0-10.0)
[2023-08-02 06:43] LABS: BLOOD UREA NITROGEN 13 MG/DL (9-23); CARBON DIOXIDE LEVEL 26 MMOL/L (20-31); CHLORIDE LEVEL 100 MMOL/L (98-107); CREATININE FOR GFR 0.57 MG/DL (0.70-1.30); GLOMERULAR FILTRATION RATE > 60.0 (>56); GLUCOSE, FASTING 130 MG/DL (60-100); POTASSIUM SERUM 4.7 MMOL/L (3.5-5.1); SODIUM LEVEL 132 MMOL/L (136-145)
[2023-08-02 14:00] VITALS: BP 119/69; TEMP 98.2; O2SAT 92
[2023-08-02 21:00] VITALS: BP 131/81; TEMP 98.5
[2023-08-03 05:45] VITALS: BP 115/69; TEMP 98.1; O2SAT 95
[2023-08-03 05:51] VITALS: BP 102/63; TEMP 97.3; O2SAT 94
[2023-08-03 06:30] LABS: LIPASE 37 U/L (12-53)
[2023-08-03 06:32] LABS: BLOOD UREA NITROGEN 14 MG/DL (9-23); CALCIUM LEVEL 8.7 MG/DL (8.5-10.1); CARBON DIOXIDE LEVEL 29 MMOL/L (20-31); CHLORIDE LEVEL 99 MMOL/L (98-107); CREATININE FOR GFR 0.57 MG/DL (0.70-1.30); GLOMERULAR FILTRATION RATE > 60.0 (>56); GLUCOSE, FASTING 166 MG/DL (60-100); SODIUM LEVEL 131 MMOL/L (136-145)
[2023-08-03 06:34] LABS: HEMATOCRIT 28.2 % (42.0-52.0); MEAN CORPUSCULAR HEMOGLOBIN 33.3 pg (27.0-33.0); MEAN CORPUSCULAR VOLUME 97.9 fl (80.0-96.0); PLATELET COUNT, AUTOMATED 192 10^3/uL (150-450); RED BLOOD COUNT 2.88 10^6/uL (4.30-6.10)
[2023-08-03 06:37] LABS: HEMOGLOBIN 9.6 g/dl (13.5-17.5)
[2023-08-03 14:00] VITALS: BP 113/68; TEMP 99.1; O2SAT 92
[2023-08-03 16:39] LABS: CPK CREATINE PHOSPHOKINASE 767 U/L (46-171)
[2023-08-03 19:22] LABS: HEMATOCRIT 27.1 % (42.0-52.0)
[2023-08-03 22:00] VITALS: BP 114/66; TEMP 99.3; O2SAT 95
[2023-08-04] VITALS (9 sets, daily range): BP systolic 118–141; BP diastolic 64–74; TEMP 98.2–99.7; O2SAT 92–98
[2023-08-04 06:29] LABS: HEMATOCRIT 27.2 % (42.0-52.0); MEAN CORPUSCULAR HEMOGLOBIN 33.3 pg (27.0-33.0); MEAN CORPUSCULAR HGB CONC 33.1 g/dl (32.0-36.5); MEAN CORPUSCULAR VOLUME 100.7 fl (80.0-96.0); PLATELET COUNT, AUTOMATED 194 10^3/uL (150-450); WHITE BLOOD COUNT 9.3 10^3/uL (4.0-10.0)
[2023-08-04 06:53] LABS: BLOOD UREA NITROGEN 12 MG/DL (9-23); CALCIUM LEVEL 8.4 MG/DL (8.5-10.1); CARBON DIOXIDE LEVEL 27 MMOL/L (20-31); CHLORIDE LEVEL 97 MMOL/L (98-107); CREATININE FOR GFR 0.51 MG/DL (0.70-1.30); GLOMERULAR FILTRATION RATE > 60.0 (>56); GLUCOSE, FASTING 212 MG/DL (60-100); SODIUM LEVEL 128 MMOL/L (136-145)
[2023-08-04] MEDS: MORPHINE 2 MG/ML 1ML VIAL IV ONE (11:38)
[2023-08-04] MEDS: SODIUM CHLORIDE 1 GM TAB PO SCH (13:08)
[2023-08-04] MEDS ORDERED: NS 1,000 ML IV SCH (15:35)
[2023-08-04] MEDS ORDERED: HEPARIN DRIP 25,000 UNITS in IV 1 EA IV SCH (16:00)
[2023-08-04] MEDS ORDERED: HEPARIN SOD (PORCINE) 5000UNITS/ML 1ML VIAL/SYRINGE IV PRN (16:00)
[2023-08-04 16:31] LABS: INR 2.09; PARTIAL THROMBOPLASTIN TIME 42.5 SECONDS (24.8-34.2); PROTHROMBIN TIME 22.8 SECONDS (12.5-14.5)
[2023-08-04 16:36] LABS: HEMATOCRIT 26.3 % (42.0-52.0); HEMOGLOBIN 8.9 g/dl (13.5-17.5)
[2023-08-05] VITALS (12 sets, daily range): BP systolic 110–133; BP diastolic 61–78; TEMP 97–100.3; O2SAT 90–95
[2023-08-05 04:34] LABS: BASO % 0.5 % (0.0-1.0); EOS # 0.3 10^3/uL (0.0-0.5); EOS % 3.9 % (0.0-3.0); HEMATOCRIT 27.3 % (42.0-52.0); HEMOGLOBIN 9.1 g/dl (13.5-17.5); LYMPH # 2.3 10^3/uL (1.5-5.0); LYMPH % 27.8 % (24.0-44.0); MEAN CORPUSCULAR HEMOGLOBIN 32.6 pg (27.0-33.0); MEAN CORPUSCULAR HGB CONC 33.3 g/dl (32.0-36.5); MEAN CORPUSCULAR VOLUME 97.8 fl (80.0-96.0); MONO # 1.1 10^3/uL (0.0-0.8); MONO % 13.2 % (2.0-8.0); NEUTROPHILS # 4.5 10^3/uL (1.5-8.5); NEUTROPHILS % 53.3 % (36.0-66.0); PLATELET COUNT, AUTOMATED 168 10^3/uL (150-450); RED BLOOD COUNT 2.79 10^6/uL (4.30-6.10); WHITE BLOOD COUNT 8.4 10^3/uL (4.0-10.0)
[2023-08-05 04:52] LABS: BLOOD UREA NITROGEN 10 MG/DL (9-23); CALCIUM LEVEL 8.3 MG/DL (8.5-10.1); CARBON DIOXIDE LEVEL 28 MMOL/L (20-31); CHLORIDE LEVEL 101 MMOL/L (98-107); CREATININE FOR GFR 0.46 MG/DL (0.70-1.30); GLOMERULAR FILTRATION RATE > 60.0 (>56); GLUCOSE, FASTING 118 MG/DL (60-100); SODIUM LEVEL 130 MMOL/L (136-145)
[2023-08-05] MEDS ORDERED: PHENYLephrine 500MCG 5ML (100MCG/ML) SYRINGE As Ordered ONE (08:50)
[2023-08-05] MEDS ORDERED: HYDROmorphone HCL 2MG/ML 1ML VIAL As Ordered ONE (09:00)
[2023-08-05] MEDS: ceFAZolin 2 GM/D5W 50 ML IV BAG As Ordered ONE (09:27)
[2023-08-05] MEDS ORDERED: ONDANSETRON 4MG 2ML VIAL IV PRN (09:35)
[2023-08-05] MEDS: LR 1,000 ML IV SCH (09:35)
[2023-08-05] MEDS ORDERED: DEXTROSE 50% 50ML SYRINGE IV PRN (09:35)
[2023-08-05] MEDS ORDERED: GLUCOSE 4GM CHEW TABLET PO PRN (09:35)
[2023-08-05] MEDS ORDERED: GLUCAGON INJ 1MG VIAL SC PRN (09:35)
[2023-08-05] MEDS ORDERED: INSULIN LISPRO (NovoLOG) PER UNIT SC PRN (09:35)
[2023-08-05] MEDS: fentaNYL 100 MCG/2 ML INJECTION IV PRN (10:25)
[2023-08-05] MEDS ORDERED: HEPARIN SOD (PORCINE) 5000UNITS/ML 1ML VIAL/SYRINGE IV PRN (12:00)
[2023-08-05] MEDS ORDERED: HEPARIN DRIP 25,000 UNITS in IV 1 EA IV SCH (12:00)
[2023-08-05] MEDS: HEPARIN DRIP 25,000 UNITS in IV 1 EA IV SCH (13:25)
[2023-08-05] MEDS: INSULIN LISPRO (NovoLOG) PER UNIT SC SCH (23:21)
[2023-08-06] VITALS (7 sets, daily range): BP systolic 105–123; BP diastolic 55–84; TEMP 97.9–99.4; O2SAT 94–97
[2023-08-06 08:19] LABS: HEMATOCRIT 25.7 % (42.0-52.0); HEMOGLOBIN 8.7 g/dl (13.5-17.5)
[2023-08-06 10:26] LABS: BASO % 0.3 % (0.0-1.0); EOS % 0.3 % (0.0-3.0); HEMATOCRIT 26.6 % (42.0-52.0); HEMOGLOBIN 8.9 g/dl (13.5-17.5); LYMPH # 1.4 10^3/uL (1.5-5.0); MEAN CORPUSCULAR HEMOGLOBIN 32.6 pg (27.0-33.0); MEAN CORPUSCULAR HGB CONC 33.5 g/dl (32.0-36.5); MEAN CORPUSCULAR VOLUME 97.4 fl (80.0-96.0); MONO # 0.6 10^3/uL (0.0-0.8); MONO % 7.5 % (2.0-8.0); NEUTROPHILS # 5.5 10^3/uL (1.5-8.5); NEUTROPHILS % 72.6 % (36.0-66.0); PLATELET COUNT, AUTOMATED 195 10^3/uL (150-450); RED BLOOD COUNT 2.73 10^6/uL (4.30-6.10); WHITE BLOOD COUNT 7.6 10^3/uL (4.0-10.0)
[2023-08-06 10:49] LABS: ALBUMIN 1.9 G/DL (3.2-5.2); BLOOD UREA NITROGEN 10 MG/DL (9-23); CALCIUM LEVEL 8.2 MG/DL (8.5-10.1); CARBON DIOXIDE LEVEL 23 MMOL/L (20-31); CHLORIDE LEVEL 100 MMOL/L (98-107); CREATININE FOR GFR 0.56 MG/DL (0.70-1.30); GLOMERULAR FILTRATION RATE > 60.0 (>56); GLUCOSE, FASTING 373 MG/DL (60-100); MAGNESIUM LEVEL 1.7 MG/DL (1.8-2.4); POTASSIUM SERUM 4.2 MMOL/L (3.5-5.1); SODIUM LEVEL 130 MMOL/L (136-145)
[2023-08-06 10:53] LABS: TOTAL 25(OH) VITAMIN D 92.3 NG/ML (20.0-100.0)
[2023-08-07 05:34] VITALS: BP 124/67; TEMP 98.4; O2SAT 94
[2023-08-07 06:26] LABS: BASO % 0.4 % (0.0-1.0); EOS # 0.2 10^3/uL (0.0-0.5); EOS % 2.2 % (0.0-3.0); HEMATOCRIT 26.8 % (42.0-52.0); HEMOGLOBIN 8.9 g/dl (13.5-17.5); LYMPH # 1.9 10^3/uL (1.5-5.0); LYMPH % 24.5 % (24.0-44.0); MEAN CORPUSCULAR HEMOGLOBIN 32.7 pg (27.0-33.0); MEAN CORPUSCULAR HGB CONC 33.2 g/dl (32.0-36.5); MEAN CORPUSCULAR VOLUME 98.5 fl (80.0-96.0); MONO # 0.8 10^3/uL (0.0-0.8); MONO % 10.3 % (2.0-8.0); NEUTROPHILS # 4.6 10^3/uL (1.5-8.5); PLATELET COUNT, AUTOMATED 211 10^3/uL (150-450); RED BLOOD COUNT 2.72 10^6/uL (4.30-6.10); WHITE BLOOD COUNT 7.6 10^3/uL (4.0-10.0)
[2023-08-07 06:49] LABS: CPK CREATINE PHOSPHOKINASE 63 U/L (46-171)
[2023-08-07 06:50] LABS: BLOOD UREA NITROGEN 10 MG/DL (9-23); CALCIUM LEVEL 8.2 MG/DL (8.5-10.1); CARBON DIOXIDE LEVEL 27 MMOL/L (20-31); CHLORIDE LEVEL 105 MMOL/L (98-107); CREATININE FOR GFR 0.51 MG/DL (0.70-1.30); GLOMERULAR FILTRATION RATE > 60.0 (>56); GLUCOSE, FASTING 244 MG/DL (60-100); POTASSIUM SERUM 4.3 MMOL/L (3.5-5.1); SODIUM LEVEL 134 MMOL/L (136-145)
[2023-08-07 09:30] VITALS: BP 127/70
[2023-08-07] MEDS: MORPHINE 10 MG/ML 1ML VIAL IV ONE (09:58)
[2023-08-07] MEDS: INSULIN LISPRO (NovoLOG) PER UNIT SC SCH (13:33)
[2023-08-07 14:00] VITALS: BP 117/66; TEMP 98.8; O2SAT 95
[2023-08-07] MEDS: CEFEPIME HCL 2 GM in D5W MINI-BAG PLUS 50 ML IV SCH (15:35)
[2023-08-07 20:16] VITALS: BP 114/66; TEMP 98.8; O2SAT 95
[2023-08-07] MEDS: LEVEMIR (INSULIN DETEMIR) 1 UNITS/0.01ML SC SCH (20:25)
[2023-08-07] MEDS ORDERED: LEVEMIR (INSULIN DETEMIR) 1 UNITS/0.01ML SC SCH (21:00)
[2023-08-08 05:49] VITALS: BP 135/76; TEMP 98.6; O2SAT 94
[2023-08-08 06:25] LABS: BASO # 0.1 10^3/uL (0.0-0.2); BASO % 0.7 % (0.0-1.0); EOS # 0.2 10^3/uL (0.0-0.5); EOS % 3.2 % (0.0-3.0); HEMATOCRIT 28.2 % (42.0-52.0); LYMPH # 2.1 10^3/uL (1.5-5.0); LYMPH % 30.7 % (24.0-44.0); MEAN CORPUSCULAR HEMOGLOBIN 32.1 pg (27.0-33.0); MEAN CORPUSCULAR HGB CONC 31.9 g/dl (32.0-36.5); MEAN CORPUSCULAR VOLUME 100.7 fl (80.0-96.0); MONO # 0.9 10^3/uL (0.0-0.8); MONO % 12.6 % (2.0-8.0); NEUTROPHILS # 3.6 10^3/uL (1.5-8.5); NEUTROPHILS % 51.7 % (36.0-66.0); PLATELET COUNT, AUTOMATED 192 10^3/uL (150-450)
[2023-08-08 06:53] LABS: BLOOD UREA NITROGEN 11 MG/DL (9-23); CALCIUM LEVEL 8.7 MG/DL (8.5-10.1); CARBON DIOXIDE LEVEL 28 MMOL/L (20-31); CHLORIDE LEVEL 104 MMOL/L (98-107); CREATININE FOR GFR 0.46 MG/DL (0.70-1.30); GLOMERULAR FILTRATION RATE > 60.0 (>56); GLUCOSE, FASTING 114 MG/DL (60-100); POTASSIUM SERUM 4.2 MMOL/L (3.5-5.1); SODIUM LEVEL 135 MMOL/L (136-145)
[2023-08-08] MEDS: FUROSEMIDE 20 MG TAB PO SCH (10:17)
[2023-08-08 10:18] VITALS: BP 121/73
[2023-08-08] MEDS: SPIRONOLACTONE 50 MG TAB PO SCH (10:18)
[2023-08-08 14:00] VITALS: BP 127/68; TEMP 97.9; O2SAT 94
[2023-08-08 20:44] VITALS: BP 128/69; TEMP 97.9; O2SAT 94
[2023-08-09] MEDS: LevoFLOXacin 750 MG TABLET PO SCH (06:29)
[2023-08-09 06:32] LABS: BASO % 0.7 % (0.0-1.0); EOS # 0.2 10^3/uL (0.0-0.5); EOS % 3.4 % (0.0-3.0); HEMATOCRIT 26.9 % (42.0-52.0); HEMOGLOBIN 8.6 g/dl (13.5-17.5); LYMPH % 32.7 % (24.0-44.0); MONO # 0.7 10^3/uL (0.0-0.8); MONO % 12.4 % (2.0-8.0); NEUTROPHILS # 2.9 10^3/uL (1.5-8.5); NEUTROPHILS % 49.3 % (36.0-66.0); PLATELET COUNT, AUTOMATED 176 10^3/uL (150-450); RED BLOOD COUNT 2.69 10^6/uL (4.30-6.10)
[2023-08-09 06:33] VITALS: BP 126/68; TEMP 98.1; O2SAT 93
[2023-08-09 06:53] LABS: BLOOD UREA NITROGEN 10 MG/DL (9-23); CALCIUM LEVEL 8.2 MG/DL (8.5-10.1); CARBON DIOXIDE LEVEL 26 MMOL/L (20-31); CHLORIDE LEVEL 104 MMOL/L (98-107); CPK CREATINE PHOSPHOKINASE 38 U/L (46-171); CREATININE FOR GFR 0.48 MG/DL (0.70-1.30); GLOMERULAR FILTRATION RATE > 60.0 (>56); GLUCOSE, FASTING 193 MG/DL (60-100); POTASSIUM SERUM 3.9 MMOL/L (3.5-5.1); SODIUM LEVEL 136 MMOL/L (136-145)
[2023-08-09 10:03] LABS: ALBUMIN 1.7 G/DL (3.2-5.2); ALKALINE PHOSPHATASE 114 U/L (46-116); ALT/SGPT 24 U/L (7.0-40); AST/SGOT 42 U/L (<34); TOTAL PROTEIN 6.6 G/DL (5.7-8.2)
[2023-08-09] MEDS: TORSEMIDE 20 MG TAB PO ONE (10:08)
[2023-08-09 14:00] VITALS: BP 117/67; TEMP 98.2; O2SAT 91
[2023-08-09] MEDS: ANALGESIC BALM CRM 3OZ TOP PRN (20:58)
[2023-08-09 21:00] VITALS: BP 114/67; TEMP 98.8; O2SAT 91
[2023-08-10 04:50] VITALS: BP 119/72; TEMP 98.8; O2SAT 93
[2023-08-10 06:24] LABS: BASO % 0.6 % (0.0-1.0); EOS # 0.2 10^3/uL (0.0-0.5); EOS % 2.7 % (0.0-3.0); HEMOGLOBIN 9.4 g/dl (13.5-17.5); LYMPH % 27.8 % (24.0-44.0); MEAN CORPUSCULAR HEMOGLOBIN 31.9 pg (27.0-33.0); MEAN CORPUSCULAR HGB CONC 32.4 g/dl (32.0-36.5); MEAN CORPUSCULAR VOLUME 98.3 fl (80.0-96.0); MONO % 13.3 % (2.0-8.0); NEUTROPHILS # 3.8 10^3/uL (1.5-8.5); NEUTROPHILS % 53.6 % (36.0-66.0); PLATELET COUNT, AUTOMATED 198 10^3/uL (150-450); RED BLOOD COUNT 2.95 10^6/uL (4.30-6.10); WHITE BLOOD COUNT 7.2 10^3/uL (4.0-10.0)
[2023-08-10 06:49] LABS: BLOOD UREA NITROGEN 12 MG/DL (9-23); CALCIUM LEVEL 8.7 MG/DL (8.5-10.1); CARBON DIOXIDE LEVEL 32 MMOL/L (20-31); CHLORIDE LEVEL 100 MMOL/L (98-107); CREATININE FOR GFR 0.51 MG/DL (0.70-1.30); GLOMERULAR FILTRATION RATE > 60.0 (>56); GLUCOSE, FASTING 160 MG/DL (60-100); POTASSIUM SERUM 3.5 MMOL/L (3.5-5.1); SODIUM LEVEL 132 MMOL/L (136-145)
[2023-08-10] MEDS: TORSEMIDE 20 MG TAB PO ONE (09:06)
[2023-08-10 09:30] VITALS: BP 118/70; TEMP 97; O2SAT 98
[2023-08-10] MEDS ORDERED: KETOROLAC 30 MG/ML 1ML VIAL IV PRN (12:30)
[2023-08-10] MEDS: DICLOFENAC EPOLAMINE 1.3% PATCH TOP SCH (13:15)
[2023-08-10] MEDS: CYCLOBENZAPRINE 5MG TABLET PO SCH (13:17)
[2023-08-10] MEDS: ACETAMINOPHEN 500 MG TAB PO SCH (13:17)
[2023-08-10] MEDS: KETOROLAC 30 MG/ML 1ML VIAL IV SCH (13:17)
[2023-08-10 14:00] VITALS: BP 112/63; TEMP 97.2; O2SAT 95
[2023-08-10] MEDS: MORPHINE 4 MG/ML 1ML VIAL IV PRN (14:50)
[2023-08-10 20:00] VITALS: BP 116/65; TEMP 97; O2SAT 96
[2023-08-10] MEDS: oxyCODONE 5MG TAB PO PRN (21:06)
[2023-08-11 06:00] VITALS: BP 118/65; TEMP 98.1; O2SAT 96
[2023-08-11 06:08] LABS: BASO % 0.5 % (0.0-1.0); EOS # 0.2 10^3/uL (0.0-0.5); EOS % 2.8 % (0.0-3.0); HEMATOCRIT 28.9 % (42.0-52.0); HEMOGLOBIN 9.4 g/dl (13.5-17.5); LYMPH # 1.7 10^3/uL (1.5-5.0); LYMPH % 27.9 % (24.0-44.0); MEAN CORPUSCULAR HEMOGLOBIN 32.6 pg (27.0-33.0); MEAN CORPUSCULAR HGB CONC 32.5 g/dl (32.0-36.5); MEAN CORPUSCULAR VOLUME 100.3 fl (80.0-96.0); MONO # 0.9 10^3/uL (0.0-0.8); MONO % 14.8 % (2.0-8.0); NEUTROPHILS # 3.2 10^3/uL (1.5-8.5); NEUTROPHILS % 51.7 % (36.0-66.0); PLATELET COUNT, AUTOMATED 181 10^3/uL (150-450); RED BLOOD COUNT 2.88 10^6/uL (4.30-6.10); WHITE BLOOD COUNT 6.1 10^3/uL (4.0-10.0)
[2023-08-11 06:37] LABS: ALBUMIN 1.8 G/DL (3.2-5.2); ALKALINE PHOSPHATASE 125 U/L (46-116); ALT/SGPT 24 U/L (7.0-40); AST/SGOT 43 U/L (<34); BLOOD UREA NITROGEN 18 MG/DL (9-23); CARBON DIOXIDE LEVEL 30 MMOL/L (20-31); CHLORIDE LEVEL 102 MMOL/L (98-107); CREATININE FOR GFR 0.51 MG/DL (0.70-1.30); GLOMERULAR FILTRATION RATE > 60.0 (>56); GLUCOSE, FASTING 133 MG/DL (60-100); POTASSIUM SERUM 3.6 MMOL/L (3.5-5.1); SODIUM LEVEL 136 MMOL/L (136-145); TOTAL PROTEIN 7.1 G/DL (5.7-8.2)
[2023-08-11 08:48] VITALS: BP 119/69
[2023-08-11] MEDS: MIRALAX *UNIT DOSE* 17GM PACKET PO SCH (08:51)
[2023-08-11] MEDS: METAMUCIL (PSYLLIUM) PACKET PO SCH (08:51)
[2023-08-11 14:00] VITALS: BP 116/69; TEMP 98.2; O2SAT 95
[2023-08-11 21:20] VITALS: BP 112/65; TEMP 98.2; O2SAT 97
[2023-08-12 05:43] VITALS: BP 113/58; TEMP 97.9; O2SAT 94
[2023-08-12 06:12] LABS: HEMATOCRIT 27.1 % (42.0-52.0); HEMOGLOBIN 8.6 g/dl (13.5-17.5); MEAN CORPUSCULAR HEMOGLOBIN 31.7 pg (27.0-33.0); MEAN CORPUSCULAR HGB CONC 31.7 g/dl (32.0-36.5); PLATELET COUNT, AUTOMATED 177 10^3/uL (150-450); RED BLOOD COUNT 2.71 10^6/uL (4.30-6.10); WHITE BLOOD COUNT 5.2 10^3/uL (4.0-10.0)
[2023-08-12 06:13] LABS: BASO % 0.6 % (0.0-1.0); EOS # 0.2 10^3/uL (0.0-0.5); EOS % 3.3 % (0.0-3.0); LYMPH # 1.5 10^3/uL (1.5-5.0); LYMPH % 28.9 % (24.0-44.0); MONO # 0.7 10^3/uL (0.0-0.8); MONO % 12.6 % (2.0-8.0); NEUTROPHILS # 2.8 10^3/uL (1.5-8.5); NEUTROPHILS % 52.7 % (36.0-66.0)
[2023-08-12 06:25] LABS: ALBUMIN 1.8 G/DL (3.2-5.2); ALKALINE PHOSPHATASE 137 U/L (46-116); ALT/SGPT 20 U/L (7.0-40); AST/SGOT 41 U/L (<34); BILIRUBIN,DIRECT 0.9 MG/DL (<0.4); BILIRUBIN,TOTAL 1.7 MG/DL (0.3-1.2); BLOOD UREA NITROGEN 19 MG/DL (9-23); CALCIUM LEVEL 8.4 MG/DL (8.5-10.1); CARBON DIOXIDE LEVEL 29 MMOL/L (20-31); CHLORIDE LEVEL 106 MMOL/L (98-107); CREATININE FOR GFR 0.56 MG/DL (0.70-1.30); GLOMERULAR FILTRATION RATE > 60.0 (>56); GLUCOSE, FASTING 194 MG/DL (60-100); POTASSIUM SERUM 3.8 MMOL/L (3.5-5.1); SODIUM LEVEL 139 MMOL/L (136-145); TOTAL PROTEIN 6.8 G/DL (5.7-8.2)
[2023-08-12 12:38] LABS: HEMATOCRIT 27.3 % (42.0-52.0); MEAN CORPUSCULAR HEMOGLOBIN 33.1 pg (27.0-33.0); MEAN CORPUSCULAR VOLUME 100.4 fl (80.0-96.0); RED BLOOD COUNT 2.72 10^6/uL (4.30-6.10); WHITE BLOOD COUNT 5.6 10^3/uL (4.0-10.0)
[2023-08-12 12:39] LABS: PLATELET COUNT, AUTOMATED 176 10^3/uL (150-450)
[2023-08-12] MEDS: CYCLOBENZAPRINE 5MG TABLET PO PRN (13:00)
[2023-08-12 14:00] VITALS: BP 109/59; TEMP 98.1; O2SAT 94
[2023-08-12] MEDS: KETOROLAC 30 MG/ML 1ML VIAL IV SCH (14:39)
[2023-08-12 20:46] VITALS: BP 108/56; TEMP 97.9; O2SAT 95
[2023-08-13 05:50] VITALS: BP 112/76; TEMP 98.2; O2SAT 96
[2023-08-13 06:09] LABS: ALBUMIN 1.8 G/DL (3.2-5.2); ALKALINE PHOSPHATASE 135 U/L (46-116); ALT/SGPT 21 U/L (7.0-40); AST/SGOT 46 U/L (<34); BILIRUBIN,DIRECT 0.8 MG/DL (<0.4); BILIRUBIN,TOTAL 1.5 MG/DL (0.3-1.2); BLOOD UREA NITROGEN 16 MG/DL (9-23); CALCIUM LEVEL 8.2 MG/DL (8.5-10.1); CARBON DIOXIDE LEVEL 28 MMOL/L (20-31); CHLORIDE LEVEL 105 MMOL/L (98-107); CREATININE FOR GFR 0.62 MG/DL (0.70-1.30); GLOMERULAR FILTRATION RATE > 60.0 (>56); GLUCOSE, FASTING 164 MG/DL (60-100); POTASSIUM SERUM 3.9 MMOL/L (3.5-5.1); SODIUM LEVEL 139 MMOL/L (136-145); TOTAL PROTEIN 6.8 G/DL (5.7-8.2)
[2023-08-13 06:22] LABS: BASO % 0.6 % (0.0-1.0); EOS # 0.2 10^3/uL (0.0-0.5); EOS % 3.1 % (0.0-3.0); HEMATOCRIT 27.3 % (42.0-52.0); HEMOGLOBIN 8.8 g/dl (13.5-17.5); LYMPH # 1.7 10^3/uL (1.5-5.0); LYMPH % 34.8 % (24.0-44.0); MEAN CORPUSCULAR HEMOGLOBIN 32.5 pg (27.0-33.0); MEAN CORPUSCULAR HGB CONC 32.2 g/dl (32.0-36.5); MEAN CORPUSCULAR VOLUME 100.7 fl (80.0-96.0); MONO # 0.6 10^3/uL (0.0-0.8); MONO % 13.3 % (2.0-8.0); NEUTROPHILS # 2.2 10^3/uL (1.5-8.5); NEUTROPHILS % 46.5 % (36.0-66.0); PLATELET COUNT, AUTOMATED 173 10^3/uL (150-450); RED BLOOD COUNT 2.71 10^6/uL (4.30-6.10); WHITE BLOOD COUNT 4.8 10^3/uL (4.0-10.0)
[2023-08-13 14:00] VITALS: BP 111/65; TEMP 98.2; O2SAT 95
[2023-08-13 20:00] VITALS: BP 110/64; TEMP 98.1; O2SAT 94
[2023-08-14 05:58] LABS: HEMOGLOBIN 9.2 g/dl (13.5-17.5); RED BLOOD COUNT 2.84 10^6/uL (4.30-6.10); WHITE BLOOD COUNT 4.7 10^3/uL (4.0-10.0)
[2023-08-14 05:59] LABS: HEMATOCRIT 28.7 % (42.0-52.0); MEAN CORPUSCULAR HEMOGLOBIN 32.4 pg (27.0-33.0); MEAN CORPUSCULAR HGB CONC 32.1 g/dl (32.0-36.5); MEAN CORPUSCULAR VOLUME 101.1 fl (80.0-96.0); PLATELET COUNT, AUTOMATED 173 10^3/uL (150-450)
[2023-08-14 06:00] VITALS: BP 119/73; TEMP 98.2; O2SAT 95
[2023-08-14 06:14] LABS: ALBUMIN 1.8 G/DL (3.2-5.2); ALKALINE PHOSPHATASE 137 U/L (46-116); ALT/SGPT 20 U/L (7.0-40); AST/SGOT 47 U/L (<34); BILIRUBIN,DIRECT 0.9 MG/DL (<0.4); BILIRUBIN,TOTAL 1.7 MG/DL (0.3-1.2); BLOOD UREA NITROGEN 16 MG/DL (9-23); CALCIUM LEVEL 8.5 MG/DL (8.5-10.1); CARBON DIOXIDE LEVEL 27 MMOL/L (20-31); CHLORIDE LEVEL 106 MMOL/L (98-107); CREATININE FOR GFR 0.61 MG/DL (0.70-1.30); GLOMERULAR FILTRATION RATE > 60.0 (>56); GLUCOSE, FASTING 140 MG/DL (60-100); POTASSIUM SERUM 4.1 MMOL/L (3.5-5.1); SODIUM LEVEL 141 MMOL/L (136-145); TOTAL PROTEIN 6.9 G/DL (5.7-8.2)
[2023-08-14 14:20] VITALS: BP 109/58; TEMP 98.1; O2SAT 94
[2023-08-14] MEDS: GABAPENTIN 300 MG CAP PO SCH (16:44)
[2023-08-14 22:00] VITALS: BP 109/60; TEMP 98.1; O2SAT 94
[2023-08-15 06:00] VITALS: BP 111/63; TEMP 98.2; O2SAT 93
[2023-08-15 06:06] LABS: HEMATOCRIT 28.1 % (42.0-52.0); MEAN CORPUSCULAR HEMOGLOBIN 32.4 pg (27.0-33.0); MEAN CORPUSCULAR VOLUME 101.1 fl (80.0-96.0); PLATELET COUNT, AUTOMATED 164 10^3/uL (150-450); RED BLOOD COUNT 2.78 10^6/uL (4.30-6.10); WHITE BLOOD COUNT 5.2 10^3/uL (4.0-10.0)
[2023-08-15 06:36] LABS: ALBUMIN 1.8 G/DL (3.2-5.2); ALKALINE PHOSPHATASE 108 U/L (46-116); ALT/SGPT 19 U/L (7.0-40); AST/SGOT 43 U/L (<34); BILIRUBIN,DIRECT 0.9 MG/DL (<0.4); BILIRUBIN,TOTAL 1.8 MG/DL (0.3-1.2); BLOOD UREA NITROGEN 18 MG/DL (9-23); CALCIUM LEVEL 8.4 MG/DL (8.5-10.1); CARBON DIOXIDE LEVEL 28 MMOL/L (20-31); CHLORIDE LEVEL 105 MMOL/L (98-107); GLOMERULAR FILTRATION RATE > 60.0 (>56); GLUCOSE, FASTING 98 MG/DL (60-100); SODIUM LEVEL 140 MMOL/L (136-145); TOTAL PROTEIN 6.8 G/DL (5.7-8.2)
[2023-08-15 14:00] VITALS: BP 102/60; TEMP 98.2; O2SAT 92
[2023-08-15] MEDS: PERCOCET 5MG/325MG TAB PO PRN (17:25)
[2023-08-15 20:00] VITALS: BP 104/62; TEMP 98.1; O2SAT 95
[2023-08-16 04:31] VITALS: BP 128/70; TEMP 98.4; O2SAT 94
[2023-08-16 07:13] LABS: HEMATOCRIT 27.8 % (42.0-52.0); HEMOGLOBIN 9.3 g/dl (13.5-17.5); MEAN CORPUSCULAR HEMOGLOBIN 33.3 pg (27.0-33.0); MEAN CORPUSCULAR HGB CONC 33.5 g/dl (32.0-36.5); MEAN CORPUSCULAR VOLUME 99.6 fl (80.0-96.0); PLATELET COUNT, AUTOMATED 163 10^3/uL (150-450); RED BLOOD COUNT 2.79 10^6/uL (4.30-6.10); WHITE BLOOD COUNT 5.2 10^3/uL (4.0-10.0)
[2023-08-16 07:30] LABS: CPK CREATINE PHOSPHOKINASE 48 U/L (46-171)
[2023-08-16 07:31] LABS: ALBUMIN 1.9 G/DL (3.2-5.2); ALKALINE PHOSPHATASE 114 U/L (46-116); ALT/SGPT 18 U/L (7.0-40); AST/SGOT 42 U/L (<34); BILIRUBIN,DIRECT 0.9 MG/DL (<0.4); BILIRUBIN,TOTAL 1.8 MG/DL (0.3-1.2); BLOOD UREA NITROGEN 13 MG/DL (9-23); CALCIUM LEVEL 8.6 MG/DL (8.5-10.1); CARBON DIOXIDE LEVEL 26 MMOL/L (20-31); CHLORIDE LEVEL 106 MMOL/L (98-107); CREATININE FOR GFR 0.63 MG/DL (0.70-1.30); GLOMERULAR FILTRATION RATE > 60.0 (>56); GLUCOSE, FASTING 144 MG/DL (60-100); POTASSIUM SERUM 4.1 MMOL/L (3.5-5.1); SODIUM LEVEL 138 MMOL/L (136-145); TOTAL PROTEIN 7.1 G/DL (5.7-8.2)
[2023-08-16] MEDS: oxyCODONE 5MG TAB PO PRN (09:56)
[2023-08-16] MEDS: BACLOFEN 10 MG TAB PO SCH (10:07)
[2023-08-16 14:00] VITALS: BP 123/70; TEMP 98.4; O2SAT 97
[2023-08-16 20:58] VITALS: BP 111/61; TEMP 97.5; O2SAT 94
[2023-08-17 05:55] VITALS: BP 139/69; TEMP 97.7; O2SAT 94
[2023-08-17 07:01] LABS: HEMATOCRIT 30.5 % (42.0-52.0); MEAN CORPUSCULAR HEMOGLOBIN 32.6 pg (27.0-33.0); MEAN CORPUSCULAR HGB CONC 32.8 g/dl (32.0-36.5); MEAN CORPUSCULAR VOLUME 99.3 fl (80.0-96.0); PLATELET COUNT, AUTOMATED 171 10^3/uL (150-450); RED BLOOD COUNT 3.07 10^6/uL (4.30-6.10); WHITE BLOOD COUNT 5.7 10^3/uL (4.0-10.0)
[2023-08-17 07:23] LABS: BLOOD UREA NITROGEN 13 MG/DL (9-23); CALCIUM LEVEL 8.8 MG/DL (8.5-10.1); CARBON DIOXIDE LEVEL 26 MMOL/L (20-31); CHLORIDE LEVEL 104 MMOL/L (98-107); CREATININE FOR GFR 0.63 MG/DL (0.70-1.30); GLOMERULAR FILTRATION RATE > 60.0 (>56); GLUCOSE, FASTING 135 MG/DL (60-100); POTASSIUM SERUM 3.8 MMOL/L (3.5-5.1); SODIUM LEVEL 134 MMOL/L (136-145)
[2023-08-17 14:00] VITALS: BP 123/72; TEMP 98.1; O2SAT 95
[2023-08-17 19:31] VITALS: BP 106/56; TEMP 98.2; O2SAT 95
[2023-08-18 05:03] VITALS: BP 111/67; TEMP 98.1; O2SAT 95
[2023-08-18 06:50] LABS: HEMATOCRIT 29.8 % (42.0-52.0); HEMOGLOBIN 9.5 g/dl (13.5-17.5); MEAN CORPUSCULAR HEMOGLOBIN 32.9 pg (27.0-33.0); MEAN CORPUSCULAR HGB CONC 31.9 g/dl (32.0-36.5); MEAN CORPUSCULAR VOLUME 103.1 fl (80.0-96.0); PLATELET COUNT, AUTOMATED 149 10^3/uL (150-450); RED BLOOD COUNT 2.89 10^6/uL (4.30-6.10)
[2023-08-18 07:15] LABS: BLOOD UREA NITROGEN 14 MG/DL (9-23); CALCIUM LEVEL 8.7 MG/DL (8.5-10.1); CARBON DIOXIDE LEVEL 27 MMOL/L (20-31); CHLORIDE LEVEL 102 MMOL/L (98-107); CREATININE FOR GFR 0.58 MG/DL (0.70-1.30); GLOMERULAR FILTRATION RATE > 60.0 (>56); GLUCOSE, FASTING 169 MG/DL (60-100); POTASSIUM SERUM 3.6 MMOL/L (3.5-5.1); SODIUM LEVEL 134 MMOL/L (136-145)
[2023-08-18 14:00] VITALS: BP 100/60; TEMP 97.2; O2SAT 96
[2023-08-18 19:53] VITALS: BP 103/69; TEMP 98.6; O2SAT 96
[2023-08-19 05:49] VITALS: BP 101/59; TEMP 98.2; O2SAT 93
[2023-08-19 07:05] LABS: HEMATOCRIT 30.1 % (42.0-52.0); HEMOGLOBIN 9.9 g/dl (13.5-17.5); MEAN CORPUSCULAR HEMOGLOBIN 32.9 pg (27.0-33.0); MEAN CORPUSCULAR HGB CONC 32.9 g/dl (32.0-36.5); PLATELET COUNT, AUTOMATED 153 10^3/uL (150-450); RED BLOOD COUNT 3.01 10^6/uL (4.30-6.10); WHITE BLOOD COUNT 5.7 10^3/uL (4.0-10.0)
[2023-08-19 07:33] LABS: BLOOD UREA NITROGEN 13 MG/DL (9-23); CALCIUM LEVEL 8.5 MG/DL (8.5-10.1); CARBON DIOXIDE LEVEL 29 MMOL/L (20-31); CHLORIDE LEVEL 102 MMOL/L (98-107); GLOMERULAR FILTRATION RATE > 60.0 (>56); GLUCOSE, FASTING 98 MG/DL (60-100); POTASSIUM SERUM 3.4 MMOL/L (3.5-5.1); SODIUM LEVEL 135 MMOL/L (136-145)
[2023-08-19] MEDS: POTASSIUM CHLORIDE 10MEQ SR TABLET PO ONE (10:00)
[2023-08-19 14:00] VITALS: BP 115/65; TEMP 98.4; O2SAT 93
[2023-08-19 20:29] VITALS: BP 113/64; TEMP 98.2; O2SAT 94
[2023-08-20 05:40] VITALS: BP 111/65; TEMP 98.2; O2SAT 97
[2023-08-20 08:37] LABS: BASO % 0.8 % (0.0-1.0); EOS # 0.1 10^3/uL (0.0-0.5); EOS % 2.8 % (0.0-3.0); HEMATOCRIT 30.1 % (42.0-52.0); HEMOGLOBIN 9.8 g/dl (13.5-17.5); LYMPH # 1.3 10^3/uL (1.5-5.0); LYMPH % 31.9 % (24.0-44.0); MEAN CORPUSCULAR HEMOGLOBIN 32.7 pg (27.0-33.0); MEAN CORPUSCULAR HGB CONC 32.6 g/dl (32.0-36.5); MEAN CORPUSCULAR VOLUME 100.3 fl (80.0-96.0); MONO # 0.4 10^3/uL (0.0-0.8); NEUTROPHILS # 2.1 10^3/uL (1.5-8.5); PLATELET COUNT, AUTOMATED 148 10^3/uL (150-450); WHITE BLOOD COUNT 3.9 10^3/uL (4.0-10.0)
[2023-08-20 08:54] LABS: BLOOD UREA NITROGEN 13 MG/DL (9-23); CALCIUM LEVEL 8.2 MG/DL (8.5-10.1); CARBON DIOXIDE LEVEL 28 MMOL/L (20-31); CHLORIDE LEVEL 103 MMOL/L (98-107); CREATININE FOR GFR 0.58 MG/DL (0.70-1.30); GLOMERULAR FILTRATION RATE > 60.0 (>56); GLUCOSE, FASTING 259 MG/DL (60-100); POTASSIUM SERUM 3.6 MMOL/L (3.5-5.1); SODIUM LEVEL 136 MMOL/L (136-145)
[2023-08-20 15:01] VITALS: BP 111/67; TEMP 98.1; O2SAT 99
[2023-08-20 21:01] VITALS: BP 116/66; TEMP 97.6; O2SAT 95
[2023-08-21 05:34] VITALS: BP 117/65; TEMP 98.2; O2SAT 95
[2023-08-21 14:00] VITALS: BP 120/69; TEMP 97.5; O2SAT 95
[2023-08-21 20:00] VITALS: BP 119/68; TEMP 98.4; O2SAT 96
[2023-08-22 05:22] VITALS: BP 115/67; TEMP 98.2; O2SAT 95
[2023-08-22 06:33] LABS: HEMATOCRIT 33.3 % (42.0-52.0); HEMOGLOBIN 10.7 g/dl (13.5-17.5); MEAN CORPUSCULAR HEMOGLOBIN 32.3 pg (27.0-33.0); MEAN CORPUSCULAR HGB CONC 32.1 g/dl (32.0-36.5); MEAN CORPUSCULAR VOLUME 100.6 fl (80.0-96.0); PLATELET COUNT, AUTOMATED 156 10^3/uL (150-450); RED BLOOD COUNT 3.31 10^6/uL (4.30-6.10); WHITE BLOOD COUNT 5.3 10^3/uL (4.0-10.0)
[2023-08-22 06:52] LABS: BLOOD UREA NITROGEN 12 MG/DL (9-23); CALCIUM LEVEL 8.6 MG/DL (8.5-10.1); CARBON DIOXIDE LEVEL 29 MMOL/L (20-31); CHLORIDE LEVEL 103 MMOL/L (98-107); CREATININE FOR GFR 0.53 MG/DL (0.70-1.30); GLOMERULAR FILTRATION RATE > 60.0 (>56); GLUCOSE, FASTING 122 MG/DL (60-100); POTASSIUM SERUM 3.3 MMOL/L (3.5-5.1); SODIUM LEVEL 139 MMOL/L (136-145)
[2023-08-22] MEDS: POTASSIUM CHLORIDE 10MEQ SR TABLET PO ONE (09:36)
[2023-08-22] MEDS: MORPHINE 4 MG/ML 1ML VIAL IV PRN (13:19)
[2023-08-22 14:09] VITALS: BP 139/73; TEMP 98.2; O2SAT 94
[2023-08-22 20:24] VITALS: BP 135/72; TEMP 98.2; O2SAT 95
[2023-08-23 05:05] VITALS: BP 129/72; TEMP 98.2; O2SAT 97
[2023-08-23 08:08] LABS: CPK CREATINE PHOSPHOKINASE 73 U/L (46-171)
[2023-08-23 08:49] LABS: BLOOD UREA NITROGEN 11 MG/DL (9-23); CALCIUM LEVEL 8.6 MG/DL (8.5-10.1); CARBON DIOXIDE LEVEL 28 MMOL/L (20-31); CHLORIDE LEVEL 100 MMOL/L (98-107); CREATININE FOR GFR 0.54 MG/DL (0.70-1.30); GLOMERULAR FILTRATION RATE > 60.0 (>56); GLUCOSE, FASTING 173 MG/DL (60-100); POTASSIUM SERUM 3.5 MMOL/L (3.5-5.1); SODIUM LEVEL 136 MMOL/L (136-145)
[2023-08-23 09:41] LABS: HEMATOCRIT 33.2 % (42.0-52.0); MEAN CORPUSCULAR HEMOGLOBIN 32.7 pg (27.0-33.0); MEAN CORPUSCULAR HGB CONC 33.1 g/dl (32.0-36.5); MEAN CORPUSCULAR VOLUME 98.8 fl (80.0-96.0); PLATELET COUNT, AUTOMATED 147 10^3/uL (150-450); RED BLOOD COUNT 3.36 10^6/uL (4.30-6.10); WHITE BLOOD COUNT 5.6 10^3/uL (4.0-10.0)
[2023-08-23 14:00] VITALS: BP 123/70; TEMP 98.1; O2SAT 95
[2023-08-23 20:20] VITALS: BP 121/69; TEMP 98.2; O2SAT 95
[2023-08-23] MEDS: NYSTATIN 100,000 UNITS/GM TOPICAL PWD 15GM TOP SCH (21:53)
[2023-08-24 05:20] VITALS: BP 117/63; TEMP 98.1; O2SAT 94
[2023-08-24 06:05] LABS: HEMATOCRIT 34.9 % (42.0-52.0); HEMOGLOBIN 11.5 g/dl (13.5-17.5); MEAN CORPUSCULAR HEMOGLOBIN 32.6 pg (27.0-33.0); MEAN CORPUSCULAR VOLUME 98.9 fl (80.0-96.0); PLATELET COUNT, AUTOMATED 142 10^3/uL (150-450); RED BLOOD COUNT 3.53 10^6/uL (4.30-6.10); WHITE BLOOD COUNT 5.6 10^3/uL (4.0-10.0)
[2023-08-24 06:35] LABS: BLOOD UREA NITROGEN 10 MG/DL (9-23); CALCIUM LEVEL 8.3 MG/DL (8.5-10.1); CARBON DIOXIDE LEVEL 30 MMOL/L (20-31); CHLORIDE LEVEL 99 MMOL/L (98-107); GLOMERULAR FILTRATION RATE > 60.0 (>56); GLUCOSE, FASTING 118 MG/DL (60-100); POTASSIUM SERUM 3.5 MMOL/L (3.5-5.1); SODIUM LEVEL 134 MMOL/L (136-145)
[2023-08-24 14:00] VITALS: BP 112/59; TEMP 98.2; O2SAT 97
[2023-08-24 20:20] VITALS: BP 126/70; TEMP 97.3; O2SAT 93
[2023-08-25] VITALS (11 sets, daily range): BP systolic 91–124; BP diastolic 55–86; TEMP 97.8–98.4; O2SAT 91–96
[2023-08-25 06:01] LABS: HEMATOCRIT 32.7 % (42.0-52.0); MEAN CORPUSCULAR HEMOGLOBIN 32.6 pg (27.0-33.0); MEAN CORPUSCULAR HGB CONC 33.6 g/dl (32.0-36.5); PLATELET COUNT, AUTOMATED 142 10^3/uL (150-450); RED BLOOD COUNT 3.37 10^6/uL (4.30-6.10); WHITE BLOOD COUNT 5.4 10^3/uL (4.0-10.0)
[2023-08-25 06:36] LABS: BLOOD UREA NITROGEN 12 MG/DL (9-23); CALCIUM LEVEL 8.6 MG/DL (8.5-10.1); CARBON DIOXIDE LEVEL 30 MMOL/L (20-31); CHLORIDE LEVEL 102 MMOL/L (98-107); CREATININE FOR GFR 0.53 MG/DL (0.70-1.30); GLOMERULAR FILTRATION RATE > 60.0 (>56); GLUCOSE, FASTING 118 MG/DL (60-100); POTASSIUM SERUM 3.2 MMOL/L (3.5-5.1); SODIUM LEVEL 137 MMOL/L (136-145)
[2023-08-25] MEDS: POTASSIUM CHLORIDE 10MEQ SR TABLET PO ONE (08:19)
[2023-08-25] MEDS ORDERED: dexmedeTOMIDine (4MCG/ML)200MCG/50ML BTL (PRECEDEX) As Ordered ONE (10:26)
[2023-08-25] MEDS ORDERED: METOCLOPRAMIDE INJ 10MG/2ML VIAL As Ordered ONE (10:26)
[2023-08-25] MEDS ORDERED: ACETAMINOPHEN 1000MG 100ML IV BAG As Ordered ONE (10:27)
[2023-08-25] MEDS: TRANEXAMIC ACID 100 MG/ML 10ML VIAL As Ordered ONE (10:55)
[2023-08-25] MEDS ORDERED: fentaNYL 100 MCG/2 ML INJECTION IV PRN (11:40)
[2023-08-25] MEDS ORDERED: ONDANSETRON 4MG 2ML VIAL IV PRN (11:40)
[2023-08-25] MEDS ORDERED: MORPHINE 2 MG/ML 1ML VIAL IV PRN (11:40)
[2023-08-25] MEDS ORDERED: oxyCODONE 5MG TAB PO PRN (11:40)
[2023-08-25 15:20] LABS: HSV-1 DNA Negative (Negative); HSV-2 DNA Negative (Negative)
[2023-08-26 02:00] VITALS: BP 123/75; TEMP 98.1; O2SAT 94
[2023-08-26 05:00] VITALS: BP 123/73; TEMP 98.1; O2SAT 94
[2023-08-26 07:31] LABS: HEMOGLOBIN 10.8 g/dl (13.5-17.5); MEAN CORPUSCULAR HEMOGLOBIN 32.9 pg (27.0-33.0); MEAN CORPUSCULAR HGB CONC 33.8 g/dl (32.0-36.5); MEAN CORPUSCULAR VOLUME 97.6 fl (80.0-96.0); PLATELET COUNT, AUTOMATED 136 10^3/uL (150-450); RED BLOOD COUNT 3.28 10^6/uL (4.30-6.10); WHITE BLOOD COUNT 7.2 10^3/uL (4.0-10.0)
[2023-08-26 08:05] LABS: BLOOD UREA NITROGEN 16 MG/DL (9-23); CALCIUM LEVEL 8.6 MG/DL (8.5-10.1); CARBON DIOXIDE LEVEL 26 MMOL/L (20-31); CHLORIDE LEVEL 101 MMOL/L (98-107); CREATININE FOR GFR 0.49 MG/DL (0.70-1.30); GLOMERULAR FILTRATION RATE > 60.0 (>56); GLUCOSE, FASTING 266 MG/DL (60-100); POTASSIUM SERUM 4.4 MMOL/L (3.5-5.1); SODIUM LEVEL 133 MMOL/L (136-145)
[2023-08-26] MEDS: APIXABAN 5 MG TAB (ELIQUIS) PO SCH (09:33)
[2023-08-26 10:00] VITALS: BP 128/68; TEMP 98.6; O2SAT 92
[2023-08-26 14:00] VITALS: BP 134/85; TEMP 98.1; O2SAT 97
[2023-08-26 20:37] VITALS: BP 118/69; TEMP 97.9; O2SAT 95
[2023-08-26] MEDS: LEVEMIR (INSULIN DETEMIR) 1 UNITS/0.01ML SC SCH (21:01)
[2023-08-27 04:31] VITALS: BP 112/69; TEMP 98.2; O2SAT 95
[2023-08-27 06:57] LABS: HEMATOCRIT 32.1 % (42.0-52.0); HEMOGLOBIN 10.6 g/dl (13.5-17.5); MEAN CORPUSCULAR HEMOGLOBIN 32.7 pg (27.0-33.0); MEAN CORPUSCULAR VOLUME 99.1 fl (80.0-96.0); PLATELET COUNT, AUTOMATED 147 10^3/uL (150-450); RED BLOOD COUNT 3.24 10^6/uL (4.30-6.10)
[2023-08-27 07:26] LABS: BLOOD UREA NITROGEN 15 MG/DL (9-23); CALCIUM LEVEL 8.4 MG/DL (8.5-10.1); CARBON DIOXIDE LEVEL 29 MMOL/L (20-31); CHLORIDE LEVEL 100 MMOL/L (98-107); CREATININE FOR GFR 0.57 MG/DL (0.70-1.30); GLOMERULAR FILTRATION RATE > 60.0 (>56); GLUCOSE, FASTING 267 MG/DL (60-100); POTASSIUM SERUM 3.3 MMOL/L (3.5-5.1); SODIUM LEVEL 133 MMOL/L (136-145)
[2023-08-27 14:00] VITALS: BP 127/72; TEMP 98.1; O2SAT 96
[2023-08-27 19:40] VITALS: BP 127/72; TEMP 98.2; O2SAT 94
[2023-08-27] MEDS: LEVEMIR (INSULIN DETEMIR) 1 UNITS/0.01ML SC SCH (19:57)
[2023-08-28 07:05] LABS: HEMATOCRIT 34.4 % (42.0-52.0); HEMOGLOBIN 11.3 g/dl (13.5-17.5); MEAN CORPUSCULAR HEMOGLOBIN 32.5 pg (27.0-33.0); MEAN CORPUSCULAR HGB CONC 32.8 g/dl (32.0-36.5); MEAN CORPUSCULAR VOLUME 98.9 fl (80.0-96.0); PLATELET COUNT, AUTOMATED 147 10^3/uL (150-450); RED BLOOD COUNT 3.48 10^6/uL (4.30-6.10); WHITE BLOOD COUNT 8.4 10^3/uL (4.0-10.0)
[2023-08-28 07:33] LABS: BLOOD UREA NITROGEN 12 MG/DL (9-23); CALCIUM LEVEL 8.6 MG/DL (8.5-10.1); CARBON DIOXIDE LEVEL 31 MMOL/L (20-31); CHLORIDE LEVEL 98 MMOL/L (98-107); CREATININE FOR GFR 0.54 MG/DL (0.70-1.30); GLOMERULAR FILTRATION RATE > 60.0 (>56); GLUCOSE, FASTING 216 MG/DL (60-100); POTASSIUM SERUM 3.2 MMOL/L (3.5-5.1); SODIUM LEVEL 135 MMOL/L (136-145)
[2023-08-28] MEDS: POTASSIUM CHLORIDE 10MEQ SR TABLET PO SCH (09:09)
[2023-08-28 14:00] VITALS: BP 140/75; TEMP 97.7; O2SAT 94
[2023-08-28 20:00] VITALS: BP 105/59; TEMP 98.1; O2SAT 94
[2023-08-29] VITALS (7 sets, daily range): BP systolic 81–140; BP diastolic 62–84; TEMP 98.1–103; O2SAT 92–96
[2023-08-29 06:21] LABS: HEMATOCRIT 37.1 % (42.0-52.0); HEMOGLOBIN 12.3 g/dl (13.5-17.5); MEAN CORPUSCULAR HEMOGLOBIN 32.3 pg (27.0-33.0); MEAN CORPUSCULAR HGB CONC 33.2 g/dl (32.0-36.5); MEAN CORPUSCULAR VOLUME 97.4 fl (80.0-96.0); PLATELET COUNT, AUTOMATED 147 10^3/uL (150-450); RED BLOOD COUNT 3.81 10^6/uL (4.30-6.10); WHITE BLOOD COUNT 13.5 10^3/uL (4.0-10.0)
[2023-08-29 06:45] LABS: ERYTHROCYTE SEDIMENTATION RATE > 130 mm/hr (0-20)
[2023-08-29 06:55] LABS: BLOOD UREA NITROGEN 10 MG/DL (9-23); CALCIUM LEVEL 9.3 MG/DL (8.5-10.1); CARBON DIOXIDE LEVEL 26 MMOL/L (20-31); CHLORIDE LEVEL 100 MMOL/L (98-107); CPK CREATINE PHOSPHOKINASE 51 U/L (46-171); CREATININE FOR GFR 0.55 MG/DL (0.70-1.30); GLOMERULAR FILTRATION RATE > 60.0 (>56); GLUCOSE, FASTING 200 MG/DL (60-100); MAGNESIUM LEVEL 1.5 MG/DL (1.8-2.4); POTASSIUM SERUM 3.7 MMOL/L (3.5-5.1); SODIUM LEVEL 134 MMOL/L (136-145)
[2023-08-29] MEDS: MAG SULF 1GM/100ML (MAG RUN) 1 GM in IV 1 EA IV SCH (08:20)
[2023-08-29] MEDS ORDERED: XIFA550T PO ×2 (11:13→12:01)
[2023-08-29] MEDS ORDERED: GABA-282 PO ×2 (11:13→12:01)
[2023-08-29] MEDS ORDERED: SENN-52 PO ×2 (11:13→12:01)
[2023-08-29] MEDS ORDERED: TORS20TA2 PO ×2 (11:13→12:01)
[2023-08-29] MEDS ORDERED: LACT20EL PO ×2 (11:13→12:01)
[2023-08-29] MEDS ORDERED: OXYC-517 PO ×2 (11:13→12:26)
[2023-08-29] MEDS ORDERED: MIRA3350 PO (12:01)
[2023-08-29] MEDS ORDERED: BASA100I SC (12:01)
[2023-08-29] MEDS ORDERED: POTA-136 PO (12:01)
[2023-08-29] MEDS ORDERED: LIDO5TD TD (12:01)
[2023-08-29] MEDS ORDERED: DOXY-444 PO (12:11)
[2023-08-29] MEDS: ACETAMINOPHEN TAB 650MG DOSE (2X325MG) PO ONE (19:57)
[2023-08-29] MEDS: NS 1,000 ML IV ONE (20:01)
[2023-08-30] VITALS (9 sets, daily range): BP systolic 92–116; BP diastolic 50–63; TEMP 97.2–101.2; O2SAT 93–97
[2023-08-30] MEDS: IBUPROFEN 600MG TAB PO ONE (00:37)
[2023-08-30] MEDS: NS 1,000 ML IV SCH (01:59)
[2023-08-30 06:13] LABS: BASO % 0.3 % (0.0-1.0); EOS % 0.1 % (0.0-3.0); HEMATOCRIT 33.1 % (42.0-52.0); LYMPH # 1.2 10^3/uL (1.5-5.0); LYMPH % 11.2 % (24.0-44.0); MEAN CORPUSCULAR HEMOGLOBIN 32.2 pg (27.0-33.0); MEAN CORPUSCULAR HGB CONC 33.2 g/dl (32.0-36.5); MEAN CORPUSCULAR VOLUME 96.8 fl (80.0-96.0); MONO # 0.8 10^3/uL (0.0-0.8); MONO % 7.2 % (2.0-8.0); NEUTROPHILS # 8.6 10^3/uL (1.5-8.5); NEUTROPHILS % 80.5 % (36.0-66.0); PLATELET COUNT, AUTOMATED 101 10^3/uL (150-450); RED BLOOD COUNT 3.42 10^6/uL (4.30-6.10); WHITE BLOOD COUNT 10.7 10^3/uL (4.0-10.0)
[2023-08-30 06:43] LABS: BLOOD UREA NITROGEN 13 MG/DL (9-23); CALCIUM LEVEL 8.8 MG/DL (8.5-10.1); CARBON DIOXIDE LEVEL 26 MMOL/L (20-31); CHLORIDE LEVEL 101 MMOL/L (98-107); CREATININE FOR GFR 0.69 MG/DL (0.70-1.30); GLOMERULAR FILTRATION RATE > 60.0 (>56); GLUCOSE, FASTING 167 MG/DL (60-100); MAGNESIUM LEVEL 1.7 MG/DL (1.8-2.4); POTASSIUM SERUM 3.8 MMOL/L (3.5-5.1); SODIUM LEVEL 134 MMOL/L (136-145)
[2023-08-30] MEDS: DOXYCYCLINE HYCLATE 100MG TABLET PO SCH (08:11)
[2023-08-30 08:39] LABS: PROCALCITONIN 0.35 ng/ml
[2023-08-30 09:21] LABS: ERYTHROCYTE SEDIMENTATION RATE 75 mm/hr (0-20)
[2023-08-30] MEDS: CEFEPIME HCL 2 GM in D5W MINI-BAG PLUS 50 ML IV SCH (10:05)
[2023-08-30] MEDS: SODIUM CHLORIDE 0.9% 1000ML IV ONE (11:34)
[2023-08-30] MEDS: DIAPER RELIEF PASTE (DESITIN) 60GM TOP SCH (12:49)
[2023-08-30 14:49] LABS: INR 2.63; PARTIAL THROMBOPLASTIN TIME 40.9 SECONDS (24.8-34.2); PROTHROMBIN TIME 27.1 SECONDS (12.5-14.5)
[2023-08-31 02:00] VITALS: BP 116/65; TEMP 100.4; O2SAT 93
[2023-08-31] MEDS: IBUPROFEN 400MG TAB PO ONE (02:12)
[2023-08-31 06:00] VITALS: BP 108/67; TEMP 97.4; O2SAT 95
[2023-08-31 06:50] VITALS: BP 106/66
[2023-08-31 07:29] LABS: BASO % 0.5 % (0.0-1.0); EOS # 0.2 10^3/uL (0.0-0.5); EOS % 2.6 % (0.0-3.0); HEMATOCRIT 34.5 % (42.0-52.0); HEMOGLOBIN 11.5 g/dl (13.5-17.5); LYMPH # 2.1 10^3/uL (1.5-5.0); LYMPH % 24.5 % (24.0-44.0); MEAN CORPUSCULAR HEMOGLOBIN 33.2 pg (27.0-33.0); MEAN CORPUSCULAR HGB CONC 33.3 g/dl (32.0-36.5); MEAN CORPUSCULAR VOLUME 99.7 fl (80.0-96.0); NEUTROPHILS # 5.1 10^3/uL (1.5-8.5); NEUTROPHILS % 59.9 % (36.0-66.0); PLATELET COUNT, AUTOMATED 121 10^3/uL (150-450); RED BLOOD COUNT 3.46 10^6/uL (4.30-6.10); WHITE BLOOD COUNT 8.5 10^3/uL (4.0-10.0)
[2023-08-31 07:52] LABS: ALBUMIN 1.9 G/DL (3.2-5.2); ALKALINE PHOSPHATASE 111 U/L (46-116); ALT/SGPT 20 U/L (7.0-40); AST/SGOT 47 U/L (<34); BLOOD UREA NITROGEN 10 MG/DL (9-23); CALCIUM LEVEL 8.4 MG/DL (8.5-10.1); CARBON DIOXIDE LEVEL 26 MMOL/L (20-31); CHLORIDE LEVEL 102 MMOL/L (98-107); CREATININE FOR GFR 0.54 MG/DL (0.70-1.30); GLOMERULAR FILTRATION RATE > 60.0 (>56); GLUCOSE, FASTING 110 MG/DL (60-100); MAGNESIUM LEVEL 1.5 MG/DL (1.8-2.4); POTASSIUM SERUM 3.7 MMOL/L (3.5-5.1); SODIUM LEVEL 133 MMOL/L (136-145); TOTAL PROTEIN 7.2 G/DL (5.7-8.2)
[2023-08-31 08:19] LABS: ERYTHROCYTE SEDIMENTATION RATE 89 mm/hr (0-20)
[2023-08-31 09:00] VITALS: BP 117/71; TEMP 97.6; O2SAT 96
[2023-08-31 10:04] VITALS: BP 117/71
[2023-08-31 11:13] LABS: HEMOGLOBIN A1c 5.4 % (4.0-6.0)
[2023-08-31] MEDS ORDERED: ANALGESIC BALM CRM 3OZ TOP PRN (11:35)
[2023-08-31] MEDS: MAG SULF 1GM/100ML (MAG RUN) 1 GM in IV 1 EA IV SCH (12:12)
[2023-08-31 14:19] VITALS: BP 120/72; TEMP 98.4; O2SAT 95
== END 2023-08-31 16:49 | disposition home health service (06) | DRG 710 ==
LOC: M ED 12:22 → M ED INP 22:28 → EEVIPCON 22:28 → M PCU 23:44 → M MSPAV 07-18 18:19
PROVIDERS: ADMIT Internal Medicine; ATTEND Student in an Organized Health Care Education/Training Program
PROC: 0S9C3ZX Drainage of Right Knee Joint, Percutaneous Approach, Diagnostic (ICD-10-PCS; 2023-07-17)
PROC: 0S9B3ZX Drainage of Left Hip Joint, Percutaneous Approach, Diagnostic (ICD-10-PCS; 2023-07-17)
PROC: 0S9B0ZZ Drainage of Left Hip Joint, Open Approach (ICD-10-PCS; 2023-07-18)
PROC: B246ZZZ Ultrasonography of Right and Left Heart (ICD-10-PCS; 2023-07-18)
PROC: 02HV33Z Insertion of Infusion Device into Superior Vena Cava, Percutaneous Approach (ICD-10-PCS; 2023-07-21)
PROC: 30233J1 Transfusion of Nonautologous Serum Albumin into Peripheral Vein, Percutaneous Approach (ICD-10-PCS; principal; 2023-07-22)
PROC: 30233N1 Transfusion of Nonautologous Red Blood Cells into Peripheral Vein, Percutaneous Approach (ICD-10-PCS; 2023-08-04)
PROC: 0KDP0ZZ Extraction of Left Hip Muscle, Open Approach (ICD-10-PCS; 2023-08-05)
PROC: 0S9B00Z Drainage of Left Hip Joint with Drainage Device, Open Approach (ICD-10-PCS; 2023-08-05)
PROC: 0HBJXZZ Excision of Left Upper Leg Skin, External Approach (ICD-10-PCS; 2023-08-25)
DX: A41.9 Sepsis, unspecified organism (principal); I81 Portal vein thrombosis; M00.851 Arthritis due to other bacteria, right hip; K85.90 Acute pancreatitis without necrosis or infection, unspecified; M00.852 Arthritis due to other bacteria, left hip; E87.20 Acidosis, unspecified; I85.10 Secondary esophageal varices without bleeding; K76.6 Portal hypertension; E83.42 Hypomagnesemia; E87.1 Hypo-osmolality and hyponatremia; E83.51 Hypocalcemia; D62 Acute posthemorrhagic anemia; M87.051 Idiopathic aseptic necrosis of right femur; M87.052 Idiopathic aseptic necrosis of left femur; K76.82 Hepatic encephalopathy; K70.30 Alcoholic cirrhosis of liver without ascites; S73.192D Other sprain of left hip, subsequent encounter; E11.9 Type 2 diabetes mellitus without complications; J45.909 Unspecified asthma, uncomplicated; L08.9 Local infection of the skin and subcutaneous tissue, unspecified; E03.9 Hypothyroidism, unspecified; G47.33 Obstructive sleep apnea (adult) (pediatric); M48.07 Spinal stenosis, lumbosacral region; I10 Essential (primary) hypertension; M10.9 Gout, unspecified; M16.0 Bilateral primary osteoarthritis of hip; K59.09 Other constipation; R26.89 Other abnormalities of gait and mobility; E78.5 Hyperlipidemia, unspecified; K21.9 Gastro-esophageal reflux disease without esophagitis; Z68.33 Body mass index [BMI] 33.0-33.9, adult; Z79.890 Hormone replacement therapy; Z79.01 Long term (current) use of anticoagulants; Z79.84 Long term (current) use of oral hypoglycemic drugs; Z79.899 Other long term (current) drug therapy; R65.20 Severe sepsis without septic shock; L76.32 Postprocedural hematoma of skin and subcutaneous tissue following other procedure

== ENCOUNTER → 2023-09-07 | Outpatient (CLI) | payer MEDICAID, OTHER ==
[~2023-09-07] MED LIST changes: +DAPA5TAB4 PO; +DOXY-444 PO; +FARX1TAB3 PO; +FERR1TAB8 PO; +FLUT15.820; +GABA-282 PO; +LACT20EL PO; +LIDO5TD TD; +MIRA3350 PO; +MULTTAB61 PO; +OXYC10TA3 PO; +POTA-136 PO; +SENN-186 PO; +SENN-52 PO; +SPIR50TA4 PO; +SYNT100T PO; +TORS20TA2 PO; +VENTAER INH; +XIFA550T PO
[2023-09-07 13:08] LABS: BASO % 0.5 % (0.0-1.0); EOS # 0.2 10^3/uL (0.0-0.5); EOS % 2.4 % (0.0-3.0); HEMATOCRIT 38.1 % (42.0-52.0); LYMPH # 2.6 10^3/uL (1.5-5.0); LYMPH % 29.6 % (24.0-44.0); MEAN CORPUSCULAR HEMOGLOBIN 31.9 pg (27.0-33.0); MEAN CORPUSCULAR HGB CONC 34.1 g/dl (32.0-36.5); MEAN CORPUSCULAR VOLUME 93.6 fl (80.0-96.0); MONO # 0.8 10^3/uL (0.0-0.8); MONO % 9.3 % (2.0-8.0); NEUTROPHILS % 56.8 % (36.0-66.0); PLATELET COUNT, AUTOMATED 201 10^3/uL (150-450); RED BLOOD COUNT 4.07 10^6/uL (4.30-6.10); WHITE BLOOD COUNT 8.9 10^3/uL (4.0-10.0)
[2023-09-07 13:13] LABS: ERYTHROCYTE SEDIMENTATION RATE > 130 mm/hr (0-20)
[2023-09-07 13:36] LABS: ALBUMIN 2.4 G/DL (3.2-5.2); ALKALINE PHOSPHATASE 186 U/L (46-116); ALT/SGPT 22 U/L (7.0-40); AST/SGOT 52 U/L (<34); BILIRUBIN,TOTAL 2.7 MG/DL (0.3-1.2); BLOOD UREA NITROGEN 10 MG/DL (9-23); CALCIUM LEVEL 9.3 MG/DL (8.5-10.1); CARBON DIOXIDE LEVEL 33 MMOL/L (20-31); CHLORIDE LEVEL 90 MMOL/L (98-107); CREATININE FOR GFR 0.51 MG/DL (0.70-1.30); GLOMERULAR FILTRATION RATE > 60.0 (>56); GLUCOSE, FASTING 155 MG/DL (60-100); POTASSIUM SERUM 2.5 MMOL/L (3.5-5.1); SODIUM LEVEL 130 MMOL/L (136-145); TOTAL PROTEIN 8.1 G/DL (5.7-8.2)
== END ==
LOC: M PLALAB 10:26
PROVIDERS: ATTEND Internal Medicine Infectious Disease
DX: M00.052 Staphylococcal arthritis, left hip (principal)

== ENCOUNTER → 2023-09-26 | Outpatient (REF) | payer OTHER ==
[~2023-09-26] MED LIST changes: +DOXY-440 PO; -DOXY-444 PO
== END ==
LOC: M SFHCPLAZ 06:04
PROVIDERS: ATTEND Internal Medicine Hematology
DX: E87.8 Other disorders of electrolyte and fluid balance, not elsewhere classified (principal)

== ENCOUNTER → 2023-09-26 | Outpatient (CLI) | payer OTHER ==
[2023-09-26 07:32] LABS: ALBUMIN 2.7 G/DL (3.2-5.2); ALKALINE PHOSPHATASE 161 U/L (46-116); ALT/SGPT 32 U/L (7.0-40); AST/SGOT 70 U/L (<34); BILIRUBIN,TOTAL 3.8 MG/DL (0.3-1.2); BLOOD UREA NITROGEN 10 MG/DL (9-23); CALCIUM LEVEL 9.4 MG/DL (8.5-10.1); CARBON DIOXIDE LEVEL 25 MMOL/L (20-31); CHLORIDE LEVEL 97 MMOL/L (98-107); CREATININE FOR GFR 0.56 MG/DL (0.70-1.30); GLOMERULAR FILTRATION RATE > 60.0 (>56); GLUCOSE, FASTING 258 MG/DL (60-100); MAGNESIUM LEVEL 1.2 MG/DL (1.8-2.4); SODIUM LEVEL 133 MMOL/L (136-145); TOTAL PROTEIN 8.6 G/DL (5.7-8.2)
[2023-09-26 07:58] LABS: HEMOGLOBIN A1c 6.1 % (4.0-6.0)
== END ==
LOC: M LAB 06:06
PROVIDERS: ATTEND Student in an Organized Health Care Education/Training Program
DX: E87.8 Other disorders of electrolyte and fluid balance, not elsewhere classified (principal)

== ENCOUNTER → 2023-10-17 | Outpatient (CLI) | payer OTHER ==
[~2023-10-17] MED LIST changes: +MAGN400T35
== END ==
LOC: M LAB 09:44
PROVIDERS: ATTEND Student in an Organized Health Care Education/Training Program
DX: E83.42 Hypomagnesemia (principal)

== ENCOUNTER → 2023-10-17 | Outpatient (CLI) | payer OTHER ==
[2023-10-17 10:12] LABS: BASO % 0.5 % (0.0-1.0); EOS # 0.2 10^3/uL (0.0-0.5); EOS % 2.5 % (0.0-3.0); HEMATOCRIT 38.4 % (42.0-52.0); HEMOGLOBIN 13.1 g/dl (13.5-17.5); MEAN CORPUSCULAR HEMOGLOBIN 32.1 pg (27.0-33.0); MEAN CORPUSCULAR HGB CONC 34.1 g/dl (32.0-36.5); MEAN CORPUSCULAR VOLUME 94.1 fl (80.0-96.0); MONO # 0.6 10^3/uL (0.0-0.8); MONO % 9.6 % (2.0-8.0); NEUTROPHILS # 3.6 10^3/uL (1.5-8.5); NEUTROPHILS % 56.1 % (36.0-66.0); PLATELET COUNT, AUTOMATED 132 10^3/uL (150-450); RED BLOOD COUNT 4.08 10^6/uL (4.30-6.10); WHITE BLOOD COUNT 6.4 10^3/uL (4.0-10.0)
[2023-10-17 10:18] LABS: ERYTHROCYTE SEDIMENTATION RATE 45 mm/hr (0-20)
[2023-10-17 10:37] LABS: ALBUMIN 2.5 G/DL (3.2-5.2); ALKALINE PHOSPHATASE 235 U/L (46-116); ALT/SGPT 29 U/L (7.0-40); AST/SGOT 48 U/L (<34); BILIRUBIN,TOTAL 2.2 MG/DL (0.3-1.2); BLOOD UREA NITROGEN 9 MG/DL (9-23); CALCIUM LEVEL 9.7 MG/DL (8.5-10.1); CARBON DIOXIDE LEVEL 30 MMOL/L (20-31); CHLORIDE LEVEL 99 MMOL/L (98-107); CREATININE FOR GFR 0.51 MG/DL (0.70-1.30); GLOMERULAR FILTRATION RATE > 60.0 (>56); GLUCOSE, FASTING 195 MG/DL (60-100); POTASSIUM SERUM 3.1 MMOL/L (3.5-5.1); SODIUM LEVEL 135 MMOL/L (136-145); TOTAL PROTEIN 7.3 G/DL (5.7-8.2)
== END ==
LOC: M LAB 09:45
PROVIDERS: ATTEND Internal Medicine Infectious Disease
DX: M00.052 Staphylococcal arthritis, left hip (principal)

== ENCOUNTER → 2023-11-21 | Outpatient (CLI) | payer OTHER | LOC: M RAD 10:32 | PROVIDERS: ATTEND Nurse Practitioner | DX: I81 Portal vein thrombosis (principal) ==

== ENCOUNTER → 2023-11-28 | Outpatient (REF) | payer OTHER | LOC: M SFHCPLAZ 17:13 | PROVIDERS: ATTEND Internal Medicine Infectious Disease | DX: M00.052 Staphylococcal arthritis, left hip (principal) ==

== ENCOUNTER → 2023-11-29 | Outpatient (CLI) | payer OTHER ==
[2023-11-29 11:55] LABS: BASO % 0.5 % (0.0-1.0); EOS # 0.1 10^3/uL (0.0-0.5); EOS % 1.5 % (0.0-3.0); HEMATOCRIT 42.9 % (42.0-52.0); HEMOGLOBIN 14.7 g/dl (13.5-17.5); LYMPH # 2.1 10^3/uL (1.5-5.0); LYMPH % 31.7 % (24.0-44.0); MEAN CORPUSCULAR HEMOGLOBIN 33.1 pg (27.0-33.0); MEAN CORPUSCULAR HGB CONC 34.3 g/dl (32.0-36.5); MEAN CORPUSCULAR VOLUME 96.6 fl (80.0-96.0); MONO # 0.6 10^3/uL (0.0-0.8); MONO % 9.7 % (2.0-8.0); NEUTROPHILS # 3.7 10^3/uL (1.5-8.5); NEUTROPHILS % 56.3 % (36.0-66.0); PLATELET COUNT, AUTOMATED 153 10^3/uL (150-450); RED BLOOD COUNT 4.44 10^6/uL (4.30-6.10); WHITE BLOOD COUNT 6.5 10^3/uL (4.0-10.0)
[2023-11-29 12:02] LABS: ERYTHROCYTE SEDIMENTATION RATE 55 mm/hr (0-20)
[2023-11-29 12:33] LABS: ALBUMIN 2.9 G/DL (3.2-5.2); ALKALINE PHOSPHATASE 209 U/L (46-116); ALT/SGPT 26 U/L (7.0-40); AST/SGOT 41 U/L (<34); BILIRUBIN,TOTAL 2.3 MG/DL (0.3-1.2); BLOOD UREA NITROGEN 9 MG/DL (9-23); CALCIUM LEVEL 8.9 MG/DL (8.5-10.1); CARBON DIOXIDE LEVEL 25 MMOL/L (20-31); CHLORIDE LEVEL 105 MMOL/L (98-107); CREATININE FOR GFR 0.56 MG/DL (0.70-1.30); GLOMERULAR FILTRATION RATE > 60.0 (>56); GLUCOSE, FASTING 218 MG/DL (60-100); MAGNESIUM LEVEL 1.3 MG/DL (1.8-2.4); PHOSPHORUS LEVEL 3.3 MG/DL (2.5-4.9); POTASSIUM SERUM 3.2 MMOL/L (3.5-5.1); SODIUM LEVEL 138 MMOL/L (136-145); TOTAL PROTEIN 7.6 G/DL (5.7-8.2)
[2023-12-05 15:17] LABS: AFP TUMOR L3 9.1 % (0.5-9.9); AFP TUMOR TOTAL 8.4 ng/mL (1.6-4.5)
== END ==
LOC: M LAB 09:53
PROVIDERS: ATTEND Internal Medicine Infectious Disease
DX: M00.052 Staphylococcal arthritis, left hip (principal); E87.8 Other disorders of electrolyte and fluid balance, not elsewhere classified; K70.31 Alcoholic cirrhosis of liver with ascites

== ENCOUNTER 2023-12-25 20:38 | Emergency (ER) | payer OTHER ==
[~2023-12-25] VITALS: Ht 172.7 cm; Wt 100.0 kg
[2023-12-25 20:40] VITALS: TEMP 98.6
[2023-12-25 21:49] LABS: BASO % 0.5 % (0.0-1.0); EOS # 0.2 10^3/uL (0.0-0.5); EOS % 2.6 % (0.0-3.0); HEMOGLOBIN 15.3 g/dl (13.5-17.5); LYMPH # 1.7 10^3/uL (1.5-5.0); MEAN CORPUSCULAR HEMOGLOBIN 33.6 pg (27.0-33.0); MEAN CORPUSCULAR HGB CONC 35.6 g/dl (32.0-36.5); MEAN CORPUSCULAR VOLUME 94.3 fl (80.0-96.0); MONO # 0.6 10^3/uL (0.0-0.8); MONO % 9.1 % (2.0-8.0); NEUTROPHILS # 3.7 10^3/uL (1.5-8.5); NEUTROPHILS % 60.5 % (36.0-66.0); PLATELET COUNT, AUTOMATED 147 10^3/uL (150-450); RED BLOOD COUNT 4.56 10^6/uL (4.30-6.10); WHITE BLOOD COUNT 6.2 10^3/uL (4.0-10.0)
[2023-12-25 21:58] LABS: INR 1.56; PROTHROMBIN TIME 18.1 SECONDS (12.5-14.5)
[2023-12-25 22:18] LABS: LIPASE 75 U/L (12-53)
[2023-12-25 22:20] LABS: ALBUMIN 2.7 G/DL (3.2-5.2); ALKALINE PHOSPHATASE 184 U/L (46-116); ALT/SGPT 27 U/L (7.0-40); AST/SGOT 45 U/L (<34); BILIRUBIN,DIRECT 1.1 MG/DL (<0.4); BILIRUBIN,TOTAL 2.5 MG/DL (0.3-1.2); BLOOD UREA NITROGEN 8 MG/DL (9-23); CALCIUM LEVEL 9.1 MG/DL (8.5-10.1); CARBON DIOXIDE LEVEL 31 MMOL/L (20-31); CHLORIDE LEVEL 102 MMOL/L (98-107); CREATININE FOR GFR 0.58 MG/DL (0.70-1.30); GLOMERULAR FILTRATION RATE > 60.0 (>56); GLUCOSE, FASTING 228 MG/DL (60-100); POTASSIUM SERUM 3.1 MMOL/L (3.5-5.1); SODIUM LEVEL 138 MMOL/L (136-145); TOTAL PROTEIN 7.4 G/DL (5.7-8.2)
[2023-12-26] MEDS ORDERED: ISOVUE-370 76% 100ML VIAL As Ordered ONE (03:24)
[2023-12-26] MEDS: oxyCODONE 5MG TAB PO ONE (03:28)
[2023-12-26 03:58] LABS: MAGNESIUM LEVEL 1.5 MG/DL (1.8-2.4)
[2023-12-26] MEDS: MAG SULF 1GM/100ML (MAG RUN) 1 GM in IV 1 EA IV ONE (04:29)
[2023-12-26] MEDS: POTASSIUM CHLORIDE 10MEQ SR TABLET PO ONE (04:30)
[2023-12-26 05:30] VITALS: BP 139/77; O2SAT 97
== END 2023-12-26 05:38 | disposition home or self-care (01) ==
LOC: M ED 20:38
DX: M25.551 Pain in right hip (principal); M25.552 Pain in left hip; E83.42 Hypomagnesemia; E87.6 Hypokalemia; I45.81 Long QT syndrome; I10 Essential (primary) hypertension; E78.5 Hyperlipidemia, unspecified; J45.909 Unspecified asthma, uncomplicated; K21.9 Gastro-esophageal reflux disease without esophagitis; E03.9 Hypothyroidism, unspecified; G47.33 Obstructive sleep apnea (adult) (pediatric); Z86.718 Personal history of other venous thrombosis and embolism; Z79.01 Long term (current) use of anticoagulants; Z79.52 Long term (current) use of systemic steroids; Z79.4 Long term (current) use of insulin; Z79.899 Other long term (current) drug therapy
CPT/HCPCS: 74177; 80048; 80076; 83690; 83735; 85025; 85610; 86850; 86900; 86901; 93005; 96365; 99284; J3475; Q9967

== ENCOUNTER → 2024-02-21 | Outpatient (CLI) | payer OTHER ==
[~2024-02-21] MED LIST changes: +GABA-1172 PO; -GABA-282 PO; -SENN-111 PO; +SENN-165 PO
[2024-02-21 15:06] LABS: HEMOGLOBIN A1c 6.3 % (4.0-6.0)
[2024-02-21 15:20] LABS: BLOOD UREA NITROGEN 7 MG/DL (9-23); CALCIUM LEVEL 9.4 MG/DL (8.5-10.1); CARBON DIOXIDE LEVEL 27 MMOL/L (20-31); CHLORIDE LEVEL 110 MMOL/L (98-107); CREATININE FOR GFR 0.56 MG/DL (0.70-1.30); GLOMERULAR FILTRATION RATE > 60.0 (>56); GLUCOSE, FASTING 122 MG/DL (60-100); MAGNESIUM LEVEL 1.5 MG/DL (1.8-2.4); POTASSIUM SERUM 3.8 MMOL/L (3.5-5.1); SODIUM LEVEL 141 MMOL/L (136-145)
[2024-02-21 15:24] LABS: FREE T4 1.29 NG/DL (0.89-1.76); THYROID STIMULATING HORMONE 0.068 uIU/ML (0.55-4.78)
[2024-02-22 13:21] LABS: C REACTIVE PROTEIN QUANTITATIV < 0.40 MG/DL (<1.0)
[2024-02-26 11:34] LABS: CREATININE, URINE 94.2 MG/DL; MALB URINE SIEMENS < 3.0 MG/L
== END ==
LOC: M LAB 13:39
PROVIDERS: ATTEND Student in an Organized Health Care Education/Training Program
DX: E11.610 Type 2 diabetes mellitus with diabetic neuropathic arthropathy (principal); A49.02 Methicillin resistant Staphylococcus aureus infection, unspecified site; E03.9 Hypothyroidism, unspecified; E87.8 Other disorders of electrolyte and fluid balance, not elsewhere classified

== ENCOUNTER → 2024-06-11 | Outpatient (REF) | payer OTHER ==
[2024-06-11 12:02] LABS: INR 1.3; PROTHROMBIN TIME 16.5 SECONDS (12.5-14.5)
[2024-06-11 12:15] LABS: MAGNESIUM LEVEL 1.5 MG/DL (1.8-2.4)
[2024-06-11 12:17] LABS: FREE T4 1.2 NG/DL (0.89-1.76); THYROID STIMULATING HORMONE 0.081 uIU/ML (0.55-4.78)
== END ==
LOC: M LAB REF 11:22
PROVIDERS: ATTEND Student in an Organized Health Care Education/Training Program
DX: E03.9 Hypothyroidism, unspecified (principal); K70.30 Alcoholic cirrhosis of liver without ascites; E11.610 Type 2 diabetes mellitus with diabetic neuropathic arthropathy; E83.42 Hypomagnesemia

== ENCOUNTER → 2024-06-11 | Outpatient (REF) | payer OTHER ==
[2024-06-11 11:50] LABS: BASO % 0.5 % (0.0-1.0); EOS # 0.1 10^3/uL (0.0-0.5); HEMATOCRIT 42.6 % (42.0-52.0); HEMOGLOBIN 15.1 g/dl (13.5-17.5); LYMPH # 2.1 10^3/uL (1.5-5.0); LYMPH % 34.9 % (24.0-44.0); MEAN CORPUSCULAR HEMOGLOBIN 33.3 pg (27.0-33.0); MEAN CORPUSCULAR HGB CONC 35.4 g/dl (32.0-36.5); MONO # 0.7 10^3/uL (0.0-0.8); MONO % 11.4 % (2.0-8.0); NEUTROPHILS # 3.1 10^3/uL (1.5-8.5); NEUTROPHILS % 50.7 % (36.0-66.0); PLATELET COUNT, AUTOMATED 128 10^3/uL (150-450); RED BLOOD COUNT 4.53 10^6/uL (4.30-6.10); WHITE BLOOD COUNT 6.1 10^3/uL (4.0-10.0)
[2024-06-11 12:07] LABS: ERYTHROCYTE SEDIMENTATION RATE 33 mm/hr (0-20)
[2024-06-11 12:16] LABS: ALBUMIN 2.8 G/DL (3.2-5.2); ALKALINE PHOSPHATASE 181 U/L (40-129); ALT/SGPT 28 U/L (7.0-40); AST/SGOT 38 U/L (<34); BILIRUBIN,TOTAL 2.2 MG/DL (0.3-1.2); BLOOD UREA NITROGEN 11 MG/DL (9-23); C REACTIVE PROTEIN QUANTITATIV < 0.50 MG/DL (<1.0); CALCIUM LEVEL 9.2 MG/DL (8.5-10.1); CARBON DIOXIDE LEVEL 23 MMOL/L (20-31); CHLORIDE LEVEL 108 MMOL/L (98-107); CREATININE FOR GFR 0.48 MG/DL (0.70-1.30); GLOMERULAR FILTRATION RATE > 60.0 (>56); GLUCOSE, FASTING 130 MG/DL (60-100); POTASSIUM SERUM 3.8 MMOL/L (3.5-5.1); SODIUM LEVEL 140 MMOL/L (136-145); TOTAL PROTEIN 7.2 G/DL (5.7-8.2)
== END ==
LOC: M LAB REF 11:19
PROVIDERS: ATTEND Internal Medicine Infectious Disease
DX: A49.02 Methicillin resistant Staphylococcus aureus infection, unspecified site (principal); M00.052 Staphylococcal arthritis, left hip

== ENCOUNTER 2024-06-29 18:30 | Emergency (ER) | payer OTHER ==
[~2024-06-29] VITALS: Ht 172.7 cm; Wt 103.6 kg
[2024-06-29 18:33] VITALS: TEMP 98.2
[2024-06-29 19:15] LABS: BASO % 0.3 % (0.0-1.0); EOS # 0.1 10^3/uL (0.0-0.5); HEMATOCRIT 48.2 % (42.0-52.0); HEMOGLOBIN 17.2 g/dl (13.5-17.5); LYMPH # 1.8 10^3/uL (1.5-5.0); LYMPH % 29.9 % (24.0-44.0); MEAN CORPUSCULAR HEMOGLOBIN 34.4 pg (27.0-33.0); MEAN CORPUSCULAR HGB CONC 35.7 g/dl (32.0-36.5); MEAN CORPUSCULAR VOLUME 96.4 fl (80.0-96.0); MONO # 0.6 10^3/uL (0.0-0.8); MONO % 9.7 % (2.0-8.0); NEUTROPHILS # 3.5 10^3/uL (1.5-8.5); NEUTROPHILS % 58.9 % (36.0-66.0); PLATELET COUNT, AUTOMATED 132 10^3/uL (150-450)
[2024-06-29 19:45] LABS: CK-MB VALUE MASS 4.1 NG/ML (<3.6)
[2024-06-29 19:46] LABS: BLOOD UREA NITROGEN 9 MG/DL (9-23); CALCIUM LEVEL 9.5 MG/DL (8.5-10.1); CARBON DIOXIDE LEVEL 22 MMOL/L (20-31); CHLORIDE LEVEL 109 MMOL/L (98-107); CREATININE FOR GFR 0.55 MG/DL (0.70-1.30); GLOMERULAR FILTRATION RATE > 60.0 (>56); GLUCOSE, FASTING 136 MG/DL (60-100); POTASSIUM SERUM 4.2 MMOL/L (3.5-5.1); SODIUM LEVEL 141 MMOL/L (136-145)
[2024-06-29] MEDS: MORPHINE 4 MG/ML 1ML VIAL IV ONE (20:10)
[2024-06-29] MEDS: ONDANSETRON 4MG 2ML VIAL IV ONE (20:10)
[2024-06-29] MEDS ORDERED: ISOVUE-370 76% 100ML VIAL As Ordered ONE (20:12)
[2024-06-29 20:23] LABS: ALKALINE PHOSPHATASE 131 U/L (40-129); ALT/SGPT 29 U/L (7.0-40); AST/SGOT 46 U/L (<34); BILIRUBIN,DIRECT 1.1 MG/DL (<0.4); TOTAL PROTEIN 7.6 G/DL (5.7-8.2)
[2024-06-29 20:26] LABS: CPK CREATINE PHOSPHOKINASE 108 U/L (46-171); MB/CK RELATIVE INDEX 3.79 (< OR =4)
[2024-06-29 20:27] LABS: INR 1.41; PARTIAL THROMBOPLASTIN TIME 38.6 SECONDS (24.8-34.2); PROTHROMBIN TIME 17.5 SECONDS (12.5-14.5)
[2024-06-29 20:43] LABS: CK-MB VALUE MASS 4.1 NG/ML (<3.6)
[2024-06-29 20:45] LABS: CPK CREATINE PHOSPHOKINASE 106 U/L (46-171); MB/CK RELATIVE INDEX 3.86 (< OR =4)
[2024-06-29] MEDS: KETOROLAC 30 MG/ML 1ML VIAL IV ONE (21:20)
[2024-06-29] MEDS: oxyCODONE 5MG TAB PO ONE (22:58)
[2024-06-29] MEDS: BACLOFEN 10 MG TAB PO ONE (22:58)
[2024-06-29] MEDS ORDERED: METOCLOPRAMIDE INJ 10MG/2ML VIAL IV ONE (23:05)
[2024-06-30] VITALS: BP 118/59
[2024-06-30] MEDS ORDERED: ONDA-282 PO (00:15)
[2024-06-30 00:30] VITALS: O2SAT 95
== END 2024-06-30 00:40 | disposition home or self-care (01) ==
LOC: M ED 18:30
DX: R07.9 Chest pain, unspecified (principal); K76.6 Portal hypertension; A08.4 Viral intestinal infection, unspecified; K74.60 Unspecified cirrhosis of liver; R11.2 Nausea with vomiting, unspecified; G47.33 Obstructive sleep apnea (adult) (pediatric); J45.909 Unspecified asthma, uncomplicated; E11.9 Type 2 diabetes mellitus without complications; K21.9 Gastro-esophageal reflux disease without esophagitis; I10 Essential (primary) hypertension; E78.5 Hyperlipidemia, unspecified; Z79.51 Long term (current) use of inhaled steroids; Z79.01 Long term (current) use of anticoagulants; Z79.2 Long term (current) use of antibiotics; Z79.4 Long term (current) use of insulin; Z79.84 Long term (current) use of oral hypoglycemic drugs; Z79.810 Long term (current) use of selective estrogen receptor modulators (SERMs); Z79.899 Other long term (current) drug therapy
CPT/HCPCS: 71045; 71275; 74174; 80048; 80076; 82550; 82553; 84484; 85025; 85610; 85730; 87486; 87581; 87633; 87798; 93005; 93041; 94760; 96374; 96375; 99285; J1885; J2405; Q9967

== ENCOUNTER 2024-08-06 07:45 | Outpatient (RCR) | payer OTHER ==
[~2024-08-06 07:45] MED LIST changes: +ONDA-282 PO
== END 2024-08-12 ==
LOC: M PT 07:45
PROVIDERS: ATTEND Internal Medicine Infectious Disease
DX: M00.052 Staphylococcal arthritis, left hip (principal)

== ENCOUNTER → 2024-12-05 | Outpatient (CLI) | payer OTHER ==
[~2024-12-05] MED LIST changes: +AMLO-751 PO; -AMLO10TA PO; -IBUP-1022 PO; +IBUP600T42 PO; +LISI40TA10 PO; -LISI40TA4 PO
== END ==
LOC: M RAD 07:10
PROVIDERS: ATTEND Nurse Practitioner Women's Health
DX: I81 Portal vein thrombosis (principal); R16.1 Splenomegaly, not elsewhere classified

== ENCOUNTER → 2024-12-17 | Outpatient (CLI) | payer OTHER ==
[~2024-12-17] MED LIST changes: +IBUP-1022 PO; -IBUP600T42 PO
[2024-12-17 08:23] LABS: BASO # 0.0 10^3/uL (0.0-0.2); BASO % 0.6 % (0.0-1.0); EOS # 0.1 10^3/uL (0.0-0.5); EOS % 2.9 % (0.0-3.0); LYMPH # 2.2 10^3/uL (1.5-5.0); LYMPH % 45.9 % (24.0-44.0); MONO # 0.5 10^3/uL (0.0-0.8); MONO % 10.6 % (2.0-8.0); NEUTROPHILS # 1.9 10^3/uL (1.5-8.5); NEUTROPHILS % 39.8 % (36.0-66.0); PLATELET COUNT, AUTOMATED 124 10^3/uL (150-450)
[2024-12-17 08:31] LABS: ESTIMATED AVERAGE GLUCOSE 114.0 MG/DL (60-110)
[2024-12-17 08:35] LABS: INR 1.29
[2024-12-17 08:43] LABS: ERYTHROCYTE SEDIMENTATION RATE 31 mm/hr (0-20)
[2024-12-17 08:44] LABS: MAGNESIUM LEVEL 1.2 MG/DL (1.8-2.4)
[2024-12-17 08:45] LABS: C REACTIVE PROTEIN QUANTITATIV < 0.50 MG/DL (<1.0)
== END ==
LOC: M LAB 06:45
PROVIDERS: ATTEND Internal Medicine Infectious Disease
DX: K70.31 Alcoholic cirrhosis of liver with ascites (principal); E55.9 Vitamin D deficiency, unspecified; M00.052 Staphylococcal arthritis, left hip; E11.610 Type 2 diabetes mellitus with diabetic neuropathic arthropathy